=== PATIENT | female | born 1950 | race Caucasian/White ===

== ENCOUNTER → 2017-11-26 14:09 | Outpatient (CLI) | payer MEDICARE, OTHER, SELFPAY ==
--- NOTE | 2017-11-26 | OV.WND_ITS ---
Progress Note Details Patient Name: Angelica Vital Patient Number: [id number] PatientPatientDate: 11/26/2017 Clinician: Carrie Severino Physician / Director Appointment: Kaushik Arias SUBJECTIVE Chief Complaint This information was obtained from the patient Mohs procedure to L lower leg 11/19/17 Allergies NKDA HPI This information was obtained from the patient 11/26/17. Seen by Dr. Arias. The patient's new to our clinic and presents with a left lower leg surgical wound following a Mohs procedure for excision of a squamous cell carcinoma. Due to the size of the wound it will heal through secondary intention. The patient does not report pain or significant drainage and is currently on Keflex. 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 Surgical History This information was obtained from the patient Patient has a surgical history of: Left total hip Complaints and Symptoms This information was obtained from the patient Patient complains of: General Notes: I have reviewed and concur with the Review of Systems and Past Family Social History documents completed by the clinician, I have reviewed and concur with the Wound Assessment document completed by the clinician Cardiovascular (Central/Peripheral): Lower extremity (leg) swelling Hematologic/Lymphatic: Bleeding Tendency Prior Wound History: Bleeding Patient denies complaints or symptoms related to: Cardiovascular (Central/Peripheral): Intermittent Claudication, Lower extremity (leg) resting pain Constitutional Symptoms (General Health): Chills, Fever Ear/Nose/Mouth/Throat: Hearing Loss / Aid Hematologic/Lymphatic: Bleeding / Clotting Disorders Musculoskeletal: Assistive Devices Neurological: Loss of Protective Sensation Prior Wound History: Drainage, Pain Respiratory: Shortness of Breath General Notes: Up to date per patient Medications Lipitor 80 mg tablet oral tablet oral once daily lisinopril 20 mg tablet oral tablet oral once daily Toprol XL 100 mg tablet,extended release oral tablet extended release 24 hr oral once daily Keflex 500 mg capsule oral capsule oral twice daily OBJECTIVE Constitutional BP elevated; Afebrile; Alert and in no distress. Well developed. Alert. Clean appearing.. Height/Length: 64 in (162.56 cm), Weight: 158 lbs (71.82 kgs), BMI: 27.1, Temperature: 97.8 ?F (36.56 ?C), Pulse: 62 bpm, Respiratory Rate: 18 breaths/min, Blood Pressure: 158/73 mmHg, Pulse Oximetry: 97 %. Ears, Nose, Mouth, and Throat: No clinically significant hearing loss on informal examination. Respiratory: No respiratory distress. Even respirations and without use of accessory muscles.. Cardiovascular: 1+ left lower extremity edema. Integumentary (Hair, Skin) No periwound erythema, warmth, or significant drainage. No periwound rashes appreciated or noted otherwise.. Refer to appropriate clinician wound documentation for this visit; left lower leg wound extends to subcut with base partially covered with pink granulation, remainder fibrin and slough. Wound #1 Left Leg is an acute Partial Thickness Surgical Wound and has received a status of Not Healed. Initial wound encounter measurements are 1.5cm length x 1.3cm width x 0.1cm depth, with an area of 1.95 sq cm and a volume of 0.195 cubic cm. No tunneling has been noted. No sinus tract has been noted. No undermining has been noted. There was no drainage noted. The patient reports a wound pain of level 0/10. The wound margin is attached. Wound bed has No epithelialization, Yes eschar, No slough, No granulation. The periwound skin texture is normal. The periwound skin moisture is normal. The periwound skin color is normal. The temperature of the periwound skin is WNL. Periwound skin does not exhibit signs or symptoms of infection. Local Pulse is Palpable. Neurological: Cranial nerves grossly intact with symmetric function normal by informal observation.. ASSESSMENT Active Problems ICD-10 (Encounter Diagnosis) S81.802D - Unspecified open wound, left lower leg, subsequent encounter (Encounter Diagnosis) T81.31XD - Disruption of external operation (surgical) wound, not elsewhere classified, subsequent encounter (Encounter Diagnosis) C44.729 - Squamous cell carcinoma of skin of left lower limb, including hip PROCEDURES Wound #1 Wound #1 (Surgical Wound) is located on the left leg. A skin/subcutaneous tissue level surgical debridement with a total area debrided of 1.95 sq cm was performed by Kaushik Arias MD. Subcutaneous and Product were removed along with devitalized tissue: exudate and slough. The following instrument(s) were used: curette and forceps. Pain control was achieved using 4% Lido. A time out was conducted prior to the start of the procedure. A minimal amount of bleeding was controlled with n/a. The procedure was tolerated well with a pain level of 0 throughout and a pain level of 0 following the procedure. Post Debridement Measurements: 1.5cm length x 1.3cm width x 0.2cm depth; with an area of 1.95 sq cm and a volume of 0.39 cubic cm; Additional Information Muscle fascia or bone removed and sent to pathology?: No PLAN Wound Orders: Wound #1 Left Leg Anesthetic Topical Xylocaine to wound bed. - In clinic only Cleanser Cleanse Wound: - Normal saline in clinic. May use distilled water at home May Shower. - Please avoid getting tap water in wound. Cover while in shower. May use a cast protector purchased from pharmacy Topical Treatments Antibiotic/Antimicrobial Ointment/Cream. - Hydrogel to wound base with dressing changes Dressings Primary dressing: - Nexcare band aide Change Dressing: - Every other day Additional Orders: Compression/Edema Control Avoid prolonged standing in one place. Single Layer Compression Wrap: Follow-Up Appointments Return Appointment: - - One week Other information: If you develop fever, chills, increased pain, drainage, redness or swelling please call our office. If after hours, respond to the ER. Should you experience any significant changes in your wound(s) or have any questions regarding your home care instructions please contact the wound center @ [phone]. If after hours, contact your primary care physician or go to the hospital emergency room. Scribing Attestation I attest, as the nurse, that I scribed these orders for the physician. I've reviewed the clinician's documentation and agree with the evaluation and plan as written. In addition the patient's wound demonstrates evidence of non-viable devitalized tissue which will continue to benefit from sharp debridement to help promote granulation and expedite healing. Electronic Signature(s) Signed By: Date: Kaushik Arias MD 11/27/2017 12:00:44 Entered By: Kaushik Arias on 11/27/2017 11:59:55
== END ==
PROVIDERS: PCP Internal Medicine; Visit Provider Internal Medicine
DX: S81.802D Unspecified open wound, left lower leg, subsequent encounter (principal); T81.31XD Disruption of external operation (surgical) wound, not elsewhere classified, subsequent encounter; C44.729 Squamous cell carcinoma of skin of left lower limb, including hip
CPT/HCPCS: 11042; 99213

== ENCOUNTER → 2017-12-03 14:59 | Outpatient (CLI) | payer MEDICARE, OTHER, SELFPAY ==
--- NOTE | 2017-12-03 | OV.WND_ITS ---
Progress Note Details Patient Name: Angelica Vital Patient Number: [id number] PatientPatientDate: 12/03/2017 Clinician: Radha West Clinician Cosigner: Shayna Díaz Physician / Screw Machine Tool Setter: Kaushik Arias SUBJECTIVE Chief Complaint This information was obtained from the patient Mohs procedure to L lower leg 11/19/17 Allergies NKDA HPI This information was obtained from the patient 12/03/17. Seen by Dr. Arias. The patient does not report pain or significant drainage associated with the left lower leg surgical wound since her last visit. 11/26/17. Seen by Dr. Arias. The patient's new to our clinic and presents with a left lower leg surgical wound following a Mohs procedure for excision of a squamous cell carcinoma. Due to the size of the wound it will heal through secondary intention. The patient does not report pain or significant drainage and is currently on Keflex. Past Medical History This information was obtained from the patient Patient has a medical history of: Skin cancer Hypertension Complaints and Symptoms This information was obtained from the patient Patient complains of: General Notes: I have reviewed and concur with the Review of Systems and Past Family Social History documents completed by the clinician, I have reviewed and concur with the Wound Assessment document completed by the clinician Cardiovascular (Central/Peripheral): Lower extremity (leg) swelling Hematologic/Lymphatic: Bleeding Tendency Prior Wound History: Bleeding Patient denies complaints or symptoms related to: Cardiovascular (Central/Peripheral): Intermittent Claudication, Lower extremity (leg) resting pain Constitutional Symptoms (General Health): Chills, Fever Ear/Nose/Mouth/Throat: Hearing Loss / Aid Hematologic/Lymphatic: Bleeding / Clotting Disorders Musculoskeletal: Assistive Devices Neurological: Loss of Protective Sensation Prior Wound History: Drainage, Pain Respiratory: Shortness of Breath Additional Information Does patient have a history of Cancer? Yes? Complete all questions.: Yes Location of Cancer: left Leg Patient underwent Radiation Treatment? If yes, answer question below.: No OBJECTIVE Constitutional BP elevated; Afebrile; Alert and in no distress. Well developed. Alert. Clean appearing.. Height/Length: 64 in (162.56 cm), Weight: 158 lbs (71.82 kgs), BMI: 27.1, Temperature: 98.1 ?F (36.72 ?C), Pulse: 62 bpm, Respiratory Rate: 17 breaths/min, Blood Pressure: 141/71 mmHg, Pulse Oximetry: 98 %. Ears, Nose, Mouth, and Throat: No clinically significant hearing loss on informal examination. Respiratory: No respiratory distress. Even respirations and without use of accessory muscles.. Integumentary (Hair, Skin) No periwound erythema, warmth, or significant drainage. No periwound rashes appreciated or noted otherwise.. Refer to appropriate clinician wound documentation for this visit; left lower leg wound extends to subcut with base partially covered with pink granulation, remainder fibrin and slough. Wound #1 Left Leg is an acute Partial Thickness Surgical Wound and has received a status of Not Healed. Subsequent wound encounter measurements are 1.5cm length x 1.4cm width x 0.4cm depth, with an area of 2.1 sq cm and a volume of 0.84 cubic cm. No tunneling has been noted. No sinus tract has been noted. No undermining has been noted. There is a small amount of serosanguineous drainage noted which has no odor. The patient reports a wound pain of level 0/10. The wound margin is attached. Wound bed has Yes epithelialization, Yes eschar, Yes slough, Yes bright red, pink, firm granulation. The periwound skin texture is normal. The periwound skin moisture is normal. The periwound skin color is normal. The temperature of the periwound skin is WNL. Periwound skin does not exhibit signs or symptoms of infection. Local Pulse is Palpable. Neurological: Cranial nerves grossly intact with symmetric function normal by informal observation.. ASSESSMENT Active Problems ICD-10 (Encounter Diagnosis) S81.802D - Unspecified open wound, left lower leg, subsequent encounter (Encounter Diagnosis) T81.31XD - Disruption of external operation (surgical) wound, not elsewhere classified, subsequent encounter PROCEDURES Wound #1 Wound #1 (Surgical Wound) is located on the left leg. A skin/subcutaneous tissue level surgical debridement with a total area debrided of 2.1 sq cm was performed by Kaushik Arias MD. Subcutaneous was removed along with devitalized tissue: necrotic/eschar and slough. The following instrument(s) were used: curette. Pain control was achieved using 4% Lido. A time out was conducted prior to the start of the procedure. A minimal amount of bleeding was controlled with n/a. The procedure was tolerated well with a pain level of 0 throughout and a pain level of 0 following the procedure. Post Debridement Measurements: 1.5cm length x 1.4cm width x 0.5cm depth; with an area of 2.1 sq cm and a volume of 1.05 cubic cm; Additional Information Muscle fascia or bone removed and sent to pathology?: No PLAN Wound Orders: Wound #1 Left Leg Anesthetic Topical Xylocaine to wound bed. - In clinic only Cleanser Cleanse Wound: - Normal saline in clinic. May use distilled water at home May Shower. - Please avoid getting tap water in wound. Cover while in shower. May use a cast protector purchased from pharmacy Topical Treatments Antibiotic/Antimicrobial Ointment/Cream. - Hydrogel to wound base with dressing changes Dressings Primary dressing: - Nexcare band aide Change Dressing: - Every other day Additional Orders: Compression/Edema Control Avoid prolonged standing in one place. Single Layer Compression Wrap: Follow-Up Appointments Return Appointment: - - One week Other information: If you develop fever, chills, increased pain, drainage, redness or swelling please call our office. If after hours, respond to the ER. Should you experience any significant changes in your wound(s) or have any questions regarding your home care instructions please contact the wound center @ [phone]. If after hours, contact your primary care physician or go to the hospital emergency room. Scribing Attestation I attest, as the nurse, that I scribed these orders for the physician. I've reviewed the clinician's documentation and agree with the evaluation and plan as written. In addition the patient's wound demonstrates evidence of non-viable devitalized tissue which will continue to benefit from sharp debridement to help promote granulation and expedite healing. Electronic Signature(s) Signed By: Date: Kaushik Arias MD 12/04/2017 09:38:07 Entered By: Kaushik Arias on 12/04/2017 06:50:34
== END ==
PROVIDERS: PCP Internal Medicine; Visit Provider Internal Medicine
DX: S81.802A Unspecified open wound, left lower leg, initial encounter (principal); T81.31XA Disruption of external operation (surgical) wound, not elsewhere classified, initial encounter
CPT/HCPCS: 11042

== ENCOUNTER → 2017-12-10 15:02 | Outpatient (CLI) | payer MEDICARE, OTHER, SELFPAY | PROVIDERS: PCP Internal Medicine; Visit Provider Family Medicine | DX: S81.802A Unspecified open wound, left lower leg, initial encounter (principal); T81.31XA Disruption of external operation (surgical) wound, not elsewhere classified, initial encounter | CPT/HCPCS: 11042; 93922; 99213 ==

== ENCOUNTER → 2017-12-17 14:01 | Outpatient (CLI) | payer MEDICARE, OTHER, SELFPAY | PROVIDERS: PCP Internal Medicine; Visit Provider Family Medicine | DX: S81.802A Unspecified open wound, left lower leg, initial encounter (principal); T81.31XA Disruption of external operation (surgical) wound, not elsewhere classified, initial encounter | CPT/HCPCS: 11042 ==

== ENCOUNTER → 2017-12-28 08:26 | Outpatient (CLI) | payer MEDICARE, OTHER, SELFPAY | PROVIDERS: PCP Internal Medicine; Visit Provider Family Medicine | DX: S81.802A Unspecified open wound, left lower leg, initial encounter (principal); T81.31XA Disruption of external operation (surgical) wound, not elsewhere classified, initial encounter | CPT/HCPCS: 11042 ==

== ENCOUNTER → 2017-12-29 11:10 | Outpatient (CLI) | payer MEDICARE, OTHER, SELFPAY ==
--- NOTE | 2017-12-29 | DI.MG.S_ITS ---
BILATERAL DIGITAL SCREENING MAMMOGRAM 3D/2D WITH CAD: 12/29/2017 CLINICAL: Routine screening. Family history of breast cancer. Comparison is made to exams dated: 12/15/2016 mammogram, 05/07/2016 mammogram, 11/28/2015 mammogram, and 11/19/2015 mammogram - [facility]. There are scattered fibroglandular elements in both breasts. Current study was also evaluated with a Computer Aided Detection (CAD) system. No significant masses, calcifications, or other findings are seen in either breast. There has been no significant interval change. IMPRESSION: NEGATIVE There is no mammographic evidence of malignancy. A 1 year screening mammogram is recommended. This exam was interpreted at Station ID: [id number]. NOTE: For mammograms, a report in lay terms will be sent to the patient. Approximately 15% of breast malignancies will not be visualized mammographically. In the management of a palpable breast mass, a negative mammogram must not discourage biopsy of a clinically suspicious lesion. Electronically Signed By: Anel singh/siddharth:12/29/2017 12:13:09 letter sent: Normal Exam ACR BI-RADS Category 1: Negative 3341F
== END ==
PROVIDERS: PCP Internal Medicine; Visit Provider Internal Medicine
DX: Z12.31 Encounter for screening mammogram for malignant neoplasm of breast (principal); Z80.3 Family history of malignant neoplasm of breast
CPT/HCPCS: 77063; 77067

== ENCOUNTER → 2017-12-30 10:43 | Outpatient (CLI) | payer MEDICARE, OTHER, SELFPAY | PROVIDERS: PCP Internal Medicine; Visit Provider Family Medicine | DX: S81.802A Unspecified open wound, left lower leg, initial encounter (principal); T81.31XA Disruption of external operation (surgical) wound, not elsewhere classified, initial encounter | CPT/HCPCS: 29581 ==

== ENCOUNTER → 2018-01-06 09:58 | Outpatient (CLI) | payer MEDICARE, OTHER, SELFPAY | PROVIDERS: PCP Internal Medicine; Visit Provider Family Medicine | DX: S81.802A Unspecified open wound, left lower leg, initial encounter (principal); T81.31XA Disruption of external operation (surgical) wound, not elsewhere classified, initial encounter | CPT/HCPCS: 11042 ==

== ENCOUNTER → 2018-01-13 15:16 | Outpatient (CLI) | payer MEDICARE, OTHER, SELFPAY | PROVIDERS: PCP Internal Medicine; Visit Provider Family Medicine | DX: S81.802A Unspecified open wound, left lower leg, initial encounter (principal); T81.31XA Disruption of external operation (surgical) wound, not elsewhere classified, initial encounter | CPT/HCPCS: 11042 ==

== ENCOUNTER → 2018-01-20 14:25 | Outpatient (CLI) | payer MEDICARE, OTHER, SELFPAY | PROVIDERS: PCP Internal Medicine; Visit Provider Family Medicine | DX: S81.802A Unspecified open wound, left lower leg, initial encounter (principal); T81.31XA Disruption of external operation (surgical) wound, not elsewhere classified, initial encounter | CPT/HCPCS: 29581; 99213 ==

== ENCOUNTER → 2018-01-27 14:27 | Outpatient (CLI) | payer MEDICARE, OTHER, SELFPAY | PROVIDERS: PCP Internal Medicine; Visit Provider Family Medicine | DX: S81.802A Unspecified open wound, left lower leg, initial encounter (principal); T81.31XA Disruption of external operation (surgical) wound, not elsewhere classified, initial encounter | CPT/HCPCS: 29581; 99212; 99213 ==

== ENCOUNTER → 2018-02-03 13:47 | Outpatient (CLI) | payer MEDICARE, OTHER, SELFPAY | PROVIDERS: PCP Internal Medicine; Visit Provider Family Medicine | DX: Z48.817 Encounter for surgical aftercare following surgery on the skin and subcutaneous tissue (principal) | CPT/HCPCS: 99212; 99213 ==

== ENCOUNTER → 2019-01-13 16:05 | Outpatient (CLI) | payer MEDICARE, OTHER, SELFPAY ==
--- NOTE | 2019-01-13 | DI.MG.S_ITS ---
BILATERAL DIGITAL SCREENING MAMMOGRAM 3D/2D WITH CAD: 01/13/2019 CLINICAL: Routine screening. Family history of breast cancer. Comparison is made to exams dated: 12/29/2017 mammogram, 12/15/2016 mammogram, 11/19/2015 mammogram, 11/03/2013 mammogram - [facility], and 05/13/2012 mammogram - [facility]. The tissue of both breasts is heterogeneously dense. This may lower the sensitivity of mammography. Current study was also evaluated with a Computer Aided Detection (CAD) system. No significant masses, calcifications, or other findings are seen in either breast. There has been no significant interval change. IMPRESSION: NEGATIVE There is no mammographic evidence of malignancy. A 1 year screening mammogram is recommended. This exam was interpreted at Station ID: [id number]. NOTE: For mammograms, a report in lay terms will be sent to the patient. Approximately 15% of breast malignancies will not be visualized mammographically. In the management of a palpable breast mass, a negative mammogram must not discourage biopsy of a clinically suspicious lesion. Electronically Signed By: Dheeraj silva/siddharth:01/14/2019 07:28:31 letter sent: Normal Exam ACR BI-RADS Category 1: Negative 3341F
== END ==
PROVIDERS: PCP Internal Medicine; Visit Provider Internal Medicine
DX: Z12.31 Encounter for screening mammogram for malignant neoplasm of breast (principal); Z80.3 Family history of malignant neoplasm of breast
CPT/HCPCS: 77063; 77067

== ENCOUNTER → 2019-12-22 13:17 | Outpatient (ROUT) | payer MEDICARE, OTHER, SELFPAY ==
[2019-12-22 13:45] LABS: Aspartate Aminotransferase 35 IU/L (14-36); BUN Creatinine Ratio 24.8 (6-22); Blood Urea Nitrogen 25 mg/dL (7-17); Calcium 9.3 mg/dL (8.4-10.2); Carbon Dioxide 26 mmol/L (22-32); Chloride 102 mmol/L (98-107); Cholesterol 201 mg/dL (140-199); Glucose 89 mg/dL (80-110); HDL Cholesterol 80 mg/dL (40-60); HEMOLYSIS < 15 (0-50); LDL Cholesterol Calculated 91 mg/dL (<100); Potassium 4.7 mmol/L (3.4-5.1); Sodium 135 mmol/L (137-145); Triglycerides 149 mg/dL (35-150)
== END ==
PROVIDERS: PCP Internal Medicine; Visit Provider Internal Medicine
DX: I10 Essential (primary) hypertension (principal); E78.2 Mixed hyperlipidemia
CPT/HCPCS: 80048; 80061; 84450

== ENCOUNTER → 2020-01-16 15:57 | Outpatient (CLI) | payer MEDICARE, OTHER, SELFPAY ==
--- NOTE | 2020-01-16 16:00 | DI.MG.S_ITS ---
BILATERAL DIGITAL SCREENING MAMMOGRAM 3D/2D WITH CAD: 01/16/2020 CLINICAL: Routine screening. Family history of breast cancer. Comparison is made to exams dated: 01/13/2019 mammogram, 12/29/2017 mammogram, and 12/15/2016 mammogram - [facility]. The tissue of both breasts is heterogeneously dense. This may lower the sensitivity of mammography. Current study was also evaluated with a Computer Aided Detection (CAD) system. There is a 0.6 cm round high density asymmetry in the right breast posterior depth medial region seen on the craniocaudal view only 9.2 cm from the nipple. No other significant masses, calcifications, or other findings are seen in either breast. IMPRESSION: INCOMPLETE: NEEDS ADDITIONAL IMAGING EVALUATION The 0.6 cm round high density asymmetry in the right breast is indeterminate. Additional views with possible ultrasound are recommended. This exam was interpreted at Station ID: [id number]. NOTE: For mammograms, a report in lay terms will be sent to the patient. Approximately 15% of breast malignancies will not be visualized mammographically. In the management of a palpable breast mass, a negative mammogram must not discourage biopsy of a clinically suspicious lesion. Electronically Signed By: Jourdan Platt M.D., jr/siddharth:01/16/2020 16:20:02 letter sent: Additional Imaging Needed ACR BI-RADS Category 0: Incomplete [id number]
== END ==
PROVIDERS: PCP Internal Medicine; Referring Provider Internal Medicine; Visit Provider Internal Medicine
DX: Z12.31 Encounter for screening mammogram for malignant neoplasm of breast (principal)
CPT/HCPCS: 77063; 77067

== ENCOUNTER → 2020-03-20 11:14 | Outpatient (CLI) | payer MEDICARE, OTHER, SELFPAY ==
--- NOTE | 2020-03-20 | DI.MRI.S_ITS ---
PROCEDURE: MR SHOULDER RT WO CON INDICATIONS: Dysfunction of right rotator cuff TECHNIQUE: Noncontrast oblique coronal T2 fast spin echo with fat saturation, oblique sagittal T1 spin echo and T2 fast spin echo with fat saturation, axial T1 spin echo and T2 fast spin echo with fat saturation through the shoulder. COMPARISON: None. FINDINGS: Image quality: Excellent. Rotator cuff: Full-thickness rupture involving distal supraspinatus at its insertion on the humeral head is seen with up to 3 centimeter medial retraction of torn tendon fibers to the level of acromioclavicular joint. Tendinosis and low to moderate grade articular surface partial thickness tear involving distal infraspinatus at its insertion on the humeral head is seen. Distal subscapularis tendinosis and low to moderate grade intrasubstance partial-thickness tear is also noted. Sagittal images demonstrate moderate supraspinatus and subscapularis muscle atrophy. Bones and bursae: No bone marrow contusions or fractures. Moderate acromioclavicular joint osteoarthritic changes are seen with downward osteophyte formation depressing the musculotendinous junction of supraspinatus. There is moderate amount of joint effusion and subacromial subdeltoid bursal fluid. Capsule and soft tissues: In the absence of intra-articular contrast, there is subtle signal abnormality and contour irregularity in superior anterior labrum at 12 to 1 o'clock position. The glenohumeral ligaments appear intact. The long head of the biceps tendinosis and moderate grade intrasubstance partial-thickness tear is seen. The rotator interval appears normal, without fibrosis. The coracohumeral ligament is normal in thickness. IMPRESSION: 1. Full-thickness rupture involving distal supraspinatus at its insertion on the humeral head with up to 3 cm medial retraction of torn tendon fibers to the level of acromioclavicular joint. Tendinosis and low to moderate grade articular surface partial thickness tear involving distal infraspinatus. Distal subscapularis tendinosis and low to moderate grade partial-thickness tear. Moderate supraspinatus and subscapularis muscle atrophy. 2. Moderate acromioclavicular joint osteoarthritis. Moderate amount of joint effusion and subacromial subdeltoid bursal fluid. 3. Suggestion of superior anterior labral tear at 12 to 1 o'clock position. 4. Proximal intra-articular portion of long head of biceps tendinosis and low to moderate grade intrasubstance partial-thickness tear. Dictated by: Saravanan Gaona M.D. on 03/20/2020 at 17:21 Approved by: Saravanan Gaona M.D. on 03/20/2020 at 17:31
== END ==
PROVIDERS: PCP Internal Medicine; Referring Provider Orthopaedic Surgery; Visit Provider Orthopaedic Surgery
DX: M75.121 Complete rotator cuff tear or rupture of right shoulder, not specified as traumatic (principal); S46.111A Strain of muscle, fascia and tendon of long head of biceps, right arm, initial encounter; M19.011 Primary osteoarthritis, right shoulder; M25.411 Effusion, right shoulder
CPT/HCPCS: 73221

== ENCOUNTER → 2020-07-09 08:51 | Outpatient (CLI) | payer MEDICARE, OTHER, SELFPAY ==
[2020-07-09 10:24] LABS: Bacteria Urine Many (>30); Culture Indicated Urine Specimen Cultured; RBC Urine >100/HPF (0-5/HPF); WBC Urine 30-100/HPF (0-5/HPF)
== END ==
PROVIDERS: Family Provider Internal Medicine; PCP Internal Medicine; Visit Provider Student in an Organized Health Care Education/Training Program
DX: N34.3 Urethral syndrome, unspecified (principal); N12 Tubulo-interstitial nephritis, not specified as acute or chronic
CPT/HCPCS: 81015; 87077; 87086; 87186

== ENCOUNTER 2020-07-25 15:15 | Outpatient (RCR) | payer MEDICARE, OTHER, SELFPAY ==
--- NOTE | 2020-03-28 15:52 | PT.OIE ---
Current Diagnoses Other specific arthropathies, not elsewhere classified, right shoulder (03/28/20) Other cervical disc degeneration, unspecified cervical region (03/28/20) Abnormal posture (03/28/20) Strain of muscle, fascia and tendon of other parts of biceps, right arm, initial encounter (03/28/20) Visit Care Team Role Provider Type Pascual Garcia MD Family Provider Physician Primary Care Provider Specialty: Internal Medicine Address: [address] [place] [address], [id number] Email: [email or web address] Dheeraj Mederos MD Attending Provider Physician Referring Provider Specialty: Orthopedic Surgery Address: [address] [place] [address], [phone] Email: [email or web address] Physical Therapy Initial Evaluation PT-OP-A Visit Information Start: 03/28/20 13:47 Freq: Status: Active Protocol: Document 03/28/20 13:47 AW (Rec: 03/28/20 17:42 AW [email or web address]) Out-Patient Physical Therapy Visit Information Visit Information Visit Type Initial Evaluation Visit Start Time 13:45 Visit Stop Time 14:30 Total Visit Minutes 45 Visit Number 1 Number of 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 She is right handed. Neck pain interferes with driving. 1.5 years ago, she was pushing heavy wheelbarrow which fell, resulting in proximal biceps swelling, weakness. No tear was diagnosed. In May of 2019, she started doing Pilates workouts by [employer] and started to have ongoing neck pain so she stopped the workouts. She describes the pain as deep and aching. Meanwhile, right shoulder pain was increasing. MRI was completed on 03/20/20 with results below including full thickness distal suprasinatus rupture and partial thickness tear proximal long head biceps tendon, possible labral year. She saw Dr. Mederos last week who does not think she is a surgical candidate due to chronicity. Instead, she was referred to PT. Her biggest problem is lifting with the arm in scaption or abduction. Pain wakes her up at night if she is sleeping on the right side. Prior Treatments and Tests MRI 03/20/20: 1. Full-thickness rupture involving distal supraspinatus at its insertion on the humeral head with up to 3 cm medial retraction of torn tendon fibers to the level of acromioclavicular joint. Tendinosis and low to moderate grade articular surface partial thickness tear involving distal infraspinatus. Distal subscapularis tendinosis and low to moderate grade partial- thickness tear. Moderate supraspinatus and subscapularis muscle atrophy. 2. Moderate acromioclavicular joint osteoarthritis. Moderate amount of joint effusion and subacromial subdeltoid bursal fluid. 3. Suggestion of superior anterior labral tear at 12 to 1 o'clock position. 4. Proximal intra-articular portion of long head of biceps tendinosis and low to moderate grade intrasubstance partial- thickness tear. 03/21/20: shoulder injection Future Testing and Treatments Planned Seek second opinion on possible surgery. Treatment Goals Patient/Caregiver Goals Reduce neck and shoulder pain. Feed horses with 4# feed - reaching across and extend arm in scaption plane. Prior Functional Status Baseline Function- ADL's Independent Baseline Function- Mobility Independent Baseline Function- Work/School Pt and her spouse recently sold the local [employer]. 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 Baseline Function- Other Able to tend to her horses and perform heavy gardening tasks . Current Functional Impairments (Reported) Functional Limitations- Other Unable to lift and pour ~4# animal feed with arm outstretched. Personal Factors Other Personal Factors That May Effect + Positive association with Therapy/Recovery movement PT-OP-C Subjective Start: 03/28/20 13:47 Freq: Status: Active Protocol: Document 03/28/20 13:47 AW (Rec: 03/28/20 17:42 AW [email or web address]) Patient Questionnaires Quick Dash- Upper Extremity Quick Dash UE Score 32 Quick Dash UE Impairment 20 to 39% Impaired (Score 20- 39) PT-OP-F Manual Assessment Start: 03/28/20 13:47 Freq: Status: Active Protocol: Document 03/28/20 13:47 AW (Rec: 03/28/20 17:42 AW [email or web address]) Manual Assessments Soft Tissue Assessment Soft Tissue Mobility Assessment Moderately dense cervical paraspinals and periscapular musculature bilaterally. Pt is thin but muscle atrophy is apparent in right shoulder and biceps. Ko deformity noted RUE. Joint Mobility Assessment Joint Mobility Assessment A/C gapping not provocative or relieving. No point tenderness at proximal humerus . Pt does have strong reaction to deep palpation of the right rhomboids. PT-OP-H Neuro Start: 03/28/20 13:47 Freq: Status: Active Protocol: Document 03/28/20 13:47 AW (Rec: 03/28/20 17:42 AW [email or web address]) Sensation Evaluation Gross Sensation Gross Sensation Left UE Impaired Comments Summary Comments Pt reports occasional tingling in the left hand but is not reproduced on exam. Deep Tendon Reflex & Clonus Assessment Deep Tendon Reflex Bilateral Tricep Deep Tendon Reflex 1+ Diminished Bilateral Bicep Deep Tendon Reflex 3+ Normal But Brisk PT-OP-J Posture/Palpation/Skin Start: 03/28/20 13:47 Freq: Status: Active Protocol: Document 03/28/20 13:47 AW (Rec: 03/28/20 17:42 AW [email or web address]) Posture Evaluation Position Sitting Evaluation View Lateral Head/C-Spine Posture Forward Head Shoulder Posture (L) Rounded,(R) Rounded Scapula Posture (R) Protracted PT-OP-K Range of Motion Start: 03/28/20 13:47 Freq: Status: Active Protocol: Document 03/28/20 13:47 AW (Rec: 03/28/20 17:42 AW [email or web address]) Cervical Spine Range of Motion Cervical Spine Active Degrees Testing Position Sitting Flexion 45 Extension 50 Rotation Left 40 Rotation Right 45 Lateral Flexion Left 33 Lateral Flexion Right 36 ROM Limitations Soft Tissue Tightness,Pain Comments Right side bend and rotation painful Shoulder Goniometric Range of Motion Shoulder Left Active Testing Position Sitting Flexion 159 Extension 45 Abduction 166 Internal Rotation Behind Back (text) T8 Comments B shoulder PROM WFL Right Active Testing Position Sitting Flexion 160 Extension 45 Abduction 165 Internal Rotation Behind Back (text) L1 Shoulder ROM Limitations Shoulder ROM Limitations Soft Tissue Tightness,Pain Elbow/Forearm Range of Motion Elbow/Forearm Right Active Comments B elbow AROM WNL PT-OP-L Special Tests Start: 03/28/20 13:47 Freq: Status: Active Protocol: Document 03/28/20 13:47 AW (Rec: 03/28/20 17:47 AW [email or web address]) Special Tests Cervical Spine Special Tests Spurling's Test Test Results negative bilaterally PT-OP-M Strength Start: 03/28/20 13:47 Freq: Status: Active Protocol: Document 03/28/20 13:47 AW (Rec: 03/28/20 17:47 AW [email or web address]) Cervical Spine Strength Cervical Spine Manual Muscle Testing Testing Position Sitting Flexion (C1-2) 4- Good- Extension 4- Good- Rotation Left 4- Good- Rotation Right 4- Good- Lateral Flexion Left (C3) 4- Good- Lateral Flexion Right (C3) 4- Good- Shoulder Strength Shoulder Manual Muscle Testing Left Flexion 4+ Good+ Extension 4+ Good+ Abduction (C5) 4+ Good+ Adduction 4+ Good+ External Rotation 4+ Good+ Internal Rotation 4+ Good+ Right Flexion 3+ Fair+ Extension 4 Good Abduction (C5) 3+ Fair+ Adduction 4+ Good+ External Rotation 4- Good- Internal Rotation 4+ Good+ Elbow/Forearm Strength Elbow and Forearm Manual Muscle Testing Right Flexion (C6) 4- Good- Extension (C7) 4- Good- Hand Combination Man/Pinch Strength Hand Dominance Hand Dominance Right PT-OP-Q Treatments Start: 03/28/20 13:47 Freq: Status: Active Protocol: Document 03/28/20 13:47 AW (Rec: 03/28/20 17:47 AW [email or web address]) Manual Therapy Treatment Soft Tissue Mobilization 1 Body Location cervical paraspinals, suboccipitals, rhomboids, infraspinatus insertion Mobilization Type Cross-Friction,Myofascial Release,Sustained Pressure Intensity/Depth Superficial Body Position Hooklying Comments With MET into rotation bilaterally. I feel like you just opened me up a little bit . Manual Traction Cervical Body Position Hooklying Reps/Duration 5 min Comments relieving for neck pain PT-OP-T Assessment and Plan Start: 03/28/20 13:47 Freq: Status: Active Protocol: Document 03/28/20 13:47 AW (Rec: 03/28/20 17:59 AW [email or web address]) Physical Therapy Assessment Rehab Potential Rehabilitation Potential Good Evaluation Complexity Number of Personal Factors/Comorbidities 1-2 Number of Body Systems Impaired 1-2 Clinical Presentation at Evaluation Stable Impairments Impairments Functional Activities,Pain, Posture,ROM,Sensation,Soft Tissue Mobility,Strength Other Concerns Barriers to Rehabilitation (-) chronicity of deficits( (+) positive association with movement Goals Four Impairment neck/shoulder pain impact daily activities Raw Hide Trimmer Goal (LTG) Pt will score 20% or less on QuickDash to indicate improvement in performance of daily activities. LTG Duration 06/20/20 Three Impairment no HEP Short Term Goal (STG) Pt will be independent with HEP for support of therapy services provided in clinic. STG Duration 05/09/20 Mcfp Goal (LTG) Pt will demonstrate independence with maintenance HEP LTG Duration 06/20/20 Two Impairment RUE strength Short Term Goal (STG) Pt will increase R shoulder strength to 4+/5 all planes STG Duration 05/09/2020 Raw Hide Trimmer Goal (LTG) Pt will be able to lift 5# in scaption plane with elbow extended in order to improve ability to care for her horses . LTG Duration 06/20/20 One Impairment cervical ROM Mcfp Goal (LTG) Pt will increase cervical rotation to 50 degrees or greater bilaterally without increase in pain to improve driving tolerance. LTG Duration 06/20/20 Assessment Summary Assessment Angelica is a 69yo woman seen for outpatient PT evaluation with complaints of neck and right shoulder pain. Recent MRI results include full thickness distal supraspinatus rupture, partial thickness tear of the proximal long head biceps tendon, and possible labral tear. She saw orthopedic physician who indicated pt is not a good surgical candidate; pt is considering seeking a second opinion. Right shoulder internal rotation ROM and external rotation strength is limited and painful. Cervical ROM is also limited and painful. Pain is worst with right side bend and right rotation. Pt will benefit from skilled PT to address these deficits and improve her ability to participate in work , agricultural, and recreational activities. Physical Therapy Plan Frequency and Duration Frequency of Treatment 2x/Week Duration of Treatment 12 weeks Plan of Care Start Date 03/28/20 Plan of Care End Date 06/20/20 Therapeutic Interventions Therapeutic Interventions Home Exercise Program,Joint Mobilizations,Manual Therapy, Neuromuscular Re-education, Patient/Caregiver Education, Self-Care/Home Management,Soft Tissue Mobilization,Taping, Therapeutic Activities, Therapeutic Exercises Modalities Cold Pack/Ice Massage,Electric Stimulation,Hot Packs, Traction- Mechanical Next Visit Focus/Plan Next Note Type Treatment Note Next Visit Plan STM cervical and R shoulder, pt responds well to manual cervical traction and work into rotation with MET or contract/relax; cervical AROM; shoulder AAROM
--- NOTE | 2020-03-28 15:53 | PT.OPPOC ---
Physical, Occupational & Speech Therapy At [facility] Current Diagnoses Other specific arthropathies, not elsewhere classified, right shoulder (03/28/20) Other cervical disc degeneration, unspecified cervical region (03/28/20) Abnormal posture (03/28/20) Strain of muscle, fascia and tendon of other parts of biceps, right arm, initial encounter (03/28/20) Visit Care Team Role Provider Type Pascual Garcia MD Family Provider Physician Primary Care Provider Specialty: Internal Medicine Address: [address] [place] [address], [id number] Email: [email or web address] Dheeraj Mederos MD Attending Provider Physician Referring Provider Specialty: Orthopedic Surgery Address: [address] [place] [address], [id number] Email: [email or web address] Plan Of Care PT-OP-T Assessment and Plan Start: 03/28/20 13:47 Freq: Status: Active Protocol: Document 03/28/20 13:47 AW (Rec: 03/28/20 17:59 AW [email or web address]) Physical Therapy Assessment Rehab Potential Rehabilitation Potential Good Evaluation Complexity Number of Personal Factors/Comorbidities 1-2 Number of Body Systems Impaired 1-2 Clinical Presentation at Evaluation Stable Impairments Impairments Functional Activities,Pain, Posture,ROM,Sensation,Soft Tissue Mobility,Strength Other Concerns Barriers to Rehabilitation (-) chronicity of deficits( (+) positive association with movement Goals Four Impairment neck/shoulder pain impact daily activities Half-Way Goal (LTG) Pt will score 20% or less on QuickDash to indicate improvement in performance of daily activities. LTG Duration 06/20/20 Three Impairment no HEP Short Term Goal (STG) Pt will be independent with HEP for support of therapy services provided in clinic. STG Duration 05/09/20 Half-Way Goal (LTG) Pt will demonstrate independence with maintenance HEP LTG Duration 06/20/20 Two Impairment RUE strength Short Term Goal (STG) Pt will increase R shoulder strength to 4+/5 all planes STG Duration 05/09/2020 Flow Coordinator Goal (LTG) Pt will be able to lift 5# in scaption plane with elbow extended in order to improve ability to care for her horses . LTG Duration 06/20/20 One Impairment cervical ROM Half-Way Goal (LTG) Pt will increase cervical rotation to 50 degrees or greater bilaterally without increase in pain to improve driving tolerance. LTG Duration 06/20/20 Assessment Summary Assessment Angelica is a 69yo woman seen for outpatient PT evaluation with complaints of neck and right shoulder pain. Recent MRI results include full thickness distal supraspinatus rupture, partial thickness tear of the proximal long head biceps tendon, and possible labral tear. She saw orthopedic physician who indicated pt is not a good surgical candidate; pt is considering seeking a second opinion. Right shoulder internal rotation ROM and external rotation strength is limited and painful. Cervical ROM is also limited and painful. Pain is worst with right side bend and right rotation. Pt will benefit from skilled PT to address these deficits and improve her ability to participate in work , agricultural, and recreational activities. Physical Therapy Plan Frequency and Duration Frequency of Treatment 2x/Week Duration of Treatment 12 weeks Plan of Care Start Date 03/28/20 Plan of Care End Date 06/20/20 Therapeutic Interventions Therapeutic Interventions Home Exercise Program,Joint Mobilizations,Manual Therapy, Neuromuscular Re-education, Patient/Caregiver Education, Self-Care/Home Management,Soft Tissue Mobilization,Taping, Therapeutic Activities, Therapeutic Exercises Modalities Cold Pack/Ice Massage,Electric Stimulation,Hot Packs, Traction- Mechanical Next Visit Focus/Plan Next Note Type Treatment Note Next Visit Plan STM cervical and R shoulder, pt responds well to manual cervical traction and work into rotation with MET or contract/relax; cervical AROM; shoulder AAROM Plan of Care Dates Plan of Care Start Date 03/28/20 Plan of Care End Date 06/20/20 Electronically Signed by: Shama Bejarano, PT 03/29/20 0046 Please Sign and Return: I have reviewed this Plan of Care and certify that the skilled therapy services above are required to meet the patient?s needs. Physician Signature Date Printed Name and Credentials Clinical Instructor Signature Printed Name and Credentials
--- NOTE | 2020-03-30 14:45 | PT.OTN ---
Current Diagnoses Other specific arthropathies, not elsewhere classified, right shoulder (03/30/20) Other cervical disc degeneration, unspecified cervical region (03/30/20) Abnormal posture (03/30/20) Strain of muscle, fascia and tendon of other parts of biceps, right arm, initial encounter (03/30/20) Physical Therapy Treatment Note PT-OP-A Visit Information Start: 03/28/20 13:47 Freq: Status: Active Protocol: Document 03/30/20 13:45 SP (Rec: 03/30/20 15:20 SP [id number]) Out-Patient Physical Therapy Visit Information Visit Information Visit Type Treatment Note Visit Note Yuli GARCIAA atttended tx. Visit Start Time 13:45 Visit Stop Time 14:45 Total Visit Minutes 60 Visit Number 2 Number of ENERGY TECHNICIAN Visits 1 PT-OP-B Current Condition Start: 03/28/20 13:47 Freq: Status: Active Protocol: Document 03/28/20 13:47 AW (Rec: 03/28/20 14:50 AW [id number]) Current Condition History of Current Condition Onset Date May 2019 neck; August 2019 R shoulder Current Complaints neck and R shoulder pain History of Current Condition Pt has near-constant neck and right shoulder pain. She is right handed. Neck pain interferes with driving. 1.5 years ago, she was pushing heavy wheelbarrow which fell, resulting in proximal biceps swelling, weakness. No tear was diagnosed. In May of 2019, she started doing Pilates workouts by Z[employer] and started to have ongoing neck pain so she stopped the workouts. She describes the pain as deep and aching. Meanwhile, right shoulder pain was increasing. MRI was completed on 03/20/20 with results below including full thickness distal suprasinatus rupture and partial thickness tear proximal long head biceps tendon, possible labral year. She saw Dr. Mederos last week who does not think she is a surgical candidate due to chronicity. Instead, she was referred to PT. Her biggest problem is lifting with the arm in scaption or abduction. Pain wakes her up at night if she is sleeping on the right side. Prior Treatments and Tests MRI 03/20/20: 1. Full-thickness rupture involving distal supraspinatus at its insertion on the humeral head with up to 3 cm medial retraction of torn tendon fibers to the level of acromioclavicular joint. Tendinosis and low to moderate grade articular surface partial thickness tear involving distal infraspinatus. Distal subscapularis tendinosis and low to moderate grade partial- thickness tear. Moderate supraspinatus and subscapularis muscle atrophy. 2. Moderate acromioclavicular joint osteoarthritis. Moderate amount of joint effusion and subacromial subdeltoid bursal fluid. 3. Suggestion of superior anterior labral tear at 12 to 1 o'clock position. 4. Proximal intra-articular portion of long head of biceps tendinosis and low to moderate grade intrasubstance partial- thickness tear. 03/21/20: shoulder injection Future Testing and Treatments Planned Seek second opinion on possible surgery. Treatment Goals Patient/Caregiver Goals Reduce neck and shoulder pain. Feed horses with 4# feed - reaching across and extend arm in scaption plane. Prior Functional Status Baseline Function- ADL's Independent Baseline Function- Mobility Independent Baseline Function- Work/School Pt and her spouse recently sold the local [employer]. 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 Baseline Function- Other Able to tend to her horses and perform heavy gardening tasks . Current Functional Impairments (Reported) Functional Limitations- Other Unable to lift and pour ~4# animal feed with arm outstretched. Personal Factors Other Personal Factors That May Effect + Positive association with Therapy/Recovery movement PT-OP-C Subjective Start: 03/28/20 13:47 Freq: Status: Active Protocol: Document 03/30/20 13:45 SP (Rec: 03/30/20 15:20 SP [id number]) OP-PT Subjective Patient Comments Patient Comments Pt reported neck pain 5/10 neck pain and cant turn my head alot, don't feel to much different, did feel better after lasttx and was helpful. Pt stated is performing self stretching: trunk flexion in standing with allowing head unweight and stretch posterior neck, CS side bend stretch but notices her R shld is weak and noted atrophy wanting to improve. She has a hard time looking over R shld when backing up. Pt stated does use MHP at home. PT-OP-F Manual Assessment Start: 03/28/20 13:47 Freq: Status: Active Protocol: Document 03/28/20 13:47 AW (Rec: 03/28/20 17:42 AW [email or web address]) Manual Assessments Soft Tissue Assessment Soft Tissue Mobility Assessment Moderately dense cervical paraspinals and periscapular musculature bilaterally. Pt is thin but muscle atrophy is apparent in right shoulder and biceps. Ko deformity noted RUE. Joint Mobility Assessment Joint Mobility Assessment A/C gapping not provocative or relieving. No point tenderness at proximal humerus . Pt does have strong reaction to deep palpation of the right rhomboids. PT-OP-H Neuro Start: 03/28/20 13:47 Freq: Status: Active Protocol: Document 03/28/20 13:47 AW (Rec: 03/28/20 17:42 AW [email or web address]) Sensation Evaluation Gross Sensation Gross Sensation Left UE Impaired Comments Summary Comments Pt reports occasional tingling in the left hand but is not reproduced on exam. Deep Tendon Reflex & Clonus Assessment Deep Tendon Reflex Bilateral Tricep Deep Tendon Reflex 1+ Diminished Bilateral Bicep Deep Tendon Reflex 3+ Normal But Brisk PT-OP-J Posture/Palpation/Skin Start: 03/28/20 13:47 Freq: Status: Active Protocol: Document 03/28/20 13:47 AW (Rec: 03/28/20 17:42 AW [email or web address]) Posture Evaluation Position Sitting Evaluation View Lateral Head/C-Spine Posture Forward Head Shoulder Posture (L) Rounded,(R) Rounded Scapula Posture (R) Protracted PT-OP-K Range of Motion Start: 03/28/20 13:47 Freq: Status: Active Protocol: Document 03/28/20 13:47 AW (Rec: 03/28/20 17:42 AW [email or web address]) Cervical Spine Range of Motion Cervical Spine Active Degrees Testing Position Sitting Flexion 45 Extension 50 Rotation Left 40 Rotation Right 45 Lateral Flexion Left 33 Lateral Flexion Right 36 ROM Limitations Soft Tissue Tightness,Pain Comments Right side bend and rotation painful Shoulder Goniometric Range of Motion Shoulder Left Active Testing Position Sitting Flexion 159 Extension 45 Abduction 166 Internal Rotation Behind Back (text) T8 Comments B shoulder PROM WFL Right Active Testing Position Sitting Flexion 160 Extension 45 Abduction 165 Internal Rotation Behind Back (text) L1 Shoulder ROM Limitations Shoulder ROM Limitations Soft Tissue Tightness,Pain Elbow/Forearm Range of Motion Elbow/Forearm Right Active Comments B elbow AROM WNL PT-OP-L Special Tests Start: 03/28/20 13:47 Freq: Status: Active Protocol: Document 03/28/20 13:47 AW (Rec: 03/28/20 17:47 AW [email or web address]) Special Tests Cervical Spine Special Tests Spurling's Test Test Results negative bilaterally PT-OP-M Strength Start: 03/28/20 13:47 Freq: Status: Active Protocol: Document 03/28/20 13:47 AW (Rec: 03/28/20 17:47 AW [email or web address]) Cervical Spine Strength Cervical Spine Manual Muscle Testing Testing Position Sitting Flexion (C1-2) 4- Good- Extension 4- Good- Rotation Left 4- Good- Rotation Right 4- Good- Lateral Flexion Left (C3) 4- Good- Lateral Flexion Right (C3) 4- Good- Shoulder Strength Shoulder Manual Muscle Testing Left Flexion 4+ Good+ Extension 4+ Good+ Abduction (C5) 4+ Good+ Adduction 4+ Good+ External Rotation 4+ Good+ Internal Rotation 4+ Good+ Right Flexion 3+ Fair+ Extension 4 Good Abduction (C5) 3+ Fair+ Adduction 4+ Good+ External Rotation 4- Good- Internal Rotation 4+ Good+ Elbow/Forearm Strength Elbow and Forearm Manual Muscle Testing Right Flexion (C6) 4- Good- Extension (C7) 4- Good- Hand Business Analytics Analyst/Pinch Strength Hand Dominance Hand Dominance Right PT-OP-Q Treatments Start: 03/28/20 13:47 Freq: Status: Active Protocol: Document 03/30/20 13:45 SP (Rec: 03/30/20 15:20 SP [id number]) Therapeutic Exercises Supine Exercises scap retraction Supine Exercise Name supine initially then sitting Side bilateral Reps/Minutes 5 sec hold x5 Comments cued lower ribcage & TA facilitation chin tuck (DNF) Reps/Minutes 5 sec hold x5 Sitting Exercises Lev scap stretch Sitting Exercise Name R>L Side bilateral Reps/Minutes 30 x2 Comments can provide GENTLE over pressure using opposite UE UT stretch Sitting Exercise Name HEP review- has been already doing Side bilateral Reps/Minutes 30 sec x2 Comments can provide GENTLE over pressure using opposite UE Standing Exercises racquetball roll on wall Standing Exercise Name Trap, interscap, pec, lateral shld Reps/Minutes 30 sec or tolerant timing each area (not over do it) Manual Therapy Treatment Soft Tissue Mobilization STMs RTC Body Location R supraspinatus, infraspinatus , teres minor, subscap distal > prox tendons Mobilization Type Rolling,Strumming,Sustained Pressure Intensity/Depth Moderate Body Position Hooklying 1 Body Location R>L UT, lev scap, SCM, suboccipitals, CS paraspinals, SOR Mobilization Type Cross-Friction,Myofascial Release,Sustained Pressure Intensity/Depth Superficial Body Position Hooklying Comments With MET into rotation bilaterally. I feel like you just opened me up a little bit . Reviewed self application with feedback already doing in sit/ stand. Manual Traction Cervical Body Position Hooklying Comments relieving for neck pain Manual Techniques MWM bicep manual, thercane UT/ neck mm Type WMW bicep curl, head nod/ turn sustained compression Body Location R bicep or posterior scap/ neck Body Position Standing Reps/Duration time to tolerance Comments cued self application of active massage with good feedback resulst. Provided hand outs for self review. Manual stretch Type CS lateral side bend with MF glide Body Location R >L Body Position Hooklying Comments Ossilation of opposite shld complex depression to decrease lift off table and decrease opposite LB recruitment tightness reported on L during R Cervical side bend. Self-Care/Home Management Treatment Education Other Education extra time spent on anatomy mechanics, self manual, stretching, postural awareness and incorporate CS rotation gain for increased functional movement to look over R shld driving for safety. PT-OP-T Assessment and Plan Start: 03/28/20 13:47 Freq: Status: Active Protocol: Document 03/30/20 13:45 SP (Rec: 03/30/20 15:20 SP [id number]) Physical Therapy Assessment Goals Four Impairment neck/shoulder pain impact daily activities Nursing Home Goal (LTG) Pt will score 20% or less on QuickDash to indicate improvement in performance of daily activities. LTG Duration 06/20/20 Three Impairment no HEP Short Term Goal (STG) Pt will be independent with HEP for support of therapy services provided in clinic. STG Duration 05/09/20 Nursing Home Goal (LTG) Pt will demonstrate independence with maintenance HEP LTG Duration 06/20/20 Two Impairment RUE strength Short Term Goal (STG) Pt will increase R shoulder strength to 4+/5 all planes STG Duration 05/09/2020 Bench Molder Apprentice Goal (LTG) Pt will be able to lift 5# in scaption plane with elbow extended in order to improve ability to care for her horses . LTG Duration 06/20/20 One Impairment cervical ROM Nursing Home Goal (LTG) Pt will increase cervical rotation to 50 degrees or greater bilaterally without increase in pain to improve driving tolerance. LTG Duration 06/20/20 Assessment Summary Assessment Pt responded well to manual with education on self application added STMs, stretching, scap stabilization and ROM with ball/ cane and improved posture. Reminded to use gain rotational ROM to decrease trunk rotation compensations. Provided hand outs for self set up and recall. Physical Therapy Plan Frequency and Duration Frequency of Treatment 2x/Week Duration of Treatment 12 weeks Plan of Care Start Date 03/28/20 Plan of Care End Date 06/20/20 Therapeutic Interventions Therapeutic Interventions Home Exercise Program,Joint Mobilizations,Manual Therapy, Neuromuscular Re-education, Patient/Caregiver Education, Self-Care/Home Management,Soft Tissue Mobilization,Taping, Therapeutic Activities, Therapeutic Exercises Modalities Cold Pack/Ice Massage,Electric Stimulation,Hot Packs, Traction- Mechanical Next Visit Focus/Plan Next Note Type Treatment Note Next Visit Plan Assess response to manual, stretching, scap stab/MWM CS rotation and self STM added last tx. Next tx assess sleep postioning, R shld PNF. Continue per PT POC: manual cervical and R shoulder, pt responds well to manual cervical traction and work into rotation with MET or contract/relax; cervical AROM; shoulder AAROM
--- NOTE | 2020-04-04 17:11 | PT.OTN ---
Current Diagnoses Other specific arthropathies, not elsewhere classified, right shoulder (04/04/20) Other cervical disc degeneration, unspecified cervical region (04/04/20) Abnormal posture (04/04/20) Strain of muscle, fascia and tendon of other parts of biceps, right arm, initial encounter (04/04/20) Physical Therapy Treatment Note PT-OP-A Visit Information Start: 03/28/20 13:47 Freq: Status: Active Protocol: Document 04/04/20 16:00 AW (Rec: 04/04/20 16:01 AW [email or web address]) Out-Patient Physical Therapy Visit Information Visit Information Visit Type Treatment Note Visit Start Time 15:15 Visit Stop Time 16:05 Total Visit Minutes 50 Visit Number 3 Number of TOLL PATROLMAN Visits 0 Evaluation Information Evaluation Date 03/28/20 PT-OP-B Current Condition Start: 03/28/20 13:47 Freq: Status: Active Protocol: Document 03/28/20 13:47 AW (Rec: 03/28/20 14:50 AW [id number]) Current Condition History of Current Condition Onset Date May 2019 neck; August 2019 R shoulder Current Complaints neck and R shoulder pain History of Current Condition Pt has near-constant neck and right shoulder pain. She is right handed. Neck pain interferes with driving. 1.5 years ago, she was pushing heavy wheelbarrow which fell, resulting in proximal biceps swelling, weakness. No tear was diagnosed. In May of 2019, she started doing Pilates workouts by Z[employer] and started to have ongoing neck pain so she stopped the workouts. She describes the pain as deep and aching. Meanwhile, right shoulder pain was increasing. MRI was completed on 03/20/20 with results below including full thickness distal suprasinatus rupture and partial thickness tear proximal long head biceps tendon, possible labral year. She saw Dr. Mederos last week who does not think she is a surgical candidate due to chronicity. Instead, she was referred to PT. Her biggest problem is lifting with the arm in scaption or abduction. Pain wakes her up at night if she is sleeping on the right side. Prior Treatments and Tests MRI 03/20/20: 1. Full-thickness rupture involving distal supraspinatus at its insertion on the humeral head with up to 3 cm medial retraction of torn tendon fibers to the level of acromioclavicular joint. Tendinosis and low to moderate grade articular surface partial thickness tear involving distal infraspinatus. Distal subscapularis tendinosis and low to moderate grade partial- thickness tear. Moderate supraspinatus and subscapularis muscle atrophy. 2. Moderate acromioclavicular joint osteoarthritis. Moderate amount of joint effusion and subacromial subdeltoid bursal fluid. 3. Suggestion of superior anterior labral tear at 12 to 1 o'clock position. 4. Proximal intra-articular portion of long head of biceps tendinosis and low to moderate grade intrasubstance partial- thickness tear. 03/21/20: shoulder injection Future Testing and Treatments Planned Seek second opinion on possible surgery. Treatment Goals Patient/Caregiver Goals Reduce neck and shoulder pain. Feed horses with 4# feed - reaching across and extend arm in scaption plane. Prior Functional Status Baseline Function- ADL's Independent Baseline Function- Mobility Independent Baseline Function- Work/School Pt and her spouse recently sold the local [employer]. 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 Baseline Function- Other Able to tend to her horses and perform heavy gardening tasks . Current Functional Impairments (Reported) Functional Limitations- Other Unable to lift and pour ~4# animal feed with arm outstretched. Personal Factors Other Personal Factors That May Effect + Positive association with Therapy/Recovery movement PT-OP-C Subjective Start: 03/28/20 13:47 Freq: Status: Active Protocol: Document 04/04/20 16:00 AW (Rec: 04/04/20 16:01 AW [email or web address]) OP-PT Subjective Patient Comments Patient Comments Pt was carrying a small bowl last Thursday when she opened a sliding door with her right shoulder with immediate pain resulting. She has had difficulty moving her arm away from her side and has been compensating by using her left hand and standing on stools so she does not need to lift her arm so high. PT-OP-F Manual Assessment Start: 03/28/20 13:47 Freq: Status: Active Protocol: Document 03/28/20 13:47 AW (Rec: 03/28/20 17:42 AW [email or web address]) Manual Assessments Soft Tissue Assessment Soft Tissue Mobility Assessment Moderately dense cervical paraspinals and periscapular musculature bilaterally. Pt is thin but muscle atrophy is apparent in right shoulder and biceps. Ko deformity noted RUE. Joint Mobility Assessment Joint Mobility Assessment A/C gapping not provocative or relieving. No point tenderness at proximal humerus . Pt does have strong reaction to deep palpation of the right rhomboids. PT-OP-H Neuro Start: 03/28/20 13:47 Freq: Status: Active Protocol: Document 03/28/20 13:47 AW (Rec: 03/28/20 17:42 AW [email or web address]) Sensation Evaluation Gross Sensation Gross Sensation Left UE Impaired Comments Summary Comments Pt reports occasional tingling in the left hand but is not reproduced on exam. Deep Tendon Reflex & Clonus Assessment Deep Tendon Reflex Bilateral Tricep Deep Tendon Reflex 1+ Diminished Bilateral Bicep Deep Tendon Reflex 3+ Normal But Brisk PT-OP-J Posture/Palpation/Skin Start: 03/28/20 13:47 Freq: Status: Active Protocol: Document 03/28/20 13:47 AW (Rec: 03/28/20 17:42 AW [email or web address]) Posture Evaluation Position Sitting Evaluation View Lateral Head/C-Spine Posture Forward Head Shoulder Posture (L) Rounded,(R) Rounded Scapula Posture (R) Protracted PT-OP-K Range of Motion Start: 03/28/20 13:47 Freq: Status: Active Protocol: Document 03/28/20 13:47 AW (Rec: 03/28/20 17:42 AW [email or web address]) Cervical Spine Range of Motion Cervical Spine Active Degrees Testing Position Sitting Flexion 45 Extension 50 Rotation Left 40 Rotation Right 45 Lateral Flexion Left 33 Lateral Flexion Right 36 ROM Limitations Soft Tissue Tightness,Pain Comments Right side bend and rotation painful Shoulder Goniometric Range of Motion Shoulder Left Active Testing Position Sitting Flexion 159 Extension 45 Abduction 166 Internal Rotation Behind Back (text) T8 Comments B shoulder PROM WFL Right Active Testing Position Sitting Flexion 160 Extension 45 Abduction 165 Internal Rotation Behind Back (text) L1 Shoulder ROM Limitations Shoulder ROM Limitations Soft Tissue Tightness,Pain Elbow/Forearm Range of Motion Elbow/Forearm Right Active Comments B elbow AROM WNL PT-OP-L Special Tests Start: 03/28/20 13:47 Freq: Status: Active Protocol: Document 03/28/20 13:47 AW (Rec: 03/28/20 17:47 AW [email or web address]) Special Tests Cervical Spine Special Tests Spurling's Test Test Results negative bilaterally PT-OP-M Strength Start: 03/28/20 13:47 Freq: Status: Active Protocol: Document 03/28/20 13:47 AW (Rec: 03/28/20 17:47 AW [email or web address]) Cervical Spine Strength Cervical Spine Manual Muscle Testing Testing Position Sitting Flexion (C1-2) 4- Good- Extension 4- Good- Rotation Left 4- Good- Rotation Right 4- Good- Lateral Flexion Left (C3) 4- Good- Lateral Flexion Right (C3) 4- Good- Shoulder Strength Shoulder Manual Muscle Testing Left Flexion 4+ Good+ Extension 4+ Good+ Abduction (C5) 4+ Good+ Adduction 4+ Good+ External Rotation 4+ Good+ Internal Rotation 4+ Good+ Right Flexion 3+ Fair+ Extension 4 Good Abduction (C5) 3+ Fair+ Adduction 4+ Good+ External Rotation 4- Good- Internal Rotation 4+ Good+ Elbow/Forearm Strength Elbow and Forearm Manual Muscle Testing Right Flexion (C6) 4- Good- Extension (C7) 4- Good- Hand Orchid Worker/Pinch Strength Hand Dominance Hand Dominance Right PT-OP-Q Treatments Start: 03/28/20 13:47 Freq: Status: Active Protocol: Document 04/04/20 16:00 AW (Rec: 04/04/20 17:10 AW [email or web address]) Therapeutic Exercises Supine Exercises AAROM Supine Exercise Name AAROM - ER Side right Equipment Used cane Reps/Minutes 3 min Comments cues to back off from painful IR Sitting Exercises table slides Sitting Exercise Name flexion, abduction, scaption Side right Equipment Used adj height table, towel Reps/Minutes 10 min Comments lowered table for abd Manual Therapy Treatment Soft Tissue Mobilization STMs RTC Body Location R supraspinatus, infraspinatus , teres minor, subscap distal > prox tendons Mobilization Type Rolling,Strumming,Sustained Pressure Intensity/Depth Moderate Body Position Sidelying Comments Pt points to infra/ supraspinatus tendons as pain location Manual Traction Cervical Body Position Hooklying Comments relieving for neck pain Self-Care/Home Management Treatment Education Other Education Anatomy education and ARANGO principles due to acute exacerbation R shoulder pain. PT-OP-R Modalities Start: 03/28/20 13:47 Freq: Status: Active Protocol: Document 04/04/20 16:00 AW (Rec: 04/04/20 17:10 AW [email or web address]) Hot Pack/Cold Pack Treatment Cold Pack Location R shoulder Patient Position Hooklying Treatment Duration (minutes) 10 Patient Tolerance Good PT-OP-T Assessment and Plan Start: 03/28/20 13:47 Freq: Status: Active Protocol: Document 04/04/20 16:00 AW (Rec: 04/04/20 17:10 AW [email or web address]) Physical Therapy Assessment Impairments Impairments Functional Activities,Pain, Posture,ROM,Sensation,Soft Tissue Mobility,Strength Goals Four Impairment neck/shoulder pain impact daily activities [place] D[employer] Goal (LTG) Pt will score 20% or less on QuickDash to indicate improvement in performance of daily activities. LTG Duration 06/20/20 Three Impairment no HEP Short Term Goal (STG) Pt will be independent with HEP for support of therapy services provided in clinic. STG Duration 05/09/20 [place]oduck Diver Goal (LTG) Pt will demonstrate independence with maintenance HEP LTG Duration 06/20/20 Two Impairment RUE strength Short Term Goal (STG) Pt will increase R shoulder strength to 4+/5 all planes STG Duration 05/09/2020 [facility] Goal (LTG) Pt will be able to lift 5# in scaption plane with elbow extended in order to improve ability to care for her horses . LTG Duration 06/20/20 One Impairment cervical ROM [place] Diver Goal (LTG) Pt will increase cervical rotation to 50 degrees or greater bilaterally without increase in pain to improve driving tolerance. LTG Duration 06/20/20 Assessment Summary Assessment Pt tolerated limited treatment focused on AAROM and education on ARANGO principles. Pt advised to keep right elbow close to body and to support it with LUE while turning in bed. New symptoms are consistent with exacerbation of existing rotator cuff tear but pt advised to call her orthopedic physician if symptoms do not improve or worsen. Physical Therapy Plan Frequency and Duration Frequency of Treatment 2x/Week Duration of Treatment 12 weeks Plan of Care Start Date 03/28/20 Plan of Care End Date 06/20/20 Therapeutic Interventions Therapeutic Interventions Home Exercise Program,Joint Mobilizations,Manual Therapy, Neuromuscular Re-education, Patient/Caregiver Education, Self-Care/Home Management,Soft Tissue Mobilization,Taping, Therapeutic Activities, Therapeutic Exercises Modalities Cold Pack/Ice Massage,Electric Stimulation,Hot Packs, Traction- Mechanical Next Visit Focus/Plan Next Note Type Treatment Note Next Visit Plan Assess response to AAROM last session and continue to assess new symptoms.
--- NOTE | 2020-04-06 14:05 | PT.OTN ---
Current Diagnoses Other specific arthropathies, not elsewhere classified, right shoulder (04/06/20) Other cervical disc degeneration, unspecified cervical region (04/06/20) Abnormal posture (04/06/20) Strain of muscle, fascia and tendon of other parts of biceps, right arm, initial encounter (04/06/20) Physical Therapy Treatment Note PT-OP-A Visit Information Start: 03/28/20 13:47 Freq: Status: Active Protocol: Document 04/06/20 13:07 LD (Rec: 04/06/20 15:02 LD [id number]) Out-Patient Physical Therapy Visit Information Visit Information Visit Type Treatment Note Visit Note Yuli co-led tx w/STRETCHING PRESS OPERATOR Shannan. Visit Start Time 13:07 Visit Stop Time 14:05 Total Visit Minutes 58 Visit Number 4 Number of STRETCHING PRESS OPERATOR Visits 1 PT-OP-B Current Condition Start: 03/28/20 13:47 Freq: Status: Active Protocol: Document 03/28/20 13:47 AW (Rec: 03/28/20 14:50 AW [id number]) Current Condition History of Current Condition Onset Date May 2019 neck; August 2019 R shoulder Current Complaints neck and R shoulder pain History of Current Condition Pt has near-constant neck and right shoulder pain. She is right handed. Neck pain interferes with driving. 1.5 years ago, she was pushing heavy wheelbarrow which fell, resulting in proximal biceps swelling, weakness. No tear was diagnosed. In May of 2019, she started doing Pilates workouts by [employer] and started to have ongoing neck pain so she stopped the workouts. She describes the pain as deep and aching. Meanwhile, right shoulder pain was increasing. MRI was completed on 03/20/20 with results below including full thickness distal suprasinatus rupture and partial thickness tear proximal long head biceps tendon, possible labral year. She saw Dr. Mederos last week who does not think she is a surgical candidate due to chronicity. Instead, she was referred to PT. Her biggest problem is lifting with the arm in scaption or abduction. Pain wakes her up at night if she is sleeping on the right side. Prior Treatments and Tests MRI 03/20/20: 1. Full-thickness rupture involving distal supraspinatus at its insertion on the humeral head with up to 3 cm medial retraction of torn tendon fibers to the level of acromioclavicular joint. Tendinosis and low to moderate grade articular surface partial thickness tear involving distal infraspinatus. Distal subscapularis tendinosis and low to moderate grade partial- thickness tear. Moderate supraspinatus and subscapularis muscle atrophy. 2. Moderate acromioclavicular joint osteoarthritis. Moderate amount of joint effusion and subacromial subdeltoid bursal fluid. 3. Suggestion of superior anterior labral tear at 12 to 1 o'clock position. 4. Proximal intra-articular portion of long head of biceps tendinosis and low to moderate grade intrasubstance partial- thickness tear. 03/21/20: shoulder injection Future Testing and Treatments Planned Seek second opinion on possible surgery. Treatment Goals Patient/Caregiver Goals Reduce neck and shoulder pain. Feed horses with 4# feed - reaching across and extend arm in scaption plane. Prior Functional Status Baseline Function- ADL's Independent Baseline Function- Mobility Independent Baseline Function- Work/School Pt and her spouse recently sold the local [employer]. 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 Baseline Function- Other Able to tend to her horses and perform heavy gardening tasks . Current Functional Impairments (Reported) Functional Limitations- Other Unable to lift and pour ~4# animal feed with arm outstretched. Personal Factors Other Personal Factors That May Effect + Positive association with Therapy/Recovery movement PT-OP-C Subjective Start: 03/28/20 13:47 Freq: Status: Active Protocol: Document 04/06/20 13:07 LD (Rec: 04/06/20 15:02 LD [id number]) OP-PT Subjective Patient Comments Patient Comments Pt reported pain 7/10 today, most excruciating pain when abducting and externally rotating. Closed chain movements is the most comfortable position, keeping elbow next to her w/ L UE assistance. PT-OP-F Manual Assessment Start: 03/28/20 13:47 Freq: Status: Active Protocol: Document 03/28/20 13:47 AW (Rec: 03/28/20 17:42 AW [email or web address]) Manual Assessments Soft Tissue Assessment Soft Tissue Mobility Assessment Moderately dense cervical paraspinals and periscapular musculature bilaterally. Pt is thin but muscle atrophy is apparent in right shoulder and biceps. Ko deformity noted RUE. Joint Mobility Assessment Joint Mobility Assessment A/C gapping not provocative or relieving. No point tenderness at proximal humerus . Pt does have strong reaction to deep palpation of the right rhomboids. PT-OP-H Neuro Start: 03/28/20 13:47 Freq: Status: Active Protocol: Document 03/28/20 13:47 AW (Rec: 03/28/20 17:42 AW [email or web address]) Sensation Evaluation Gross Sensation Gross Sensation Left UE Impaired Comments Summary Comments Pt reports occasional tingling in the left hand but is not reproduced on exam. Deep Tendon Reflex & Clonus Assessment Deep Tendon Reflex Bilateral Tricep Deep Tendon Reflex 1+ Diminished Bilateral Bicep Deep Tendon Reflex 3+ Normal But Brisk PT-OP-J Posture/Palpation/Skin Start: 03/28/20 13:47 Freq: Status: Active Protocol: Document 03/28/20 13:47 AW (Rec: 03/28/20 17:42 AW [email or web address]) Posture Evaluation Position Sitting Evaluation View Lateral Head/C-Spine Posture Forward Head Shoulder Posture (L) Rounded,(R) Rounded Scapula Posture (R) Protracted PT-OP-K Range of Motion Start: 03/28/20 13:47 Freq: Status: Active Protocol: Document 03/28/20 13:47 AW (Rec: 03/28/20 17:42 AW [email or web address]) Cervical Spine Range of Motion Cervical Spine Active Degrees Testing Position Sitting Flexion 45 Extension 50 Rotation Left 40 Rotation Right 45 Lateral Flexion Left 33 Lateral Flexion Right 36 ROM Limitations Soft Tissue Tightness,Pain Comments Right side bend and rotation painful Shoulder Goniometric Range of Motion Shoulder Left Active Testing Position Sitting Flexion 159 Extension 45 Abduction 166 Internal Rotation Behind Back (text) T8 Comments B shoulder PROM WFL Right Active Testing Position Sitting Flexion 160 Extension 45 Abduction 165 Internal Rotation Behind Back (text) L1 Shoulder ROM Limitations Shoulder ROM Limitations Soft Tissue Tightness,Pain Elbow/Forearm Range of Motion Elbow/Forearm Right Active Comments B elbow AROM WNL PT-OP-L Special Tests Start: 03/28/20 13:47 Freq: Status: Active Protocol: Document 03/28/20 13:47 AW (Rec: 03/28/20 17:47 AW [email or web address]) Special Tests Cervical Spine Special Tests Spurling's Test Test Results negative bilaterally PT-OP-M Strength Start: 03/28/20 13:47 Freq: Status: Active Protocol: Document 03/28/20 13:47 AW (Rec: 03/28/20 17:47 AW [email or web address]) Cervical Spine Strength Cervical Spine Manual Muscle Testing Testing Position Sitting Flexion (C1-2) 4- Good- Extension 4- Good- Rotation Left 4- Good- Rotation Right 4- Good- Lateral Flexion Left (C3) 4- Good- Lateral Flexion Right (C3) 4- Good- Shoulder Strength Shoulder Manual Muscle Testing Left Flexion 4+ Good+ Extension 4+ Good+ Abduction (C5) 4+ Good+ Adduction 4+ Good+ External Rotation 4+ Good+ Internal Rotation 4+ Good+ Right Flexion 3+ Fair+ Extension 4 Good Abduction (C5) 3+ Fair+ Adduction 4+ Good+ External Rotation 4- Good- Internal Rotation 4+ Good+ Elbow/Forearm Strength Elbow and Forearm Manual Muscle Testing Right Flexion (C6) 4- Good- Extension (C7) 4- Good- Hand Credit Risk Management Director/Pinch Strength Hand Dominance Hand Dominance Right PT-OP-Q Treatments Start: 03/28/20 13:47 Freq: Status: Active Protocol: Document 04/06/20 13:07 LD (Rec: 04/06/20 15:02 LD [id number]) Therapeutic Exercises Supine Exercises Dowel flexion Supine Exercise Name AAROM - flexion Side bilateral Equipment Used dowel Reps/Minutes 3 min Comments Painfree ROM, TA awareness AAROM Supine Exercise Name AAROM - ER sitting> standing against wall Side right Equipment Used dowel Reps/Minutes 3 min Comments Towel for support, painfree ROM, cued for scap ret/dep scap retraction Supine Exercise Name supine Side bilateral Reps/Minutes 5 sec hold x5 Sitting Exercises table slides Sitting Exercise Name flexion, abduction, scaption Side right Equipment Used reposition chair, towel Reps/Minutes 10 min Comments reposition chair for ROM Manual Therapy Treatment Soft Tissue Mobilization STMs RTC Body Location R supraspinatus, infraspinatus , teres minor, Mobilization Type Myofascial Release,Rolling, Strumming,Sustained Pressure Intensity/Depth Moderate Body Position Sidelying 1 Body Location R UT, lev scap, SCM, sub occipitals Mobilization Type Cross-Friction,Myofascial Release,Sustained Pressure Intensity/Depth Moderate Body Position Hooklying PT-OP-R Modalities Start: 03/28/20 13:47 Freq: Status: Active Protocol: Document 04/06/20 13:07 LD (Rec: 04/06/20 15:02 LD [id number]) Hot Pack/Cold Pack Treatment Cold Pack Location R shoulder Patient Position Hooklying Treatment Duration (minutes) 10 Patient Tolerance Good Comments W/ shoulder cryocuff. PT-OP-T Assessment and Plan Start: 03/28/20 13:47 Freq: Status: Active Protocol: Document 04/06/20 13:07 LD (Rec: 04/06/20 15:02 LD [id number]) Physical Therapy Assessment Goals Four Impairment neck/shoulder pain impact daily activities Elevator Constructor Electric Goal (LTG) Pt will score 20% or less on QuickDash to indicate improvement in performance of daily activities. LTG Duration 06/20/20 Three Impairment no HEP Short Term Goal (STG) Pt will be independent with HEP for support of therapy services provided in clinic. STG Duration 05/09/20 Residential Goal (LTG) Pt will demonstrate independence with maintenance HEP LTG Duration 06/20/20 Two Impairment RUE strength Short Term Goal (STG) Pt will increase R shoulder strength to 4+/5 all planes STG Duration 05/09/2020 Residential Goal (LTG) Pt will be able to lift 5# in scaption plane with elbow extended in order to improve ability to care for her horses . LTG Duration 06/20/20 One Impairment cervical ROM Elevator Constructor Electric Goal (LTG) Pt will increase cervical rotation to 50 degrees or greater bilaterally without increase in pain to improve driving tolerance. LTG Duration 06/20/20 Assessment Summary Assessment Pt tolerated tx well, with focus on manual, AAROM of flexion and ER, table slides. Pt responded well to cryocuff , pain level 5/10 at the end of tx. Pt advised to use cervical rotational movements to decrease compensations of trunk rotation. Physical Therapy Plan Frequency and Duration Frequency of Treatment 2x/Week Duration of Treatment 12 weeks Plan of Care Start Date 03/28/20 Plan of Care End Date 06/20/20 Therapeutic Interventions Therapeutic Interventions Home Exercise Program,Joint Mobilizations,Manual Therapy, Neuromuscular Re-education, Patient/Caregiver Education, Self-Care/Home Management,Soft Tissue Mobilization,Taping, Therapeutic Activities, Therapeutic Exercises Modalities Cold Pack/Ice Massage,Electric Stimulation,Hot Packs, Traction- Mechanical Next Visit Focus/Plan Next Note Type Treatment Note Next Visit Plan Assess response to last tx: AAROM flexion and ER, table slides. Review HEP. Add cervical rotation exercise next tx. Progress when tolerated horizontal abduction .
--- NOTE | 2020-04-11 13:53 | PT.OTN ---
Current Diagnoses Other specific arthropathies, not elsewhere classified, right shoulder (04/11/20) Other cervical disc degeneration, unspecified cervical region (04/11/20) Abnormal posture (04/11/20) Strain of muscle, fascia and tendon of other parts of biceps, right arm, initial encounter (04/11/20) Physical Therapy Treatment Note PT-OP-A Visit Information Start: 03/28/20 13:47 Freq: Status: Active Protocol: Document 04/11/20 13:42 AW (Rec: 04/11/20 13:53 AW [email or web address]) Out-Patient Physical Therapy Visit Information Visit Information Visit Type Treatment Note Visit Start Time 12:59 Visit Stop Time 13:53 Total Visit Minutes 54 Visit Number 5 Number of DOMAIN ARCHITECT Visits 0 Evaluation Information Evaluation Date 03/28/20 PT-OP-B Current Condition Start: 03/28/20 13:47 Freq: Status: Active Protocol: Document 03/28/20 13:47 AW (Rec: 03/28/20 14:50 AW [id number]) Current Condition History of Current Condition Onset Date May 2019 neck; August 2019 R shoulder Current Complaints neck and R shoulder pain History of Current Condition Pt has near-constant neck and right shoulder pain. She is right handed. Neck pain interferes with driving. 1.5 years ago, she was pushing heavy wheelbarrow which fell, resulting in proximal biceps swelling, weakness. No tear was diagnosed. In May of 2019, she started doing Pilates workouts by [employer] and started to have ongoing neck pain so she stopped the workouts. She describes the pain as deep and aching. Meanwhile, right shoulder pain was increasing. MRI was completed on 03/20/20 with results below including full thickness distal suprasinatus rupture and partial thickness tear proximal long head biceps tendon, possible labral year. She saw Dr. Mederos last week who does not think she is a surgical candidate due to chronicity. Instead, she was referred to PT. Her biggest problem is lifting with the arm in scaption or abduction. Pain wakes her up at night if she is sleeping on the right side. Prior Treatments and Tests MRI 03/20/20: 1. Full-thickness rupture involving distal supraspinatus at its insertion on the humeral head with up to 3 cm medial retraction of torn tendon fibers to the level of acromioclavicular joint. Tendinosis and low to moderate grade articular surface partial thickness tear involving distal infraspinatus. Distal subscapularis tendinosis and low to moderate grade partial- thickness tear. Moderate supraspinatus and subscapularis muscle atrophy. 2. Moderate acromioclavicular joint osteoarthritis. Moderate amount of joint effusion and subacromial subdeltoid bursal fluid. 3. Suggestion of superior anterior labral tear at 12 to 1 o'clock position. 4. Proximal intra-articular portion of long head of biceps tendinosis and low to moderate grade intrasubstance partial- thickness tear. 03/21/20: shoulder injection Future Testing and Treatments Planned Seek second opinion on possible surgery. Treatment Goals Patient/Caregiver Goals Reduce neck and shoulder pain. Feed horses with 4# feed - reaching across and extend arm in scaption plane. Prior Functional Status Baseline Function- ADL's Independent Baseline Function- Mobility Independent Baseline Function- Work/School Pt and her spouse recently sold the local [employer]. 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 Baseline Function- Other Able to tend to her horses and perform heavy gardening tasks . Current Functional Impairments (Reported) Functional Limitations- Other Unable to lift and pour ~4# animal feed with arm outstretched. Personal Factors Other Personal Factors That May Effect + Positive association with Therapy/Recovery movement PT-OP-C Subjective Start: 03/28/20 13:47 Freq: Status: Active Protocol: Document 04/11/20 13:42 AW (Rec: 04/11/20 13:53 AW [email or web address]) OP-PT Subjective Patient Comments Patient Comments Pt reported stable pain symptoms today. She felt better after last PT session and has been careful to keep her elbow close to her trunk. PT-OP-F Manual Assessment Start: 03/28/20 13:47 Freq: Status: Active Protocol: Document 03/28/20 13:47 AW (Rec: 03/28/20 17:42 AW [email or web address]) Manual Assessments Soft Tissue Assessment Soft Tissue Mobility Assessment Moderately dense cervical paraspinals and periscapular musculature bilaterally. Pt is thin but muscle atrophy is apparent in right shoulder and biceps. Ko deformity noted RUE. Joint Mobility Assessment Joint Mobility Assessment A/C gapping not provocative or relieving. No point tenderness at proximal humerus . Pt does have strong reaction to deep palpation of the right rhomboids. PT-OP-H Neuro Start: 03/28/20 13:47 Freq: Status: Active Protocol: Document 03/28/20 13:47 AW (Rec: 03/28/20 17:42 AW [email or web address]) Sensation Evaluation Gross Sensation Gross Sensation Left UE Impaired Comments Summary Comments Pt reports occasional tingling in the left hand but is not reproduced on exam. Deep Tendon Reflex & Clonus Assessment Deep Tendon Reflex Bilateral Tricep Deep Tendon Reflex 1+ Diminished Bilateral Bicep Deep Tendon Reflex 3+ Normal But Brisk PT-OP-J Posture/Palpation/Skin Start: 03/28/20 13:47 Freq: Status: Active Protocol: Document 03/28/20 13:47 AW (Rec: 03/28/20 17:42 AW [email or web address]) Posture Evaluation Position Sitting Evaluation View Lateral Head/C-Spine Posture Forward Head Shoulder Posture (L) Rounded,(R) Rounded Scapula Posture (R) Protracted PT-OP-K Range of Motion Start: 03/28/20 13:47 Freq: Status: Active Protocol: Document 03/28/20 13:47 AW (Rec: 03/28/20 17:42 AW [email or web address]) Cervical Spine Range of Motion Cervical Spine Active Degrees Testing Position Sitting Flexion 45 Extension 50 Rotation Left 40 Rotation Right 45 Lateral Flexion Left 33 Lateral Flexion Right 36 ROM Limitations Soft Tissue Tightness,Pain Comments Right side bend and rotation painful Shoulder Goniometric Range of Motion Shoulder Left Active Testing Position Sitting Flexion 159 Extension 45 Abduction 166 Internal Rotation Behind Back (text) T8 Comments B shoulder PROM WFL Right Active Testing Position Sitting Flexion 160 Extension 45 Abduction 165 Internal Rotation Behind Back (text) L1 Shoulder ROM Limitations Shoulder ROM Limitations Soft Tissue Tightness,Pain Elbow/Forearm Range of Motion Elbow/Forearm Right Active Comments B elbow AROM WNL PT-OP-L Special Tests Start: 03/28/20 13:47 Freq: Status: Active Protocol: Document 03/28/20 13:47 AW (Rec: 03/28/20 17:47 AW [email or web address]) Special Tests Cervical Spine Special Tests Spurling's Test Test Results negative bilaterally PT-OP-M Strength Start: 03/28/20 13:47 Freq: Status: Active Protocol: Document 03/28/20 13:47 AW (Rec: 03/28/20 17:47 AW [email or web address]) Cervical Spine Strength Cervical Spine Manual Muscle Testing Testing Position Sitting Flexion (C1-2) 4- Good- Extension 4- Good- Rotation Left 4- Good- Rotation Right 4- Good- Lateral Flexion Left (C3) 4- Good- Lateral Flexion Right (C3) 4- Good- Shoulder Strength Shoulder Manual Muscle Testing Left Flexion 4+ Good+ Extension 4+ Good+ Abduction (C5) 4+ Good+ Adduction 4+ Good+ External Rotation 4+ Good+ Internal Rotation 4+ Good+ Right Flexion 3+ Fair+ Extension 4 Good Abduction (C5) 3+ Fair+ Adduction 4+ Good+ External Rotation 4- Good- Internal Rotation 4+ Good+ Elbow/Forearm Strength Elbow and Forearm Manual Muscle Testing Right Flexion (C6) 4- Good- Extension (C7) 4- Good- Hand Environmental Sustainability Manager/Pinch Strength Hand Dominance Hand Dominance Right PT-OP-Q Treatments Start: 03/28/20 13:47 Freq: Status: Active Protocol: Document 04/11/20 13:42 AW (Rec: 04/11/20 13:53 AW [email or web address]) Therapeutic Exercises Supine Exercises Dowel flexion Supine Exercise Name AAROM - flexion Side bilateral Equipment Used dowel Reps/Minutes 3 min Comments Painfree ROM, cued to avoid excess trunk extension AAROM Supine Exercise Name AAROM - ER sitting> standing against wall Side right Equipment Used dowel Reps/Minutes 3 min Comments Towel for support, painfree ROM, cued for scap ret/dep Standing Exercises isometric ER/IR Standing Exercise Name isometric ER/IR Side right Equipment Used wall Reps/Minutes 10 x 2 each direction Comments ~30% max contraction per pt report Manual Therapy Treatment Soft Tissue Mobilization STMs RTC Body Location R supraspinatus, infraspinatus , teres minor, Mobilization Type Myofascial Release,Rolling, Strumming,Sustained Pressure Intensity/Depth Moderate Body Position Sidelying 1 Body Location R UT, lev scap, SCM, sub occipitals Mobilization Type Cross-Friction,Myofascial Release,Sustained Pressure Intensity/Depth Moderate Body Position Hooklying Comments with active rotation and contract/relax into increased rotation Manual Traction Cervical Body Position Hooklying Reps/Duration 60 sec x 2 Comments relieving for neck pain PT-OP-R Modalities Start: 03/28/20 13:47 Freq: Status: Active Protocol: Document 04/11/20 13:42 AW (Rec: 04/11/20 13:53 AW [email or web address]) Hot Pack/Cold Pack Treatment Cold Pack Location R shoulder Patient Position Hooklying Treatment Duration (minutes) 10 Patient Tolerance Good Comments W/ shoulder cryocuff. PT-OP-T Assessment and Plan Start: 03/28/20 13:47 Freq: Status: Active Protocol: Document 04/11/20 13:42 AW (Rec: 04/11/20 13:53 AW [email or web address]) Physical Therapy Assessment Goals Four Impairment neck/shoulder pain impact daily activities Prison Goal (LTG) Pt will score 20% or less on QuickDash to indicate improvement in performance of daily activities. LTG Duration 06/20/20 Three Impairment no HEP Short Term Goal (STG) Pt will be independent with HEP for support of therapy services provided in clinic. STG Duration 05/09/20 Prison Goal (LTG) Pt will demonstrate independence with maintenance HEP LTG Duration 06/20/20 Two Impairment RUE strength Short Term Goal (STG) Pt will increase R shoulder strength to 4+/5 all planes STG Duration 05/09/2020 [employer]le [employer] Goal (LTG) Pt will be able to lift 5# in scaption plane with elbow extended in order to improve ability to care for her horses . LTG Duration 06/20/20 One Impairment cervical ROM [employer] Goal (LTG) Pt will increase cervical rotation to 50 degrees or greater bilaterally without increase in pain to improve driving tolerance. LTG Duration 06/20/20 Assessment Summary Assessment Treatment focused on AAROM, gentle isometrics, and manual therapy. Pt continues to substitute trunk rotation for active cervical rotation but responds moderately to cues for active rotation after STM. Physical Therapy Plan Frequency and Duration Frequency of Treatment 2x/Week Duration of Treatment 12 weeks Plan of Care Start Date 03/28/20 Plan of Care End Date 06/20/20 Therapeutic Interventions Therapeutic Interventions Home Exercise Program,Joint Mobilizations,Manual Therapy, Neuromuscular Re-education, Patient/Caregiver Education, Self-Care/Home Management,Soft Tissue Mobilization,Taping, Therapeutic Activities, Therapeutic Exercises Modalities Cold Pack/Ice Massage,Electric Stimulation,Hot Packs, Traction- Mechanical Other Therapeutic Interventions cryocuff Next Visit Focus/Plan Next Note Type Treatment Note Next Visit Plan Assess response to last tx: AAROM flexion and ER, table slides. Review HEP. Add cervical rotation exercise next tx. Progress when tolerated horizontal abduction .
--- NOTE | 2020-04-13 14:34 | PT.OTN ---
Current Diagnoses Other specific arthropathies, not elsewhere classified, right shoulder (04/13/20) Other cervical disc degeneration, unspecified cervical region (04/13/20) Abnormal posture (04/13/20) Strain of muscle, fascia and tendon of other parts of biceps, right arm, initial encounter (04/13/20) Physical Therapy Treatment Note PT-OP-A Visit Information Start: 03/28/20 13:47 Freq: Status: Active Protocol: Document 04/13/20 13:50 SP (Rec: 04/13/20 15:39 SP [id number]) Out-Patient Physical Therapy Visit Information Visit Information Visit Type Treatment Note Visit Note Yuli BOWLES assisted with manual AAROM, ther ex instruction, supervised by TAYE Campbell. Visit Start Time 13:50 Visit Stop Time 14:34 Total Visit Minutes 44 Visit Number 6 Number of CHURCH COMMUNICATIONS ADMINISTRATOR Visits 1 PT-OP-B Current Condition Start: 03/28/20 13:47 Freq: Status: Active Protocol: Document 03/28/20 13:47 AW (Rec: 03/28/20 14:50 AW [id number]) Current Condition History of Current Condition Onset Date May 2019 neck; August 2019 R shoulder Current Complaints neck and R shoulder pain History of Current Condition Pt has near-constant neck and right shoulder pain. She is right handed. Neck pain interferes with driving. 1.5 years ago, she was pushing heavy wheelbarrow which fell, resulting in proximal biceps swelling, weakness. No tear was diagnosed. In May of 2019, she started doing Pilates workouts by Zoom and started to have ongoing neck pain so she stopped the workouts. She describes the pain as deep and aching. Meanwhile, right shoulder pain was increasing. MRI was completed on 03/20/20 with results below including full thickness distal suprasinatus rupture and partial thickness tear proximal long head biceps tendon, possible labral year. She saw Dr. Mederos last week who does not think she is a surgical candidate due to chronicity. Instead, she was referred to PT. Her biggest problem is lifting with the arm in scaption or abduction. Pain wakes her up at night if she is sleeping on the right side. Prior Treatments and Tests MRI 03/20/20: 1. Full-thickness rupture involving distal supraspinatus at its insertion on the humeral head with up to 3 cm medial retraction of torn tendon fibers to the level of acromioclavicular joint. Tendinosis and low to moderate grade articular surface partial thickness tear involving distal infraspinatus. Distal subscapularis tendinosis and low to moderate grade partial- thickness tear. Moderate supraspinatus and subscapularis muscle atrophy. 2. Moderate acromioclavicular joint osteoarthritis. Moderate amount of joint effusion and subacromial subdeltoid bursal fluid. 3. Suggestion of superior anterior labral tear at 12 to 1 o'clock position. 4. Proximal intra-articular portion of long head of biceps tendinosis and low to moderate grade intrasubstance partial- thickness tear. 03/21/20: shoulder injection Future Testing and Treatments Planned Seek second opinion on possible surgery. Treatment Goals Patient/Caregiver Goals Reduce neck and shoulder pain. Feed horses with 4# feed - reaching across and extend arm in scaption plane. Prior Functional Status Baseline Function- ADL's Independent Baseline Function- Mobility Independent Baseline Function- Work/School Pt and her spouse recently sold the local [employer]. 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 Baseline Function- Other Able to tend to her horses and perform heavy gardening tasks . Current Functional Impairments (Reported) Functional Limitations- Other Unable to lift and pour ~4# animal feed with arm outstretched. Personal Factors Other Personal Factors That May Effect + Positive association with Therapy/Recovery movement PT-OP-C Subjective Start: 03/28/20 13:47 Freq: Status: Active Protocol: Document 04/13/20 13:50 SP (Rec: 04/13/20 15:39 SP [id number]) OP-PT Subjective Patient Comments Patient Comments Pt reported 4/10 pain, thinks her cortizone shot got before started therapy is wearing off and feeling the pain again. Is trying to be sure moving but cautious, did almost drop something and the reaction of quick movement to catch it hurt in the past few days. PT-OP-F Manual Assessment Start: 03/28/20 13:47 Freq: Status: Active Protocol: Document 03/28/20 13:47 AW (Rec: 03/28/20 17:42 AW [email or web address]) Manual Assessments Soft Tissue Assessment Soft Tissue Mobility Assessment Moderately dense cervical paraspinals and periscapular musculature bilaterally. Pt is thin but muscle atrophy is apparent in right shoulder and biceps. Ko deformity noted RUE. Joint Mobility Assessment Joint Mobility Assessment A/C gapping not provocative or relieving. No point tenderness at proximal humerus . Pt does have strong reaction to deep palpation of the right rhomboids. PT-OP-H Neuro Start: 03/28/20 13:47 Freq: Status: Active Protocol: Document 03/28/20 13:47 AW (Rec: 03/28/20 17:42 AW [email or web address]) Sensation Evaluation Gross Sensation Gross Sensation Left UE Impaired Comments Summary Comments Pt reports occasional tingling in the left hand but is not reproduced on exam. Deep Tendon Reflex & Clonus Assessment Deep Tendon Reflex Bilateral Tricep Deep Tendon Reflex 1+ Diminished Bilateral Bicep Deep Tendon Reflex 3+ Normal But Brisk PT-OP-J Posture/Palpation/Skin Start: 03/28/20 13:47 Freq: Status: Active Protocol: Document 03/28/20 13:47 AW (Rec: 03/28/20 17:42 AW [email or web address]) Posture Evaluation Position Sitting Evaluation View Lateral Head/C-Spine Posture Forward Head Shoulder Posture (L) Rounded,(R) Rounded Scapula Posture (R) Protracted PT-OP-K Range of Motion Start: 03/28/20 13:47 Freq: Status: Active Protocol: Document 04/13/20 13:50 SP (Rec: 04/13/20 15:39 SP [id number]) Shoulder Goniometric Range of Motion Shoulder Right Active Testing Position Sitting Flexion 145 Extension 64 Abduction 85 Internal Rotation Behind Back (text) T12 PT-OP-L Special Tests Start: 03/28/20 13:47 Freq: Status: Active Protocol: Document 03/28/20 13:47 AW (Rec: 03/28/20 17:47 AW [email or web address]) Special Tests Cervical Spine Special Tests Spurling's Test Test Results negative bilaterally PT-OP-M Strength Start: 03/28/20 13:47 Freq: Status: Active Protocol: Document 03/28/20 13:47 AW (Rec: 03/28/20 17:47 AW [email or web address]) Cervical Spine Strength Cervical Spine Manual Muscle Testing Testing Position Sitting Flexion (C1-2) 4- Good- Extension 4- Good- Rotation Left 4- Good- Rotation Right 4- Good- Lateral Flexion Left (C3) 4- Good- Lateral Flexion Right (C3) 4- Good- Shoulder Strength Shoulder Manual Muscle Testing Left Flexion 4+ Good+ Extension 4+ Good+ Abduction (C5) 4+ Good+ Adduction 4+ Good+ External Rotation 4+ Good+ Internal Rotation 4+ Good+ Right Flexion 3+ Fair+ Extension 4 Good Abduction (C5) 3+ Fair+ Adduction 4+ Good+ External Rotation 4- Good- Internal Rotation 4+ Good+ Elbow/Forearm Strength Elbow and Forearm Manual Muscle Testing Right Flexion (C6) 4- Good- Extension (C7) 4- Good- Hand Houseman/Pinch Strength Hand Dominance Hand Dominance Right PT-OP-Q Treatments Start: 03/28/20 13:47 Freq: Status: Active Protocol: Document 04/13/20 13:50 SP (Rec: 04/13/20 15:39 SP [id number]) Therapeutic Exercises Supine Exercises CS flex/ ext Side bilateral Reps/Minutes 5 reps 5-10 sec stretch if tolerated Comments cued not lean back looking and slouching looking down. CS rotation Supine Exercise Name AROM w/ UE assist and contract relax gain ROM- did Side bilateral Reps/Minutes 20 sec each direction Comments cued CS ext neutral, scap depression awareness- cued body still Dowel flexion Supine Exercise Name AAROM - flexion Side bilateral Equipment Used dowel Reps/Minutes x10 Comments Painfree ROM, cued to avoid excess trunk extension AAROM Supine Exercise Name sidelying ER hurt, supine better AROM tolerated Side right Equipment Used dowel Reps/Minutes x10 Comments Towel under arm, painfree range, better ER than return toward abdomen IR Sidelying Exercises ABD Sidelying Exercise Name PROM>AAROM> AROM w/ inf glide awareness Reps/Minutes 3 reps each Comments painfree range Standing Exercises scap retraction Standing Exercise Name HEP review Side bilateral Reps/Minutes 5 sec hold x5 Comments good form including CS neutral -pain free Manual Therapy Treatment Soft Tissue Mobilization STMs RTC Body Location R supraspinatus, infraspinatus , teres minor, UT, proximal pec, bicep if anitha Mobilization Type Myofascial Release,Rolling, Strumming,Sustained Pressure Intensity/Depth Moderate Body Position Sidelying Manual Techniques PNF R shld Body Location R shld Body Position Sidelying Reps/Duration 2x5 Comments passive, AAROM, eccentric resisted protraction PT-OP-R Modalities Start: 03/28/20 13:47 Freq: Status: Active Protocol: Document 04/11/20 13:42 AW (Rec: 04/11/20 13:53 AW [email or web address]) Hot Pack/Cold Pack Treatment Cold Pack Location R shoulder Patient Position Hooklying Treatment Duration (minutes) 10 Patient Tolerance Good Comments W/ shoulder cryocuff. PT-OP-T Assessment and Plan Start: 03/28/20 13:47 Freq: Status: Active Protocol: Document 04/13/20 13:50 SP (Rec: 04/13/20 15:39 SP [id number]) Physical Therapy Assessment Goals Four Impairment neck/shoulder pain impact daily activities [facility] Goal (LTG) Pt will score 20% or less on QuickDash to indicate improvement in performance of daily activities. LTG Duration 06/20/20 Three Impairment no HEP Short Term Goal (STG) Pt will be independent with HEP for support of therapy services provided in clinic. STG Duration 05/09/20 [facility] Goal (LTG) Pt will demonstrate independence with maintenance HEP LTG Duration 06/20/20 Two Impairment RUE strength Short Term Goal (STG) Pt will increase R shoulder strength to 4+/5 all planes STG Duration 05/09/2020 Conveyor Technician Goal (LTG) Pt will be able to lift 5# in scaption plane with elbow extended in order to improve ability to care for her horses . LTG Duration 06/20/20 One Impairment cervical ROM Conveyor Technician Goal (LTG) Pt will increase cervical rotation to 50 degrees or greater bilaterally without increase in pain to improve driving tolerance. LTG Duration 06/20/20 Assessment Summary Assessment Tx focused on PROM>AAROM> AROM with good response, cued for inferior GH glide emphasis with reduction in pain response by end of tx. I feel alot looser in my neck and low level pain maybe 2/10 in R shld. I am glad I came in today. Pt gained cervical rotation by end of tx, tolerated slower pace but able to move little quicker with decreased trunk follow awareness. Physical Therapy Plan Frequency and Duration Frequency of Treatment 2x/Week Duration of Treatment 12 weeks Plan of Care Start Date 03/28/20 Plan of Care End Date 06/20/20 Therapeutic Interventions Therapeutic Interventions Home Exercise Program,Joint Mobilizations,Manual Therapy, Neuromuscular Re-education, Patient/Caregiver Education, Self-Care/Home Management,Soft Tissue Mobilization,Taping, Therapeutic Activities, Therapeutic Exercises Modalities Cold Pack/Ice Massage,Electric Stimulation,Hot Packs, Traction- Mechanical Other Therapeutic Interventions cryocuff Next Visit Focus/Plan Next Note Type Treatment Note Next Visit Plan Assess response to last tx: manual, AAROM flexion and ER supine more anitha, table slides, cervical rotation/flex/ ext. Continue per PT POC: Progress when tolerated horizontal abduction.
--- NOTE | 2020-04-16 10:36 | PT-OP ANOTE ---
Pt cancelled same day appt due to snowed in and unable to attend appt.
--- NOTE | 2020-04-27 09:46 | PT.OTN ---
Current Diagnoses Other specific arthropathies, not elsewhere classified, right shoulder (04/27/20) Other cervical disc degeneration, unspecified cervical region (04/27/20) Abnormal posture (04/27/20) Strain of muscle, fascia and tendon of other parts of biceps, right arm, initial encounter (04/27/20) Physical Therapy Treatment Note PT-OP-A Visit Information Start: 03/28/20 13:47 Freq: Status: Active Protocol: Document 04/27/20 09:05 LD (Rec: 04/27/20 15:15 LD [id number]) Out-Patient Physical Therapy Visit Information Visit Information Visit Type Treatment Note Visit Note WILBUR Roldan Led tx w/ supervision and assistance from TAYE Campbell. Visit Start Time 09:05 Visit Stop Time 09:46 Total Visit Minutes 41 Visit Number 7 Number of HIGH SCHOOL ADMISSIONS REPRESENTATIVE Visits 1 PT-OP-B Current Condition Start: 03/28/20 13:47 Freq: Status: Active Protocol: Document 03/28/20 13:47 AW (Rec: 03/28/20 14:50 AW [id number]) Current Condition History of Current Condition Onset Date May 2019 neck; August 2019 R shoulder Current Complaints neck and R shoulder pain History of Current Condition Pt has near-constant neck and right shoulder pain. She is right handed. Neck pain interferes with driving. 1.5 years ago, she was pushing heavy wheelbarrow which fell, resulting in proximal biceps swelling, weakness. No tear was diagnosed. In May of 2019, she started doing Pilates workouts by Z[employer] and started to have ongoing neck pain so she stopped the workouts. She describes the pain as deep and aching. Meanwhile, right shoulder pain was increasing. MRI was completed on 03/20/20 with results below including full thickness distal suprasinatus rupture and partial thickness tear proximal long head biceps tendon, possible labral year. She saw Dr. Mederos last week who does not think she is a surgical candidate due to chronicity. Instead, she was referred to PT. Her biggest problem is lifting with the arm in scaption or abduction. Pain wakes her up at night if she is sleeping on the right side. Prior Treatments and Tests MRI 03/20/20: 1. Full-thickness rupture involving distal supraspinatus at its insertion on the humeral head with up to 3 cm medial retraction of torn tendon fibers to the level of acromioclavicular joint. Tendinosis and low to moderate grade articular surface partial thickness tear involving distal infraspinatus. Distal subscapularis tendinosis and low to moderate grade partial- thickness tear. Moderate supraspinatus and subscapularis muscle atrophy. 2. Moderate acromioclavicular joint osteoarthritis. Moderate amount of joint effusion and subacromial subdeltoid bursal fluid. 3. Suggestion of superior anterior labral tear at 12 to 1 o'clock position. 4. Proximal intra-articular portion of long head of biceps tendinosis and low to moderate grade intrasubstance partial- thickness tear. 03/21/20: shoulder injection Future Testing and Treatments Planned Seek second opinion on possible surgery. Treatment Goals Patient/Caregiver Goals Reduce neck and shoulder pain. Feed horses with 4# feed - reaching across and extend arm in scaption plane. Prior Functional Status Baseline Function- ADL's Independent Baseline Function- Mobility Independent Baseline Function- Work/School Pt and her spouse recently sold the local [employer]. 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 Baseline Function- Other Able to tend to her horses and perform heavy gardening tasks . Current Functional Impairments (Reported) Functional Limitations- Other Unable to lift and pour ~4# animal feed with arm outstretched. Personal Factors Other Personal Factors That May Effect + Positive association with Therapy/Recovery movement PT-OP-C Subjective Start: 03/28/20 13:47 Freq: Status: Active Protocol: Document 04/27/20 09:05 LD (Rec: 04/27/20 15:15 LD [id number]) OP-PT Subjective Patient Comments Patient Comments Pt reports R shoulder is doing okay, neck is more bothersome w/ pain 4/10 when turning head on to the right. Left elbow bothering her today, guarding her L shoulder towards her body. PT-OP-F Manual Assessment Start: 03/28/20 13:47 Freq: Status: Active Protocol: Document 03/28/20 13:47 AW (Rec: 03/28/20 17:42 AW [email or web address]) Manual Assessments Soft Tissue Assessment Soft Tissue Mobility Assessment Moderately dense cervical paraspinals and periscapular musculature bilaterally. Pt is thin but muscle atrophy is apparent in right shoulder and biceps. Ko deformity noted RUE. Joint Mobility Assessment Joint Mobility Assessment A/C gapping not provocative or relieving. No point tenderness at proximal humerus . Pt does have strong reaction to deep palpation of the right rhomboids. PT-OP-H Neuro Start: 03/28/20 13:47 Freq: Status: Active Protocol: Document 03/28/20 13:47 AW (Rec: 03/28/20 17:42 AW [email or web address]) Sensation Evaluation Gross Sensation Gross Sensation Left UE Impaired Comments Summary Comments Pt reports occasional tingling in the left hand but is not reproduced on exam. Deep Tendon Reflex & Clonus Assessment Deep Tendon Reflex Bilateral Tricep Deep Tendon Reflex 1+ Diminished Bilateral Bicep Deep Tendon Reflex 3+ Normal But Brisk PT-OP-J Posture/Palpation/Skin Start: 03/28/20 13:47 Freq: Status: Active Protocol: Document 03/28/20 13:47 AW (Rec: 03/28/20 17:42 AW [email or web address]) Posture Evaluation Position Sitting Evaluation View Lateral Head/C-Spine Posture Forward Head Shoulder Posture (L) Rounded,(R) Rounded Scapula Posture (R) Protracted PT-OP-K Range of Motion Start: 03/28/20 13:47 Freq: Status: Active Protocol: Document 04/13/20 13:50 SP (Rec: 04/13/20 15:39 SP [id number]) Shoulder Goniometric Range of Motion Shoulder Right Active Testing Position Sitting Flexion 145 Extension 64 Abduction 85 Internal Rotation Behind Back (text) T12 PT-OP-L Special Tests Start: 03/28/20 13:47 Freq: Status: Active Protocol: Document 03/28/20 13:47 AW (Rec: 03/28/20 17:47 AW [email or web address]) Special Tests Cervical Spine Special Tests Spurling's Test Test Results negative bilaterally PT-OP-M Strength Start: 03/28/20 13:47 Freq: Status: Active Protocol: Document 03/28/20 13:47 AW (Rec: 03/28/20 17:47 AW [email or web address]) Cervical Spine Strength Cervical Spine Manual Muscle Testing Testing Position Sitting Flexion (C1-2) 4- Good- Extension 4- Good- Rotation Left 4- Good- Rotation Right 4- Good- Lateral Flexion Left (C3) 4- Good- Lateral Flexion Right (C3) 4- Good- Shoulder Strength Shoulder Manual Muscle Testing Left Flexion 4+ Good+ Extension 4+ Good+ Abduction (C5) 4+ Good+ Adduction 4+ Good+ External Rotation 4+ Good+ Internal Rotation 4+ Good+ Right Flexion 3+ Fair+ Extension 4 Good Abduction (C5) 3+ Fair+ Adduction 4+ Good+ External Rotation 4- Good- Internal Rotation 4+ Good+ Elbow/Forearm Strength Elbow and Forearm Manual Muscle Testing Right Flexion (C6) 4- Good- Extension (C7) 4- Good- Hand Automotive Design Drafter/Pinch Strength Hand Dominance Hand Dominance Right PT-OP-Q Treatments Start: 03/28/20 13:47 Freq: Status: Active Protocol: Document 04/27/20 09:05 LD (Rec: 04/27/20 15:15 LD [id number]) Therapeutic Exercises Supine Exercises CS flex/ ext Side bilateral Reps/Minutes 5 reps 5-10 sec stretch if tolerated Comments cued not lean back looking and slouching looking down. CS rotation Supine Exercise Name AROM w/ UE assist and contract relax gain ROM- did Side bilateral Reps/Minutes 20 sec each direction Comments cued CS ext neutral, scap depression awareness- cued body still Dowel flexion Supine Exercise Name AAROM - flexion Side bilateral Equipment Used dowel Reps/Minutes x10 Comments Painfree ROM, cued to avoid excess trunk extension AAROM Supine Exercise Name AAROM ER Side bilateral Equipment Used dowel Reps/Minutes x10 Comments Towel under arm, painfree range, w/ various scaption ranges Sidelying Exercises open book Side right Reps/Minutes 10x Comments cued for scap depresion, TS and scap mobility ABD Sidelying Exercise Name PROM>AAROM> AROM w/ inf glide awareness Reps/Minutes 3 reps each Comments painfree range PT-OP-R Modalities Start: 03/28/20 13:47 Freq: Status: Active Protocol: Document 04/11/20 13:42 AW (Rec: 04/11/20 13:53 AW [email or web address]) Hot Pack/Cold Pack Treatment Cold Pack Location R shoulder Patient Position Hooklying Treatment Duration (minutes) 10 Patient Tolerance Good Comments W/ shoulder cryocuff. PT-OP-T Assessment and Plan Start: 03/28/20 13:47 Freq: Status: Active Protocol: Document 04/27/20 09:05 LD (Rec: 04/27/20 15:15 LD [id number]) Physical Therapy Assessment Goals Four Impairment neck/shoulder pain impact daily activities Digital Forensic Examiner Goal (LTG) Pt will score 20% or less on QuickDash to indicate improvement in performance of daily activities. LTG Duration 06/20/20 Three Impairment no HEP Short Term Goal (STG) Pt will be independent with HEP for support of therapy services provided in clinic. STG Duration 05/09/20 Digital Forensic Examiner Goal (LTG) Pt will demonstrate independence with maintenance HEP LTG Duration 06/20/20 Two Impairment RUE strength Short Term Goal (STG) Pt will increase R shoulder strength to 4+/5 all planes STG Duration 05/09/2020 Mcc Goal (LTG) Pt will be able to lift 5# in scaption plane with elbow extended in order to improve ability to care for her horses . LTG Duration 06/20/20 One Impairment cervical ROM Digital Forensic Examiner Goal (LTG) Pt will increase cervical rotation to 50 degrees or greater bilaterally without increase in pain to improve driving tolerance. LTG Duration 06/20/20 Assessment Summary Assessment Tx focus on manual therapy, AAROM and isometrics. Improvement of shoulder abd ROM, pt reporting she is able to lift her arm to the side up higher with no pain. Initiated open book, good feedback response. Pt reporting no increasing pain in and improved arm swing bilaterally and head turns at end of tx. Physical Therapy Plan Frequency and Duration Frequency of Treatment 2x/Week Duration of Treatment 12 weeks Plan of Care Start Date 03/28/20 Plan of Care End Date 06/20/20 Therapeutic Interventions Therapeutic Interventions Home Exercise Program,Joint Mobilizations,Manual Therapy, Neuromuscular Re-education, Patient/Caregiver Education, Self-Care/Home Management,Soft Tissue Mobilization,Taping, Therapeutic Activities, Therapeutic Exercises Modalities Cold Pack/Ice Massage,Electric Stimulation,Hot Packs, Traction- Mechanical Other Therapeutic Interventions cryocuff Next Visit Focus/Plan Next Note Type Treatment Note Next Visit Plan Assess response to last tx: manual, AAROM flexion, ER, ABD , cervical rotation/flex/ ext. Continue per PT POC: Progress when tolerated horizontal abduction.
--- NOTE | 2020-04-30 14:36 | PT.OTN ---
Current Diagnoses Other specific arthropathies, not elsewhere classified, right shoulder (04/30/20) Other cervical disc degeneration, unspecified cervical region (04/30/20) Abnormal posture (04/30/20) Strain of muscle, fascia and tendon of other parts of biceps, right arm, initial encounter (04/30/20) Physical Therapy Treatment Note PT-OP-A Visit Information Start: 03/28/20 13:47 Freq: Status: Active Protocol: Document 04/30/20 13:46 LD (Rec: 04/30/20 15:03 LD [id number]) Out-Patient Physical Therapy Visit Information Visit Information Visit Type Treatment Note Visit Note WILBUR Roldan led tx w/ supervision and assistance from TAYE Campbell. Visit Start Time 13:46 Visit Stop Time 14:36 Total Visit Minutes 50 Visit Number 8 Number of COIN MACHINE ASSEMBLER Visits 2 PT-OP-B Current Condition Start: 03/28/20 13:47 Freq: Status: Active Protocol: Document 03/28/20 13:47 AW (Rec: 03/28/20 14:50 AW [id number]) Current Condition History of Current Condition Onset Date May 2019 neck; August 2019 R shoulder Current Complaints neck and R shoulder pain History of Current Condition Pt has near-constant neck and right shoulder pain. She is right handed. Neck pain interferes with driving. 1.5 years ago, she was pushing heavy wheelbarrow which fell, resulting in proximal biceps swelling, weakness. No tear was diagnosed. In May of 2019, she started doing Pilates workouts by [employer] and started to have ongoing neck pain so she stopped the workouts. She describes the pain as deep and aching. Meanwhile, right shoulder pain was increasing. MRI was completed on 03/20/20 with results below including full thickness distal suprasinatus rupture and partial thickness tear proximal long head biceps tendon, possible labral year. She saw Dr. Mederos last week who does not think she is a surgical candidate due to chronicity. Instead, she was referred to PT. Her biggest problem is lifting with the arm in scaption or abduction. Pain wakes her up at night if she is sleeping on the right side. Prior Treatments and Tests MRI 03/20/20: 1. Full-thickness rupture involving distal supraspinatus at its insertion on the humeral head with up to 3 cm medial retraction of torn tendon fibers to the level of acromioclavicular joint. Tendinosis and low to moderate grade articular surface partial thickness tear involving distal infraspinatus. Distal subscapularis tendinosis and low to moderate grade partial- thickness tear. Moderate supraspinatus and subscapularis muscle atrophy. 2. Moderate acromioclavicular joint osteoarthritis. Moderate amount of joint effusion and subacromial subdeltoid bursal fluid. 3. Suggestion of superior anterior labral tear at 12 to 1 o'clock position. 4. Proximal intra-articular portion of long head of biceps tendinosis and low to moderate grade intrasubstance partial- thickness tear. 03/21/20: shoulder injection Future Testing and Treatments Planned Seek second opinion on possible surgery. Treatment Goals Patient/Caregiver Goals Reduce neck and shoulder pain. Feed horses with 4# feed - reaching across and extend arm in scaption plane. Prior Functional Status Baseline Function- ADL's Independent Baseline Function- Mobility Independent Baseline Function- Work/School Pt and her spouse recently sold the local [employer]. 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 Baseline Function- Other Able to tend to her horses and perform heavy gardening tasks . Current Functional Impairments (Reported) Functional Limitations- Other Unable to lift and pour ~4# animal feed with arm outstretched. Personal Factors Other Personal Factors That May Effect + Positive association with Therapy/Recovery movement PT-OP-C Subjective Start: 03/28/20 13:47 Freq: Status: Active Protocol: Document 04/30/20 13:46 LD (Rec: 04/30/20 15:03 LD [id number]) OP-PT Subjective Patient Comments Patient Comments PT arrives not significant CS rotation mobilitiy. Pt reports feeling sore from last tx, pain level 3/10 R shoulder today. About 3 hours ago took aspirin for neck, not sure PT is making significant gains. Finding different strategies to lift feedbag with out R UE. PT-OP-F Manual Assessment Start: 03/28/20 13:47 Freq: Status: Active Protocol: Document 03/28/20 13:47 AW (Rec: 03/28/20 17:42 AW [email or web address]) Manual Assessments Soft Tissue Assessment Soft Tissue Mobility Assessment Moderately dense cervical paraspinals and periscapular musculature bilaterally. Pt is thin but muscle atrophy is apparent in right shoulder and biceps. Ko deformity noted RUE. Joint Mobility Assessment Joint Mobility Assessment A/C gapping not provocative or relieving. No point tenderness at proximal humerus . Pt does have strong reaction to deep palpation of the right rhomboids. PT-OP-H Neuro Start: 03/28/20 13:47 Freq: Status: Active Protocol: Document 03/28/20 13:47 AW (Rec: 03/28/20 17:42 AW [email or web address]) Sensation Evaluation Gross Sensation Gross Sensation Left UE Impaired Comments Summary Comments Pt reports occasional tingling in the left hand but is not reproduced on exam. Deep Tendon Reflex & Clonus Assessment Deep Tendon Reflex Bilateral Tricep Deep Tendon Reflex 1+ Diminished Bilateral Bicep Deep Tendon Reflex 3+ Normal But Brisk PT-OP-J Posture/Palpation/Skin Start: 03/28/20 13:47 Freq: Status: Active Protocol: Document 03/28/20 13:47 AW (Rec: 03/28/20 17:42 AW [email or web address]) Posture Evaluation Position Sitting Evaluation View Lateral Head/C-Spine Posture Forward Head Shoulder Posture (L) Rounded,(R) Rounded Scapula Posture (R) Protracted PT-OP-K Range of Motion Start: 03/28/20 13:47 Freq: Status: Active Protocol: Document 04/13/20 13:50 SP (Rec: 04/13/20 15:39 SP [id number]) Shoulder Goniometric Range of Motion Shoulder Right Active Testing Position Sitting Flexion 145 Extension 64 Abduction 85 Internal Rotation Behind Back (text) T12 PT-OP-L Special Tests Start: 03/28/20 13:47 Freq: Status: Active Protocol: Document 03/28/20 13:47 AW (Rec: 03/28/20 17:47 AW [email or web address]) Special Tests Cervical Spine Special Tests Spurling's Test Test Results negative bilaterally PT-OP-M Strength Start: 03/28/20 13:47 Freq: Status: Active Protocol: Document 03/28/20 13:47 AW (Rec: 03/28/20 17:47 AW [email or web address]) Cervical Spine Strength Cervical Spine Manual Muscle Testing Testing Position Sitting Flexion (C1-2) 4- Good- Extension 4- Good- Rotation Left 4- Good- Rotation Right 4- Good- Lateral Flexion Left (C3) 4- Good- Lateral Flexion Right (C3) 4- Good- Shoulder Strength Shoulder Manual Muscle Testing Left Flexion 4+ Good+ Extension 4+ Good+ Abduction (C5) 4+ Good+ Adduction 4+ Good+ External Rotation 4+ Good+ Internal Rotation 4+ Good+ Right Flexion 3+ Fair+ Extension 4 Good Abduction (C5) 3+ Fair+ Adduction 4+ Good+ External Rotation 4- Good- Internal Rotation 4+ Good+ Elbow/Forearm Strength Elbow and Forearm Manual Muscle Testing Right Flexion (C6) 4- Good- Extension (C7) 4- Good- Hand Aircraft Stress Analyst/Pinch Strength Hand Dominance Hand Dominance Right PT-OP-Q Treatments Start: 03/28/20 13:47 Freq: Status: Active Protocol: Document 04/30/20 13:46 LD (Rec: 04/30/20 15:03 LD [id number]) Cardio Equipment Upper Body Ergometer (UBE) Duration (Minutes) 6 Seat Position 8 Height 2 Therapeutic Exercises Supine Exercises CS flex/ ext Side bilateral Reps/Minutes 5 reps 5-10 sec stretch if tolerated Comments cued not lean back looking and slouching looking down. CS rotation Supine Exercise Name AROM w/ UE assist and contract relax gain ROM- did Side bilateral Reps/Minutes 20 sec each direction Comments cued CS ext neutral, scap depression awareness- cued body still Sidelying Exercises ER Side right Resistance 1# Reps/Minutes 10x Comments painfree range, cued for open book Side right Reps/Minutes 10x Comments cued for scap depresion, TS and scap mobility ABD Sidelying Exercise Name AROM>1# Side right Resistance 1# Reps/Minutes 10x Comments painfree range Sitting Exercises Lev scap stretch Sitting Exercise Name HEP review. Side bilateral Reps/Minutes 30 x2 Comments can provide GENTLE over pressure using opposite UE UT stretch Sitting Exercise Name HEP review- has been already doing Side bilateral Reps/Minutes 30 sec x2 Comments can provide GENTLE over pressure using opposite UE Standing Exercises shoulder extension Standing Exercise Name added HEP, with head turns Side bilateral Resistance L1 Equipment Used theraband Reps/Minutes 10x Comments cued for scap depression, CS neutral rows Standing Exercise Name added HEP Side bilateral Resistance L1 Equipment Used theraband Reps/Minutes 10x Comments cued for scap depression/ retraction, neutral CS Manual Therapy Treatment Soft Tissue Mobilization STMs RTC Body Location R supraspinatus, infraspinatus , teres minor, UT, proximal pec, bicep Mobilization Type Myofascial Release,Rolling, Strumming,Sustained Pressure Intensity/Depth Moderate Body Position Sidelying 1 Body Location R UT, lev scap, SCM, sub occipitals Mobilization Type Cross-Friction,Myofascial Release,Sustained Pressure Intensity/Depth Moderate Body Position Hooklying Comments with active rotation and contract/relax into increased rotation Manual Techniques PNF R shld Body Location R shld Body Position Sidelying Reps/Duration 2x5 Comments passive, AAROM, eccentric resisted protraction MWM bicep manual, thercane UT/ neck mm Type WMW bicep curl, head nod/ turn sustained compression Body Location R bicep or posterior scap/ neck Body Position Standing Reps/Duration time to tolerance Comments cued self application of active massage with good feedback results. PT-OP-R Modalities Start: 03/28/20 13:47 Freq: Status: Active Protocol: Document 04/11/20 13:42 AW (Rec: 04/11/20 13:53 AW [email or web address]) Hot Pack/Cold Pack Treatment Cold Pack Location R shoulder Patient Position Hooklying Treatment Duration (minutes) 10 Patient Tolerance Good Comments W/ shoulder cryocuff. PT-OP-T Assessment and Plan Start: 03/28/20 13:47 Freq: Status: Active Protocol: Document 04/30/20 13:46 LD (Rec: 04/30/20 15:03 LD [id number]) Physical Therapy Assessment Goals Four Impairment neck/shoulder pain impact daily activities Prison Goal (LTG) Pt will score 20% or less on QuickDash to indicate improvement in performance of daily activities. LTG Duration 06/20/20 Three Impairment no HEP Short Term Goal (STG) Pt will be independent with HEP for support of therapy services provided in clinic. STG Duration 05/09/20 Prison Goal (LTG) Pt will demonstrate independence with maintenance HEP LTG Duration 06/20/20 Two Impairment RUE strength Short Term Goal (STG) Pt will increase R shoulder strength to 4+/5 all planes STG Duration 05/09/2020 Reflesher Goal (LTG) Pt will be able to lift 5# in scaption plane with elbow extended in order to improve ability to care for her horses . LTG Duration 06/20/20 One Impairment cervical ROM Reflesher Goal (LTG) Pt will increase cervical rotation to 50 degrees or greater bilaterally without increase in pain to improve driving tolerance. LTG Duration 06/20/20 Assessment Summary Assessment Tx focus on ROM, manual and strengthening of R shoulder. Pt arm swing and ROM is better compared to last tx, more limitation looking to left. Added rows and shoulder extension with head turns to facilitate cervical mobility, requiring cues for scap stabilization. Pt reports no increasing pain at end of tx. Physical Therapy Plan Frequency and Duration Frequency of Treatment 2x/Week Duration of Treatment 12 weeks Plan of Care Start Date 03/28/20 Plan of Care End Date 06/20/20 Therapeutic Interventions Therapeutic Interventions Home Exercise Program,Joint Mobilizations,Manual Therapy, Neuromuscular Re-education, Patient/Caregiver Education, Self-Care/Home Management,Soft Tissue Mobilization,Taping, Therapeutic Activities, Therapeutic Exercises Modalities Cold Pack/Ice Massage,Electric Stimulation,Hot Packs, Traction- Mechanical Other Therapeutic Interventions cryocuff Next Visit Focus/Plan Next Note Type Treatment Note Next Visit Plan Assess response to last tx: manual, rows, shoulder extension, cervical rotation/ flex/ext. Added supine pec stretch before over 65cm ball, assess again next tx and add HEP. Continue per PT POC: Progress when tolerated horizontal abduction.
--- NOTE | 2020-05-02 17:23 | PT.OTN ---
Current Diagnoses Other specific arthropathies, not elsewhere classified, right shoulder (05/02/20) Other cervical disc degeneration, unspecified cervical region (05/02/20) Abnormal posture (05/02/20) Strain of muscle, fascia and tendon of other parts of biceps, right arm, initial encounter (05/02/20) Physical Therapy Treatment Note PT-OP-A Visit Information Start: 03/28/20 13:47 Freq: Status: Active Protocol: Document 05/02/20 13:56 AW (Rec: 05/02/20 17:23 AW [email or web address]) Out-Patient Physical Therapy Visit Information Visit Information Visit Type Treatment Note Visit Start Time 13:47 Visit Stop Time 14:30 Total Visit Minutes 43 Visit Number 9 Number of SOCIAL WORKER PALLIATIVE CARE Visits 0 PT-OP-B Current Condition Start: 03/28/20 13:47 Freq: Status: Active Protocol: Document 03/28/20 13:47 AW (Rec: 03/28/20 14:50 AW [id number]) Current Condition History of Current Condition Onset Date May 2019 neck; August 2019 R shoulder Current Complaints neck and R shoulder pain History of Current Condition Pt has near-constant neck and right shoulder pain. She is right handed. Neck pain interferes with driving. 1.5 years ago, she was pushing heavy wheelbarrow which fell, resulting in proximal biceps swelling, weakness. No tear was diagnosed. In May of 2019, she started doing Pilates workouts by [employer] and started to have ongoing neck pain so she stopped the workouts. She describes the pain as deep and aching. Meanwhile, right shoulder pain was increasing. MRI was completed on 03/20/20 with results below including full thickness distal suprasinatus rupture and partial thickness tear proximal long head biceps tendon, possible labral year. She saw Dr. Mederos last week who does not think she is a surgical candidate due to chronicity. Instead, she was referred to PT. Her biggest problem is lifting with the arm in scaption or abduction. Pain wakes her up at night if she is sleeping on the right side. Prior Treatments and Tests MRI 03/20/20: 1. Full-thickness rupture involving distal supraspinatus at its insertion on the humeral head with up to 3 cm medial retraction of torn tendon fibers to the level of acromioclavicular joint. Tendinosis and low to moderate grade articular surface partial thickness tear involving distal infraspinatus. Distal subscapularis tendinosis and low to moderate grade partial- thickness tear. Moderate supraspinatus and subscapularis muscle atrophy. 2. Moderate acromioclavicular joint osteoarthritis. Moderate amount of joint effusion and subacromial subdeltoid bursal fluid. 3. Suggestion of superior anterior labral tear at 12 to 1 o'clock position. 4. Proximal intra-articular portion of long head of biceps tendinosis and low to moderate grade intrasubstance partial- thickness tear. 03/21/20: shoulder injection Future Testing and Treatments Planned Seek second opinion on possible surgery. Treatment Goals Patient/Caregiver Goals Reduce neck and shoulder pain. Feed horses with 4# feed - reaching across and extend arm in scaption plane. Prior Functional Status Baseline Function- ADL's Independent Baseline Function- Mobility Independent Baseline Function- Work/School Pt and her spouse recently sold the local [employer]. 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 Baseline Function- Other Able to tend to her horses and perform heavy gardening tasks . Current Functional Impairments (Reported) Functional Limitations- Other Unable to lift and pour ~4# animal feed with arm outstretched. Personal Factors Other Personal Factors That May Effect + Positive association with Therapy/Recovery movement PT-OP-C Subjective Start: 03/28/20 13:47 Freq: Status: Active Protocol: Document 05/02/20 13:56 AW (Rec: 05/02/20 17:23 AW [email or web address]) OP-PT Subjective Patient Comments Patient Comments Pt's shoulder feels better today but her neck is bothering her more. PT-OP-F Manual Assessment Start: 03/28/20 13:47 Freq: Status: Active Protocol: Document 03/28/20 13:47 AW (Rec: 03/28/20 17:42 AW [email or web address]) Manual Assessments Soft Tissue Assessment Soft Tissue Mobility Assessment Moderately dense cervical paraspinals and periscapular musculature bilaterally. Pt is thin but muscle atrophy is apparent in right shoulder and biceps. Ko deformity noted RUE. Joint Mobility Assessment Joint Mobility Assessment A/C gapping not provocative or relieving. No point tenderness at proximal humerus . Pt does have strong reaction to deep palpation of the right rhomboids. PT-OP-H Neuro Start: 03/28/20 13:47 Freq: Status: Active Protocol: Document 03/28/20 13:47 AW (Rec: 03/28/20 17:42 AW [email or web address]) Sensation Evaluation Gross Sensation Gross Sensation Left UE Impaired Comments Summary Comments Pt reports occasional tingling in the left hand but is not reproduced on exam. Deep Tendon Reflex & Clonus Assessment Deep Tendon Reflex Bilateral Tricep Deep Tendon Reflex 1+ Diminished Bilateral Bicep Deep Tendon Reflex 3+ Normal But Brisk PT-OP-J Posture/Palpation/Skin Start: 03/28/20 13:47 Freq: Status: Active Protocol: Document 03/28/20 13:47 AW (Rec: 03/28/20 17:42 AW [email or web address]) Posture Evaluation Position Sitting Evaluation View Lateral Head/C-Spine Posture Forward Head Shoulder Posture (L) Rounded,(R) Rounded Scapula Posture (R) Protracted PT-OP-K Range of Motion Start: 03/28/20 13:47 Freq: Status: Active Protocol: Document 04/13/20 13:50 SP (Rec: 04/13/20 15:39 SP [id number]) Shoulder Goniometric Range of Motion Shoulder Right Active Testing Position Sitting Flexion 145 Extension 64 Abduction 85 Internal Rotation Behind Back (text) T12 PT-OP-L Special Tests Start: 03/28/20 13:47 Freq: Status: Active Protocol: Document 03/28/20 13:47 AW (Rec: 03/28/20 17:47 AW [email or web address]) Special Tests Cervical Spine Special Tests Spurling's Test Test Results negative bilaterally PT-OP-M Strength Start: 03/28/20 13:47 Freq: Status: Active Protocol: Document 03/28/20 13:47 AW (Rec: 03/28/20 17:47 AW [email or web address]) Cervical Spine Strength Cervical Spine Manual Muscle Testing Testing Position Sitting Flexion (C1-2) 4- Good- Extension 4- Good- Rotation Left 4- Good- Rotation Right 4- Good- Lateral Flexion Left (C3) 4- Good- Lateral Flexion Right (C3) 4- Good- Shoulder Strength Shoulder Manual Muscle Testing Left Flexion 4+ Good+ Extension 4+ Good+ Abduction (C5) 4+ Good+ Adduction 4+ Good+ External Rotation 4+ Good+ Internal Rotation 4+ Good+ Right Flexion 3+ Fair+ Extension 4 Good Abduction (C5) 3+ Fair+ Adduction 4+ Good+ External Rotation 4- Good- Internal Rotation 4+ Good+ Elbow/Forearm Strength Elbow and Forearm Manual Muscle Testing Right Flexion (C6) 4- Good- Extension (C7) 4- Good- Hand Open Developer Operator/Pinch Strength Hand Dominance Hand Dominance Right PT-OP-Q Treatments Start: 03/28/20 13:47 Freq: Status: Active Protocol: Document 05/02/20 13:56 AW (Rec: 05/02/20 14:35 AW [id number]) Therapeutic Exercises Supine Exercises CS rotation Supine Exercise Name AROM w/ contract relax gain ROM Side bilateral Reps/Minutes 4 min Comments cued CS neutral, scap depression awareness chin tuck (DNF) Reps/Minutes 8 sec hold x5 Sidelying Exercises ER Side right Resistance no weight Reps/Minutes 10x Comments painfree range, open book Side right Reps/Minutes 10x Comments cued for scap depresion, TS and scap mobility Standing Exercises wall posture Standing Exercise Name wall posture Reps/Minutes 5 min Comments cues for chin tuck Manual Therapy Treatment Soft Tissue Mobilization STMs RTC Body Location R supraspinatus, infraspinatus , teres minor, UT, proximal pec, bicep Mobilization Type Myofascial Release,Rolling, Strumming,Sustained Pressure Intensity/Depth Moderate Body Position Sidelying 1 Body Location R UT, lev scap, SCM, sub occipitals Mobilization Type Cross-Friction,Myofascial Release,Sustained Pressure Intensity/Depth Moderate Body Position Hooklying Comments with active rotation and contract/relax into increased rotation Joint Mobilizations IMP/ASHLEY Joint R C3-6 Grade III Body Position Hooklying Reps/Duration 2 min Manual Traction Cervical Body Position Hooklying Reps/Duration 60 sec x 2 Comments relieving for neck pain PT-OP-R Modalities Start: 03/28/20 13:47 Freq: Status: Active Protocol: Document 04/11/20 13:42 AW (Rec: 04/11/20 13:53 AW [email or web address]) Hot Pack/Cold Pack Treatment Cold Pack Location R shoulder Patient Position Hooklying Treatment Duration (minutes) 10 Patient Tolerance Good Comments W/ shoulder cryocuff. PT-OP-T Assessment and Plan Start: 03/28/20 13:47 Freq: Status: Active Protocol: Document 05/02/20 13:56 AW (Rec: 05/02/20 17:23 AW [email or web address]) Physical Therapy Assessment Goals Four Impairment neck/shoulder pain impact daily activities Prison Goal (LTG) Pt will score 20% or less on QuickDash to indicate improvement in performance of daily activities. LTG Duration 06/20/20 Three Impairment no HEP Short Term Goal (STG) Pt will be independent with HEP for support of therapy services provided in clinic. STG Duration 05/09/20 Prison Goal (LTG) Pt will demonstrate independence with maintenance HEP LTG Duration 06/20/20 Two Impairment RUE strength Short Term Goal (STG) Pt will increase R shoulder strength to 4+/5 all planes STG Duration 05/09/2020 Prison Goal (LTG) Pt will be able to lift 5# in scaption plane with elbow extended in order to improve ability to care for her horses . LTG Duration 06/20/20 One Impairment cervical ROM Prison Goal (LTG) Pt will increase cervical rotation to 50 degrees or greater bilaterally without increase in pain to improve driving tolerance. LTG Duration 06/20/20 Assessment Summary Assessment Pt presents with decreased guarding of the right shoulder today. Focused treatment on STM and cervical joint mobs. Pt reports improved confidence in cervical ROM end of session. Physical Therapy Plan Therapeutic Interventions Therapeutic Interventions Home Exercise Program,Joint Mobilizations,Manual Therapy, Neuromuscular Re-education, Patient/Caregiver Education, Self-Care/Home Management,Soft Tissue Mobilization,Taping, Therapeutic Activities, Therapeutic Exercises Modalities Cold Pack/Ice Massage,Electric Stimulation,Hot Packs, Traction- Mechanical Other Therapeutic Interventions cryocuff Next Visit Focus/Plan Next Note Type Treatment Note Next Visit Plan Assess response to last tx: manual, wall posture Continue per PT POC: Progress when tolerated horizontal abduction.
--- NOTE | 2020-05-09 17:11 | PT.OTN ---
Current Diagnoses Other specific arthropathies, not elsewhere classified, right shoulder (05/09/20) Other cervical disc degeneration, unspecified cervical region (05/09/20) Abnormal posture (05/09/20) Strain of muscle, fascia and tendon of other parts of biceps, right arm, initial encounter (05/09/20) Physical Therapy Treatment Note PT-OP-A Visit Information Start: 03/28/20 13:47 Freq: Status: Active Protocol: Document 05/09/20 12:48 AW (Rec: 05/09/20 17:11 AW [email or web address]) Out-Patient Physical Therapy Visit Information Visit Information Visit Type Treatment Note Visit Start Time 13:00 Visit Stop Time 13:45 Total Visit Minutes 45 Visit Number 10 Number of MAIL PROCESSING CLERK Visits 0 PT-OP-B Current Condition Start: 03/28/20 13:47 Freq: Status: Active Protocol: Document 03/28/20 13:47 AW (Rec: 03/28/20 14:50 AW [id number]) Current Condition History of Current Condition Onset Date May 2019 neck; August 2019 R shoulder Current Complaints neck and R shoulder pain History of Current Condition Pt has near-constant neck and right shoulder pain. She is right handed. Neck pain interferes with driving. 1.5 years ago, she was pushing heavy wheelbarrow which fell, resulting in proximal biceps swelling, weakness. No tear was diagnosed. In May of 2019, she started doing Pilates workouts by [employer] and started to have ongoing neck pain so she stopped the workouts. She describes the pain as deep and aching. Meanwhile, right shoulder pain was increasing. MRI was completed on 03/20/20 with results below including full thickness distal suprasinatus rupture and partial thickness tear proximal long head biceps tendon, possible labral year. She saw Dr. Mederos last week who does not think she is a surgical candidate due to chronicity. Instead, she was referred to PT. Her biggest problem is lifting with the arm in scaption or abduction. Pain wakes her up at night if she is sleeping on the right side. Prior Treatments and Tests MRI 03/20/20: 1. Full-thickness rupture involving distal supraspinatus at its insertion on the humeral head with up to 3 cm medial retraction of torn tendon fibers to the level of acromioclavicular joint. Tendinosis and low to moderate grade articular surface partial thickness tear involving distal infraspinatus. Distal subscapularis tendinosis and low to moderate grade partial- thickness tear. Moderate supraspinatus and subscapularis muscle atrophy. 2. Moderate acromioclavicular joint osteoarthritis. Moderate amount of joint effusion and subacromial subdeltoid bursal fluid. 3. Suggestion of superior anterior labral tear at 12 to 1 o'clock position. 4. Proximal intra-articular portion of long head of biceps tendinosis and low to moderate grade intrasubstance partial- thickness tear. 03/21/20: shoulder injection Future Testing and Treatments Planned Seek second opinion on possible surgery. Treatment Goals Patient/Caregiver Goals Reduce neck and shoulder pain. Feed horses with 4# feed - reaching across and extend arm in scaption plane. Prior Functional Status Baseline Function- ADL's Independent Baseline Function- Mobility Independent Baseline Function- Work/School Pt and her spouse recently sold the local [employer]. 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 Baseline Function- Other Able to tend to her horses and perform heavy gardening tasks . Current Functional Impairments (Reported) Functional Limitations- Other Unable to lift and pour ~4# animal feed with arm outstretched. Personal Factors Other Personal Factors That May Effect + Positive association with Therapy/Recovery movement PT-OP-C Subjective Start: 03/28/20 13:47 Freq: Status: Active Protocol: Document 05/09/20 12:48 AW (Rec: 05/09/20 17:11 AW [email or web address]) OP-PT Subjective Patient Comments Patient Comments Pt reports improved pain free ROM right shoulder. PT-OP-F Manual Assessment Start: 03/28/20 13:47 Freq: Status: Active Protocol: Document 03/28/20 13:47 AW (Rec: 03/28/20 17:42 AW [email or web address]) Manual Assessments Soft Tissue Assessment Soft Tissue Mobility Assessment Moderately dense cervical paraspinals and periscapular musculature bilaterally. Pt is thin but muscle atrophy is apparent in right shoulder and biceps. Ko deformity noted RUE. Joint Mobility Assessment Joint Mobility Assessment A/C gapping not provocative or relieving. No point tenderness at proximal humerus . Pt does have strong reaction to deep palpation of the right rhomboids. PT-OP-H Neuro Start: 03/28/20 13:47 Freq: Status: Active Protocol: Document 03/28/20 13:47 AW (Rec: 03/28/20 17:42 AW [email or web address]) Sensation Evaluation Gross Sensation Gross Sensation Left UE Impaired Comments Summary Comments Pt reports occasional tingling in the left hand but is not reproduced on exam. Deep Tendon Reflex & Clonus Assessment Deep Tendon Reflex Bilateral Tricep Deep Tendon Reflex 1+ Diminished Bilateral Bicep Deep Tendon Reflex 3+ Normal But Brisk PT-OP-J Posture/Palpation/Skin Start: 03/28/20 13:47 Freq: Status: Active Protocol: Document 03/28/20 13:47 AW (Rec: 03/28/20 17:42 AW [email or web address]) Posture Evaluation Position Sitting Evaluation View Lateral Head/C-Spine Posture Forward Head Shoulder Posture (L) Rounded,(R) Rounded Scapula Posture (R) Protracted PT-OP-K Range of Motion Start: 03/28/20 13:47 Freq: Status: Active Protocol: Document 04/13/20 13:50 SP (Rec: 04/13/20 15:39 SP [id number]) Shoulder Goniometric Range of Motion Shoulder Right Active Testing Position Sitting Flexion 145 Extension 64 Abduction 85 Internal Rotation Behind Back (text) T12 PT-OP-L Special Tests Start: 03/28/20 13:47 Freq: Status: Active Protocol: Document 03/28/20 13:47 AW (Rec: 03/28/20 17:47 AW [email or web address]) Special Tests Cervical Spine Special Tests Spurling's Test Test Results negative bilaterally PT-OP-M Strength Start: 03/28/20 13:47 Freq: Status: Active Protocol: Document 03/28/20 13:47 AW (Rec: 03/28/20 17:47 AW [email or web address]) Cervical Spine Strength Cervical Spine Manual Muscle Testing Testing Position Sitting Flexion (C1-2) 4- Good- Extension 4- Good- Rotation Left 4- Good- Rotation Right 4- Good- Lateral Flexion Left (C3) 4- Good- Lateral Flexion Right (C3) 4- Good- Shoulder Strength Shoulder Manual Muscle Testing Left Flexion 4+ Good+ Extension 4+ Good+ Abduction (C5) 4+ Good+ Adduction 4+ Good+ External Rotation 4+ Good+ Internal Rotation 4+ Good+ Right Flexion 3+ Fair+ Extension 4 Good Abduction (C5) 3+ Fair+ Adduction 4+ Good+ External Rotation 4- Good- Internal Rotation 4+ Good+ Elbow/Forearm Strength Elbow and Forearm Manual Muscle Testing Right Flexion (C6) 4- Good- Extension (C7) 4- Good- Hand Farm Labor Contractor/Pinch Strength Hand Dominance Hand Dominance Right PT-OP-Q Treatments Start: 03/28/20 13:47 Freq: Status: Active Protocol: Document 05/09/20 12:48 AW (Rec: 05/09/20 13:47 AW [id number]) Cardio Equipment Upper Body Ergometer (UBE) Duration (Minutes) 6 Seat Position 9 Height 2.5 Therapeutic Exercises Supine Exercises posture press Supine Exercise Name posture press Side bilateral Reps/Minutes 3SH x 10 Comments cued PPT, scap retraction, cerv retract chin tuck (DNF) Reps/Minutes 8 sec hold x5 Sidelying Exercises ER Side right Resistance no weight Reps/Minutes 10x Comments painfree range, open book Side right Reps/Minutes 10x Comments cued for scap depresion, TS and scap mobility Sitting Exercises pulleys Sitting Exercise Name pulleys Reps/Minutes 4 min Comments flexion, scaption, abduction; with active cervical rotation Manual Therapy Treatment Soft Tissue Mobilization STMs RTC Body Location R supraspinatus, infraspinatus , teres minor, UT, proximal pec, bicep Mobilization Type Myofascial Release,Rolling, Strumming,Sustained Pressure Intensity/Depth Moderate Body Position Sidelying 1 Body Location R UT, lev scap, SCM, sub occipitals Mobilization Type Cross-Friction,Myofascial Release,Sustained Pressure Intensity/Depth Moderate Body Position Hooklying Comments with active rotation and contract/relax into increased rotation Joint Mobilizations IMP/ASHLEY Joint R C3-6 Grade III Body Position Hooklying Reps/Duration 2 min Manual Traction Cervical Body Position Hooklying Reps/Duration 60 sec x 2 Comments relieving for neck pain PT-OP-R Modalities Start: 03/28/20 13:47 Freq: Status: Active Protocol: Document 04/11/20 13:42 AW (Rec: 04/11/20 13:53 AW [email or web address]) Hot Pack/Cold Pack Treatment Cold Pack Location R shoulder Patient Position Hooklying Treatment Duration (minutes) 10 Patient Tolerance Good Comments W/ shoulder cryocuff. PT-OP-T Assessment and Plan Start: 03/28/20 13:47 Freq: Status: Active Protocol: Document 05/09/20 12:48 AW (Rec: 05/09/20 17:11 AW [email or web address]) Physical Therapy Assessment Goals Four Impairment neck/shoulder pain impact daily activities Product Support Specialist Goal (LTG) Pt will score 20% or less on QuickDash to indicate improvement in performance of daily activities. LTG Duration 06/20/20 Three Impairment no HEP Short Term Goal (STG) Pt will be independent with HEP for support of therapy services provided in clinic. 05/09/20 MET STG Duration 05/09/20 Mcc Goal (LTG) Pt will demonstrate independence with maintenance HEP LTG Duration 06/20/20 Two Impairment RUE strength Short Term Goal (STG) Pt will increase R shoulder strength to 4+/5 all planes 05/09/20 SLOW PROGRESS due to pain STG Duration 05/09/2020 Mcc Goal (LTG) Pt will be able to lift 5# in scaption plane with elbow extended in order to improve ability to care for her horses . LTG Duration 06/20/20 One Impairment cervical ROM Mcc Goal (LTG) Pt will increase cervical rotation to 50 degrees or greater bilaterally without increase in pain to improve driving tolerance. LTG Duration 06/20/20 Assessment Summary Assessment Continued reduction in guarded cervical ROM at this session. Combining pulleys for passive elevation with cervical rotation was effective for increasing pain free cervical range. Physical Therapy Plan Frequency and Duration Frequency of Treatment 2x/Week Duration of Treatment 12 weeks Plan of Care Start Date 03/28/20 Plan of Care End Date 06/20/20 Therapeutic Interventions Therapeutic Interventions Home Exercise Program,Joint Mobilizations,Manual Therapy, Neuromuscular Re-education, Patient/Caregiver Education, Self-Care/Home Management,Soft Tissue Mobilization,Taping, Therapeutic Activities, Therapeutic Exercises Modalities Cold Pack/Ice Massage,Electric Stimulation,Hot Packs, Traction- Mechanical Other Therapeutic Interventions cryocuff Next Visit Focus/Plan Next Note Type Treatment Note Next Visit Plan Assess response to last tx: manual, pulleys Continue per PT POC
--- NOTE | 2020-05-11 11:15 | PT.OTN ---
Current Diagnoses Other specific arthropathies, not elsewhere classified, right shoulder (05/11/20) Other cervical disc degeneration, unspecified cervical region (05/11/20) Abnormal posture (05/11/20) Strain of muscle, fascia and tendon of other parts of biceps, right arm, initial encounter (05/11/20) Physical Therapy Treatment Note PT-OP-A Visit Information Start: 03/28/20 13:47 Freq: Status: Active Protocol: Document 05/11/20 10:33 HH (Rec: 05/11/20 11:15 HH [id number]) Out-Patient Physical Therapy Visit Information Visit Information Visit Type Treatment Note Visit Start Time 10:33 Visit Stop Time 11:15 Total Visit Minutes 42 Visit Number 11 Number of FLAME BURNER Visits 0 PT-OP-B Current Condition Start: 03/28/20 13:47 Freq: Status: Active Protocol: Document 03/28/20 13:47 AW (Rec: 03/28/20 14:50 AW [id number]) Current Condition History of Current Condition Onset Date May 2019 neck; August 2019 R shoulder Current Complaints neck and R shoulder pain History of Current Condition Pt has near-constant neck and right shoulder pain. She is right handed. Neck pain interferes with driving. 1.5 years ago, she was pushing heavy wheelbarrow which fell, resulting in proximal biceps swelling, weakness. No tear was diagnosed. In May of 2019, she started doing Pilates workouts by [employer] and started to have ongoing neck pain so she stopped the workouts. She describes the pain as deep and aching. Meanwhile, right shoulder pain was increasing. MRI was completed on 03/20/20 with results below including full thickness distal suprasinatus rupture and partial thickness tear proximal long head biceps tendon, possible labral year. She saw Dr. Mederos last week who does not think she is a surgical candidate due to chronicity. Instead, she was referred to PT. Her biggest problem is lifting with the arm in scaption or abduction. Pain wakes her up at night if she is sleeping on the right side. Prior Treatments and Tests MRI 03/20/20: 1. Full-thickness rupture involving distal supraspinatus at its insertion on the humeral head with up to 3 cm medial retraction of torn tendon fibers to the level of acromioclavicular joint. Tendinosis and low to moderate grade articular surface partial thickness tear involving distal infraspinatus. Distal subscapularis tendinosis and low to moderate grade partial- thickness tear. Moderate supraspinatus and subscapularis muscle atrophy. 2. Moderate acromioclavicular joint osteoarthritis. Moderate amount of joint effusion and subacromial subdeltoid bursal fluid. 3. Suggestion of superior anterior labral tear at 12 to 1 o'clock position. 4. Proximal intra-articular portion of long head of biceps tendinosis and low to moderate grade intrasubstance partial- thickness tear. 03/21/20: shoulder injection Future Testing and Treatments Planned Seek second opinion on possible surgery. Treatment Goals Patient/Caregiver Goals Reduce neck and shoulder pain. Feed horses with 4# feed - reaching across and extend arm in scaption plane. Prior Functional Status Baseline Function- ADL's Independent Baseline Function- Mobility Independent Baseline Function- Work/School Pt and her spouse recently sold the local [employer]. 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 Baseline Function- Other Able to tend to her horses and perform heavy gardening tasks . Current Functional Impairments (Reported) Functional Limitations- Other Unable to lift and pour ~4# animal feed with arm outstretched. Personal Factors Other Personal Factors That May Effect + Positive association with Therapy/Recovery movement PT-OP-C Subjective Start: 03/28/20 13:47 Freq: Status: Active Protocol: Document 05/11/20 10:33 HH (Rec: 05/11/20 11:15 HH [id number]) OP-PT Subjective Patient Comments Patient Comments My shoulder overall is getting better and but my neck still bothers me. My shoulder ROM and strength are getting better. Patient Reported Progress Improving PT-OP-F Manual Assessment Start: 03/28/20 13:47 Freq: Status: Active Protocol: Document 03/28/20 13:47 AW (Rec: 03/28/20 17:42 AW [email or web address]) Manual Assessments Soft Tissue Assessment Soft Tissue Mobility Assessment Moderately dense cervical paraspinals and periscapular musculature bilaterally. Pt is thin but muscle atrophy is apparent in right shoulder and biceps. Ko deformity noted RUE. Joint Mobility Assessment Joint Mobility Assessment A/C gapping not provocative or relieving. No point tenderness at proximal humerus . Pt does have strong reaction to deep palpation of the right rhomboids. PT-OP-H Neuro Start: 03/28/20 13:47 Freq: Status: Active Protocol: Document 03/28/20 13:47 AW (Rec: 03/28/20 17:42 AW [email or web address]) Sensation Evaluation Gross Sensation Gross Sensation Left UE Impaired Comments Summary Comments Pt reports occasional tingling in the left hand but is not reproduced on exam. Deep Tendon Reflex & Clonus Assessment Deep Tendon Reflex Bilateral Tricep Deep Tendon Reflex 1+ Diminished Bilateral Bicep Deep Tendon Reflex 3+ Normal But Brisk PT-OP-J Posture/Palpation/Skin Start: 03/28/20 13:47 Freq: Status: Active Protocol: Document 03/28/20 13:47 AW (Rec: 03/28/20 17:42 AW [email or web address]) Posture Evaluation Position Sitting Evaluation View Lateral Head/C-Spine Posture Forward Head Shoulder Posture (L) Rounded,(R) Rounded Scapula Posture (R) Protracted PT-OP-K Range of Motion Start: 03/28/20 13:47 Freq: Status: Active Protocol: Document 04/13/20 13:50 SP (Rec: 04/13/20 15:39 SP [id number]) Shoulder Goniometric Range of Motion Shoulder Right Active Testing Position Sitting Flexion 145 Extension 64 Abduction 85 Internal Rotation Behind Back (text) T12 PT-OP-L Special Tests Start: 03/28/20 13:47 Freq: Status: Active Protocol: Document 03/28/20 13:47 AW (Rec: 03/28/20 17:47 AW [email or web address]) Special Tests Cervical Spine Special Tests Spurling's Test Test Results negative bilaterally PT-OP-M Strength Start: 03/28/20 13:47 Freq: Status: Active Protocol: Document 03/28/20 13:47 AW (Rec: 03/28/20 17:47 AW [email or web address]) Cervical Spine Strength Cervical Spine Manual Muscle Testing Testing Position Sitting Flexion (C1-2) 4- Good- Extension 4- Good- Rotation Left 4- Good- Rotation Right 4- Good- Lateral Flexion Left (C3) 4- Good- Lateral Flexion Right (C3) 4- Good- Shoulder Strength Shoulder Manual Muscle Testing Left Flexion 4+ Good+ Extension 4+ Good+ Abduction (C5) 4+ Good+ Adduction 4+ Good+ External Rotation 4+ Good+ Internal Rotation 4+ Good+ Right Flexion 3+ Fair+ Extension 4 Good Abduction (C5) 3+ Fair+ Adduction 4+ Good+ External Rotation 4- Good- Internal Rotation 4+ Good+ Elbow/Forearm Strength Elbow and Forearm Manual Muscle Testing Right Flexion (C6) 4- Good- Extension (C7) 4- Good- Hand Contact Manager/Pinch Strength Hand Dominance Hand Dominance Right PT-OP-Q Treatments Start: 03/28/20 13:47 Freq: Status: Active Protocol: Document 05/11/20 10:33 HH (Rec: 05/11/20 11:15 [id number]) Therapeutic Exercises Supine Exercises chin tuck (DNF) Reps/Minutes 8 sec hold x5 Sidelying Exercises ER Side right Resistance no weight Reps/Minutes 10x Comments painfree range, open book Sidelying Exercise Name with cervical rotation Side bilateral Reps/Minutes 10x Comments cued for scap depresion, TS and scap mobility Sitting Exercises thoracic rotation Sitting Exercise Name neutral cervical position, thoracic rotation only. Side bilateral Reps/Minutes 10 x2 pulleys Sitting Exercise Name pulleys Reps/Minutes 4 min Comments flexion, scaption, abduction; with active cervical rotation Manual Therapy Treatment Soft Tissue Mobilization STMs RTC Body Location R supraspinatus, infraspinatus , teres minor, UT, proximal pec, bicep Mobilization Type Myofascial Release,Rolling, Strumming,Sustained Pressure Intensity/Depth Moderate Body Position Sidelying Joint Mobilizations T spine Joint T1-T4 Direction PA and lateral Grade III Body Position Prone Reps/Duration 10 mins PT-OP-R Modalities Start: 03/28/20 13:47 Freq: Status: Active Protocol: Document 04/11/20 13:42 AW (Rec: 04/11/20 13:53 AW [email or web address]) Hot Pack/Cold Pack Treatment Cold Pack Location R shoulder Patient Position Hooklying Treatment Duration (minutes) 10 Patient Tolerance Good Comments W/ shoulder cryocuff. PT-OP-T Assessment and Plan Start: 03/28/20 13:47 Freq: Status: Active Protocol: Document 05/11/20 10:33 HH (Rec: 05/11/20 11:15 [id number]) Physical Therapy Assessment Goals Four Impairment neck/shoulder pain impact daily activities Halfway Goal (LTG) Pt will score 20% or less on QuickDash to indicate improvement in performance of daily activities. LTG Duration 06/20/20 Three Impairment no HEP Short Term Goal (STG) Pt will be independent with HEP for support of therapy services provided in clinic. 05/09/20 MET STG Duration 05/09/20 Impression Printer Goal (LTG) Pt will demonstrate independence with maintenance HEP LTG Duration 06/20/20 Two Impairment RUE strength Short Term Goal (STG) Pt will increase R shoulder strength to 4+/5 all planes 05/09/20 SLOW PROGRESS due to pain STG Duration 05/09/2020 Halfway Goal (LTG) Pt will be able to lift 5# in scaption plane with elbow extended in order to improve ability to care for her horses . LTG Duration 06/20/20 One Impairment cervical ROM Halfway Goal (LTG) Pt will increase cervical rotation to 50 degrees or greater bilaterally without increase in pain to improve driving tolerance. LTG Duration 06/20/20 Assessment Summary Assessment tx focused on upper thoracic mobility today. Pt anitha session with improved cervical rotation and less pain at the end of session Physical Therapy Plan Frequency and Duration Frequency of Treatment 2x/Week Duration of Treatment 12 weeks Plan of Care Start Date 03/28/20 Plan of Care End Date 06/20/20 Next Visit Focus/Plan Next Note Type Treatment Note Next Visit Plan Assess response to last tx: manual, pulleys Continue per PT POC
--- NOTE | 2020-05-14 13:49 | PT.OTN ---
Current Diagnoses Other specific arthropathies, not elsewhere classified, right shoulder (05/14/20) Other cervical disc degeneration, unspecified cervical region (05/14/20) Abnormal posture (05/14/20) Strain of muscle, fascia and tendon of other parts of biceps, right arm, initial encounter (05/14/20) Physical Therapy Treatment Note PT-OP-A Visit Information Start: 03/28/20 13:47 Freq: Status: Active Protocol: Document 05/14/20 13:00 SP (Rec: 05/14/20 16:17 SP [id number]) Out-Patient Physical Therapy Visit Information Visit Information Visit Type Treatment Note Visit Start Time 13:00 Visit Stop Time 13:49 Total Visit Minutes 49 Visit Number 12 Number of NEWSPERSON Visits 1 PT-OP-B Current Condition Start: 03/28/20 13:47 Freq: Status: Active Protocol: Document 03/28/20 13:47 AW (Rec: 03/28/20 14:50 AW [id number]) Current Condition History of Current Condition Onset Date May 2019 neck; August 2019 R shoulder Current Complaints neck and R shoulder pain History of Current Condition Pt has near-constant neck and right shoulder pain. She is right handed. Neck pain interferes with driving. 1.5 years ago, she was pushing heavy wheelbarrow which fell, resulting in proximal biceps swelling, weakness. No tear was diagnosed. In May of 2019, she started doing Pilates workouts by [employer] and started to have ongoing neck pain so she stopped the workouts. She describes the pain as deep and aching. Meanwhile, right shoulder pain was increasing. MRI was completed on 03/20/20 with results below including full thickness distal suprasinatus rupture and partial thickness tear proximal long head biceps tendon, possible labral year. She saw Dr. Mederos last week who does not think she is a surgical candidate due to chronicity. Instead, she was referred to PT. Her biggest problem is lifting with the arm in scaption or abduction. Pain wakes her up at night if she is sleeping on the right side. Prior Treatments and Tests MRI 03/20/20: 1. Full-thickness rupture involving distal supraspinatus at its insertion on the humeral head with up to 3 cm medial retraction of torn tendon fibers to the level of acromioclavicular joint. Tendinosis and low to moderate grade articular surface partial thickness tear involving distal infraspinatus. Distal subscapularis tendinosis and low to moderate grade partial- thickness tear. Moderate supraspinatus and subscapularis muscle atrophy. 2. Moderate acromioclavicular joint osteoarthritis. Moderate amount of joint effusion and subacromial subdeltoid bursal fluid. 3. Suggestion of superior anterior labral tear at 12 to 1 o'clock position. 4. Proximal intra-articular portion of long head of biceps tendinosis and low to moderate grade intrasubstance partial- thickness tear. 03/21/20: shoulder injection Future Testing and Treatments Planned Seek second opinion on possible surgery. Treatment Goals Patient/Caregiver Goals Reduce neck and shoulder pain. Feed horses with 4# feed - reaching across and extend arm in scaption plane. Prior Functional Status Baseline Function- ADL's Independent Baseline Function- Mobility Independent Baseline Function- Work/School Pt and her spouse recently sold the local [employer]. 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 Baseline Function- Other Able to tend to her horses and perform heavy gardening tasks . Current Functional Impairments (Reported) Functional Limitations- Other Unable to lift and pour ~4# animal feed with arm outstretched. Personal Factors Other Personal Factors That May Effect + Positive association with Therapy/Recovery movement PT-OP-C Subjective Start: 03/28/20 13:47 Freq: Status: Active Protocol: Document 05/14/20 13:00 SP (Rec: 05/14/20 16:17 SP [id number]) OP-PT Subjective Patient Comments Patient Comments My neck is hurting today and R shld seems to be plateauing. I do feel the neck incorporation last tx helped with ROM but no change in improving pain. Trying to be aware of head turn ROM and HEP on own. I am not sure if progressing and if should see an orthopedic if change in surgical candidate . Pt reported when comes to PT, makes conscious of not guarding head and trunk movement but not as much outside tx and think makes a difference in ROM but not pain , especially lifting R UE >90 deg, still can't do and painful so continiues to change strategies to use LE more. PT-OP-F Manual Assessment Start: 03/28/20 13:47 Freq: Status: Active Protocol: Document 03/28/20 13:47 AW (Rec: 03/28/20 17:42 AW [email or web address]) Manual Assessments Soft Tissue Assessment Soft Tissue Mobility Assessment Moderately dense cervical paraspinals and periscapular musculature bilaterally. Pt is thin but muscle atrophy is apparent in right shoulder and biceps. Ko deformity noted RUE. Joint Mobility Assessment Joint Mobility Assessment A/C gapping not provocative or relieving. No point tenderness at proximal humerus . Pt does have strong reaction to deep palpation of the right rhomboids. PT-OP-H Neuro Start: 03/28/20 13:47 Freq: Status: Active Protocol: Document 03/28/20 13:47 AW (Rec: 03/28/20 17:42 AW [email or web address]) Sensation Evaluation Gross Sensation Gross Sensation Left UE Impaired Comments Summary Comments Pt reports occasional tingling in the left hand but is not reproduced on exam. Deep Tendon Reflex & Clonus Assessment Deep Tendon Reflex Bilateral Tricep Deep Tendon Reflex 1+ Diminished Bilateral Bicep Deep Tendon Reflex 3+ Normal But Brisk PT-OP-J Posture/Palpation/Skin Start: 03/28/20 13:47 Freq: Status: Active Protocol: Document 03/28/20 13:47 AW (Rec: 03/28/20 17:42 AW [email or web address]) Posture Evaluation Position Sitting Evaluation View Lateral Head/C-Spine Posture Forward Head Shoulder Posture (L) Rounded,(R) Rounded Scapula Posture (R) Protracted PT-OP-K Range of Motion Start: 03/28/20 13:47 Freq: Status: Active Protocol: Document 04/13/20 13:50 SP (Rec: 04/13/20 15:39 SP [id number]) Shoulder Goniometric Range of Motion Shoulder Right Active Testing Position Sitting Flexion 145 Extension 64 Abduction 85 Internal Rotation Behind Back (text) T12 PT-OP-L Special Tests Start: 03/28/20 13:47 Freq: Status: Active Protocol: Document 03/28/20 13:47 AW (Rec: 03/28/20 17:47 AW [email or web address]) Special Tests Cervical Spine Special Tests Spurling's Test Test Results negative bilaterally PT-OP-M Strength Start: 03/28/20 13:47 Freq: Status: Active Protocol: Document 03/28/20 13:47 AW (Rec: 03/28/20 17:47 AW [email or web address]) Cervical Spine Strength Cervical Spine Manual Muscle Testing Testing Position Sitting Flexion (C1-2) 4- Good- Extension 4- Good- Rotation Left 4- Good- Rotation Right 4- Good- Lateral Flexion Left (C3) 4- Good- Lateral Flexion Right (C3) 4- Good- Shoulder Strength Shoulder Manual Muscle Testing Left Flexion 4+ Good+ Extension 4+ Good+ Abduction (C5) 4+ Good+ Adduction 4+ Good+ External Rotation 4+ Good+ Internal Rotation 4+ Good+ Right Flexion 3+ Fair+ Extension 4 Good Abduction (C5) 3+ Fair+ Adduction 4+ Good+ External Rotation 4- Good- Internal Rotation 4+ Good+ Elbow/Forearm Strength Elbow and Forearm Manual Muscle Testing Right Flexion (C6) 4- Good- Extension (C7) 4- Good- Hand Package Dyeing Machine Operator/Pinch Strength Hand Dominance Hand Dominance Right PT-OP-Q Treatments Start: 03/28/20 13:47 Freq: Status: Active Protocol: Document 05/14/20 13:00 SP (Rec: 05/14/20 16:17 SP [id number]) Therapeutic Exercises Sidelying Exercises ER Side right Resistance no weight Reps/Minutes 10x Comments painfree range, tiring today open book Sidelying Exercise Name with cervical rotation Side bilateral Reps/Minutes 10x Comments cued for scap depresion, TS and scap mobility Sitting Exercises thoracic rotation Sitting Exercise Name neutral cervical position w/ thoracic rotation, then TS stable w/CS rotat. Side bilateral Equipment Used dowel held in cross arms Reps/Minutes 10 x2 each Comments intermittent cues for shld relaxed in depressed position Standing Exercises wall posture Standing Exercise Name wall posture w/ ER Resistance AROM Reps/Minutes 2 min Comments cues for chin nod neutral then rotation B Manual Therapy Treatment Soft Tissue Mobilization STMs RTC Body Location R supraspinatus, infraspinatus , teres minor, UT, proximal pec, bicep Mobilization Type Myofascial Release,Rolling, Strumming,Sustained Pressure Intensity/Depth Moderate Body Position Sidelying 1 Body Location R UT, lev scap, SCM, sub occipitals Mobilization Type Cross-Friction,Myofascial Release,Sustained Pressure Intensity/Depth Moderate Body Position Hooklying Comments with active rotation and contract/relax into increased rotation PT-OP-R Modalities Start: 03/28/20 13:47 Freq: Status: Active Protocol: Document 04/11/20 13:42 AW (Rec: 04/11/20 13:53 AW [email or web address]) Hot Pack/Cold Pack Treatment Cold Pack Location R shoulder Patient Position Hooklying Treatment Duration (minutes) 10 Patient Tolerance Good Comments W/ shoulder cryocuff. PT-OP-T Assessment and Plan Start: 03/28/20 13:47 Freq: Status: Active Protocol: Document 05/14/20 13:00 SP (Rec: 05/14/20 16:17 SP [id number]) Physical Therapy Assessment Goals Four Impairment neck/shoulder pain impact daily activities Director Payer Goal (LTG) Pt will score 20% or less on QuickDash to indicate improvement in performance of daily activities. LTG Duration 06/20/20 Three Impairment no HEP Short Term Goal (STG) Pt will be independent with HEP for support of therapy services provided in clinic. 05/09/20 MET STG Duration 05/09/20 Fpc Goal (LTG) Pt will demonstrate independence with maintenance HEP LTG Duration 06/20/20 Two Impairment RUE strength Short Term Goal (STG) Pt will increase R shoulder strength to 4+/5 all planes 05/09/20 SLOW PROGRESS due to pain STG Duration 05/09/2020 Director Payer Goal (LTG) Pt will be able to lift 5# in scaption plane with elbow extended in order to improve ability to care for her horses . LTG Duration 06/20/20 One Impairment cervical ROM Fpc Goal (LTG) Pt will increase cervical rotation to 50 degrees or greater bilaterally without increase in pain to improve driving tolerance. LTG Duration 06/20/20 Assessment Summary Assessment Pt improved in cervical and TS rotational ROM post manual and ther ex HEP review in sitting w/ dowel. Pt reported is more conscious of not guarding and allowing head turns, mid back and shoulder blade movement walking with carryover leaving today. Physical Therapy Plan Frequency and Duration Frequency of Treatment 2x/Week Duration of Treatment 12 weeks Plan of Care Start Date 03/28/20 Plan of Care End Date 06/20/20 Therapeutic Interventions Therapeutic Interventions Home Exercise Program,Joint Mobilizations,Manual Therapy, Neuromuscular Re-education, Patient/Caregiver Education, Self-Care/Home Management,Soft Tissue Mobilization,Taping, Therapeutic Activities, Therapeutic Exercises Modalities Cold Pack/Ice Massage,Electric Stimulation,Hot Packs, Traction- Mechanical Other Therapeutic Interventions cryocuff Next Visit Focus/Plan Next Note Type Treatment Note Next Visit Plan Assess response to last tx: manual, TS and CS AROM w/ awareness of scap stabilization. Continue to progress CS, R shld ROM
--- NOTE | 2020-05-16 16:58 | PT.OTN ---
Current Diagnoses Other specific arthropathies, not elsewhere classified, right shoulder (05/16/20) Other cervical disc degeneration, unspecified cervical region (05/16/20) Abnormal posture (05/16/20) Strain of muscle, fascia and tendon of other parts of biceps, right arm, initial encounter (05/16/20) Physical Therapy Treatment Note PT-OP-A Visit Information Start: 03/28/20 13:47 Freq: Status: Active Protocol: Document 05/16/20 13:01 AW (Rec: 05/16/20 13:46 AW [id number]) Out-Patient Physical Therapy Visit Information Visit Information Visit Type Treatment Note Visit Start Time 13:00 Visit Stop Time 13:45 Total Visit Minutes 45 Visit Number 13 Number of INFORMATION SYSTEMS ADMINISTRATOR Visits 0 PT-OP-B Current Condition Start: 03/28/20 13:47 Freq: Status: Active Protocol: Document 03/28/20 13:47 AW (Rec: 03/28/20 14:50 AW [id number]) Current Condition History of Current Condition Onset Date May 2019 neck; August 2019 R shoulder Current Complaints neck and R shoulder pain History of Current Condition Pt has near-constant neck and right shoulder pain. She is right handed. Neck pain interferes with driving. 1.5 years ago, she was pushing heavy wheelbarrow which fell, resulting in proximal biceps swelling, weakness. No tear was diagnosed. In May of 2019, she started doing Pilates workouts by [employer] and started to have ongoing neck pain so she stopped the workouts. She describes the pain as deep and aching. Meanwhile, right shoulder pain was increasing. MRI was completed on 03/20/20 with results below including full thickness distal suprasinatus rupture and partial thickness tear proximal long head biceps tendon, possible labral year. She saw Dr. Mederos last week who does not think she is a surgical candidate due to chronicity. Instead, she was referred to PT. Her biggest problem is lifting with the arm in scaption or abduction. Pain wakes her up at night if she is sleeping on the right side. Prior Treatments and Tests MRI 03/20/20: 1. Full-thickness rupture involving distal supraspinatus at its insertion on the humeral head with up to 3 cm medial retraction of torn tendon fibers to the level of acromioclavicular joint. Tendinosis and low to moderate grade articular surface partial thickness tear involving distal infraspinatus. Distal subscapularis tendinosis and low to moderate grade partial- thickness tear. Moderate supraspinatus and subscapularis muscle atrophy. 2. Moderate acromioclavicular joint osteoarthritis. Moderate amount of joint effusion and subacromial subdeltoid bursal fluid. 3. Suggestion of superior anterior labral tear at 12 to 1 o'clock position. 4. Proximal intra-articular portion of long head of biceps tendinosis and low to moderate grade intrasubstance partial- thickness tear. 03/21/20: shoulder injection Future Testing and Treatments Planned Seek second opinion on possible surgery. Treatment Goals Patient/Caregiver Goals Reduce neck and shoulder pain. Feed horses with 4# feed - reaching across and extend arm in scaption plane. Prior Functional Status Baseline Function- ADL's Independent Baseline Function- Mobility Independent Baseline Function- Work/School Pt and her spouse recently sold the local [employer]. 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 Baseline Function- Other Able to tend to her horses and perform heavy gardening tasks . Current Functional Impairments (Reported) Functional Limitations- Other Unable to lift and pour ~4# animal feed with arm outstretched. Personal Factors Other Personal Factors That May Effect + Positive association with Therapy/Recovery movement PT-OP-C Subjective Start: 03/28/20 13:47 Freq: Status: Active Protocol: Document 05/16/20 13:01 AW (Rec: 05/16/20 13:46 AW [id number]) OP-PT Subjective Patient Comments Patient Comments Shoulder is feeling better today. Still feeling very stiff in the neck. PT-OP-F Manual Assessment Start: 03/28/20 13:47 Freq: Status: Active Protocol: Document 03/28/20 13:47 AW (Rec: 03/28/20 17:42 AW [email or web address]) Manual Assessments Soft Tissue Assessment Soft Tissue Mobility Assessment Moderately dense cervical paraspinals and periscapular musculature bilaterally. Pt is thin but muscle atrophy is apparent in right shoulder and biceps. Ko deformity noted RUE. Joint Mobility Assessment Joint Mobility Assessment A/C gapping not provocative or relieving. No point tenderness at proximal humerus . Pt does have strong reaction to deep palpation of the right rhomboids. PT-OP-H Neuro Start: 03/28/20 13:47 Freq: Status: Active Protocol: Document 03/28/20 13:47 AW (Rec: 03/28/20 17:42 AW [email or web address]) Sensation Evaluation Gross Sensation Gross Sensation Left UE Impaired Comments Summary Comments Pt reports occasional tingling in the left hand but is not reproduced on exam. Deep Tendon Reflex & Clonus Assessment Deep Tendon Reflex Bilateral Tricep Deep Tendon Reflex 1+ Diminished Bilateral Bicep Deep Tendon Reflex 3+ Normal But Brisk PT-OP-J Posture/Palpation/Skin Start: 03/28/20 13:47 Freq: Status: Active Protocol: Document 03/28/20 13:47 AW (Rec: 03/28/20 17:42 AW [email or web address]) Posture Evaluation Position Sitting Evaluation View Lateral Head/C-Spine Posture Forward Head Shoulder Posture (L) Rounded,(R) Rounded Scapula Posture (R) Protracted PT-OP-K Range of Motion Start: 03/28/20 13:47 Freq: Status: Active Protocol: Document 04/13/20 13:50 SP (Rec: 04/13/20 15:39 SP [id number]) Shoulder Goniometric Range of Motion Shoulder Right Active Testing Position Sitting Flexion 145 Extension 64 Abduction 85 Internal Rotation Behind Back (text) T12 PT-OP-L Special Tests Start: 03/28/20 13:47 Freq: Status: Active Protocol: Document 03/28/20 13:47 AW (Rec: 03/28/20 17:47 AW [email or web address]) Special Tests Cervical Spine Special Tests Spurling's Test Test Results negative bilaterally PT-OP-M Strength Start: 03/28/20 13:47 Freq: Status: Active Protocol: Document 03/28/20 13:47 AW (Rec: 03/28/20 17:47 AW [email or web address]) Cervical Spine Strength Cervical Spine Manual Muscle Testing Testing Position Sitting Flexion (C1-2) 4- Good- Extension 4- Good- Rotation Left 4- Good- Rotation Right 4- Good- Lateral Flexion Left (C3) 4- Good- Lateral Flexion Right (C3) 4- Good- Shoulder Strength Shoulder Manual Muscle Testing Left Flexion 4+ Good+ Extension 4+ Good+ Abduction (C5) 4+ Good+ Adduction 4+ Good+ External Rotation 4+ Good+ Internal Rotation 4+ Good+ Right Flexion 3+ Fair+ Extension 4 Good Abduction (C5) 3+ Fair+ Adduction 4+ Good+ External Rotation 4- Good- Internal Rotation 4+ Good+ Elbow/Forearm Strength Elbow and Forearm Manual Muscle Testing Right Flexion (C6) 4- Good- Extension (C7) 4- Good- Hand Alliance Manager/Pinch Strength Hand Dominance Hand Dominance Right PT-OP-Q Treatments Start: 03/28/20 13:47 Freq: Status: Active Protocol: Document 05/16/20 13:01 AW (Rec: 05/16/20 13:46 AW [id number]) Therapeutic Exercises Prone Exercises prone extension on elbows Prone Exercise Name prone extension on elbows/ press up on hands Comments focus on cervical retraction Sidelying Exercises ER Side right Resistance no weight Reps/Minutes 10x Comments painfree range, tiring today open book Sidelying Exercise Name with cervical rotation Side bilateral Reps/Minutes 10x Comments cued for scap depresion, TS and scap mobility Sitting Exercises thoracic rotation Sitting Exercise Name neutral cervical position w/ thoracic rotation, then TS stable w/CS rotat. Side bilateral Equipment Used dowel held in cross arms Reps/Minutes 10 x2 each Comments intermittent cues for shld relaxed in depressed position pulleys Sitting Exercise Name pulleys Reps/Minutes 4 min Comments flexion, scaption, abduction; with active cervical rotation Manual Therapy Treatment Soft Tissue Mobilization 1 Body Location R UT, lev scap, SCM, sub occipitals Mobilization Type Cross-Friction,Myofascial Release,Sustained Pressure Intensity/Depth Moderate Body Position Hooklying Comments with active rotation and contract/relax into increased rotation Joint Mobilizations T spine Joint T1-T4 Direction PA and lateral Grade III Body Position Prone Reps/Duration 5 mins Comments Sitting and prone IMP/ASHLEY Joint R C3-6 Grade III Body Position Hooklying Reps/Duration 2 min PT-OP-R Modalities Start: 03/28/20 13:47 Freq: Status: Active Protocol: Document 04/11/20 13:42 AW (Rec: 04/11/20 13:53 AW [email or web address]) Hot Pack/Cold Pack Treatment Cold Pack Location R shoulder Patient Position Hooklying Treatment Duration (minutes) 10 Patient Tolerance Good Comments W/ shoulder cryocuff. PT-OP-T Assessment and Plan Start: 03/28/20 13:47 Freq: Status: Active Protocol: Document 05/16/20 13:01 AW (Rec: 05/16/20 16:58 AW [email or web address]) Physical Therapy Assessment Goals Four Impairment neck/shoulder pain impact daily activities Retirement Goal (LTG) Pt will score 20% or less on QuickDash to indicate improvement in performance of daily activities. LTG Duration 06/20/20 Three Impairment no HEP Short Term Goal (STG) Pt will be independent with HEP for support of therapy services provided in clinic. 05/09/20 MET STG Duration 05/09/20 Retirement Goal (LTG) Pt will demonstrate independence with maintenance HEP LTG Duration 06/20/20 Two Impairment RUE strength Short Term Goal (STG) Pt will increase R shoulder strength to 4+/5 all planes 05/09/20 SLOW PROGRESS due to pain STG Duration 05/09/2020 Office Chair Assembler Goal (LTG) Pt will be able to lift 5# in scaption plane with elbow extended in order to improve ability to care for her horses . LTG Duration 06/20/20 One Impairment cervical ROM Office Chair Assembler Goal (LTG) Pt will increase cervical rotation to 50 degrees or greater bilaterally without increase in pain to improve driving tolerance. LTG Duration 06/20/20 Assessment Summary Assessment Treatment focused on cervical ROM and thoracic mobility. Pt requires cues for cervical posture in prone and sitting. Slow progress due to extreme guarding. Physical Therapy Plan Frequency and Duration Frequency of Treatment 2x/Week Duration of Treatment 12 weeks Plan of Care Start Date 03/28/20 Plan of Care End Date 06/20/20 Therapeutic Interventions Therapeutic Interventions Home Exercise Program,Joint Mobilizations,Manual Therapy, Neuromuscular Re-education, Patient/Caregiver Education, Self-Care/Home Management,Soft Tissue Mobilization,Taping, Therapeutic Activities, Therapeutic Exercises Modalities Cold Pack/Ice Massage,Electric Stimulation,Hot Packs, Traction- Mechanical Other Therapeutic Interventions cryocuff Next Visit Focus/Plan Next Note Type Treatment Note Next Visit Plan Assess response to last tx: manual, TS and CS AROM w/ awareness of scap stabilization. Continue to progress CS, R shld ROM
--- NOTE | 2020-05-21 13:18 | PT-OP ANOTE ---
Pt arrived 2 min early and checked for appt. TEAM OTR TRUCK DRIVER was 15 min late attending to pt tx, was told by front liner machine operator pt was upset late attendance and decided to cancel appt and leave. TEAM OTR TRUCK DRIVER called pt, apologized for late attendance to her appt, was running late with another pt but will be more attentive time mgt at next appt with her. Pt stated, understood but prefers better time mgt in future.
--- NOTE | 2020-05-23 16:22 | PT.OTN ---
Current Diagnoses Other specific arthropathies, not elsewhere classified, right shoulder (05/23/20) Other cervical disc degeneration, unspecified cervical region (05/23/20) Abnormal posture (05/23/20) Strain of muscle, fascia and tendon of other parts of biceps, right arm, initial encounter (05/23/20) Physical Therapy Treatment Note PT-OP-A Visit Information Start: 03/28/20 13:47 Freq: Status: Active Protocol: Document 05/23/20 13:00 AW (Rec: 05/23/20 13:47 AW [id number]) Out-Patient Physical Therapy Visit Information Visit Information Visit Type Treatment Note Visit Start Time 13:00 Visit Stop Time 13:45 Total Visit Minutes 45 Visit Number 14 Number of VISUALIZER Visits 0 Evaluation Information Evaluation Date 03/28/20 PT-OP-B Current Condition Start: 03/28/20 13:47 Freq: Status: Active Protocol: Document 03/28/20 13:47 AW (Rec: 03/28/20 14:50 AW [id number]) Current Condition History of Current Condition Onset Date May 2019 neck; August 2019 R shoulder Current Complaints neck and R shoulder pain History of Current Condition Pt has near-constant neck and right shoulder pain. She is right handed. Neck pain interferes with driving. 1.5 years ago, she was pushing heavy wheelbarrow which fell, resulting in proximal biceps swelling, weakness. No tear was diagnosed. In May of 2019, she started doing Pilates workouts by [employer] and started to have ongoing neck pain so she stopped the workouts. She describes the pain as deep and aching. Meanwhile, right shoulder pain was increasing. MRI was completed on 03/20/20 with results below including full thickness distal suprasinatus rupture and partial thickness tear proximal long head biceps tendon, possible labral year. She saw Dr. Mederos last week who does not think she is a surgical candidate due to chronicity. Instead, she was referred to PT. Her biggest problem is lifting with the arm in scaption or abduction. Pain wakes her up at night if she is sleeping on the right side. Prior Treatments and Tests MRI 03/20/20: 1. Full-thickness rupture involving distal supraspinatus at its insertion on the humeral head with up to 3 cm medial retraction of torn tendon fibers to the level of acromioclavicular joint. Tendinosis and low to moderate grade articular surface partial thickness tear involving distal infraspinatus. Distal subscapularis tendinosis and low to moderate grade partial- thickness tear. Moderate supraspinatus and subscapularis muscle atrophy. 2. Moderate acromioclavicular joint osteoarthritis. Moderate amount of joint effusion and subacromial subdeltoid bursal fluid. 3. Suggestion of superior anterior labral tear at 12 to 1 o'clock position. 4. Proximal intra-articular portion of long head of biceps tendinosis and low to moderate grade intrasubstance partial- thickness tear. 03/21/20: shoulder injection Future Testing and Treatments Planned Seek second opinion on possible surgery. Treatment Goals Patient/Caregiver Goals Reduce neck and shoulder pain. Feed horses with 4# feed - reaching across and extend arm in scaption plane. Prior Functional Status Baseline Function- ADL's Independent Baseline Function- Mobility Independent Baseline Function- Work/School Pt and her spouse recently sold the local [employer]. 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 Baseline Function- Other Able to tend to her horses and perform heavy gardening tasks . Current Functional Impairments (Reported) Functional Limitations- Other Unable to lift and pour ~4# animal feed with arm outstretched. Personal Factors Other Personal Factors That May Effect + Positive association with Therapy/Recovery movement PT-OP-C Subjective Start: 03/28/20 13:47 Freq: Status: Active Protocol: Document 05/23/20 13:00 AW (Rec: 05/23/20 13:47 AW [id number]) OP-PT Subjective Patient Comments Patient Comments I bought pulleys, been using them at home. Also doing open book and head turns with nods. Trying to do the work at home to make this more worth it. PT-OP-F Manual Assessment Start: 03/28/20 13:47 Freq: Status: Active Protocol: Document 03/28/20 13:47 AW (Rec: 03/28/20 17:42 AW [email or web address]) Manual Assessments Soft Tissue Assessment Soft Tissue Mobility Assessment Moderately dense cervical paraspinals and periscapular musculature bilaterally. Pt is thin but muscle atrophy is apparent in right shoulder and biceps. Ko deformity noted RUE. Joint Mobility Assessment Joint Mobility Assessment A/C gapping not provocative or relieving. No point tenderness at proximal humerus . Pt does have strong reaction to deep palpation of the right rhomboids. PT-OP-H Neuro Start: 03/28/20 13:47 Freq: Status: Active Protocol: Document 03/28/20 13:47 AW (Rec: 03/28/20 17:42 AW [email or web address]) Sensation Evaluation Gross Sensation Gross Sensation Left UE Impaired Comments Summary Comments Pt reports occasional tingling in the left hand but is not reproduced on exam. Deep Tendon Reflex & Clonus Assessment Deep Tendon Reflex Bilateral Tricep Deep Tendon Reflex 1+ Diminished Bilateral Bicep Deep Tendon Reflex 3+ Normal But Brisk PT-OP-J Posture/Palpation/Skin Start: 03/28/20 13:47 Freq: Status: Active Protocol: Document 03/28/20 13:47 AW (Rec: 03/28/20 17:42 AW [email or web address]) Posture Evaluation Position Sitting Evaluation View Lateral Head/C-Spine Posture Forward Head Shoulder Posture (L) Rounded,(R) Rounded Scapula Posture (R) Protracted PT-OP-K Range of Motion Start: 03/28/20 13:47 Freq: Status: Active Protocol: Document 04/13/20 13:50 SP (Rec: 04/13/20 15:39 SP [id number]) Shoulder Goniometric Range of Motion Shoulder Right Active Testing Position Sitting Flexion 145 Extension 64 Abduction 85 Internal Rotation Behind Back (text) T12 PT-OP-L Special Tests Start: 03/28/20 13:47 Freq: Status: Active Protocol: Document 03/28/20 13:47 AW (Rec: 03/28/20 17:47 AW [email or web address]) Special Tests Cervical Spine Special Tests Spurling's Test Test Results negative bilaterally PT-OP-M Strength Start: 03/28/20 13:47 Freq: Status: Active Protocol: Document 03/28/20 13:47 AW (Rec: 03/28/20 17:47 AW [email or web address]) Cervical Spine Strength Cervical Spine Manual Muscle Testing Testing Position Sitting Flexion (C1-2) 4- Good- Extension 4- Good- Rotation Left 4- Good- Rotation Right 4- Good- Lateral Flexion Left (C3) 4- Good- Lateral Flexion Right (C3) 4- Good- Shoulder Strength Shoulder Manual Muscle Testing Left Flexion 4+ Good+ Extension 4+ Good+ Abduction (C5) 4+ Good+ Adduction 4+ Good+ External Rotation 4+ Good+ Internal Rotation 4+ Good+ Right Flexion 3+ Fair+ Extension 4 Good Abduction (C5) 3+ Fair+ Adduction 4+ Good+ External Rotation 4- Good- Internal Rotation 4+ Good+ Elbow/Forearm Strength Elbow and Forearm Manual Muscle Testing Right Flexion (C6) 4- Good- Extension (C7) 4- Good- Hand Tactical/Mobile Watch Officer/Pinch Strength Hand Dominance Hand Dominance Right PT-OP-Q Treatments Start: 03/28/20 13:47 Freq: Status: Active Protocol: Document 05/23/20 13:00 AW (Rec: 05/23/20 13:47 AW [id number]) Cardio Equipment Upper Body Ergometer (UBE) Duration (Minutes) 6 Seat Position 9 Height 3 Therapeutic Exercises Supine Exercises scap protraction Supine Exercise Name scap protraction Side right Resistance manual, 1# Equipment Used db Reps/Minutes 10 x 2 Comments first set vs manual resistance ; 2nd set with DB chin tuck (DNF) Reps/Minutes 8 sec hold x5 Prone Exercises pendulum/ABC Prone Exercise Name pendulum/ABC Side right Reps/Minutes 2 reps Comments focus on GH distraction prone extension on elbows Prone Exercise Name prone extension on elbows/ press up on hands Comments focus on cervical retraction Sidelying Exercises ER Side right Resistance no weight Reps/Minutes 10x Comments painfree range, tiring, ABD Sidelying Exercise Name AROM Side right Resistance 1# Equipment Used db Reps/Minutes x15 Comments painfree range ~100 deg Sitting Exercises GH ER Sitting Exercise Name GH ER pull apart Side bilateral Resistance level 1 Equipment Used TB Reps/Minutes x15 Comments good self-correction in scapular posture thoracic rotation Sitting Exercise Name neutral cervical position w/ thoracic rotation, then TS stable w/CS rotat. Side bilateral Equipment Used dowel held in cross arms Reps/Minutes 10 x2 each Comments intermittent cues for shld relaxed in depressed position PT-OP-R Modalities Start: 03/28/20 13:47 Freq: Status: Active Protocol: Document 04/11/20 13:42 AW (Rec: 04/11/20 13:53 AW [email or web address]) Hot Pack/Cold Pack Treatment Cold Pack Location R shoulder Patient Position Hooklying Treatment Duration (minutes) 10 Patient Tolerance Good Comments W/ shoulder cryocuff. PT-OP-T Assessment and Plan Start: 03/28/20 13:47 Freq: Status: Active Protocol: Document 05/23/20 13:00 AW (Rec: 05/23/20 16:22 AW [email or web address]) Physical Therapy Assessment Goals Four Impairment neck/shoulder pain impact daily activities Reel System Operator Goal (LTG) Pt will score 20% or less on QuickDash to indicate improvement in performance of daily activities. LTG Duration 06/20/20 Three Impairment no HEP Short Term Goal (STG) Pt will be independent with HEP for support of therapy services provided in clinic. 05/09/20 MET STG Duration ACHIEVED Reel System Operator Goal (LTG) Pt will demonstrate independence with maintenance HEP LTG Duration 06/20/20 Two Impairment RUE strength Short Term Goal (STG) Pt will increase R shoulder strength to 4+/5 all planes 05/09/20 SLOW PROGRESS due to pain STG Duration 05/09/2020 Reel System Operator Goal (LTG) Pt will be able to lift 5# in scaption plane with elbow extended in order to improve ability to care for her horses . LTG Duration 06/20/20 One Impairment cervical ROM Long-Term Goal (LTG) Pt will increase cervical rotation to 50 degrees or greater bilaterally without increase in pain to improve driving tolerance. LTG Duration 06/20/20 Assessment Summary Assessment Pt has improved thoracic ROM which is contributing to decreased guarding in cervical movement. She continues to walk with limited trunk mobility. May initiate gait training in upcoming visits to incorporate thoracic rotation . Shoulder ROM improving but abduction remains limited. Physical Therapy Plan Frequency and Duration Frequency of Treatment 2x/Week Duration of Treatment 12 weeks Plan of Care Start Date 03/28/20 Plan of Care End Date 06/20/20 Therapeutic Interventions Therapeutic Interventions Home Exercise Program,Joint Mobilizations,Manual Therapy, Neuromuscular Re-education, Patient/Caregiver Education, Self-Care/Home Management,Soft Tissue Mobilization,Taping, Therapeutic Activities, Therapeutic Exercises Modalities Cold Pack/Ice Massage,Electric Stimulation,Hot Packs, Traction- Mechanical Other Therapeutic Interventions cryocuff Next Visit Focus/Plan Next Visit Plan Continue to progress CS, R shld ROM
--- NOTE | 2020-05-28 13:53 | PT.OTN ---
Current Diagnoses Other specific arthropathies, not elsewhere classified, right shoulder (05/28/20) Other cervical disc degeneration, unspecified cervical region (05/28/20) Abnormal posture (05/28/20) Strain of muscle, fascia and tendon of other parts of biceps, right arm, initial encounter (05/28/20) Physical Therapy Treatment Note PT-OP-A Visit Information Start: 03/28/20 13:47 Freq: Status: Active Protocol: Document 05/28/20 13:05 SP (Rec: 05/28/20 15:19 SP [id number]) Out-Patient Physical Therapy Visit Information Visit Information Visit Type Treatment Note Visit Start Time 13:05 Visit Stop Time 13:53 Total Visit Minutes 48 Visit Number 15 Number of WATCH ASSEMBLER Visits 1 PT-OP-B Current Condition Start: 03/28/20 13:47 Freq: Status: Active Protocol: Document 03/28/20 13:47 AW (Rec: 03/28/20 14:50 AW [id number]) Current Condition History of Current Condition Onset Date May 2019 neck; August 2019 R shoulder Current Complaints neck and R shoulder pain History of Current Condition Pt has near-constant neck and right shoulder pain. She is right handed. Neck pain interferes with driving. 1.5 years ago, she was pushing heavy wheelbarrow which fell, resulting in proximal biceps swelling, weakness. No tear was diagnosed. In May of 2019, she started doing Pilates workouts by [employer] and started to have ongoing neck pain so she stopped the workouts. She describes the pain as deep and aching. Meanwhile, right shoulder pain was increasing. MRI was completed on 03/20/20 with results below including full thickness distal suprasinatus rupture and partial thickness tear proximal long head biceps tendon, possible labral year. She saw Dr. Mederos last week who does not think she is a surgical candidate due to chronicity. Instead, she was referred to PT. Her biggest problem is lifting with the arm in scaption or abduction. Pain wakes her up at night if she is sleeping on the right side. Prior Treatments and Tests MRI 03/20/20: 1. Full-thickness rupture involving distal supraspinatus at its insertion on the humeral head with up to 3 cm medial retraction of torn tendon fibers to the level of acromioclavicular joint. Tendinosis and low to moderate grade articular surface partial thickness tear involving distal infraspinatus. Distal subscapularis tendinosis and low to moderate grade partial- thickness tear. Moderate supraspinatus and subscapularis muscle atrophy. 2. Moderate acromioclavicular joint osteoarthritis. Moderate amount of joint effusion and subacromial subdeltoid bursal fluid. 3. Suggestion of superior anterior labral tear at 12 to 1 o'clock position. 4. Proximal intra-articular portion of long head of biceps tendinosis and low to moderate grade intrasubstance partial- thickness tear. 03/21/20: shoulder injection Future Testing and Treatments Planned Seek second opinion on possible surgery. Treatment Goals Patient/Caregiver Goals Reduce neck and shoulder pain. Feed horses with 4# feed - reaching across and extend arm in scaption plane. Prior Functional Status Baseline Function- ADL's Independent Baseline Function- Mobility Independent Baseline Function- Work/School Pt and her spouse recently sold the local [employer]. 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 Baseline Function- Other Able to tend to her horses and perform heavy gardening tasks . Current Functional Impairments (Reported) Functional Limitations- Other Unable to lift and pour ~4# animal feed with arm outstretched. Personal Factors Other Personal Factors That May Effect + Positive association with Therapy/Recovery movement PT-OP-C Subjective Start: 03/28/20 13:47 Freq: Status: Active Protocol: Document 05/28/20 13:05 SP (Rec: 05/28/20 15:19 SP [id number]) OP-PT Subjective Patient Comments Patient Comments Pt reported neck is really stiff, and R shld gaining ROM with use of pulleys at home. Puts warm pack on neck for assist in decreased stiffness. Reports her upper bicep sore but compliant with recent HEP, think is getting little stronger. PT-OP-F Manual Assessment Start: 03/28/20 13:47 Freq: Status: Active Protocol: Document 03/28/20 13:47 AW (Rec: 03/28/20 17:42 AW [email or web address]) Manual Assessments Soft Tissue Assessment Soft Tissue Mobility Assessment Moderately dense cervical paraspinals and periscapular musculature bilaterally. Pt is thin but muscle atrophy is apparent in right shoulder and biceps. Ko deformity noted RUE. Joint Mobility Assessment Joint Mobility Assessment A/C gapping not provocative or relieving. No point tenderness at proximal humerus . Pt does have strong reaction to deep palpation of the right rhomboids. PT-OP-H Neuro Start: 03/28/20 13:47 Freq: Status: Active Protocol: Document 03/28/20 13:47 AW (Rec: 03/28/20 17:42 AW [email or web address]) Sensation Evaluation Gross Sensation Gross Sensation Left UE Impaired Comments Summary Comments Pt reports occasional tingling in the left hand but is not reproduced on exam. Deep Tendon Reflex & Clonus Assessment Deep Tendon Reflex Bilateral Tricep Deep Tendon Reflex 1+ Diminished Bilateral Bicep Deep Tendon Reflex 3+ Normal But Brisk PT-OP-J Posture/Palpation/Skin Start: 03/28/20 13:47 Freq: Status: Active Protocol: Document 03/28/20 13:47 AW (Rec: 03/28/20 17:42 AW [email or web address]) Posture Evaluation Position Sitting Evaluation View Lateral Head/C-Spine Posture Forward Head Shoulder Posture (L) Rounded,(R) Rounded Scapula Posture (R) Protracted PT-OP-K Range of Motion Start: 03/28/20 13:47 Freq: Status: Active Protocol: Document 04/13/20 13:50 SP (Rec: 04/13/20 15:39 SP [id number]) Shoulder Goniometric Range of Motion Shoulder Right Active Testing Position Sitting Flexion 145 Extension 64 Abduction 85 Internal Rotation Behind Back (text) T12 PT-OP-L Special Tests Start: 03/28/20 13:47 Freq: Status: Active Protocol: Document 03/28/20 13:47 AW (Rec: 03/28/20 17:47 AW [email or web address]) Special Tests Cervical Spine Special Tests Spurling's Test Test Results negative bilaterally PT-OP-M Strength Start: 03/28/20 13:47 Freq: Status: Active Protocol: Document 03/28/20 13:47 AW (Rec: 03/28/20 17:47 AW [email or web address]) Cervical Spine Strength Cervical Spine Manual Muscle Testing Testing Position Sitting Flexion (C1-2) 4- Good- Extension 4- Good- Rotation Left 4- Good- Rotation Right 4- Good- Lateral Flexion Left (C3) 4- Good- Lateral Flexion Right (C3) 4- Good- Shoulder Strength Shoulder Manual Muscle Testing Left Flexion 4+ Good+ Extension 4+ Good+ Abduction (C5) 4+ Good+ Adduction 4+ Good+ External Rotation 4+ Good+ Internal Rotation 4+ Good+ Right Flexion 3+ Fair+ Extension 4 Good Abduction (C5) 3+ Fair+ Adduction 4+ Good+ External Rotation 4- Good- Internal Rotation 4+ Good+ Elbow/Forearm Strength Elbow and Forearm Manual Muscle Testing Right Flexion (C6) 4- Good- Extension (C7) 4- Good- Hand Latex Caster/Pinch Strength Hand Dominance Hand Dominance Right PT-OP-Q Treatments Start: 03/28/20 13:47 Freq: Status: Active Protocol: Document 05/28/20 13:05 SP (Rec: 05/28/20 15:19 SP [id number]) Therapeutic Exercises Supine Exercises scap protraction Supine Exercise Name scap protraction Side right Resistance AROM >1# >2# Equipment Used db Reps/Minutes 10 each Comments cued awareness of shld away from neck AAROM Supine Exercise Name FF Side right Reps/Minutes x10 Comments cued serratus press- pain with eccentric return approx 70 deg Prone Exercises shld retraction Side right Resistance AROM> 1# DB Reps/Minutes 2 sec hold x10 Comments cued scap retract/ depress stabilization shld habd Side right Resistance AROM Reps/Minutes 3 sec hold x8 Comments cued scap retract/ depress stabilization shld ext Side right Resistance AROM Reps/Minutes 3 sec hold x8 Comments cued scap retract/ depress stabilization pendulum/ABC Prone Exercise Name pendulum/ABC Side right Resistance AROM Reps/Minutes a-z Comments focus on GH distraction prone extension on elbows Prone Exercise Name prone CS lift on elbows/press up on hands Reps/Minutes 5 sec hold x8 Comments focus on cervical retraction Sitting Exercises CS Rotation SNAGS Sitting Exercise Name cued towel across zygomatic arch- good form Side right Resistance AAROM Equipment Used towel Reps/Minutes 5 x up to 8-10 sec hold Comments good response of gain range and good deep neck stretch GH ER Sitting Exercise Name GH ER pull apart Side bilateral Resistance level 1 Equipment Used TB Reps/Minutes x15 Comments good self-correction in scapular posture thoracic rotation Sitting Exercise Name neutral cervical position w/ thoracic rotation, then TS stable w/CS rotat. Side bilateral Equipment Used dowel held in cross arms Reps/Minutes 10 x2 each Comments intermittent cues for shld relaxed in depressed position pulleys Sitting Exercise Name pulleys Reps/Minutes 4 min Comments flexion, scaption, abduction; with active cervical rotation Manual Therapy Treatment Soft Tissue Mobilization STMs RTC Body Location R bicep Mobilization Type Myofascial Release,Rolling, Sustained Pressure,Other Intensity/Depth Moderate Body Position Supine Comments w/passive MWM elbow flexion/ ext 1 Body Location R UT, lev scap, SCM, sub occipitals Mobilization Type Cross-Friction,Myofascial Release,Sustained Pressure Intensity/Depth Moderate Body Position Supine Comments with active rotation and contract/relax into increased rotation Manual Techniques MWM bicep manual, thercane UT/ neck mm Type not performed- applied manual Body Location R bicep or posterior scap/ neck Body Position Standing Reps/Duration time to tolerance Comments discusssed self application of active massage MWM head nod/ turn sustained compression PT-OP-R Modalities Start: 03/28/20 13:47 Freq: Status: Active Protocol: Document 04/11/20 13:42 AW (Rec: 04/11/20 13:53 AW [email or web address]) Hot Pack/Cold Pack Treatment Cold Pack Location R shoulder Patient Position Hooklying Treatment Duration (minutes) 10 Patient Tolerance Good Comments W/ shoulder cryocuff. PT-OP-T Assessment and Plan Start: 03/28/20 13:47 Freq: Status: Active Protocol: Document 05/28/20 13:05 SP (Rec: 05/28/20 15:19 SP [id number]) Physical Therapy Assessment Goals Four Impairment neck/shoulder pain impact daily activities Cut Off Tender Glass Goal (LTG) Pt will score 20% or less on QuickDash to indicate improvement in performance of daily activities. LTG Duration 06/20/20 Three Impairment no HEP Short Term Goal (STG) Pt will be independent with HEP for support of therapy services provided in clinic. 05/09/20 MET STG Duration ACHIEVED Cut Off Tender Glass Goal (LTG) Pt will demonstrate independence with maintenance HEP LTG Duration 06/20/20 Two Impairment RUE strength Short Term Goal (STG) Pt will increase R shoulder strength to 4+/5 all planes 05/09/20 SLOW PROGRESS due to pain STG Duration 05/09/2020 Mcfp Goal (LTG) Pt will be able to lift 5# in scaption plane with elbow extended in order to improve ability to care for her horses . LTG Duration 06/20/20 One Impairment cervical ROM Cut Off Tender Glass Goal (LTG) Pt will increase cervical rotation to 50 degrees or greater bilaterally without increase in pain to improve driving tolerance. LTG Duration 06/20/20 Assessment Summary Assessment Pt responded well to last tx. Reviewed HEP with cuing for scap depression awareness and CS neutral. Initiated prone retraction, shld ext, HABD AROM pain free just little tiring, contact cuing for scap retract/depress awareness with improvement in self corrections. Good response to added CS rotation SNAGs, modifies pushing with LUE for R CS rotation due to R shld starts to irritate, reports gets same good stretch. Discussed self stretching, MWM using theracane to get benefits helps during PT. Physical Therapy Plan Frequency and Duration Frequency of Treatment 2x/Week Duration of Treatment 12 weeks Plan of Care Start Date 03/28/20 Plan of Care End Date 06/20/20 Therapeutic Interventions Therapeutic Interventions Home Exercise Program,Joint Mobilizations,Manual Therapy, Neuromuscular Re-education, Patient/Caregiver Education, Self-Care/Home Management,Soft Tissue Mobilization,Taping, Therapeutic Activities, Therapeutic Exercises Modalities Cold Pack/Ice Massage,Electric Stimulation,Hot Packs, Traction- Mechanical Other Therapeutic Interventions cryocuff Next Visit Focus/Plan Next Visit Plan Assess response to HEP review supine/prone standing activities. Intiated prone AROM and CS SNAGS. Continue to progress CS, R shld ROM
--- NOTE | 2020-06-04 07:29 | PT-OP ANOTE ---
Pt televox cancel today's appt, next appt 06/07.
--- NOTE | 2020-06-07 14:35 | PT.OTN ---
Current Diagnoses Other specific arthropathies, not elsewhere classified, right shoulder (06/07/20) Other cervical disc degeneration, unspecified cervical region (06/07/20) Abnormal posture (06/07/20) Strain of muscle, fascia and tendon of other parts of biceps, right arm, initial encounter (06/07/20) Physical Therapy Treatment Note PT-OP-A Visit Information Start: 03/28/20 13:47 Freq: Status: Active Protocol: Document 06/07/20 13:47 SP (Rec: 06/07/20 15:50 SP [id number]) Out-Patient Physical Therapy Visit Information Visit Information Visit Type Treatment Note Visit Note PN due 06/13/20 appt with PT. Visit Start Time 13:47 Visit Stop Time 14:35 Total Visit Minutes 48 Visit Number 16 Number of PEDIATRIC MEDICAL ASSISTANT Visits 2 Evaluation Information Evaluation Date 03/28/20 PT-OP-B Current Condition Start: 03/28/20 13:47 Freq: Status: Active Protocol: Document 03/28/20 13:47 AW (Rec: 03/28/20 14:50 AW [id number]) Current Condition History of Current Condition Onset Date May 2019 neck; August 2019 R shoulder Current Complaints neck and R shoulder pain History of Current Condition Pt has near-constant neck and right shoulder pain. She is right handed. Neck pain interferes with driving. 1.5 years ago, she was pushing heavy wheelbarrow which fell, resulting in proximal biceps swelling, weakness. No tear was diagnosed. In May of 2019, she started doing Pilates workouts by [employer] and started to have ongoing neck pain so she stopped the workouts. She describes the pain as deep and aching. Meanwhile, right shoulder pain was increasing. MRI was completed on 03/20/20 with results below including full thickness distal suprasinatus rupture and partial thickness tear proximal long head biceps tendon, possible labral year. She saw Dr. Mederos last week who does not think she is a surgical candidate due to chronicity. Instead, she was referred to PT. Her biggest problem is lifting with the arm in scaption or abduction. Pain wakes her up at night if she is sleeping on the right side. Prior Treatments and Tests MRI 03/20/20: 1. Full-thickness rupture involving distal supraspinatus at its insertion on the humeral head with up to 3 cm medial retraction of torn tendon fibers to the level of acromioclavicular joint. Tendinosis and low to moderate grade articular surface partial thickness tear involving distal infraspinatus. Distal subscapularis tendinosis and low to moderate grade partial- thickness tear. Moderate supraspinatus and subscapularis muscle atrophy. 2. Moderate acromioclavicular joint osteoarthritis. Moderate amount of joint effusion and subacromial subdeltoid bursal fluid. 3. Suggestion of superior anterior labral tear at 12 to 1 o'clock position. 4. Proximal intra-articular portion of long head of biceps tendinosis and low to moderate grade intrasubstance partial- thickness tear. 03/21/20: shoulder injection Future Testing and Treatments Planned Seek second opinion on possible surgery. Treatment Goals Patient/Caregiver Goals Reduce neck and shoulder pain. Feed horses with 4# feed - reaching across and extend arm in scaption plane. Prior Functional Status Baseline Function- ADL's Independent Baseline Function- Mobility Independent Baseline Function- Work/School Pt and her spouse recently sold the local [employer]. 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 Baseline Function- Other Able to tend to her horses and perform heavy gardening tasks . Current Functional Impairments (Reported) Functional Limitations- Other Unable to lift and pour ~4# animal feed with arm outstretched. Personal Factors Other Personal Factors That May Effect + Positive association with Therapy/Recovery movement PT-OP-C Subjective Start: 03/28/20 13:47 Freq: Status: Active Protocol: Document 06/07/20 13:47 SP (Rec: 06/07/20 15:50 SP [id number]) OP-PT Subjective Patient Comments Patient Comments Pt stated feels is making alot of gains, nearly full ROM and able to carry horse feed in RUE and rake/ shovel horse stalls now. Trying to be more compliant with HEP doing in PT at home. Patient Reported Progress Improving PT-OP-F Manual Assessment Start: 03/28/20 13:47 Freq: Status: Active Protocol: Document 03/28/20 13:47 AW (Rec: 03/28/20 17:42 AW [email or web address]) Manual Assessments Soft Tissue Assessment Soft Tissue Mobility Assessment Moderately dense cervical paraspinals and periscapular musculature bilaterally. Pt is thin but muscle atrophy is apparent in right shoulder and biceps. Ko deformity noted RUE. Joint Mobility Assessment Joint Mobility Assessment A/C gapping not provocative or relieving. No point tenderness at proximal humerus . Pt does have strong reaction to deep palpation of the right rhomboids. PT-OP-H Neuro Start: 03/28/20 13:47 Freq: Status: Active Protocol: Document 03/28/20 13:47 AW (Rec: 03/28/20 17:42 AW [email or web address]) Sensation Evaluation Gross Sensation Gross Sensation Left UE Impaired Comments Summary Comments Pt reports occasional tingling in the left hand but is not reproduced on exam. Deep Tendon Reflex & Clonus Assessment Deep Tendon Reflex Bilateral Tricep Deep Tendon Reflex 1+ Diminished Bilateral Bicep Deep Tendon Reflex 3+ Normal But Brisk PT-OP-J Posture/Palpation/Skin Start: 03/28/20 13:47 Freq: Status: Active Protocol: Document 03/28/20 13:47 AW (Rec: 03/28/20 17:42 AW [email or web address]) Posture Evaluation Position Sitting Evaluation View Lateral Head/C-Spine Posture Forward Head Shoulder Posture (L) Rounded,(R) Rounded Scapula Posture (R) Protracted PT-OP-K Range of Motion Start: 03/28/20 13:47 Freq: Status: Active Protocol: Document 06/07/20 13:47 SP (Rec: 06/07/20 15:50 SP [id number]) Shoulder Goniometric Range of Motion Shoulder Right Active Testing Position Sitting Flexion 173 Abduction 180 External Rotation at 45 degrees 55 Abduction PT-OP-L Special Tests Start: 03/28/20 13:47 Freq: Status: Active Protocol: Document 03/28/20 13:47 AW (Rec: 03/28/20 17:47 AW [email or web address]) Special Tests Cervical Spine Special Tests Spurling's Test Test Results negative bilaterally PT-OP-M Strength Start: 03/28/20 13:47 Freq: Status: Active Protocol: Document 03/28/20 13:47 AW (Rec: 03/28/20 17:47 AW [email or web address]) Cervical Spine Strength Cervical Spine Manual Muscle Testing Testing Position Sitting Flexion (C1-2) 4- Good- Extension 4- Good- Rotation Left 4- Good- Rotation Right 4- Good- Lateral Flexion Left (C3) 4- Good- Lateral Flexion Right (C3) 4- Good- Shoulder Strength Shoulder Manual Muscle Testing Left Flexion 4+ Good+ Extension 4+ Good+ Abduction (C5) 4+ Good+ Adduction 4+ Good+ External Rotation 4+ Good+ Internal Rotation 4+ Good+ Right Flexion 3+ Fair+ Extension 4 Good Abduction (C5) 3+ Fair+ Adduction 4+ Good+ External Rotation 4- Good- Internal Rotation 4+ Good+ Elbow/Forearm Strength Elbow and Forearm Manual Muscle Testing Right Flexion (C6) 4- Good- Extension (C7) 4- Good- Hand Rattlesnake Farmer/Pinch Strength Hand Dominance Hand Dominance Right PT-OP-Q Treatments Start: 03/28/20 13:47 Freq: Status: Active Protocol: Document 06/07/20 13:47 SP (Rec: 06/07/20 15:50 SP [id number]) Therapeutic Exercises Supine Exercises CS flex/ ext Supine Exercise Name seated Side bilateral Reps/Minutes x5 each direction Comments improved upright posture CS rotation Supine Exercise Name supine and seated Side bilateral Reps/Minutes x5 each direction Comments occasional cue for scap depression awareness, improved upright posture Dowel flexion Supine Exercise Name AAROM - flexion Side bilateral Resistance 2# arm wt on dowel Reps/Minutes x10 Comments Painfree AROM approx 45-150 deg Prone Exercises shld retraction Side right Resistance 1# DB Reps/Minutes 2 sec hold x10 Comments tact/ vcued scap retract/ depress stabilization shld ext Side right Resistance #1 DB Reps/Minutes 1 sec hold x10 Comments cued scap retract/ depress stabilization awareness pendulum/ABC Prone Exercise Name pendulum/ABC Side right Resistance #1 DB Reps/Minutes a-z x2 Comments focus on GH distraction Sidelying Exercises open book Sidelying Exercise Name with cervical rotation Side bilateral Reps/Minutes 10x Comments cued for scap depresion, TS and scap mobility ABD Sidelying Exercise Name AROM Side right Resistance AROM> 1# DB Equipment Used x10> x6 Comments painfree range ~approx 160 deg Sitting Exercises CS Rotation SNAGS Sitting Exercise Name cued towel across zygomatic ( not performed but helps alot at home) Side right Resistance AAROM Equipment Used towel Reps/Minutes 5 x up to 8-10 sec hold Comments good response of gain range and good deep neck stretch GH ER Sitting Exercise Name GH ER pull apart to difficult, ok 1# DB Side bilateral Resistance level 1 isometric, 1# DB Reps/Minutes x10 DB Comments good self-correction in scapular posture pulleys Sitting Exercise Name pulleys Reps/Minutes 4 min Comments flexion, scaption, abduction; with active cervical rotation Standing Exercises IR/ ER isometric walk outs Standing Exercise Name towel roll under arm Side right Resistance Tb #1 Reps/Minutes x5 step each direction Comments cued posture and scap stab awareness shld ER Standing Exercise Name added to HEP Side right Resistance 1# DB Equipment Used mirror Reps/Minutes x8 Comments pain free range, cued scap retract/depress awareness Manual Therapy Treatment Soft Tissue Mobilization 1 Body Location R UT, lev scap, suboccipitals Mobilization Type Cross-Friction,Myofascial Release,Sustained Pressure Intensity/Depth Moderate Body Position Supine Comments manual then asked AROM CS rotation PT-OP-R Modalities Start: 03/28/20 13:47 Freq: Status: Active Protocol: Document 04/11/20 13:42 AW (Rec: 04/11/20 13:53 AW [email or web address]) Hot Pack/Cold Pack Treatment Cold Pack Location R shoulder Patient Position Hooklying Treatment Duration (minutes) 10 Patient Tolerance Good Comments W/ shoulder cryocuff. PT-OP-T Assessment and Plan Start: 03/28/20 13:47 Freq: Status: Active Protocol: Document 06/07/20 13:47 SP (Rec: 06/07/20 15:50 SP [id number]) Physical Therapy Assessment Goals Four Impairment neck/shoulder pain impact daily activities Accelerator Technician Goal (LTG) Pt will score 20% or less on QuickDash to indicate improvement in performance of daily activities. LTG Duration 06/20/20 Three Impairment no HEP Short Term Goal (STG) Pt will be independent with HEP for support of therapy services provided in clinic. 05/09/20 MET STG Duration ACHIEVED Half-Way Goal (LTG) Pt will demonstrate independence with maintenance HEP 06/07/20: progressing in self performance at home w/ R shld AROM and initiated low resistance, education on performing CS ROM is not consistant at home. LTG Duration 06/20/20 Two Impairment RUE strength Short Term Goal (STG) Pt will increase R shoulder strength to 4+/5 all planes 05/09/20 SLOW PROGRESS due to pain 06/07/20: progressing, pt able to rake and shovel stalls now with RUE <90 deg flexion STG Duration 05/09/2020 Accelerator Technician Goal (LTG) Pt will be able to lift 5# in scaption plane with elbow extended in order to improve ability to care for her horses . LTG Duration 06/20/20 One Impairment cervical ROM Half-Way Goal (LTG) Pt will increase cervical rotation to 50 degrees or greater bilaterally without increase in pain to improve driving tolerance. LTG Duration 06/20/20 Progress Towards Goals Progress Towards Goals Progressing Toward Goals Progress Comments Pt states is able to rake and shovel stalls now and carry horse feed with RUE now and not need use LLE help RUE. Assessment Summary Assessment Pt responded well to HEP, progressing in tolerance and muscle tiring and not pain during standing exercises w/ DB vs TB, supine FF 2# and prone #1 scap stabilization and decompression. This carrying over to increased strength during working with her ADLs with horses. Physical Therapy Plan Frequency and Duration Frequency of Treatment 2x/Week Duration of Treatment 12 weeks Plan of Care Start Date 03/28/20 Plan of Care End Date 06/20/20 Therapeutic Interventions Therapeutic Interventions Home Exercise Program,Joint Mobilizations,Manual Therapy, Neuromuscular Re-education, Patient/Caregiver Education, Self-Care/Home Management,Soft Tissue Mobilization,Taping, Therapeutic Activities, Therapeutic Exercises Modalities Cold Pack/Ice Massage,Electric Stimulation,Hot Packs, Traction- Mechanical Other Therapeutic Interventions cryocuff Next Visit Focus/Plan Next Visit Plan Assess response to HEP review supine, seated, standing exercises. Intiated standing DB shld ER/ walk outs and supine FF 2#. Continue to progress CS, R shld ROM
--- NOTE | 2020-06-11 13:05 | PT.OTN ---
Current Diagnoses Other specific arthropathies, not elsewhere classified, right shoulder (06/11/20) Other cervical disc degeneration, unspecified cervical region (06/11/20) Abnormal posture (06/11/20) Strain of muscle, fascia and tendon of other parts of biceps, right arm, initial encounter (06/11/20) Physical Therapy Treatment Note PT-OP-A Visit Information Start: 03/28/20 13:47 Freq: Status: Active Protocol: Document 06/11/20 12:15 SP (Rec: 06/11/20 14:39 SP [id number]) Out-Patient Physical Therapy Visit Information Visit Information Visit Type Treatment Note Visit Note PN due 06/13/20 appt with PT, repeat quick dash paperwork. Visit Start Time 12:15 Visit Stop Time 13:05 Total Visit Minutes 50 Visit Number 17 Number of SUPERINTENDENT INSTITUTION Visits 3 Evaluation Information Evaluation Date 03/28/20 PT-OP-B Current Condition Start: 03/28/20 13:47 Freq: Status: Active Protocol: Document 03/28/20 13:47 AW (Rec: 03/28/20 14:50 AW [id number]) Current Condition History of Current Condition Onset Date May 2019 neck; August 2019 R shoulder Current Complaints neck and R shoulder pain History of Current Condition Pt has near-constant neck and right shoulder pain. She is right handed. Neck pain interferes with driving. 1.5 years ago, she was pushing heavy wheelbarrow which fell, resulting in proximal biceps swelling, weakness. No tear was diagnosed. In May of 2019, she started doing Pilates workouts by Z[employer] and started to have ongoing neck pain so she stopped the workouts. She describes the pain as deep and aching. Meanwhile, right shoulder pain was increasing. MRI was completed on 03/20/20 with results below including full thickness distal suprasinatus rupture and partial thickness tear proximal long head biceps tendon, possible labral year. She saw Dr. Mederos last week who does not think she is a surgical candidate due to chronicity. Instead, she was referred to PT. Her biggest problem is lifting with the arm in scaption or abduction. Pain wakes her up at night if she is sleeping on the right side. Prior Treatments and Tests MRI 03/20/20: 1. Full-thickness rupture involving distal supraspinatus at its insertion on the humeral head with up to 3 cm medial retraction of torn tendon fibers to the level of acromioclavicular joint. Tendinosis and low to moderate grade articular surface partial thickness tear involving distal infraspinatus. Distal subscapularis tendinosis and low to moderate grade partial- thickness tear. Moderate supraspinatus and subscapularis muscle atrophy. 2. Moderate acromioclavicular joint osteoarthritis. Moderate amount of joint effusion and subacromial subdeltoid bursal fluid. 3. Suggestion of superior anterior labral tear at 12 to 1 o'clock position. 4. Proximal intra-articular portion of long head of biceps tendinosis and low to moderate grade intrasubstance partial- thickness tear. 03/21/20: shoulder injection Future Testing and Treatments Planned Seek second opinion on possible surgery. Treatment Goals Patient/Caregiver Goals Reduce neck and shoulder pain. Feed horses with 4# feed - reaching across and extend arm in scaption plane. Prior Functional Status Baseline Function- ADL's Independent Baseline Function- Mobility Independent Baseline Function- Work/School Pt and her spouse recently sold the local [employer]. 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 Baseline Function- Other Able to tend to her horses and perform heavy gardening tasks . Current Functional Impairments (Reported) Functional Limitations- Other Unable to lift and pour ~4# animal feed with arm outstretched. Personal Factors Other Personal Factors That May Effect + Positive association with Therapy/Recovery movement PT-OP-C Subjective Start: 03/28/20 13:47 Freq: Status: Active Protocol: Document 06/11/20 12:15 SP (Rec: 06/11/20 14:39 SP [id number]) OP-PT Subjective Patient Comments Patient Comments Pt stated my R shld was really sore after last tx, no pain but over worked and neck was status quo no worse/ better. PT-OP-F Manual Assessment Start: 03/28/20 13:47 Freq: Status: Active Protocol: Document 03/28/20 13:47 AW (Rec: 03/28/20 17:42 AW [email or web address]) Manual Assessments Soft Tissue Assessment Soft Tissue Mobility Assessment Moderately dense cervical paraspinals and periscapular musculature bilaterally. Pt is thin but muscle atrophy is apparent in right shoulder and biceps. Ko deformity noted RUE. Joint Mobility Assessment Joint Mobility Assessment A/C gapping not provocative or relieving. No point tenderness at proximal humerus . Pt does have strong reaction to deep palpation of the right rhomboids. PT-OP-H Neuro Start: 03/28/20 13:47 Freq: Status: Active Protocol: Document 03/28/20 13:47 AW (Rec: 03/28/20 17:42 AW [email or web address]) Sensation Evaluation Gross Sensation Gross Sensation Left UE Impaired Comments Summary Comments Pt reports occasional tingling in the left hand but is not reproduced on exam. Deep Tendon Reflex & Clonus Assessment Deep Tendon Reflex Bilateral Tricep Deep Tendon Reflex 1+ Diminished Bilateral Bicep Deep Tendon Reflex 3+ Normal But Brisk PT-OP-J Posture/Palpation/Skin Start: 03/28/20 13:47 Freq: Status: Active Protocol: Document 03/28/20 13:47 AW (Rec: 03/28/20 17:42 AW [email or web address]) Posture Evaluation Position Sitting Evaluation View Lateral Head/C-Spine Posture Forward Head Shoulder Posture (L) Rounded,(R) Rounded Scapula Posture (R) Protracted PT-OP-K Range of Motion Start: 03/28/20 13:47 Freq: Status: Active Protocol: Document 06/07/20 13:47 SP (Rec: 06/07/20 15:50 SP [id number]) Shoulder Goniometric Range of Motion Shoulder Right Active Testing Position Sitting Flexion 173 Abduction 180 External Rotation at 45 degrees 55 Abduction PT-OP-L Special Tests Start: 03/28/20 13:47 Freq: Status: Active Protocol: Document 03/28/20 13:47 AW (Rec: 03/28/20 17:47 AW [email or web address]) Special Tests Cervical Spine Special Tests Spurling's Test Test Results negative bilaterally PT-OP-M Strength Start: 03/28/20 13:47 Freq: Status: Active Protocol: Document 03/28/20 13:47 AW (Rec: 03/28/20 17:47 AW [email or web address]) Cervical Spine Strength Cervical Spine Manual Muscle Testing Testing Position Sitting Flexion (C1-2) 4- Good- Extension 4- Good- Rotation Left 4- Good- Rotation Right 4- Good- Lateral Flexion Left (C3) 4- Good- Lateral Flexion Right (C3) 4- Good- Shoulder Strength Shoulder Manual Muscle Testing Left Flexion 4+ Good+ Extension 4+ Good+ Abduction (C5) 4+ Good+ Adduction 4+ Good+ External Rotation 4+ Good+ Internal Rotation 4+ Good+ Right Flexion 3+ Fair+ Extension 4 Good Abduction (C5) 3+ Fair+ Adduction 4+ Good+ External Rotation 4- Good- Internal Rotation 4+ Good+ Elbow/Forearm Strength Elbow and Forearm Manual Muscle Testing Right Flexion (C6) 4- Good- Extension (C7) 4- Good- Hand Insurance Plan Specialist/Pinch Strength Hand Dominance Hand Dominance Right PT-OP-Q Treatments Start: 03/28/20 13:47 Freq: Status: Active Protocol: Document 06/11/20 12:15 SP (Rec: 06/11/20 14:39 SP [id number]) Therapeutic Exercises Prone Exercises shld retraction Side right Resistance 2# DB Reps/Minutes 2 sec hold x10 Comments tact/ vcued scap retract/ depress stabilization shld habd Side right Resistance AROM Reps/Minutes 3 sec hold x8 Comments cued scap retract/ depress stabilization shld ext Side right Resistance #2 DB Reps/Minutes 2 sec hold x10 Comments cued scap retract/ depress stabilization awareness prone extension on elbows Prone Exercise Name prone CS lift on elbows/press up on hands Reps/Minutes 3 sec hold x10 Comments focus on cervical retraction, cued chin nod neutral Standing Exercises shld ER Standing Exercise Name HEP review Side right Resistance 1# DB Equipment Used mirror Reps/Minutes x8 Comments pain free range, cued scap retract/depress awareness Other Exercises 1/2 kneel D1 flexion Other Exercise Name AAROM PNF adduction/ flexion for horse feed strengthening Resistance TB #1 Comments cued awareness of scap stabilization- improved ROM and seg movement 1/2 kneel eccentric shld ABD Other Exercise Name concentric adduction/ eccentric abd Side right Resistance Tb #1 Reps/Minutes 10 Manual Therapy Treatment Soft Tissue Mobilization STMs RTC Body Location R bicep Mobilization Type Myofascial Release,Rolling, Sustained Pressure,Other Intensity/Depth Moderate Body Position Supine Comments w/active MWM elbow flexion/ ext 1 Body Location R UT, lev scap, suboccipitals Mobilization Type Cross-Friction,Myofascial Release,Sustained Pressure Intensity/Depth Moderate Body Position Supine Comments manual then asked MWM AROM CS rotation head turn/ nod PT-OP-R Modalities Start: 03/28/20 13:47 Freq: Status: Active Protocol: Document 04/11/20 13:42 AW (Rec: 04/11/20 13:53 AW [email or web address]) Hot Pack/Cold Pack Treatment Cold Pack Location R shoulder Patient Position Hooklying Treatment Duration (minutes) 10 Patient Tolerance Good Comments W/ shoulder cryocuff. PT-OP-T Assessment and Plan Start: 03/28/20 13:47 Freq: Status: Active Protocol: Document 06/11/20 12:15 SP (Rec: 06/11/20 14:39 SP [email or web address]) Physical Therapy Assessment Goals Four Impairment neck/shoulder pain impact daily activities Nursing Home Goal (LTG) Pt will score 20% or less on QuickDash to indicate improvement in performance of daily activities. LTG Duration 06/20/20 Three Impairment no HEP Short Term Goal (STG) Pt will be independent with HEP for support of therapy services provided in clinic. 05/09/20 MET STG Duration ACHIEVED Outpatient Surgery Rn Goal (LTG) Pt will demonstrate independence with maintenance HEP 06/07/20: progressing in self performance at home w/ R shld AROM and initiated low resistance, education on performing CS ROM is not consistant at home. LTG Duration 06/20/20 Two Impairment RUE strength Short Term Goal (STG) Pt will increase R shoulder strength to 4+/5 all planes 05/09/20 SLOW PROGRESS due to pain 06/07/20: progressing, pt able to rake and shovel stalls now with RUE <90 deg flexion STG Duration 05/09/2020 Outpatient Surgery Rn Goal (LTG) Pt will be able to lift 5# in scaption plane with elbow extended in order to improve ability to care for her horses . LTG Duration 06/20/20 One Impairment cervical ROM Nursing Home Goal (LTG) Pt will increase cervical rotation to 50 degrees or greater bilaterally without increase in pain to improve driving tolerance. LTG Duration 06/20/20 Progress Towards Goals Progress Towards Goals Progressing Toward Goals Progress Comments Pt reported able to rake and shovel stalls, horse feed through window D1 flexion w/ RUE with decreasing LUE support. Assessment Summary Assessment Pt tolerated tx well, improved RUE strengthening and able to incorporated increase ROM above 90 deg FF, ABD and light resistance ext, adduction, ER with no pain mostly muscle tiring. Physical Therapy Plan Frequency and Duration Frequency of Treatment 2x/Week Duration of Treatment 12 weeks Plan of Care Start Date 03/28/20 Plan of Care End Date 06/20/20 Therapeutic Interventions Therapeutic Interventions Home Exercise Program,Joint Mobilizations,Manual Therapy, Neuromuscular Re-education, Patient/Caregiver Education, Self-Care/Home Management,Soft Tissue Mobilization,Taping, Therapeutic Activities, Therapeutic Exercises Modalities Cold Pack/Ice Massage,Electric Stimulation,Hot Packs, Traction- Mechanical Other Therapeutic Interventions cryocuff Next Visit Focus/Plan Next Visit Plan PN next tx. Assess response to HEP prone standing exercises, initiated PNF D1 flexion AAROM resistance and eccentric adduction against resisitance . Continue to progress CS, R shld ROM
--- NOTE | 2020-06-13 16:35 | PT.OTN ---
Current Diagnoses Other specific arthropathies, not elsewhere classified, right shoulder (06/13/20) Other cervical disc degeneration, unspecified cervical region (06/13/20) Abnormal posture (06/13/20) Strain of muscle, fascia and tendon of other parts of biceps, right arm, initial encounter (06/13/20) Physical Therapy Treatment Note PT-OP-A Visit Information Start: 03/28/20 13:47 Freq: Status: Active Protocol: Document 06/13/20 15:40 AW (Rec: 06/13/20 15:36 AW [id number]) Out-Patient Physical Therapy Visit Information Visit Information Visit Type Progress Note Visit Start Time 15:30 Visit Stop Time 16:15 Total Visit Minutes 45 Visit Number 18 Number of GRAPHIC DESIGN MANAGER Visits 0 Evaluation Information Evaluation Date 03/28/20 PT-OP-B Current Condition Start: 03/28/20 13:47 Freq: Status: Active Protocol: Document 03/28/20 13:47 AW (Rec: 03/28/20 14:50 AW [id number]) Current Condition History of Current Condition Onset Date May 2019 neck; August 2019 R shoulder Current Complaints neck and R shoulder pain History of Current Condition Pt has near-constant neck and right shoulder pain. She is right handed. Neck pain interferes with driving. 1.5 years ago, she was pushing heavy wheelbarrow which fell, resulting in proximal biceps swelling, weakness. No tear was diagnosed. In May of 2019, she started doing Pilates workouts by Z[employer] and started to have ongoing neck pain so she stopped the workouts. She describes the pain as deep and aching. Meanwhile, right shoulder pain was increasing. MRI was completed on 03/20/20 with results below including full thickness distal suprasinatus rupture and partial thickness tear proximal long head biceps tendon, possible labral year. She saw Dr. Mederos last week who does not think she is a surgical candidate due to chronicity. Instead, she was referred to PT. Her biggest problem is lifting with the arm in scaption or abduction. Pain wakes her up at night if she is sleeping on the right side. Prior Treatments and Tests MRI 03/20/20: 1. Full-thickness rupture involving distal supraspinatus at its insertion on the humeral head with up to 3 cm medial retraction of torn tendon fibers to the level of acromioclavicular joint. Tendinosis and low to moderate grade articular surface partial thickness tear involving distal infraspinatus. Distal subscapularis tendinosis and low to moderate grade partial- thickness tear. Moderate supraspinatus and subscapularis muscle atrophy. 2. Moderate acromioclavicular joint osteoarthritis. Moderate amount of joint effusion and subacromial subdeltoid bursal fluid. 3. Suggestion of superior anterior labral tear at 12 to 1 o'clock position. 4. Proximal intra-articular portion of long head of biceps tendinosis and low to moderate grade intrasubstance partial- thickness tear. 03/21/20: shoulder injection Future Testing and Treatments Planned Seek second opinion on possible surgery. Treatment Goals Patient/Caregiver Goals Reduce neck and shoulder pain. Feed horses with 4# feed - reaching across and extend arm in scaption plane. Prior Functional Status Baseline Function- ADL's Independent Baseline Function- Mobility Independent Baseline Function- Work/School Pt and her spouse recently sold the local [employer]. 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 Baseline Function- Other Able to tend to her horses and perform heavy gardening tasks . Current Functional Impairments (Reported) Functional Limitations- Other Unable to lift and pour ~4# animal feed with arm outstretched. Personal Factors Other Personal Factors That May Effect + Positive association with Therapy/Recovery movement PT-OP-C Subjective Start: 03/28/20 13:47 Freq: Status: Active Protocol: Document 06/13/20 15:40 AW (Rec: 06/13/20 16:31 AW [id number]) OP-PT Subjective Patient Comments Patient Comments R shoulder is improving. Able to move once again. Overall improvement PT-OP-F Manual Assessment Start: 03/28/20 13:47 Freq: Status: Active Protocol: Document 03/28/20 13:47 AW (Rec: 03/28/20 17:42 AW [email or web address]) Manual Assessments Soft Tissue Assessment Soft Tissue Mobility Assessment Moderately dense cervical paraspinals and periscapular musculature bilaterally. Pt is thin but muscle atrophy is apparent in right shoulder and biceps. Ko deformity noted RUE. Joint Mobility Assessment Joint Mobility Assessment A/C gapping not provocative or relieving. No point tenderness at proximal humerus . Pt does have strong reaction to deep palpation of the right rhomboids. PT-OP-H Neuro Start: 03/28/20 13:47 Freq: Status: Active Protocol: Document 03/28/20 13:47 AW (Rec: 03/28/20 17:42 AW [email or web address]) Sensation Evaluation Gross Sensation Gross Sensation Left UE Impaired Comments Summary Comments Pt reports occasional tingling in the left hand but is not reproduced on exam. Deep Tendon Reflex & Clonus Assessment Deep Tendon Reflex Bilateral Tricep Deep Tendon Reflex 1+ Diminished Bilateral Bicep Deep Tendon Reflex 3+ Normal But Brisk PT-OP-J Posture/Palpation/Skin Start: 03/28/20 13:47 Freq: Status: Active Protocol: Document 03/28/20 13:47 AW (Rec: 03/28/20 17:42 AW [email or web address]) Posture Evaluation Position Sitting Evaluation View Lateral Head/C-Spine Posture Forward Head Shoulder Posture (L) Rounded,(R) Rounded Scapula Posture (R) Protracted PT-OP-K Range of Motion Start: 03/28/20 13:47 Freq: Status: Active Protocol: Document 06/13/20 15:40 AW (Rec: 06/13/20 16:34 AW [id number]) Cervical Spine Range of Motion Cervical Spine Active Degrees Testing Position Sitting Rotation Left 55 Rotation Right 50 Comments 5/10 pain to the right. 3/10 pain to the left PT-OP-L Special Tests Start: 03/28/20 13:47 Freq: Status: Active Protocol: Document 03/28/20 13:47 AW (Rec: 03/28/20 17:47 AW [email or web address]) Special Tests Cervical Spine Special Tests Spurling's Test Test Results negative bilaterally PT-OP-M Strength Start: 03/28/20 13:47 Freq: Status: Active Protocol: Document 03/28/20 13:47 AW (Rec: 03/28/20 17:47 AW [email or web address]) Cervical Spine Strength Cervical Spine Manual Muscle Testing Testing Position Sitting Flexion (C1-2) 4- Good- Extension 4- Good- Rotation Left 4- Good- Rotation Right 4- Good- Lateral Flexion Left (C3) 4- Good- Lateral Flexion Right (C3) 4- Good- Shoulder Strength Shoulder Manual Muscle Testing Left Flexion 4+ Good+ Extension 4+ Good+ Abduction (C5) 4+ Good+ Adduction 4+ Good+ External Rotation 4+ Good+ Internal Rotation 4+ Good+ Right Flexion 3+ Fair+ Extension 4 Good Abduction (C5) 3+ Fair+ Adduction 4+ Good+ External Rotation 4- Good- Internal Rotation 4+ Good+ Elbow/Forearm Strength Elbow and Forearm Manual Muscle Testing Right Flexion (C6) 4- Good- Extension (C7) 4- Good- Hand Table Games Dual Rate Supervisor/Pinch Strength Hand Dominance Hand Dominance Right PT-OP-Q Treatments Start: 03/28/20 13:47 Freq: Status: Active Protocol: Document 06/13/20 15:40 AW (Rec: 06/13/20 16:31 AW [id number]) Therapeutic Exercises Prone Exercises prone extension on elbows Prone Exercise Name prone CS lift on elbows/press up on hands Reps/Minutes 3 sec hold x10 Comments focus on cervical retraction, cued chin nod neutral Sidelying Exercises open book Sidelying Exercise Name with cervical rotation Side bilateral Reps/Minutes 10x Comments cued for scap depresion, TS and scap mobility Sitting Exercises CS Rotation SNAGS Sitting Exercise Name cued towel across zygomatic; rotation and chin tuck Side right Resistance AAROM Equipment Used towel Reps/Minutes 5 x up to 8-10 sec hold Comments difficulty due to R shoulder but able to do with shoulder depressed pulleys Sitting Exercise Name pulleys Reps/Minutes 4 min Comments flexion, scaption, abduction; with active cervical rotation Manual Therapy Treatment Soft Tissue Mobilization 1 Body Location R UT, lev scap, suboccipitals Mobilization Type Cross-Friction,Myofascial Release,Sustained Pressure Intensity/Depth Moderate Body Position Supine Comments manual then asked MWM AROM CS rotation head turn/ nod Joint Mobilizations IMP/ASHLEY Joint R C3-6 Grade III Body Position Hooklying Reps/Duration 2 min Manual Traction Cervical Body Position Hooklying Reps/Duration 60 sec x 2 Comments relieving for neck pain PT-OP-R Modalities Start: 03/28/20 13:47 Freq: Status: Active Protocol: Document 04/11/20 13:42 AW (Rec: 04/11/20 13:53 AW [email or web address]) Hot Pack/Cold Pack Treatment Cold Pack Location R shoulder Patient Position Hooklying Treatment Duration (minutes) 10 Patient Tolerance Good Comments W/ shoulder cryocuff. PT-OP-T Assessment and Plan Start: 03/28/20 13:47 Freq: Status: Active Protocol: Document 06/13/20 15:40 AW (Rec: 06/13/20 16:31 AW [email or web address]) Physical Therapy Assessment Goals Four Impairment neck/shoulder pain impact daily activities Channel Machine Operator Goal (LTG) Pt will score 20% or less on QuickDash to indicate improvement in performance of daily activities. LTG Duration 08/20/20 Three Impairment no HEP Short Term Goal (STG) Pt will be independent with HEP for support of therapy services provided in clinic. 05/09/20 MET STG Duration ACHIEVED Channel Machine Operator Goal (LTG) Pt will demonstrate independence with maintenance HEP 06/07/20: progressing in self performance at home w/ R shld AROM and initiated low resistance, education on performing CS ROM is not consistant at home. LTG Duration 08/20/20 Two Impairment RUE strength Short Term Goal (STG) Pt will increase R shoulder strength to 4+/5 all planes 05/09/20 SLOW PROGRESS due to pain 06/07/20: progressing, pt able to rake and shovel stalls now with RUE <90 deg flexion STG Duration 05/09/2020 Channel Machine Operator Goal (LTG) Pt will be able to lift 5# in scaption plane with elbow extended in order to improve ability to care for her horses . 06/13/20 - Using LUE for AAROM R shoulder to pour feed over ledge LTG Duration 08/20/20 One Impairment cervical ROM Half-Way Goal (LTG) Pt will increase cervical rotation to 50 degrees or greater bilaterally without increase in pain to improve driving tolerance. 06/13/20 - PROGRESS 50 R with 5/10 pain 55 L with 3/10 pain (0/10 at rest) LTG Duration 08/20/20 Progress Towards Goals Progress Towards Goals Progressing Toward Goals Progress Comments Pt's shoulder pain has waxed and waned but overall improvement with ROM. Shoulder stabilization strength remains limited and pt will require further therapy to progress. Pt able to rake and shovel stalls but continues to modify horse feeding tasks due to inability to lift in scaption plane >2 pounds. Pt's cervical ROM remains limited due to pain but she demonstrates reduced guarding and slightly improved quality of movement. Assessment Summary Assessment Visit focused on updating goals, manual therapy for neck and right shoulder, and HEP review. Pt has made good progress toward goals but would benefit from continued skilled therapy improve strength, ROM, and function related to self care and home/ livestock management. Physical Therapy Plan Frequency and Duration Frequency of Treatment 2x/Week Duration of Treatment 8 weeks Plan of Care Start Date 06/20/20 Plan of Care End Date 08/20/20 Therapeutic Interventions Therapeutic Interventions Home Exercise Program,Joint Mobilizations,Manual Therapy, Neuromuscular Re-education, Patient/Caregiver Education, Self-Care/Home Management,Soft Tissue Mobilization,Taping, Therapeutic Activities, Therapeutic Exercises Modalities Cold Pack/Ice Massage,Electric Stimulation,Hot Packs, Traction- Mechanical Other Therapeutic Interventions cryocuff Next Visit Focus/Plan Next Note Type Treatment Note
--- NOTE | 2020-06-13 16:37 | PT.OPPOC ---
Physical, Occupational & Speech Therapy At [facility] Current Diagnoses Other specific arthropathies, not elsewhere classified, right shoulder (06/13/20) Other cervical disc degeneration, unspecified cervical region (06/13/20) Abnormal posture (06/13/20) Strain of muscle, fascia and tendon of other parts of biceps, right arm, initial encounter (06/13/20) Visit Care Team Role Provider Type Pascual Garcia MD Family Provider Physician Primary Care Provider Specialty: Internal Medicine Address: [address] [place] [address], [id number] Email: [email or web address] Dheeraj Mederos MD Attending Provider Physician Referring Provider Specialty: Orthopedic Surgery Address: [address] [place] [address], [address] Email: [email or web address] Plan Of Care PT-OP-T Assessment and Plan Start: 03/28/20 13:47 Freq: Status: Active Protocol: Document 06/13/20 15:40 AW (Rec: 06/13/20 16:31 AW [id number]) Physical Therapy Assessment Goals Four Impairment neck/shoulder pain impact daily activities Retirement Goal (LTG) Pt will score 20% or less on QuickDash to indicate improvement in performance of daily activities. LTG Duration 08/20/20 Three Impairment no HEP Short Term Goal (STG) Pt will be independent with HEP for support of therapy services provided in clinic. 05/09/20 MET STG Duration ACHIEVED Retirement Goal (LTG) Pt will demonstrate independence with maintenance HEP 06/07/20: progressing in self performance at home w/ R shld AROM and initiated low resistance, education on performing CS ROM is not consistant at home. LTG Duration 08/20/20 Two Impairment RUE strength Short Term Goal (STG) Pt will increase R shoulder strength to 4+/5 all planes 05/09/20 SLOW PROGRESS due to pain 06/07/20: progressing, pt able to rake and shovel stalls now with RUE <90 deg flexion STG Duration 05/09/2020 Manufacturing Inspector Goal (LTG) Pt will be able to lift 5# in scaption plane with elbow extended in order to improve ability to care for her horses . 06/13/20 - Using LUE for AAROM R shoulder to pour feed over ledge LTG Duration 08/20/20 One Impairment cervical ROM Retirement Goal (LTG) Pt will increase cervical rotation to 50 degrees or greater bilaterally without increase in pain to improve driving tolerance. 06/13/20 - PROGRESS 50 R with 5/10 pain 55 L with 3/10 pain (0/10 at rest) LTG Duration 08/20/20 Progress Towards Goals Progress Towards Goals Progressing Toward Goals Progress Comments Pt's shoulder pain has waxed and waned but overall improvement with ROM. Shoulder stabilization strength remains limited and pt will require further therapy to progress. Pt able to rake and shovel stalls but continues to modify horse feeding tasks due to inability to lift in scaption plane >2 pounds. Pt's cervical ROM remains limited due to pain but she demonstrates reduced guarding and slightly improved quality of movement. Assessment Summary Assessment Visit focused on updating goals, manual therapy for neck and right shoulder, and HEP review. Pt has made good progress toward goals but would benefit from continued skilled therapy improve strength, ROM, and function related to self care and home/ livestock management. Physical Therapy Plan Frequency and Duration Frequency of Treatment 2x/Week Duration of Treatment 8 weeks Plan of Care Start Date 06/20/20 Plan of Care End Date 08/20/20 Therapeutic Interventions Therapeutic Interventions Home Exercise Program,Joint Mobilizations,Manual Therapy, Neuromuscular Re-education, Patient/Caregiver Education, Self-Care/Home Management,Soft Tissue Mobilization,Taping, Therapeutic Activities, Therapeutic Exercises Modalities Cold Pack/Ice Massage,Electric Stimulation,Hot Packs, Traction- Mechanical Other Therapeutic Interventions cryocuff Next Visit Focus/Plan Next Note Type Treatment Note Plan of Care Dates Plan of Care Start Date 06/20/20 Plan of Care End Date 08/20/20 Electronically Signed by: Shama Bejarano PT 06/13/20 0823 Please Sign and Return: I have reviewed this Plan of Care and certify that the skilled therapy services above are required to meet the patient?s needs. Physician Signature Date Printed Name and Credentials Clinical Instructor Signature Printed Name and Credentials
--- NOTE | 2020-06-13 16:37 | PT.OPPN ---
Current Diagnoses Other specific arthropathies, not elsewhere classified, right shoulder (06/13/20) Other cervical disc degeneration, unspecified cervical region (06/13/20) Abnormal posture (06/13/20) Strain of muscle, fascia and tendon of other parts of biceps, right arm, initial encounter (06/13/20) Physical Therapy Progress Note PT-OP-A Visit Information Start: 03/28/20 13:47 Freq: Status: Active Protocol: Document 06/13/20 15:40 AW (Rec: 06/13/20 15:36 AW [id number]) Out-Patient Physical Therapy Visit Information Visit Information Visit Type Progress Note Visit Start Time 15:30 Visit Stop Time 16:15 Total Visit Minutes 45 Visit Number 18 Number of LOGGING TRACTOR OPERATOR SWAMP Visits 0 Evaluation Information Evaluation Date 03/28/20 PT-OP-B Current Condition Start: 03/28/20 13:47 Freq: Status: Active Protocol: Document 03/28/20 13:47 AW (Rec: 03/28/20 14:50 AW [id number]) Current Condition History of Current Condition Onset Date May 2019 neck; August 2019 R shoulder Current Complaints neck and R shoulder pain History of Current Condition Pt has near-constant neck and right shoulder pain. She is right handed. Neck pain interferes with driving. 1.5 years ago, she was pushing heavy wheelbarrow which fell, resulting in proximal biceps swelling, weakness. No tear was diagnosed. In May of 2019, she started doing Pilates workouts by [employer] and started to have ongoing neck pain so she stopped the workouts. She describes the pain as deep and aching. Meanwhile, right shoulder pain was increasing. MRI was completed on 03/20/20 with results below including full thickness distal suprasinatus rupture and partial thickness tear proximal long head biceps tendon, possible labral year. She saw Dr. Meedros last week who does not think she is a surgical candidate due to chronicity. Instead, she was referred to PT. Her biggest problem is lifting with the arm in scaption or abduction. Pain wakes her up at night if she is sleeping on the right side. Prior Treatments and Tests MRI 03/20/20: 1. Full-thickness rupture involving distal supraspinatus at its insertion on the humeral head with up to 3 cm medial retraction of torn tendon fibers to the level of acromioclavicular joint. Tendinosis and low to moderate grade articular surface partial thickness tear involving distal infraspinatus. Distal subscapularis tendinosis and low to moderate grade partial- thickness tear. Moderate supraspinatus and subscapularis muscle atrophy. 2. Moderate acromioclavicular joint osteoarthritis. Moderate amount of joint effusion and subacromial subdeltoid bursal fluid. 3. Suggestion of superior anterior labral tear at 12 to 1 o'clock position. 4. Proximal intra-articular portion of long head of biceps tendinosis and low to moderate grade intrasubstance partial- thickness tear. 03/21/20: shoulder injection Future Testing and Treatments Planned Seek second opinion on possible surgery. Treatment Goals Patient/Caregiver Goals Reduce neck and shoulder pain. Feed horses with 4# feed - reaching across and extend arm in scaption plane. Prior Functional Status Baseline Function- ADL's Independent Baseline Function- Mobility Independent Baseline Function- Work/School Pt and her spouse recently sold the local [employer]. 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 Baseline Function- Other Able to tend to her horses and perform heavy gardening tasks . Current Functional Impairments (Reported) Functional Limitations- Other Unable to lift and pour ~4# animal feed with arm outstretched. Personal Factors Other Personal Factors That May Effect + Positive association with Therapy/Recovery movement PT-OP-C Subjective Start: 03/28/20 13:47 Freq: Status: Active Protocol: Document 06/13/20 15:40 AW (Rec: 06/13/20 16:31 AW [id number]) OP-PT Subjective Patient Comments Patient Comments R shoulder is improving. Able to move once again. Overall improvement PT-OP-F Manual Assessment Start: 03/28/20 13:47 Freq: Status: Active Protocol: Document 03/28/20 13:47 AW (Rec: 03/28/20 17:42 AW [email or web address]) Manual Assessments Soft Tissue Assessment Soft Tissue Mobility Assessment Moderately dense cervical paraspinals and periscapular musculature bilaterally. Pt is thin but muscle atrophy is apparent in right shoulder and biceps. Ko deformity noted RUE. Joint Mobility Assessment Joint Mobility Assessment A/C gapping not provocative or relieving. No point tenderness at proximal humerus . Pt does have strong reaction to deep palpation of the right rhomboids. PT-OP-H Neuro Start: 03/28/20 13:47 Freq: Status: Active Protocol: Document 03/28/20 13:47 AW (Rec: 03/28/20 17:42 AW [email or web address]) Sensation Evaluation Gross Sensation Gross Sensation Left UE Impaired Comments Summary Comments Pt reports occasional tingling in the left hand but is not reproduced on exam. Deep Tendon Reflex & Clonus Assessment Deep Tendon Reflex Bilateral Tricep Deep Tendon Reflex 1+ Diminished Bilateral Bicep Deep Tendon Reflex 3+ Normal But Brisk PT-OP-J Posture/Palpation/Skin Start: 03/28/20 13:47 Freq: Status: Active Protocol: Document 03/28/20 13:47 AW (Rec: 03/28/20 17:42 AW [email or web address]) Posture Evaluation Position Sitting Evaluation View Lateral Head/C-Spine Posture Forward Head Shoulder Posture (L) Rounded,(R) Rounded Scapula Posture (R) Protracted PT-OP-K Range of Motion Start: 03/28/20 13:47 Freq: Status: Active Protocol: Document 06/13/20 15:40 AW (Rec: 06/13/20 16:34 AW [id number]) Cervical Spine Range of Motion Cervical Spine Active Degrees Testing Position Sitting Rotation Left 55 Rotation Right 50 Comments 5/10 pain to the right. 3/10 pain to the left PT-OP-L Special Tests Start: 03/28/20 13:47 Freq: Status: Active Protocol: Document 03/28/20 13:47 AW (Rec: 03/28/20 17:47 AW [email or web address]) Special Tests Cervical Spine Special Tests Spurling's Test Test Results negative bilaterally PT-OP-M Strength Start: 03/28/20 13:47 Freq: Status: Active Protocol: Document 03/28/20 13:47 AW (Rec: 03/28/20 17:47 AW [email or web address]) Cervical Spine Strength Cervical Spine Manual Muscle Testing Testing Position Sitting Flexion (C1-2) 4- Good- Extension 4- Good- Rotation Left 4- Good- Rotation Right 4- Good- Lateral Flexion Left (C3) 4- Good- Lateral Flexion Right (C3) 4- Good- Shoulder Strength Shoulder Manual Muscle Testing Left Flexion 4+ Good+ Extension 4+ Good+ Abduction (C5) 4+ Good+ Adduction 4+ Good+ External Rotation 4+ Good+ Internal Rotation 4+ Good+ Right Flexion 3+ Fair+ Extension 4 Good Abduction (C5) 3+ Fair+ Adduction 4+ Good+ External Rotation 4- Good- Internal Rotation 4+ Good+ Elbow/Forearm Strength Elbow and Forearm Manual Muscle Testing Right Flexion (C6) 4- Good- Extension (C7) 4- Good- Hand Retail Sales Associate Seasonal/Pinch Strength Hand Dominance Hand Dominance Right PT-OP-T Assessment and Plan Start: 03/28/20 13:47 Freq: Status: Active Protocol: Document 06/13/20 15:40 AW (Rec: 06/13/20 16:31 AW [id number]) Physical Therapy Assessment Goals Four Impairment neck/shoulder pain impact daily activities [facility]cf Goal (LTG) Pt will score 20% or less on QuickDash to indicate improvement in performance of daily activities. LTG Duration 08/20/20 Three Impairment no HEP Short Term Goal (STG) Pt will be independent with HEP for support of therapy services provided in clinic. 05/09/20 MET STG Duration ACHIEVED Chcf Goal (LTG) Pt will demonstrate independence with maintenance HEP 06/07/20: progressing in self performance at home w/ R shld AROM and initiated low resistance, education on performing CS ROM is not consistant at home. LTG Duration 08/20/20 Two Impairment RUE strength Short Term Goal (STG) Pt will increase R shoulder strength to 4+/5 all planes 05/09/20 SLOW PROGRESS due to pain 06/07/20: progressing, pt able to rake and shovel stalls now with RUE <90 deg flexion STG Duration 05/09/2020 Chcf Goal (LTG) Pt will be able to lift 5# in scaption plane with elbow extended in order to improve ability to care for her horses . 06/13/20 - Using LUE for AAROM R shoulder to pour feed over ledge LTG Duration 08/20/20 One Impairment cervical ROM Junior Marketing Associate Goal (LTG) Pt will increase cervical rotation to 50 degrees or greater bilaterally without increase in pain to improve driving tolerance. 06/13/20 - PROGRESS 50 R with 5/10 pain 55 L with 3/10 pain (0/10 at rest) LTG Duration 08/20/20 Progress Towards Goals Progress Towards Goals Progressing Toward Goals Progress Comments Pt's shoulder pain has waxed and waned but overall improvement with ROM. Shoulder stabilization strength remains limited and pt will require further therapy to progress. Pt able to rake and shovel stalls but continues to modify horse feeding tasks due to inability to lift in scaption plane >2 pounds. Pt's cervical ROM remains limited due to pain but she demonstrates reduced guarding and slightly improved quality of movement. Assessment Summary Assessment Visit focused on updating goals, manual therapy for neck and right shoulder, and HEP review. Pt has made good progress toward goals but would benefit from continued skilled therapy improve strength, ROM, and function related to self care and home/ livestock management. Physical Therapy Plan Frequency and Duration Frequency of Treatment 2x/Week Duration of Treatment 8 weeks Plan of Care Start Date 06/20/20 Plan of Care End Date 08/20/20 Therapeutic Interventions Therapeutic Interventions Home Exercise Program,Joint Mobilizations,Manual Therapy, Neuromuscular Re-education, Patient/Caregiver Education, Self-Care/Home Management,Soft Tissue Mobilization,Taping, Therapeutic Activities, Therapeutic Exercises Modalities Cold Pack/Ice Massage,Electric Stimulation,Hot Packs, Traction- Mechanical Other Therapeutic Interventions cryocuff Next Visit Focus/Plan Next Note Type Treatment Note
--- NOTE | 2020-06-18 08:47 | PT-OP ANOTE ---
Pt cancelled today's appt withing 24 hrs, not feeling well.
--- NOTE | 2020-06-20 16:29 | PT.OTN ---
Current Diagnoses Other specific arthropathies, not elsewhere classified, right shoulder (06/20/20) Other cervical disc degeneration, unspecified cervical region (06/20/20) Abnormal posture (06/20/20) Strain of muscle, fascia and tendon of other parts of biceps, right arm, initial encounter (06/20/20) Physical Therapy Treatment Note PT-OP-A Visit Information Start: 03/28/20 13:47 Freq: Status: Active Protocol: Document 06/20/20 15:33 AW (Rec: 06/20/20 16:27 AW [id number]) Out-Patient Physical Therapy Visit Information Visit Information Visit Type Treatment Note Visit Start Time 15:33 Visit Stop Time 16:15 Total Visit Minutes 42 Visit Number 19 Number of PROPELLANT ASSEMBLER Visits 0 Evaluation Information Evaluation Date 03/28/20 PT-OP-B Current Condition Start: 03/28/20 13:47 Freq: Status: Active Protocol: Document 03/28/20 13:47 AW (Rec: 03/28/20 14:50 AW [id number]) Current Condition History of Current Condition Onset Date May 2019 neck; August 2019 R shoulder Current Complaints neck and R shoulder pain History of Current Condition Pt has near-constant neck and right shoulder pain. She is right handed. Neck pain interferes with driving. 1.5 years ago, she was pushing heavy wheelbarrow which fell, resulting in proximal biceps swelling, weakness. No tear was diagnosed. In May of 2019, she started doing Pilates workouts by Zoom and started to have ongoing neck pain so she stopped the workouts. She describes the pain as deep and aching. Meanwhile, right shoulder pain was increasing. MRI was completed on 03/20/20 with results below including full thickness distal suprasinatus rupture and partial thickness tear proximal long head biceps tendon, possible labral year. She saw Dr. Mederos last week who does not think she is a surgical candidate due to chronicity. Instead, she was referred to PT. Her biggest problem is lifting with the arm in scaption or abduction. Pain wakes her up at night if she is sleeping on the right side. Prior Treatments and Tests MRI 03/20/20: 1. Full-thickness rupture involving distal supraspinatus at its insertion on the humeral head with up to 3 cm medial retraction of torn tendon fibers to the level of acromioclavicular joint. Tendinosis and low to moderate grade articular surface partial thickness tear involving distal infraspinatus. Distal subscapularis tendinosis and low to moderate grade partial- thickness tear. Moderate supraspinatus and subscapularis muscle atrophy. 2. Moderate acromioclavicular joint osteoarthritis. Moderate amount of joint effusion and subacromial subdeltoid bursal fluid. 3. Suggestion of superior anterior labral tear at 12 to 1 o'clock position. 4. Proximal intra-articular portion of long head of biceps tendinosis and low to moderate grade intrasubstance partial- thickness tear. 03/21/20: shoulder injection Future Testing and Treatments Planned Seek second opinion on possible surgery. Treatment Goals Patient/Caregiver Goals Reduce neck and shoulder pain. Feed horses with 4# feed - reaching across and extend arm in scaption plane. Prior Functional Status Baseline Function- ADL's Independent Baseline Function- Mobility Independent Baseline Function- Work/School Pt and her spouse recently sold the local [employer]. 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 Baseline Function- Other Able to tend to her horses and perform heavy gardening tasks . Current Functional Impairments (Reported) Functional Limitations- Other Unable to lift and pour ~4# animal feed with arm outstretched. Personal Factors Other Personal Factors That May Effect + Positive association with Therapy/Recovery movement PT-OP-C Subjective Start: 03/28/20 13:47 Freq: Status: Active Protocol: Document 06/20/20 15:33 AW (Rec: 06/20/20 16:29 AW [email or web address]) OP-PT Subjective Patient Comments Patient Comments I spent all day in the garden . Feeling about as good as I ever do. PT-OP-F Manual Assessment Start: 03/28/20 13:47 Freq: Status: Active Protocol: Document 03/28/20 13:47 AW (Rec: 03/28/20 17:42 AW [email or web address]) Manual Assessments Soft Tissue Assessment Soft Tissue Mobility Assessment Moderately dense cervical paraspinals and periscapular musculature bilaterally. Pt is thin but muscle atrophy is apparent in right shoulder and biceps. Ko deformity noted RUE. Joint Mobility Assessment Joint Mobility Assessment A/C gapping not provocative or relieving. No point tenderness at proximal humerus . Pt does have strong reaction to deep palpation of the right rhomboids. PT-OP-H Neuro Start: 03/28/20 13:47 Freq: Status: Active Protocol: Document 03/28/20 13:47 AW (Rec: 03/28/20 17:42 AW [email or web address]) Sensation Evaluation Gross Sensation Gross Sensation Left UE Impaired Comments Summary Comments Pt reports occasional tingling in the left hand but is not reproduced on exam. Deep Tendon Reflex & Clonus Assessment Deep Tendon Reflex Bilateral Tricep Deep Tendon Reflex 1+ Diminished Bilateral Bicep Deep Tendon Reflex 3+ Normal But Brisk PT-OP-J Posture/Palpation/Skin Start: 03/28/20 13:47 Freq: Status: Active Protocol: Document 03/28/20 13:47 AW (Rec: 03/28/20 17:42 AW [email or web address]) Posture Evaluation Position Sitting Evaluation View Lateral Head/C-Spine Posture Forward Head Shoulder Posture (L) Rounded,(R) Rounded Scapula Posture (R) Protracted PT-OP-K Range of Motion Start: 03/28/20 13:47 Freq: Status: Active Protocol: Document 06/13/20 15:40 AW (Rec: 06/13/20 16:34 AW [id number]) Cervical Spine Range of Motion Cervical Spine Active Degrees Testing Position Sitting Rotation Left 55 Rotation Right 50 Comments 5/10 pain to the right. 3/10 pain to the left PT-OP-L Special Tests Start: 03/28/20 13:47 Freq: Status: Active Protocol: Document 03/28/20 13:47 AW (Rec: 03/28/20 17:47 AW [email or web address]) Special Tests Cervical Spine Special Tests Spurling's Test Test Results negative bilaterally PT-OP-M Strength Start: 03/28/20 13:47 Freq: Status: Active Protocol: Document 03/28/20 13:47 AW (Rec: 03/28/20 17:47 AW [email or web address]) Cervical Spine Strength Cervical Spine Manual Muscle Testing Testing Position Sitting Flexion (C1-2) 4- Good- Extension 4- Good- Rotation Left 4- Good- Rotation Right 4- Good- Lateral Flexion Left (C3) 4- Good- Lateral Flexion Right (C3) 4- Good- Shoulder Strength Shoulder Manual Muscle Testing Left Flexion 4+ Good+ Extension 4+ Good+ Abduction (C5) 4+ Good+ Adduction 4+ Good+ External Rotation 4+ Good+ Internal Rotation 4+ Good+ Right Flexion 3+ Fair+ Extension 4 Good Abduction (C5) 3+ Fair+ Adduction 4+ Good+ External Rotation 4- Good- Internal Rotation 4+ Good+ Elbow/Forearm Strength Elbow and Forearm Manual Muscle Testing Right Flexion (C6) 4- Good- Extension (C7) 4- Good- Hand Machine Joiner Cementer/Pinch Strength Hand Dominance Hand Dominance Right PT-OP-Q Treatments Start: 03/28/20 13:47 Freq: Status: Active Protocol: Document 06/20/20 15:33 AW (Rec: 06/20/20 16:27 AW [id number]) Cardio Equipment Upper Body Ergometer (UBE) Duration (Minutes) 5 RPM 90 Seat Position 8 Height 2.5 Therapeutic Exercises Prone Exercises shld habd Side right Resistance 1# Reps/Minutes 3 sec hold x8 Comments cued scap retract/ depress stabilization shld ext Side right Resistance #1 DB Reps/Minutes 2 sec hold x10 Comments cued scap retract/ depress stabilization awareness prone extension on elbows Prone Exercise Name prone CS lift on elbows/press up on hands Reps/Minutes 3 sec hold x10 Comments focus on cervical retraction, cued chin nod neutral Sitting Exercises pulleys Sitting Exercise Name pulleys Reps/Minutes 4 min Comments flexion, scaption, abduction; with active cervical rotation Standing Exercises concentric abduction Standing Exercise Name concentric abduction Side right Resistance 1# Equipment Used db Comments poorly tolerated; dc'ed Other Exercises cat/cow Other Exercise Name cat/cow, thread the needle Reps/Minutes 4 min Comments with breaks in pearl pose; focus on cervical stab Manual Therapy Treatment Soft Tissue Mobilization 1 Body Location R UT, lev scap, suboccipitals Mobilization Type Cross-Friction,Myofascial Release,Sustained Pressure Intensity/Depth Moderate Body Position Supine Comments manual then asked MWM AROM CS rotation head turn/ nod Manual Traction Cervical Body Position Hooklying Reps/Duration 60 sec x 2 Comments relieving for neck pain PT-OP-R Modalities Start: 03/28/20 13:47 Freq: Status: Active Protocol: Document 04/11/20 13:42 AW (Rec: 04/11/20 13:53 AW [email or web address]) Hot Pack/Cold Pack Treatment Cold Pack Location R shoulder Patient Position Hooklying Treatment Duration (minutes) 10 Patient Tolerance Good Comments W/ shoulder cryocuff. PT-OP-T Assessment and Plan Start: 03/28/20 13:47 Freq: Status: Active Protocol: Document 06/20/20 15:33 AW (Rec: 06/20/20 16:27 AW [id number]) Physical Therapy Assessment Goals Four Impairment neck/shoulder pain impact daily activities Fpc Goal (LTG) Pt will score 20% or less on QuickDash to indicate improvement in performance of daily activities. LTG Duration 08/20/20 Three Impairment no HEP Short Term Goal (STG) Pt will be independent with HEP for support of therapy services provided in clinic. 05/09/20 MET STG Duration ACHIEVED Fpc Goal (LTG) Pt will demonstrate independence with maintenance HEP 06/07/20: progressing in self performance at home w/ R shld AROM and initiated low resistance, education on performing CS ROM is not consistant at home. LTG Duration 08/20/20 Two Impairment RUE strength Short Term Goal (STG) Pt will increase R shoulder strength to 4+/5 all planes 05/09/20 SLOW PROGRESS due to pain 06/07/20: progressing, pt able to rake and shovel stalls now with RUE <90 deg flexion STG Duration 05/09/2020 Fpc Goal (LTG) Pt will be able to lift 5# in scaption plane with elbow extended in order to improve ability to care for her horses . 06/13/20 - Using LUE for AAROM R shoulder to pour feed over ledge LTG Duration 08/20/20 One Impairment cervical ROM Fpc Goal (LTG) Pt will increase cervical rotation to 50 degrees or greater bilaterally without increase in pain to improve driving tolerance. 06/13/20 - PROGRESS 50 R with 5/10 pain 55 L with 3/10 pain (0/10 at rest) LTG Duration 08/20/20 Assessment Summary Assessment Pt's cervical range of motion remains limited but quality of movement is improving and hesitation is decreased. Attempted concentric abduction this session with 1# db but this irritated pt's shoulder symptoms so discontinued. Physical Therapy Plan Frequency and Duration Frequency of Treatment 2x/Week Duration of Treatment 8 weeks Plan of Care Start Date 06/20/20 Plan of Care End Date 08/20/20 Therapeutic Interventions Therapeutic Interventions Home Exercise Program,Joint Mobilizations,Manual Therapy, Neuromuscular Re-education, Patient/Caregiver Education, Self-Care/Home Management,Soft Tissue Mobilization,Taping, Therapeutic Activities, Therapeutic Exercises Modalities Cold Pack/Ice Massage,Electric Stimulation,Hot Packs, Traction- Mechanical Other Therapeutic Interventions cryocuff Next Visit Focus/Plan Next Note Type Treatment Note Next Visit Plan Continue with neck stabilization in prone and quadruped.
--- NOTE | 2020-06-25 12:33 | PT-OP ANOTE ---
Pt DNS for today's 1215 appt. Left a message regarding, offered 1430 appt availability but also next appt 06/27/20 @ 1530.
--- NOTE | 2020-06-27 15:31 | PT.OTN ---
Current Diagnoses Other specific arthropathies, not elsewhere classified, right shoulder (06/27/20) Other cervical disc degeneration, unspecified cervical region (06/27/20) Abnormal posture (06/27/20) Strain of muscle, fascia and tendon of other parts of biceps, right arm, initial encounter (06/27/20) Physical Therapy Treatment Note PT-OP-A Visit Information Start: 03/28/20 13:47 Freq: Status: Active Protocol: Document 06/27/20 14:30 AW (Rec: 06/27/20 15:30 AW [id number]) Out-Patient Physical Therapy Visit Information Visit Information Visit Type Treatment Note Visit Start Time 14:30 Visit Stop Time 15:16 Total Visit Minutes 46 Visit Number 20 Number of FREELANCE PHOTOGRAPHER Visits 0 Evaluation Information Evaluation Date 03/28/20 PT-OP-B Current Condition Start: 03/28/20 13:47 Freq: Status: Active Protocol: Document 03/28/20 13:47 AW (Rec: 03/28/20 14:50 AW [id number]) Current Condition History of Current Condition Onset Date May 2019 neck; August 2019 R shoulder Current Complaints neck and R shoulder pain History of Current Condition Pt has near-constant neck and right shoulder pain. She is right handed. Neck pain interferes with driving. 1.5 years ago, she was pushing heavy wheelbarrow which fell, resulting in proximal biceps swelling, weakness. No tear was diagnosed. In May of 2019, she started doing Pilates workouts by Zoom and started to have ongoing neck pain so she stopped the workouts. She describes the pain as deep and aching. Meanwhile, right shoulder pain was increasing. MRI was completed on 03/20/20 with results below including full thickness distal suprasinatus rupture and partial thickness tear proximal long head biceps tendon, possible labral year. She saw Dr. Mederos last week who does not think she is a surgical candidate due to chronicity. Instead, she was referred to PT. Her biggest problem is lifting with the arm in scaption or abduction. Pain wakes her up at night if she is sleeping on the right side. Prior Treatments and Tests MRI 03/20/20: 1. Full-thickness rupture involving distal supraspinatus at its insertion on the humeral head with up to 3 cm medial retraction of torn tendon fibers to the level of acromioclavicular joint. Tendinosis and low to moderate grade articular surface partial thickness tear involving distal infraspinatus. Distal subscapularis tendinosis and low to moderate grade partial- thickness tear. Moderate supraspinatus and subscapularis muscle atrophy. 2. Moderate acromioclavicular joint osteoarthritis. Moderate amount of joint effusion and subacromial subdeltoid bursal fluid. 3. Suggestion of superior anterior labral tear at 12 to 1 o'clock position. 4. Proximal intra-articular portion of long head of biceps tendinosis and low to moderate grade intrasubstance partial- thickness tear. 03/21/20: shoulder injection Future Testing and Treatments Planned Seek second opinion on possible surgery. Treatment Goals Patient/Caregiver Goals Reduce neck and shoulder pain. Feed horses with 4# feed - reaching across and extend arm in scaption plane. Prior Functional Status Baseline Function- ADL's Independent Baseline Function- Mobility Independent Baseline Function- Work/School Pt and her spouse recently sold the local [employer]. 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 Baseline Function- Other Able to tend to her horses and perform heavy gardening tasks . Current Functional Impairments (Reported) Functional Limitations- Other Unable to lift and pour ~4# animal feed with arm outstretched. Personal Factors Other Personal Factors That May Effect + Positive association with Therapy/Recovery movement PT-OP-C Subjective Start: 03/28/20 13:47 Freq: Status: Active Protocol: Document 06/27/20 14:30 AW (Rec: 06/27/20 15:30 AW [id number]) OP-PT Subjective Patient Comments Patient Comments I spent a few days with my grandbaby and while picking her up I felt myself moving my head more freely. PT-OP-F Manual Assessment Start: 03/28/20 13:47 Freq: Status: Active Protocol: Document 03/28/20 13:47 AW (Rec: 03/28/20 17:42 AW [email or web address]) Manual Assessments Soft Tissue Assessment Soft Tissue Mobility Assessment Moderately dense cervical paraspinals and periscapular musculature bilaterally. Pt is thin but muscle atrophy is apparent in right shoulder and biceps. Ko deformity noted RUE. Joint Mobility Assessment Joint Mobility Assessment A/C gapping not provocative or relieving. No point tenderness at proximal humerus . Pt does have strong reaction to deep palpation of the right rhomboids. PT-OP-H Neuro Start: 03/28/20 13:47 Freq: Status: Active Protocol: Document 03/28/20 13:47 AW (Rec: 03/28/20 17:42 AW [email or web address]) Sensation Evaluation Gross Sensation Gross Sensation Left UE Impaired Comments Summary Comments Pt reports occasional tingling in the left hand but is not reproduced on exam. Deep Tendon Reflex & Clonus Assessment Deep Tendon Reflex Bilateral Tricep Deep Tendon Reflex 1+ Diminished Bilateral Bicep Deep Tendon Reflex 3+ Normal But Brisk PT-OP-J Posture/Palpation/Skin Start: 03/28/20 13:47 Freq: Status: Active Protocol: Document 03/28/20 13:47 AW (Rec: 03/28/20 17:42 AW [email or web address]) Posture Evaluation Position Sitting Evaluation View Lateral Head/C-Spine Posture Forward Head Shoulder Posture (L) Rounded,(R) Rounded Scapula Posture (R) Protracted PT-OP-K Range of Motion Start: 03/28/20 13:47 Freq: Status: Active Protocol: Document 06/13/20 15:40 AW (Rec: 06/13/20 16:34 AW [id number]) Cervical Spine Range of Motion Cervical Spine Active Degrees Testing Position Sitting Rotation Left 55 Rotation Right 50 Comments 5/10 pain to the right. 3/10 pain to the left PT-OP-L Special Tests Start: 03/28/20 13:47 Freq: Status: Active Protocol: Document 03/28/20 13:47 AW (Rec: 03/28/20 17:47 AW [email or web address]) Special Tests Cervical Spine Special Tests Spurling's Test Test Results negative bilaterally PT-OP-M Strength Start: 03/28/20 13:47 Freq: Status: Active Protocol: Document 03/28/20 13:47 AW (Rec: 03/28/20 17:47 AW [email or web address]) Cervical Spine Strength Cervical Spine Manual Muscle Testing Testing Position Sitting Flexion (C1-2) 4- Good- Extension 4- Good- Rotation Left 4- Good- Rotation Right 4- Good- Lateral Flexion Left (C3) 4- Good- Lateral Flexion Right (C3) 4- Good- Shoulder Strength Shoulder Manual Muscle Testing Left Flexion 4+ Good+ Extension 4+ Good+ Abduction (C5) 4+ Good+ Adduction 4+ Good+ External Rotation 4+ Good+ Internal Rotation 4+ Good+ Right Flexion 3+ Fair+ Extension 4 Good Abduction (C5) 3+ Fair+ Adduction 4+ Good+ External Rotation 4- Good- Internal Rotation 4+ Good+ Elbow/Forearm Strength Elbow and Forearm Manual Muscle Testing Right Flexion (C6) 4- Good- Extension (C7) 4- Good- Hand Door Serviceman/Pinch Strength Hand Dominance Hand Dominance Right PT-OP-Q Treatments Start: 03/28/20 13:47 Freq: Status: Active Protocol: Document 06/27/20 14:30 AW (Rec: 06/27/20 15:30 AW [id number]) Cardio Equipment Upper Body Ergometer (UBE) Duration (Minutes) 5 RPM 90 Seat Position 8 Height 2.5 Therapeutic Exercises Sitting Exercises closed chain ER Sitting Exercise Name closed chain ER Side right Resistance manual, in sitting Reps/Minutes 2 min Comments stabilized pt's shoulder as she rotated to the left; with cerv rot Standing Exercises CW/CCW wall ball Standing Exercise Name CW/CCW wall ball Side right Resistance 1# ball Reps/Minutes x12 Comments cues scap stab iso cervical extension Standing Exercise Name iso cervical extension Equipment Used small ball Reps/Minutes 2x10 shoulder extension Standing Exercise Name with cervical rotation Side bilateral Resistance L1 Equipment Used theraband Reps/Minutes 10x Comments cued for scap depression, CS neutral rows Side bilateral Resistance L2 Equipment Used theraband Reps/Minutes 10x Comments cued for scap depression/ retraction, neutral CS Other Exercises T Other Exercise Name T's Side bilateral Equipment Used 55 cm ball Reps/Minutes 5 SH x 5 Comments focus on cervical stab; scap retraction cat/cow Other Exercise Name cat/cow, thoracic rotation Reps/Minutes 4 min Comments with breaks in pearl pose; focus on cervical stab 1/2 kneel D1 flexion Other Exercise Name AROM PNF adduction/ flexion for horse feed strengthening Resistance AROM - low weight irritating Comments cued awareness of scap stabilization- improved ROM and seg movement Manual Therapy Treatment Soft Tissue Mobilization 1 Body Location R UT, lev scap, suboccipitals Mobilization Type Cross-Friction,Myofascial Release,Sustained Pressure Intensity/Depth Moderate Body Position Supine Comments manual, MWM AROM CS rotation head turn/ nod Manual Traction Cervical Body Position Hooklying Reps/Duration 60 sec x 2 Comments relieving for neck pain PT-OP-R Modalities Start: 03/28/20 13:47 Freq: Status: Active Protocol: Document 04/11/20 13:42 AW (Rec: 04/11/20 13:53 AW [email or web address]) Hot Pack/Cold Pack Treatment Cold Pack Location R shoulder Patient Position Hooklying Treatment Duration (minutes) 10 Patient Tolerance Good Comments W/ shoulder cryocuff. PT-OP-T Assessment and Plan Start: 03/28/20 13:47 Freq: Status: Active Protocol: Document 06/27/20 14:30 AW (Rec: 06/27/20 15:30 AW [id number]) Physical Therapy Assessment Goals Four Impairment neck/shoulder pain impact daily activities Inspector Motor Vehicles Goal (LTG) Pt will score 20% or less on QuickDash to indicate improvement in performance of daily activities. LTG Duration 08/20/20 Three Impairment no HEP Short Term Goal (STG) Pt will be independent with HEP for support of therapy services provided in clinic. 05/09/20 MET STG Duration ACHIEVED Fpc Goal (LTG) Pt will demonstrate independence with maintenance HEP 06/07/20: progressing in self performance at home w/ R shld AROM and initiated low resistance, education on performing CS ROM is not consistant at home. LTG Duration 08/20/20 Two Impairment RUE strength Short Term Goal (STG) Pt will increase R shoulder strength to 4+/5 all planes 05/09/20 SLOW PROGRESS due to pain 06/07/20: progressing, pt able to rake and shovel stalls now with RUE <90 deg flexion STG Duration 05/09/2020 Inspector Motor Vehicles Goal (LTG) Pt will be able to lift 5# in scaption plane with elbow extended in order to improve ability to care for her horses . 06/13/20 - Using LUE for AAROM R shoulder to pour feed over ledge LTG Duration 08/20/20 One Impairment cervical ROM Inspector Motor Vehicles Goal (LTG) Pt will increase cervical rotation to 50 degrees or greater bilaterally without increase in pain to improve driving tolerance. 06/13/20 - PROGRESS 50 R with 5/10 pain 55 L with 3/10 pain (0/10 at rest) LTG Duration 08/20/20 Assessment Summary Assessment Cervical rotation improves with manual therapy and pt presents with less guarded movement overall. Shoulder pain remains low level but easily irritable. Physical Therapy Plan Frequency and Duration Frequency of Treatment 2x/Week Duration of Treatment 8 weeks Plan of Care Start Date 06/20/20 Plan of Care End Date 08/20/20 Therapeutic Interventions Therapeutic Interventions Home Exercise Program,Joint Mobilizations,Manual Therapy, Neuromuscular Re-education, Patient/Caregiver Education, Self-Care/Home Management,Soft Tissue Mobilization,Taping, Therapeutic Activities, Therapeutic Exercises Modalities Cold Pack/Ice Massage,Electric Stimulation,Hot Packs, Traction- Mechanical Other Therapeutic Interventions cryocuff Next Visit Focus/Plan Next Note Type Treatment Note Next Visit Plan Continue with neck stabilization in prone and quadruped.
--- NOTE | 2020-07-02 13:45 | PT.OTN ---
Current Diagnoses Other specific arthropathies, not elsewhere classified, right shoulder (07/02/20) Other cervical disc degeneration, unspecified cervical region (07/02/20) Abnormal posture (07/02/20) Strain of muscle, fascia and tendon of other parts of biceps, right arm, initial encounter (07/02/20) Physical Therapy Treatment Note PT-OP-A Visit Information Start: 03/28/20 13:47 Freq: Status: Active Protocol: Document 07/02/20 13:04 SP (Rec: 07/02/20 13:49 SP [id number]) Out-Patient Physical Therapy Visit Information Visit Information Visit Type Treatment Note Visit Start Time 13:04 Visit Stop Time 13:45 Total Visit Minutes 41 Visit Number 21 Number of TODDLER CAREGIVER Visits 1 Evaluation Information Evaluation Date 03/28/20 PT-OP-B Current Condition Start: 03/28/20 13:47 Freq: Status: Active Protocol: Document 03/28/20 13:47 AW (Rec: 03/28/20 14:50 AW [id number]) Current Condition History of Current Condition Onset Date May 2019 neck; August 2019 R shoulder Current Complaints neck and R shoulder pain History of Current Condition Pt has near-constant neck and right shoulder pain. She is right handed. Neck pain interferes with driving. 1.5 years ago, she was pushing heavy wheelbarrow which fell, resulting in proximal biceps swelling, weakness. No tear was diagnosed. In May of 2019, she started doing Pilates workouts by [employer] and started to have ongoing neck pain so she stopped the workouts. She describes the pain as deep and aching. Meanwhile, right shoulder pain was increasing. MRI was completed on 03/20/20 with results below including full thickness distal suprasinatus rupture and partial thickness tear proximal long head biceps tendon, possible labral year. She saw Dr. Mederos last week who does not think she is a surgical candidate due to chronicity. Instead, she was referred to PT. Her biggest problem is lifting with the arm in scaption or abduction. Pain wakes her up at night if she is sleeping on the right side. Prior Treatments and Tests MRI 03/20/20: 1. Full-thickness rupture involving distal supraspinatus at its insertion on the humeral head with up to 3 cm medial retraction of torn tendon fibers to the level of acromioclavicular joint. Tendinosis and low to moderate grade articular surface partial thickness tear involving distal infraspinatus. Distal subscapularis tendinosis and low to moderate grade partial- thickness tear. Moderate supraspinatus and subscapularis muscle atrophy. 2. Moderate acromioclavicular joint osteoarthritis. Moderate amount of joint effusion and subacromial subdeltoid bursal fluid. 3. Suggestion of superior anterior labral tear at 12 to 1 o'clock position. 4. Proximal intra-articular portion of long head of biceps tendinosis and low to moderate grade intrasubstance partial- thickness tear. 03/21/20: shoulder injection Future Testing and Treatments Planned Seek second opinion on possible surgery. Treatment Goals Patient/Caregiver Goals Reduce neck and shoulder pain. Feed horses with 4# feed - reaching across and extend arm in scaption plane. Prior Functional Status Baseline Function- ADL's Independent Baseline Function- Mobility Independent Baseline Function- Work/School Pt and her spouse recently sold the local [employer]. 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 Baseline Function- Other Able to tend to her horses and perform heavy gardening tasks . Current Functional Impairments (Reported) Functional Limitations- Other Unable to lift and pour ~4# animal feed with arm outstretched. Personal Factors Other Personal Factors That May Effect + Positive association with Therapy/Recovery movement PT-OP-C Subjective Start: 03/28/20 13:47 Freq: Status: Active Protocol: Document 07/02/20 13:04 SP (Rec: 07/02/20 13:49 SP [id number]) OP-PT Subjective Patient Comments Patient Comments My R shld doing better than my neck, but do have more mobility. PT-OP-F Manual Assessment Start: 03/28/20 13:47 Freq: Status: Active Protocol: Document 03/28/20 13:47 AW (Rec: 03/28/20 17:42 AW [email or web address]) Manual Assessments Soft Tissue Assessment Soft Tissue Mobility Assessment Moderately dense cervical paraspinals and periscapular musculature bilaterally. Pt is thin but muscle atrophy is apparent in right shoulder and biceps. Ko deformity noted RUE. Joint Mobility Assessment Joint Mobility Assessment A/C gapping not provocative or relieving. No point tenderness at proximal humerus . Pt does have strong reaction to deep palpation of the right rhomboids. PT-OP-H Neuro Start: 03/28/20 13:47 Freq: Status: Active Protocol: Document 03/28/20 13:47 AW (Rec: 03/28/20 17:42 AW [email or web address]) Sensation Evaluation Gross Sensation Gross Sensation Left UE Impaired Comments Summary Comments Pt reports occasional tingling in the left hand but is not reproduced on exam. Deep Tendon Reflex & Clonus Assessment Deep Tendon Reflex Bilateral Tricep Deep Tendon Reflex 1+ Diminished Bilateral Bicep Deep Tendon Reflex 3+ Normal But Brisk PT-OP-J Posture/Palpation/Skin Start: 03/28/20 13:47 Freq: Status: Active Protocol: Document 03/28/20 13:47 AW (Rec: 03/28/20 17:42 AW [email or web address]) Posture Evaluation Position Sitting Evaluation View Lateral Head/C-Spine Posture Forward Head Shoulder Posture (L) Rounded,(R) Rounded Scapula Posture (R) Protracted PT-OP-K Range of Motion Start: 03/28/20 13:47 Freq: Status: Active Protocol: Document 06/13/20 15:40 AW (Rec: 06/13/20 16:34 AW [id number]) Cervical Spine Range of Motion Cervical Spine Active Degrees Testing Position Sitting Rotation Left 55 Rotation Right 50 Comments 5/10 pain to the right. 3/10 pain to the left PT-OP-L Special Tests Start: 03/28/20 13:47 Freq: Status: Active Protocol: Document 03/28/20 13:47 AW (Rec: 03/28/20 17:47 AW [email or web address]) Special Tests Cervical Spine Special Tests Spurling's Test Test Results negative bilaterally PT-OP-M Strength Start: 03/28/20 13:47 Freq: Status: Active Protocol: Document 03/28/20 13:47 AW (Rec: 03/28/20 17:47 AW [email or web address]) Cervical Spine Strength Cervical Spine Manual Muscle Testing Testing Position Sitting Flexion (C1-2) 4- Good- Extension 4- Good- Rotation Left 4- Good- Rotation Right 4- Good- Lateral Flexion Left (C3) 4- Good- Lateral Flexion Right (C3) 4- Good- Shoulder Strength Shoulder Manual Muscle Testing Left Flexion 4+ Good+ Extension 4+ Good+ Abduction (C5) 4+ Good+ Adduction 4+ Good+ External Rotation 4+ Good+ Internal Rotation 4+ Good+ Right Flexion 3+ Fair+ Extension 4 Good Abduction (C5) 3+ Fair+ Adduction 4+ Good+ External Rotation 4- Good- Internal Rotation 4+ Good+ Elbow/Forearm Strength Elbow and Forearm Manual Muscle Testing Right Flexion (C6) 4- Good- Extension (C7) 4- Good- Hand Timber Management Technician/Pinch Strength Hand Dominance Hand Dominance Right PT-OP-Q Treatments Start: 03/28/20 13:47 Freq: Status: Active Protocol: Document 07/02/20 13:04 SP (Rec: 07/02/20 13:49 SP [id number]) Therapeutic Exercises Sitting Exercises pulleys Sitting Exercise Name pulleys Reps/Minutes 4 min Comments flexion, scaption, abduction; with active cervical rotation Standing Exercises CW/CCW wall ball Standing Exercise Name CW/CCW wall ball roll on wall over head range Side right Resistance 3.3# ball Equipment Used facing wall Reps/Minutes x12 Comments cues scap stab iso cervical extension Standing Exercise Name iso cervical extension Equipment Used back to wall, press into rolled towel Reps/Minutes 2x10 Comments cued tall posture neck trunk. shld ER Standing Exercise Name w/ head turns- HEP Side bilateral Resistance Tb #1 Equipment Used mirror, 1.1# wt ball at mid TS Reps/Minutes x10 Comments cued tall posture, scap retract neutral racquetball roll on wall Standing Exercise Name Interscap Resistance 1.1# wt ball back to wall Equipment Used side to side, up/ down Reps/Minutes 30 sec or tolerant timing each area (not over do it) Comments cued scap retraction posture Other Exercises T Other Exercise Name T's Side bilateral Equipment Used 55 cm ball Reps/Minutes 5 SH x 5 Comments focus on cervical stab; scap retraction cat/cow Other Exercise Name cat/cow, thoracic rotation Reps/Minutes 4 min Comments with breaks in pearl pose; focus on cervical stab 1/2 kneel D1 flexion Other Exercise Name AROM PNF adduction/ flexion for horse feed strengthening Resistance 1# DB Reps/Minutes d2 flexion, D1 flexion Comments cued awareness of scap stabilization- improved ROM and seg movement Manual Therapy Treatment Soft Tissue Mobilization 1 Body Location R UT, suboccipitals, suboccipital release, Mobilization Type Cross-Friction,Myofascial Release,Sustained Pressure Intensity/Depth Moderate Body Position Supine Comments manual, contract relax into more ROM- improved range to R PT-OP-R Modalities Start: 03/28/20 13:47 Freq: Status: Active Protocol: Document 04/11/20 13:42 AW (Rec: 04/11/20 13:53 AW [email or web address]) Hot Pack/Cold Pack Treatment Cold Pack Location R shoulder Patient Position Hooklying Treatment Duration (minutes) 10 Patient Tolerance Good Comments W/ shoulder cryocuff. PT-OP-T Assessment and Plan Start: 03/28/20 13:47 Freq: Status: Active Protocol: Document 07/02/20 13:04 SP (Rec: 07/02/20 13:49 SP [id number]) Physical Therapy Assessment Goals Four Impairment neck/shoulder pain impact daily activities Mail List Processor Goal (LTG) Pt will score 20% or less on QuickDash to indicate improvement in performance of daily activities. LTG Duration 08/20/20 Three Impairment no HEP Short Term Goal (STG) Pt will be independent with HEP for support of therapy services provided in clinic. 05/09/20 MET STG Duration ACHIEVED Group Home Goal (LTG) Pt will demonstrate independence with maintenance HEP 06/07/20: progressing in self performance at home w/ R shld AROM and initiated low resistance, education on performing CS ROM is not consistant at home. LTG Duration 08/20/20 Two Impairment RUE strength Short Term Goal (STG) Pt will increase R shoulder strength to 4+/5 all planes 05/09/20 SLOW PROGRESS due to pain 06/07/20: progressing, pt able to rake and shovel stalls now with RUE <90 deg flexion STG Duration 05/09/2020 Mail List Processor Goal (LTG) Pt will be able to lift 5# in scaption plane with elbow extended in order to improve ability to care for her horses . 06/13/20 - Using LUE for AAROM R shoulder to pour feed over ledge LTG Duration 08/20/20 One Impairment cervical ROM Group Home Goal (LTG) Pt will increase cervical rotation to 50 degrees or greater bilaterally without increase in pain to improve driving tolerance. 06/13/20 - PROGRESS 50 R with 5/10 pain 55 L with 3/10 pain (0/10 at rest) LTG Duration 08/20/20 Assessment Summary Assessment Pt improved in cervical ROM with cuing and manual by end of tx. Suggested try incorporated self STMs MWM and incorporating with shld exercises with good response of no pain but crunchy. Pt stated may look in to cervical injections to help with pain does get into her neck so can feel relief that does end PT sessions and carryover on own. Pt continues to respond well to shld ROM and able to add #1 DB during standing and prone activities. Physical Therapy Plan Frequency and Duration Frequency of Treatment 2x/Week Duration of Treatment 8 weeks Plan of Care Start Date 06/20/20 Plan of Care End Date 08/20/20 Therapeutic Interventions Therapeutic Interventions Home Exercise Program,Joint Mobilizations,Manual Therapy, Neuromuscular Re-education, Patient/Caregiver Education, Self-Care/Home Management,Soft Tissue Mobilization,Taping, Therapeutic Activities, Therapeutic Exercises Modalities Cold Pack/Ice Massage,Electric Stimulation,Hot Packs, Traction- Mechanical Other Therapeutic Interventions cryocuff Next Visit Focus/Plan Next Note Type Treatment Note Next Visit Plan Continue with neck stabilization in prone and quadruped.
--- NOTE | 2020-07-11 09:45 | PT.OTN ---
Current Diagnoses Other specific arthropathies, not elsewhere classified, right shoulder (07/11/20) Other cervical disc degeneration, unspecified cervical region (07/11/20) Abnormal posture (07/11/20) Strain of muscle, fascia and tendon of other parts of biceps, right arm, initial encounter (07/11/20) Physical Therapy Treatment Note PT-OP-A Visit Information Start: 03/28/20 13:47 Freq: Status: Active Protocol: Document 07/11/20 09:45 AW (Rec: 07/11/20 09:42 AW [id number]) Out-Patient Physical Therapy Visit Information Visit Information Visit Type Treatment Note Visit Start Time 09:00 Visit Stop Time 09:45 Total Visit Minutes 45 Visit Number 22 Number of CURTAIN FRAMER Visits 0 Evaluation Information Evaluation Date 03/28/20 PT-OP-B Current Condition Start: 03/28/20 13:47 Freq: Status: Active Protocol: Document 03/28/20 13:47 AW (Rec: 03/28/20 14:50 AW [id number]) Current Condition History of Current Condition Onset Date May 2019 neck; August 2019 R shoulder Current Complaints neck and R shoulder pain History of Current Condition Pt has near-constant neck and right shoulder pain. She is right handed. Neck pain interferes with driving. 1.5 years ago, she was pushing heavy wheelbarrow which fell, resulting in proximal biceps swelling, weakness. No tear was diagnosed. In May of 2019, she started doing Pilates workouts by [employer] and started to have ongoing neck pain so she stopped the workouts. She describes the pain as deep and aching. Meanwhile, right shoulder pain was increasing. MRI was completed on 03/20/20 with results below including full thickness distal suprasinatus rupture and partial thickness tear proximal long head biceps tendon, possible labral year. She saw Dr. Mederos last week who does not think she is a surgical candidate due to chronicity. Instead, she was referred to PT. Her biggest problem is lifting with the arm in scaption or abduction. Pain wakes her up at night if she is sleeping on the right side. Prior Treatments and Tests MRI 03/20/20: 1. Full-thickness rupture involving distal supraspinatus at its insertion on the humeral head with up to 3 cm medial retraction of torn tendon fibers to the level of acromioclavicular joint. Tendinosis and low to moderate grade articular surface partial thickness tear involving distal infraspinatus. Distal subscapularis tendinosis and low to moderate grade partial- thickness tear. Moderate supraspinatus and subscapularis muscle atrophy. 2. Moderate acromioclavicular joint osteoarthritis. Moderate amount of joint effusion and subacromial subdeltoid bursal fluid. 3. Suggestion of superior anterior labral tear at 12 to 1 o'clock position. 4. Proximal intra-articular portion of long head of biceps tendinosis and low to moderate grade intrasubstance partial- thickness tear. 03/21/20: shoulder injection Future Testing and Treatments Planned Seek second opinion on possible surgery. Treatment Goals Patient/Caregiver Goals Reduce neck and shoulder pain. Feed horses with 4# feed - reaching across and extend arm in scaption plane. Prior Functional Status Baseline Function- ADL's Independent Baseline Function- Mobility Independent Baseline Function- Work/School Pt and her spouse recently sold the local [employer]. 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 Baseline Function- Other Able to tend to her horses and perform heavy gardening tasks . Current Functional Impairments (Reported) Functional Limitations- Other Unable to lift and pour ~4# animal feed with arm outstretched. Personal Factors Other Personal Factors That May Effect + Positive association with Therapy/Recovery movement PT-OP-C Subjective Start: 03/28/20 13:47 Freq: Status: Active Protocol: Document 07/11/20 09:45 AW (Rec: 07/11/20 09:42 AW [id number]) OP-PT Subjective Patient Comments Patient Comments Pt had a bout of pyelonephritis, was treated with abx, and is feeling better now. PT-OP-F Manual Assessment Start: 03/28/20 13:47 Freq: Status: Active Protocol: Document 03/28/20 13:47 AW (Rec: 03/28/20 17:42 AW [email or web address]) Manual Assessments Soft Tissue Assessment Soft Tissue Mobility Assessment Moderately dense cervical paraspinals and periscapular musculature bilaterally. Pt is thin but muscle atrophy is apparent in right shoulder and biceps. Ko deformity noted RUE. Joint Mobility Assessment Joint Mobility Assessment A/C gapping not provocative or relieving. No point tenderness at proximal humerus . Pt does have strong reaction to deep palpation of the right rhomboids. PT-OP-H Neuro Start: 03/28/20 13:47 Freq: Status: Active Protocol: Document 03/28/20 13:47 AW (Rec: 03/28/20 17:42 AW [email or web address]) Sensation Evaluation Gross Sensation Gross Sensation Left UE Impaired Comments Summary Comments Pt reports occasional tingling in the left hand but is not reproduced on exam. Deep Tendon Reflex & Clonus Assessment Deep Tendon Reflex Bilateral Tricep Deep Tendon Reflex 1+ Diminished Bilateral Bicep Deep Tendon Reflex 3+ Normal But Brisk PT-OP-J Posture/Palpation/Skin Start: 03/28/20 13:47 Freq: Status: Active Protocol: Document 03/28/20 13:47 AW (Rec: 03/28/20 17:42 AW [email or web address]) Posture Evaluation Position Sitting Evaluation View Lateral Head/C-Spine Posture Forward Head Shoulder Posture (L) Rounded,(R) Rounded Scapula Posture (R) Protracted PT-OP-K Range of Motion Start: 03/28/20 13:47 Freq: Status: Active Protocol: Document 06/13/20 15:40 AW (Rec: 06/13/20 16:34 AW [id number]) Cervical Spine Range of Motion Cervical Spine Active Degrees Testing Position Sitting Rotation Left 55 Rotation Right 50 Comments 5/10 pain to the right. 3/10 pain to the left PT-OP-L Special Tests Start: 03/28/20 13:47 Freq: Status: Active Protocol: Document 03/28/20 13:47 AW (Rec: 03/28/20 17:47 AW [email or web address]) Special Tests Cervical Spine Special Tests Spurling's Test Test Results negative bilaterally PT-OP-M Strength Start: 03/28/20 13:47 Freq: Status: Active Protocol: Document 03/28/20 13:47 AW (Rec: 03/28/20 17:47 AW [email or web address]) Cervical Spine Strength Cervical Spine Manual Muscle Testing Testing Position Sitting Flexion (C1-2) 4- Good- Extension 4- Good- Rotation Left 4- Good- Rotation Right 4- Good- Lateral Flexion Left (C3) 4- Good- Lateral Flexion Right (C3) 4- Good- Shoulder Strength Shoulder Manual Muscle Testing Left Flexion 4+ Good+ Extension 4+ Good+ Abduction (C5) 4+ Good+ Adduction 4+ Good+ External Rotation 4+ Good+ Internal Rotation 4+ Good+ Right Flexion 3+ Fair+ Extension 4 Good Abduction (C5) 3+ Fair+ Adduction 4+ Good+ External Rotation 4- Good- Internal Rotation 4+ Good+ Elbow/Forearm Strength Elbow and Forearm Manual Muscle Testing Right Flexion (C6) 4- Good- Extension (C7) 4- Good- Hand Seam Taper Machine/Pinch Strength Hand Dominance Hand Dominance Right PT-OP-Q Treatments Start: 03/28/20 13:47 Freq: Status: Active Protocol: Document 07/11/20 09:45 AW (Rec: 07/11/20 09:42 AW [id number]) Cardio Equipment Upper Body Ergometer (UBE) Duration (Minutes) 5 RPM 90 Seat Position 8 Height 2.5 Therapeutic Exercises Sitting Exercises scap depression Sitting Exercise Name scap dep Side bilateral Resistance 50 Equipment Used cable stack Reps/Minutes 12 x 2 Comments cued cervical posture closed chain ER Sitting Exercise Name closed chain ER Side right Resistance manual, in sitting Reps/Minutes 2 min Comments stabilized pt's shoulder as she rotated to the left; with cerv rot pulleys Sitting Exercise Name pulleys Reps/Minutes 4 min Comments flexion, scaption, abduction; with active cervical rotation Standing Exercises wall push up plus Standing Exercise Name wall push up plus Side bilateral Reps/Minutes 15 x 2 Comments focus on controlled protraction CW/CCW wall ball Standing Exercise Name CW/CCW wall ball roll on wall over head range Side bilateral Resistance 3.3# ball Equipment Used facing wall Reps/Minutes x12 Comments cues scap stab iso cervical extension Standing Exercise Name iso cervical extension Equipment Used back to wall, press into rolled towel Reps/Minutes 2x10 Comments cued tall posture neck trunk. rows Side bilateral Resistance L3 Equipment Used theraband Reps/Minutes 10x Comments cued for scap depression/ retraction, neutral CS Other Exercises T Other Exercise Name T's Side bilateral Equipment Used 55 cm ball Reps/Minutes 5 SH x 5 Comments focus on cervical stab; scap retraction cat/cow Other Exercise Name cat/cow, thoracic rotation Reps/Minutes 4 min Comments with breaks in pearl pose; focus on cervical stab Manual Therapy Treatment Soft Tissue Mobilization 1 Body Location R UT, suboccipitals, suboccipital release, Mobilization Type Cross-Friction,Myofascial Release,Sustained Pressure Intensity/Depth Moderate Body Position Supine Comments manual, contract relax into more ROM- improved range to R Manual Traction Cervical Body Position Hooklying Reps/Duration 60 sec x 2 Comments relieving for neck pain PT-OP-R Modalities Start: 03/28/20 13:47 Freq: Status: Active Protocol: Document 04/11/20 13:42 AW (Rec: 04/11/20 13:53 AW [email or web address]) Hot Pack/Cold Pack Treatment Cold Pack Location R shoulder Patient Position Hooklying Treatment Duration (minutes) 10 Patient Tolerance Good Comments W/ shoulder cryocuff. PT-OP-T Assessment and Plan Start: 03/28/20 13:47 Freq: Status: Active Protocol: Document 07/11/20 09:45 AW (Rec: 07/11/20 09:45 AW [id number]) Physical Therapy Assessment Goals Four Impairment neck/shoulder pain impact daily activities Entry Level Drafter Goal (LTG) Pt will score 20% or less on QuickDash to indicate improvement in performance of daily activities. LTG Duration 08/20/20 Three Impairment no HEP Short Term Goal (STG) Pt will be independent with HEP for support of therapy services provided in clinic. 05/09/20 MET STG Duration ACHIEVED Nursing Home Goal (LTG) Pt will demonstrate independence with maintenance HEP 06/07/20: progressing in self performance at home w/ R shld AROM and initiated low resistance, education on performing CS ROM is not consistant at home. LTG Duration 08/20/20 Two Impairment RUE strength Short Term Goal (STG) Pt will increase R shoulder strength to 4+/5 all planes 05/09/20 SLOW PROGRESS due to pain 06/07/20: progressing, pt able to rake and shovel stalls now with RUE <90 deg flexion STG Duration 05/09/2020 Nursing Home Goal (LTG) Pt will be able to lift 5# in scaption plane with elbow extended in order to improve ability to care for her horses . 06/13/20 - Using LUE for AAROM R shoulder to pour feed over ledge LTG Duration 08/20/20 One Impairment cervical ROM Entry Level Drafter Goal (LTG) Pt will increase cervical rotation to 50 degrees or greater bilaterally without increase in pain to improve driving tolerance. 06/13/20 - PROGRESS 50 R with 5/10 pain 55 L with 3/10 pain (0/10 at rest) LTG Duration 08/20/20 Assessment Summary Assessment Pt feels she has made significant improvement in shoulder function but is still limited with cervical ROM. She is going to [place] later this week and is scheduled to return to therapy 07/25/20. She is nearing readiness for discharge. Next visit may be the last. Physical Therapy Plan Frequency and Duration Frequency of Treatment 2x/Week Duration of Treatment 8 weeks Plan of Care Start Date 06/20/20 Plan of Care End Date 08/20/20 Therapeutic Interventions Therapeutic Interventions Home Exercise Program,Joint Mobilizations,Manual Therapy, Neuromuscular Re-education, Patient/Caregiver Education, Self-Care/Home Management,Soft Tissue Mobilization,Taping, Therapeutic Activities, Therapeutic Exercises Modalities Cold Pack/Ice Massage,Electric Stimulation,Hot Packs, Traction- Mechanical Other Therapeutic Interventions cryocuff Next Visit Focus/Plan Next Note Type Treatment Note Next Visit Plan Continue with neck stabilization in prone and quadruped.
--- NOTE | 2020-07-25 16:13 | PT.OTN ---
Current Diagnoses Other specific arthropathies, not elsewhere classified, right shoulder (07/25/20) Other cervical disc degeneration, unspecified cervical region (07/25/20) Abnormal posture (07/25/20) Strain of muscle, fascia and tendon of other parts of biceps, right arm, initial encounter (07/25/20) Physical Therapy Treatment Note PT-OP-A Visit Information Start: 03/28/20 13:47 Freq: Status: Active Protocol: Document 07/25/20 15:58 AW (Rec: 07/25/20 16:01 AW [id number]) Out-Patient Physical Therapy Visit Information Visit Information Visit Type Treatment Note Visit Start Time 15:15 Visit Stop Time 15:58 Total Visit Minutes 43 Visit Number 23 Number of MAT WEAVER Visits 0 Evaluation Information Evaluation Date 03/28/20 PT-OP-B Current Condition Start: 03/28/20 13:47 Freq: Status: Active Protocol: Document 03/28/20 13:47 AW (Rec: 03/28/20 14:50 AW [id number]) Current Condition History of Current Condition Onset Date May 2019 neck; August 2019 R shoulder Current Complaints neck and R shoulder pain History of Current Condition Pt has near-constant neck and right shoulder pain. She is right handed. Neck pain interferes with driving. 1.5 years ago, she was pushing heavy wheelbarrow which fell, resulting in proximal biceps swelling, weakness. No tear was diagnosed. In May of 2019, she started doing Pilates workouts by [employer] and started to have ongoing neck pain so she stopped the workouts. She describes the pain as deep and aching. Meanwhile, right shoulder pain was increasing. MRI was completed on 03/20/20 with results below including full thickness distal suprasinatus rupture and partial thickness tear proximal long head biceps tendon, possible labral year. She saw Dr. Mederos last week who does not think she is a surgical candidate due to chronicity. Instead, she was referred to PT. Her biggest problem is lifting with the arm in scaption or abduction. Pain wakes her up at night if she is sleeping on the right side. Prior Treatments and Tests MRI 03/20/20: 1. Full-thickness rupture involving distal supraspinatus at its insertion on the humeral head with up to 3 cm medial retraction of torn tendon fibers to the level of acromioclavicular joint. Tendinosis and low to moderate grade articular surface partial thickness tear involving distal infraspinatus. Distal subscapularis tendinosis and low to moderate grade partial- thickness tear. Moderate supraspinatus and subscapularis muscle atrophy. 2. Moderate acromioclavicular joint osteoarthritis. Moderate amount of joint effusion and subacromial subdeltoid bursal fluid. 3. Suggestion of superior anterior labral tear at 12 to 1 o'clock position. 4. Proximal intra-articular portion of long head of biceps tendinosis and low to moderate grade intrasubstance partial- thickness tear. 03/21/20: shoulder injection Future Testing and Treatments Planned Seek second opinion on possible surgery. Treatment Goals Patient/Caregiver Goals Reduce neck and shoulder pain. Feed horses with 4# feed - reaching across and extend arm in scaption plane. Prior Functional Status Baseline Function- ADL's Independent Baseline Function- Mobility Independent Baseline Function- Work/School Pt and her spouse recently sold the local [employer]. 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 Baseline Function- Other Able to tend to her horses and perform heavy gardening tasks . Current Functional Impairments (Reported) Functional Limitations- Other Unable to lift and pour ~4# animal feed with arm outstretched. Personal Factors Other Personal Factors That May Effect + Positive association with Therapy/Recovery movement PT-OP-C Subjective Start: 03/28/20 13:47 Freq: Status: Active Protocol: Document 07/25/20 15:58 AW (Rec: 07/25/20 16:01 AW [id number]) OP-PT Subjective Patient Comments Patient Comments I think it's time for me to do more of this work on my own and I feel ready to do it. PT-OP-F Manual Assessment Start: 03/28/20 13:47 Freq: Status: Active Protocol: Document 03/28/20 13:47 AW (Rec: 03/28/20 17:42 AW [email or web address]) Manual Assessments Soft Tissue Assessment Soft Tissue Mobility Assessment Moderately dense cervical paraspinals and periscapular musculature bilaterally. Pt is thin but muscle atrophy is apparent in right shoulder and biceps. Ko deformity noted RUE. Joint Mobility Assessment Joint Mobility Assessment A/C gapping not provocative or relieving. No point tenderness at proximal humerus . Pt does have strong reaction to deep palpation of the right rhomboids. PT-OP-H Neuro Start: 03/28/20 13:47 Freq: Status: Active Protocol: Document 03/28/20 13:47 AW (Rec: 03/28/20 17:42 AW [email or web address]) Sensation Evaluation Gross Sensation Gross Sensation Left UE Impaired Comments Summary Comments Pt reports occasional tingling in the left hand but is not reproduced on exam. Deep Tendon Reflex & Clonus Assessment Deep Tendon Reflex Bilateral Tricep Deep Tendon Reflex 1+ Diminished Bilateral Bicep Deep Tendon Reflex 3+ Normal But Brisk PT-OP-J Posture/Palpation/Skin Start: 03/28/20 13:47 Freq: Status: Active Protocol: Document 03/28/20 13:47 AW (Rec: 03/28/20 17:42 AW [email or web address]) Posture Evaluation Position Sitting Evaluation View Lateral Head/C-Spine Posture Forward Head Shoulder Posture (L) Rounded,(R) Rounded Scapula Posture (R) Protracted PT-OP-K Range of Motion Start: 03/28/20 13:47 Freq: Status: Active Protocol: Document 06/13/20 15:40 AW (Rec: 06/13/20 16:34 AW [id number]) Cervical Spine Range of Motion Cervical Spine Active Degrees Testing Position Sitting Rotation Left 55 Rotation Right 50 Comments 5/10 pain to the right. 3/10 pain to the left PT-OP-L Special Tests Start: 03/28/20 13:47 Freq: Status: Active Protocol: Document 03/28/20 13:47 AW (Rec: 03/28/20 17:47 AW [email or web address]) Special Tests Cervical Spine Special Tests Spurling's Test Test Results negative bilaterally PT-OP-M Strength Start: 03/28/20 13:47 Freq: Status: Active Protocol: Document 03/28/20 13:47 AW (Rec: 03/28/20 17:47 AW [email or web address]) Cervical Spine Strength Cervical Spine Manual Muscle Testing Testing Position Sitting Flexion (C1-2) 4- Good- Extension 4- Good- Rotation Left 4- Good- Rotation Right 4- Good- Lateral Flexion Left (C3) 4- Good- Lateral Flexion Right (C3) 4- Good- Shoulder Strength Shoulder Manual Muscle Testing Left Flexion 4+ Good+ Extension 4+ Good+ Abduction (C5) 4+ Good+ Adduction 4+ Good+ External Rotation 4+ Good+ Internal Rotation 4+ Good+ Right Flexion 3+ Fair+ Extension 4 Good Abduction (C5) 3+ Fair+ Adduction 4+ Good+ External Rotation 4- Good- Internal Rotation 4+ Good+ Elbow/Forearm Strength Elbow and Forearm Manual Muscle Testing Right Flexion (C6) 4- Good- Extension (C7) 4- Good- Hand Structures Mechanic/Pinch Strength Hand Dominance Hand Dominance Right PT-OP-Q Treatments Start: 03/28/20 13:47 Freq: Status: Active Protocol: Document 07/25/20 15:58 AW (Rec: 07/25/20 16:01 AW [id number]) Cardio Equipment Upper Body Ergometer (UBE) Duration (Minutes) 5 RPM 90 Seat Position 8 Height 2.5 Therapeutic Exercises Sidelying Exercises open book Sidelying Exercise Name with cervical rotation Side bilateral Reps/Minutes 10x Comments cued cervical rotation Sitting Exercises scap depression Sitting Exercise Name scap dep Side bilateral Resistance 50 Equipment Used cable stack Reps/Minutes 12 x 2 Comments cued cervical posture closed chain ER Sitting Exercise Name closed chain ER Side right Resistance manual, in sitting Reps/Minutes 2 min Comments stabilized pt's shoulder as she rotated to the left; with cerv rot thoracic rotation Sitting Exercise Name neutral cervical position w/ thoracic rotation, then TS stable w/CS rotat. Side bilateral Equipment Used dowel held in cross arms Reps/Minutes 10 x2 each Comments intermittent cues for shld relaxed in depressed position Lev scap stretch Sitting Exercise Name HEP review. UT stretch Sitting Exercise Name HEP review- has been already doing Side bilateral Reps/Minutes 30 sec x2 Comments can provide GENTLE over pressure using opposite UE Standing Exercises wall push up plus Standing Exercise Name wall push up plus Side bilateral Reps/Minutes 15 x 2 Comments focus on controlled protraction CW/CCW wall ball Standing Exercise Name CW/CCW wall ball roll on wall over head range Side bilateral Resistance 3.3# ball Equipment Used facing wall Reps/Minutes x12 Comments cues scap stab rows Standing Exercise Name with squat Side bilateral Resistance L3 Equipment Used theraband Reps/Minutes 10x Comments cued for neutral CS Other Exercises T Other Exercise Name T's Side bilateral Equipment Used 55 cm ball Reps/Minutes 5 SH x 5 Comments focus on cervical stab; scap retraction PT-OP-R Modalities Start: 03/28/20 13:47 Freq: Status: Active Protocol: Document 04/11/20 13:42 AW (Rec: 04/11/20 13:53 AW [email or web address]) Hot Pack/Cold Pack Treatment Cold Pack Location R shoulder Patient Position Hooklying Treatment Duration (minutes) 10 Patient Tolerance Good Comments W/ shoulder cryocuff. PT-OP-T Assessment and Plan Start: 03/28/20 13:47 Freq: Status: Active Protocol: Document 07/25/20 15:58 AW (Rec: 07/25/20 16:13 AW [email or web address]) Physical Therapy Assessment Goals Four Impairment neck/shoulder pain impact daily activities Nursing Home Goal (LTG) Pt will score 20% or less on QuickDash to indicate improvement in performance of daily activities. LTG Duration 08/20/20 Three Impairment no HEP Short Term Goal (STG) Pt will be independent with HEP for support of therapy services provided in clinic. 05/09/20 MET STG Duration ACHIEVED Auxiliary Equipment Tender Goal (LTG) Pt will demonstrate independence with maintenance HEP 06/07/20: progressing in self performance at home w/ R shld AROM and initiated low resistance, education on performing CS ROM is not consistant at home. 07/25/20: GOAL PROGRESS Pt doing more at home, feeling more confident with HEP. LTG Duration 08/20/20 Two Impairment RUE strength Short Term Goal (STG) Pt will increase R shoulder strength to 4+/5 all planes 05/09/20 SLOW PROGRESS due to pain 06/07/20: progressing, pt able to rake and shovel stalls now with RUE <90 deg flexion STG Duration 05/09/2020 Auxiliary Equipment Tender Goal (LTG) Pt will be able to lift 5# in scaption plane with elbow extended in order to improve ability to care for her horses . 06/13/20 - Using LUE for AAROM R shoulder to pour feed over ledge 07/25/20- Pt able to lift 3# in scaption without increased pain LTG Duration 08/20/20 One Impairment cervical ROM Auxiliary Equipment Tender Goal (LTG) Pt will increase cervical rotation to 50 degrees or greater bilaterally without increase in pain to improve driving tolerance. 06/13/20 - PROGRESS 50 R with 5/10 pain 55 L with 3/10 pain (0/10 at rest) 07/25/20 No progress since last assessment. Lateral flexion remains limited. LTG Duration 08/20/20 Assessment Summary Assessment Reviewed HEP and assessed goals. Pt has progressed toward goals related to shoulder ROM and strength but has hit a plateau with cervical ROM. Pt is ready to discharge and understands she will need to get a new referral if she wishes to return to therapy. Physical Therapy Plan Frequency and Duration Frequency of Treatment 2x/Week Duration of Treatment 8 weeks Plan of Care Start Date 06/20/20 Plan of Care End Date 08/20/20 Therapeutic Interventions Therapeutic Interventions Home Exercise Program,Joint Mobilizations,Manual Therapy, Neuromuscular Re-education, Patient/Caregiver Education, Self-Care/Home Management,Soft Tissue Mobilization,Taping, Therapeutic Activities, Therapeutic Exercises Modalities Cold Pack/Ice Massage,Electric Stimulation,Hot Packs, Traction- Mechanical Other Therapeutic Interventions cryocuff Discharge Physical Therapy Discharge Reasons Plateau in Progress Discharge Comments Pt has progressed toward shoulder goals but has plateaued on cervical goals. She is pleased with her progress and feels ready for discharge.
== END 2020-07-26 08:43 | disposition home or self-care (01) ==
LOC: PHYS 15:15
PROVIDERS: Family Provider Internal Medicine; PCP Internal Medicine; Referring Provider Orthopaedic Surgery; Visit Provider Orthopaedic Surgery
DX: S46.211A Strain of muscle, fascia and tendon of other parts of biceps, right arm, initial encounter (principal); M12.811 Other specific arthropathies, not elsewhere classified, right shoulder; M50.30 Other cervical disc degeneration, unspecified cervical region; R29.3 Abnormal posture
CPT/HCPCS: 97010; 97110; 97140; 97161; 97530; 97535

== ENCOUNTER 2020-12-18 10:52 | Emergency (ER) | payer MEDICARE, OTHER, SELFPAY ==
[2020-12-18 11:05] VITALS: BP 178/70; PULSE 69; RESP 15; TEMP 37; O2SAT 99; BMI 30.9
--- NOTE | 2020-12-18 11:09 | DI.RAD.S_ITS ---
PROCEDURE: XR WRIST RT MIN 3V INDICATIONS: wrist pain and swelling TECHNIQUE: Four views of the wrist were acquired. COMPARISON: None. FINDINGS: Bones: No fractures or dislocations. No acute appearing fractures. There is an ossicle adjacent to the ulnar styloid tip suggesting remote displaced ulnar styloid fracture. There is widening of the scapholunate interval. Moderate to severe joint space loss at the triscaphe articulation with subcortical sclerosis present. Diffuse joint space loss at the MCP joints, particularly one through three. Moderate joint space loss at the radiocarpal articulation. No suspicious bony lesions. Soft tissues: No suspicious soft tissue calcifications. Soft tissue thickening in the dorsal lateral aspect of the scapholunate region and diffusely over the carpals. IMPRESSION: 1. No visible fractures. 2. Evidence of remote injury including scapholunate interval widening and nondisplaced displaced ulnar styloid fracture. 3. Polyarticular joint space loss suggesting arthritis. Consider inflammatory arthritis. Dictated by: Meghann Erickson M.D. on 12/18/2020 at 12:26 Approved by: Meghann Erickson M.D. on 12/18/2020 at 12:30
[2020-12-18] MEDS: IBUPROFEN 400 MG TABLET 600 MG PO (12:41)
[2020-12-18 12:57] VITALS: BP 144/67; PULSE 52; RESP 16; O2SAT 99
--- NOTE | 2020-12-18 13:17 | ED.UPPEXIN ---
HPI - Extremity Injury (Upper) <Agustina Walter PA-C - Last Filed: 12/18/20 13:24> General Chief Complaint: Extremity Injury, Upper Stated Complaint: RT wrist injury Time Seen by Provider: 12/18/20 12:04 Source: patient Mode of arrival: Ambulatory Limitations: no limitations History of Present Illness HPI narrative: [age] year old female with no reported past medical history presents to the ED with 3 days of right-sided wrist pain. 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 Patient reports that her right wrist has been swollen, painful, painful with movement. Patient denies numbness, tingling, weakness. Patient denies fever, chills. Patient denies head strike, loss of consciousness. Patient denies using blood thinners. Related Data Home Medications Medication Instructions Recorded Confirmed lisinopril PO 02/28/19 07/09/20 metoprolol succinate PO 02/28/19 07/09/20 Previous Rx's Medication Instructions Recorded chlorhexidine gluconate 0.12 % 15 ml BUCCAL BID #118 ml 02/28/19 mouthwash Allergies Allergy/AdvReac Type Severity Reaction Status Date / Time No Known Drug Allergies Allergy Verified 12/18/20 11:09 Review of Systems <Agustina Walter PA-C - Last Filed: 12/18/20 13:24> Constitutional Constitutional: Denies chills, Denies fatigue, Denies fever(s), Denies frequent falls, Denies lethargy and Denies weakness Eyes Eyes: Denies change in vision, Denies eye discharge, Denies irritation and Denies loss of vision ENT Ears, Nose, Mouth, and Throat: Denies change in voice, Denies dizziness, Denies neck pain, Denies sore throat and Denies throat swelling Cardiovascular Cardiovascular: Denies chest pain, Denies irregular heart rhythm, Denies lightheadedness, Denies palpitations, Denies dyspnea, Denies dyspnea on exertion and Denies orthopnea Respiratory Respiratory: Denies cough, Denies dyspnea, Denies dyspnea on exertion and Denies wheezing Gastrointestinal Gastrointestinal: Denies abdominal pain, Denies change in bowel habits, Denies diarrhea, Denies nausea and Denies vomiting Musculoskeletal Musculoskeletal: Denies neck pain and Denies numbness Comments: Right wrist pain, swelling Integumentary/Breasts Skin/Breast: Denies pruritus, Denies erythema, Denies rash and Denies wounds Neurologic Neurologic: Denies behavioral changes, Denies confusion, Denies dizziness, Denies frequent falls, Denies loss of vision, Denies numbness and Denies weakness Psychiatric Psychiatric: Denies anxiety, Denies behavioral changes, Denies confusion, Denies depression, Denies homicidal ideation and Denies suicidal ideation Endocrine Endocrine: Denies fatigue, Denies flushing and Denies palpitations Hematologic/Lymphatic Hematologic/Lymphatic: Denies easy bruising Allergic/Immunologic Allergic/Immunologic: Denies urticaria, Denies throat swelling and Denies wheezing Patient History <Agustina Walter PA-C - Last Filed: 12/18/20 13:24> Social History Smoking Status: Former smoker Smoking Status: Former smoker alcohol intake frequency: 0-2 drinks per day Substance Use Type: does not use Exam <Agustina Walter PA-C - Last Filed: 12/18/20 13:24> Initial Vital Signs Initial Vital Signs: Vital Signs Temperature 98.6 F 12/18/20 11:05 Pulse Rate 69 12/18/20 11:05 Respiratory Rate 15 12/18/20 11:05 Blood Pressure 178/70 H 12/18/20 11:05 Pulse Oximetry 99 12/18/20 11:05 Const General: cooperative HENMT Head: normocephalic and atraumatic Ears: external ears normal and TM's normal bilaterally Nose: external nose normal and No nasal discharge Face and sinus: sinuses nontender, face symmetric, no sinus tenderness and No dry mucous membranes Mouth: oral mucosae normal and moist mucous membranes Teeth and gingiva: dentition normal Throat: tonsils normal and uvula midline Eyes General: appearance normal, both eyes and all related structures Eyelids: eyelids normal Conjunctivae: conjunctivae normal Sclera: sclerae normal Pupils: PERRL EOM: EOM intact bilaterally Neck Neck: normal visual inspection, trachea midline, No lymphadenopathy, No midline deformity and No JVD Lymphatic: No lymphedema Chest Chest: normal inspection of the chest Resp Effort & Inspection: normal respiratory effort, able to speak in complete sentences, no respiratory distress and no use of accessory muscles Auscultation: clear to auscultation bilaterally, no rales, no rhonchi and no wheezes Cardio Rate: regular rate Rhythm: regular rhythm Heart Sounds: no click, no gallops, no murmurs and no rubs Pulses: normal peripheral pulses GI Inspection: non-distended Palpation: soft, no hepatosplenomegaly, No guarding, No pulsatile mass and No tender Auscultation: normal bowel sounds Back/Spine/Pelvis Back: No CVA tenderness Cervical Spine: cervical ROM normal and No pain with cervical ROM Thoracic/Lumbar Spine: thoracic and lumbar spine normal to inspection Skin General: no rashes or lesions noted, No jaundice and No petechiae Neuro General: patient alert, patient oriented x3, gait normal and no focal motor deficits Speech: speech normal Extrem General: full ROM, no clubbing, cyanosis or edema, no pedal edema and no calf tenderness Other: Swelling, tenderness to palpation noted on the lateral aspect of the right wrist. No bruising noted. Neurovascularly intact. No scaphoid tenderness. Psych Appearance: well kempt Mental Status: mental status grossly normal Attitude: cooperative Thought Content: normal and suicidality Judgment: judgment good <Pawan Rios DO - Last Filed: 12/18/20 14:18> Initial Vital Signs Initial Vital Signs: Vital Signs Temperature 98.6 F 12/18/20 11:05 Pulse Rate 69 12/18/20 11:05 Respiratory Rate 15 12/18/20 11:05 Blood Pressure 178/70 H 12/18/20 11:05 Pulse Oximetry 99 12/18/20 11:05 Course <Agustina Walter PA-C - Last Filed: 12/18/20 13:24> Course Course Narrative: X-ray negative for acute findings. Will discharge home with ED return precautions. Orders Ordered: ED Orders 12/18/20 11:09 XR wrist RT min 3V Stat Discontinued Medications Albuterol/Ipratropium (Albuterol/Ipratropium 3 Ml Ampul) 3 ml INH NOW ONE Stop: 12/18/20 12:42 Ibuprofen (Ibuprofen 400 Mg Tablet) 600 mg PO NOW ONE Stop: 12/18/20 12:29 Last Admin: 12/18/20 12:41 Dose: 600 mg Documented by: CHANTAL Vital Signs Vital signs: Vital Signs - 8 hr 12/18/20 11:05 12/18/20 12:57 Temperature 98.6 F Pulse Rate 69 52 L Respiratory Rate 15 16 Blood Pressure 178/70 H 144/67 H Pulse Oximetry 99 99 <Pawan Rios DO - Last Filed: 12/18/20 14:18> Orders Ordered: ED Orders 12/18/20 11:09 XR wrist RT min 3V Stat Discontinued Medications Albuterol/Ipratropium (Albuterol/Ipratropium 3 Ml Ampul) 3 ml INH NOW ONE Stop: 12/18/20 12:42 Ibuprofen (Ibuprofen 400 Mg Tablet) 600 mg PO NOW ONE Stop: 12/18/20 12:29 Last Admin: 12/18/20 12:41 Dose: 600 mg Documented by: CHANTAL Vital Signs Vital signs: Vital Signs - 8 hr 12/18/20 11:05 12/18/20 12:57 Temperature 98.6 F Pulse Rate 69 52 L Respiratory Rate 15 16 Blood Pressure 178/70 H 144/67 H Pulse Oximetry 99 99 MDM - Extremity Injury (Upper) <Agustina Walter PA-C - Last Filed: 12/18/20 13:24> Imaging Data Extremity x-ray #1: Radiologist's Impression: PROCEDURE:? XR WRIST RT MIN 3V ? INDICATIONS: wrist pain and swelling ? TECHNIQUE:? Four views of the wrist were acquired.? ? COMPARISON:? None. ? FINDINGS:? ? Bones:? No fractures or dislocations.? No acute appearing fractures.? There is an ossicle adjacent to the ulnar styloid tip suggesting remote displaced ulnar styloid fracture.? There is widening of the scapholunate interval.? Moderate to severe joint space loss at the triscaphe articulation with subcortical sclerosis present.? Diffuse joint space loss at the MCP joints, particularly one through three.? Moderate joint space loss at the radiocarpal articulation.? No suspicious bony lesions.? ? ? Soft tissues:? No suspicious soft tissue calcifications.? Soft tissue thickening in the dorsal lateral aspect of the scapholunate region and diffusely over the carpals. ? IMPRESSION:? 1. No visible fractures. 2. Evidence of remote injury including scapholunate interval widening and nondisplaced displaced ulnar styloid fracture. 3. Polyarticular joint space loss suggesting arthritis.? Consider inflammatory arthritis. ? ? ? Dictated by: Meghann Erickson M.D. on 12/18/2020 at 12:26 ? ? Approved by: Meghann Erickson M.D. on 12/18/2020 at 12:3 MDM Narrative Medical decision making narrative: [age] year old female with no reported past medical history presents to the ED with 3 days of right-sided wrist pain. Concern for fracture, dislocation versus sprain. Will give ibuprofen for pain. Will obtain a wrist x-ray. Will reassess. Discharge Plan Departure Patient Disposition: Home Clinical Impression: Acute wrist pain Qualifiers: Laterality: right Qualified Code(s): M25.531 - Pain in right wrist Instructions: DI for Wrist Sprain Activity Restrictions/Additional Instructions: You were evaluated in the ED today for wrist pain. Your x-ray did not show any evidence of fractures or dislocations. Your symptoms are likely due to a wrist sprain. You can continue to ice rest, use compression bandages. You may take ibuprofen or Tylenol for the pain. Please follow-up with your primary care doctor. Return to the ED if you experience any worsening of symptoms, numbness, tingling, weakness. Prescriptions: No Action lisinopril PO RF: 0 metoprolol succinate PO RF: 0 chlorhexidine gluconate 0.12 % mouthwash 15 ml BUCCAL BID Qty: 118 RF: 0 Referrals: Pascual Garcia MD [Primary Care Provider] - <Pawan Rios, - Last Filed: 12/18/20 14:18> Cosign ED Attending Cosignature Attestation: Dr Rios Co-Sign Statement: I was available for consultation during this patient's emergency department visit. This chart is signed by myself for administrative purposes only. I did not have direct contact with this patient during this visit. They were seen independently by the APC.
== END 2020-12-18 13:13 | disposition home or self-care (01) ==
PROVIDERS: Emergency Provider Student in an Organized Health Care Education/Training Program; Family Provider Internal Medicine; PCP Internal Medicine
DX: M25.531 Pain in right wrist (principal)
CPT/HCPCS: 73110; 99283

== ENCOUNTER → 2021-01-21 17:06 | Outpatient (CLI) | payer MEDICARE, OTHER, SELFPAY ==
--- NOTE | 2021-01-21 | DI.MG.S_ITS ---
BILATERAL DIGITAL SCREENING MAMMOGRAM 3D/2D WITH CAD: 01/21/2021 CLINICAL: Routine screening. Family history of breast cancer. Comparison is made to exams dated: 02/06/2020 mammogram - [facility], 01/16/2020 mammogram, 01/13/2019 mammogram, and 12/29/2017 mammogram - [facility]. There are scattered fibroglandular elements in both breasts. Current study was also evaluated with a Computer Aided Detection (CAD) system. No significant masses, calcifications, or other findings are seen in either breast. There has been no significant interval change. IMPRESSION: NEGATIVE There is no mammographic evidence of malignancy. A 1 year screening mammogram is recommended. This exam was interpreted at Station ID: [id number]. NOTE: For mammograms, a report in lay terms will be sent to the patient. Approximately 15% of breast malignancies will not be visualized mammographically. In the management of a palpable breast mass, a negative mammogram must not discourage biopsy of a clinically suspicious lesion. Electronically Signed By: Meghann hoffman/siddharth:01/22/2021 11:08:09 letter sent: Normal Exam ACR BI-RADS Category 1: Negative [id number]
== END ==
PROVIDERS: Family Provider Internal Medicine; PCP Internal Medicine; Referring Provider Internal Medicine; Visit Provider Internal Medicine
DX: Z12.31 Encounter for screening mammogram for malignant neoplasm of breast (principal); Z80.3 Family history of malignant neoplasm of breast
CPT/HCPCS: 77063; 77067

== ENCOUNTER → 2021-05-18 10:53 | Outpatient (CLI) | payer MEDICARE, OTHER, SELFPAY ==
--- NOTE | 2021-05-18 | DI.MRI.S_ITS ---
PROCEDURE: MR SHOULDER LT WO CON INDICATIONS: Rule out rotator cuff tear left shoulder TECHNIQUE: Noncontrast oblique coronal T2 fast spin echo with fat saturation, oblique sagittal T1 spin echo and T2 fast spin echo with fat saturation, axial T1 spin echo and T2 fast spin echo with fat saturation through the shoulder. COMPARISON: [facility], CR, XR SHOULDER 2+ VIEWS LEFT, 02/11/2021, 14:35. FINDINGS: Image quality: Excellent. Rotator cuff: There is full-thickness tear of the posterior fibers of the supraspinatustendon. There is partial thickness tear of the infraspinatus and subscapularis tendons. Sagittal images demonstrate moderate supraspinatus muscle atrophy. Bones and bursae: No bone marrow contusions or fractures. Moderate acromioclavicular and glenohumeral joint degeneration. The acromion demonstrates conventional anatomy, without an os acromiale. Moderate glenohumeral joint effusion. There is subcoracoid bursal fluid consistent with bursitis. Capsule and soft tissues: Degenerative labral fraying. The intra-articular portion of the long head of the biceps tendon is not well seen, suspicious for tear. There is peritendon fluid along the long head of the biceps tendon consistent with tenosynovitis. There is a 0.5 x 0.9 cm intra-articular body along the long head of the biceps tendon (series 8, image 12). The rotator interval appears normal, without fibrosis. The coracohumeral ligament is normal in thickness. IMPRESSION: 1. Full-thickness tear of the supraspinatus tendon. There is moderate supraspinatus muscle atrophy. 2. Partial-thickness tear of the infraspinatus and subscapularis tendons. 3. Subcoracoid bursitis. 4. Moderate acromioclavicular and glenohumeral joint degeneration. 5. Suspect tear of the long head of the biceps tendon. 6. Tenosynovitis of the long head of the biceps tendon. 7. A 0.5 x 0.9 cm intra-articular body along the long head of the biceps tendon. 8. Moderate glenohumeral joint effusion. 9. Degenerative labral fraying. Dictated by: Nan Kauffman M.D. on 05/20/2021 at 7:58 Approved by: Nan Kauffman M.D. on 05/20/2021 at 11:12
== END ==
PROVIDERS: Family Provider Internal Medicine; PCP Internal Medicine; Referring Provider Orthopaedic Surgery; Visit Provider Orthopaedic Surgery
DX: S46.012A Strain of muscle(s) and tendon(s) of the rotator cuff of left shoulder, initial encounter (principal); M19.012 Primary osteoarthritis, left shoulder; M75.22 Bicipital tendinitis, left shoulder; M25.412 Effusion, left shoulder; X58.XXXA Exposure to other specified factors, initial encounter
CPT/HCPCS: 73221

== ENCOUNTER → 2021-07-17 09:48 | Outpatient (CLI) | payer MEDICARE, OTHER, SELFPAY ==
[2021-07-17 12:26] LABS: COVID19 -Nasal RAPID Negative (Negative)
== END ==
PROVIDERS: Family Provider Internal Medicine; PCP Internal Medicine; Visit Provider Surgery
DX: Z20.822 Contact with and (suspected) exposure to COVID-19 (principal); Z01.812 Encounter for preprocedural laboratory examination
CPT/HCPCS: 87635; C9803

== ENCOUNTER 2021-07-18 07:46 | Day surgery (SDC) | payer MEDICARE, OTHER, SELFPAY ==
--- NOTE | 2021-07-18 | PATH_ITS ---
[facility] Accession Number: [id number] . 01 Material submitted: . cecum - CECAL POLYP . 01 Diagnosis: Cecum, Polyp, Biopsy: Tubular adenoma. MRV 07/23/2021 1448 Local . 01 Electronically signed: . Addis Dominguez MD, Pathologist NPI- [id number] . 01 Gross description: . CECAL POLYP: Received in formalin is 1 fragment(s) of olivas, soft tissue measuring 0.3 x 0.3 x 0.2 cm submitted entirely in 1 cassette(s) /CPE 07/19/2021 0534 Local . 01 Pathologist provided ICD-10: D12.0 . 01 CPT . 544267 Specimen Comment: A courtesy copy of this report has been sent to [phone] Performed at: 01 [facility] [address] [place] [address] [id number] MD Dheeraj Lynch MD Phone: [phone]
[2021-07-18 08:02] VITALS: BP 151/77; PULSE 61; RESP 16; TEMP 35.9; O2SAT 100; BMI 23.1
[2021-07-18] MEDS: LACTATED RINGERS 1,000 ML 42 ML IV (08:14)
--- NOTE | 2021-07-18 08:34 | PM.HP.1 ---
History of Present Illness History of Present Illness Date Patient Seen: 07/18/21 Time Patient Seen: 08:34 Chief complaint: SDC Narrative: 70-year-old woman who is 5 years out from a colonoscopy in which polyps were found. She was told to come back in 5 years. Patient History Medical History (Updated 07/18/21 @ 08:35 by Rajesh Fuentes MD) Hyperlipemia Hypertension Surgical History (Updated 07/18/21 @ 08:21 by Anisa Rueda RN) H/O total hip arthroplasty Family & Social History Social History: household members spouse Tobacco & Substance use: Smoking Status Former smoker alcohol intake current alcohol intake frequency 0-2 drinks per day Substance Use Type does not use Meds Home Medications and Allergies Home Medications Medication Instructions Recorded Confirmed Type lisinopril 20 mg PO DAILY 02/28/19 07/18/21 History metoprolol succinate 100 mg PO DAILY 02/28/19 07/18/21 History sodium sul 1.479 gram-potas ch See Rx Instructions PO PER PKG DIR 06/05/21 Rx 0.188 gram-magnes sul 0.225 gram #24 tab tablet (Sutab) atorvastatin 80 mg tablet 80 mg PO DAILY 07/18/21 07/18/21 History Allergies Allergy/AdvReac Type Severity Reaction Status Date / Time No Known Drug Allergies Allergy Verified 12/18/20 11:09 Exam Vital Signs (past 8 hours): - 07/18/21 08:02 Temperature 96.7 F L Pulse Rate 61 Respiratory Rate 16 Blood Pressure 151/77 H Pulse Oximetry 100 Oxygen Delivery Method Room Air Const General: healthy appearing Resp Effort & Inspection: normal respiratory effort GI Palpation: soft Assessment & Plan Assessment and plan (1) History of colon polyps: Status: Acute Plan We discussed colonoscopy for colon cancer screening. She would like to proceed COVID-19 COVID-19 status: Negative Result date/Date tested (Pos, Neg/Pending): 07/17/21 Time Spent With Patient Critical Care time: I spent a total of [] minutes of critical care time on this patient's care today; this time is exclusive of procedural time.
[2021-07-18] MEDS: fentaNYL 250 MCG/5 ML INJ 150 MCG IV (08:52)
[2021-07-18] MEDS: MIDAZOLAM 5 MG/5 ML VIAL 6 MG IV (08:52)
--- NOTE | 2021-07-18 09:11 | PM.OP.COLON ---
Operative Date/Time/Diagnoses Date of procedure: 07/18/21 Time of procedure: 09:11 Pre-op diagnosis: History of colon polyps Post-op diagnosis: same Procedure & Clinicians Study performed: Colonoscopy Same procedure as scheduled: Yes Procedure Notes Procedure in detail: Surgeon: Rajesh Fuentes MD Procedure: The patient was brought to the endoscopy suite, placed in left lateral decubitus position. The patient was connected to monitoring devices. A time-out was performed. Sedation was administered. Once the patient was adequately sedated, a digital rectal exam was performed and was normal. The scope was then inserted and advanced to the cecum where the appendiceal orifice was identified and photographed. The scope was then slowly withdrawn over greater than 6 minutes. Mucosa was thoroughly inspected. There was a small polyp in the cecum of roughly 3 mm removed with Jumbo forceps. No other polyps were seen throughout the colon. There was extensive pandiverticulosis most significantly in the sigmoid colon. The scope was retroflexed in the rectum. No abnormalities were noted other than mild internal hemorrhoids. The scope was straightened and removed. The patient was awakened and brought to recovery. Versed: 6 mg Fentanyl: 150 mcg EBL: 5 mL Findings: Small cecal polyp and pain diverticulosis Scope withdrawal time: 13 Sedation minutes: 28 Post-procedure Recommendations: Will call with biopsy results Follow up: weeks Disposition: PACU
[2021-07-18 09:12] VITALS: BP 116/56; PULSE 51; RESP 16; TEMP 36.5; O2SAT 95
[2021-07-18 09:17] VITALS: BP 117/58; PULSE 64; RESP 18; O2SAT 95
[2021-07-18 09:30] VITALS: BP 116/56; PULSE 61; RESP 16; O2SAT 98
[2021-07-18 09:32] VITALS: BP 122/77; PULSE 62; RESP 16; TEMP 36.8; O2SAT 97
== END 2021-07-18 09:46 | disposition home or self-care (01) ==
PROVIDERS: Family Provider Internal Medicine; PCP Internal Medicine; Referring Provider Surgery; Visit Provider Surgery
PROC: 0DJD8ZZ Inspection of Lower Intestinal Tract, Via Natural or Artificial Opening Endoscopic (ICD-10-PCS; CPT 45378; principal; 2021-07-18 08:45)
DX: Z12.11 Encounter for screening for malignant neoplasm of colon (principal); Z86.010 Personal history of colon polyps; E78.5 Hyperlipidemia, unspecified; I10 Essential (primary) hypertension; K57.30 Diverticulosis of large intestine without perforation or abscess without bleeding; D12.0 Benign neoplasm of cecum
CPT/HCPCS: 45380; 99152; 99153; J2250; J3010

== ENCOUNTER → 2021-08-18 15:44 | Outpatient (CLI) | payer MEDICARE, OTHER, SELFPAY | PROVIDERS: Family Provider Internal Medicine; PCP Internal Medicine; Visit Provider Nurse Practitioner Family | DX: R30.0 Dysuria (principal) | CPT/HCPCS: 87077; 87086; 87186 ==

== ENCOUNTER 2021-09-25 16:00 | Outpatient (RCR) | payer MEDICARE, OTHER, SELFPAY ==
--- NOTE | 2021-07-03 16:37 | PT.OIE ---
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, not specified as traumatic (07/03/21) Visit Care Team Role Provider Type Pascula Garcia MD Family Provider Physician Primary Care Provider Specialty: Internal Medicine Address: [address] [place] [address], [address] Email: [email or web address] Yg Kraft MD Attending Provider Physician Referring Provider Specialty: Orthopedics Orthopedic Surgery Address: [address] [place] [address], [address] Email: [email or web address] Physical Therapy Initial Evaluation PT-OP-A Visit Information Start: 07/02/21 17:07 Freq: Status: Active Protocol: Document 07/03/21 12:00 AW (Rec: 07/02/21 17:16 AW [id number]) Out-Patient Physical Therapy Visit Information Visit Information Visit Type Initial Evaluation Visit Start Time 11:15 Visit Stop Time 12:00 Total Visit Minutes 45 Visit Number 1 Number of SQL DEVELOPER DBA Visits 0 Evaluation Information Evaluation Date 07/03/21 PT-OP-B Current Condition Start: 07/02/21 17:07 Freq: Status: Active Protocol: Document 07/03/21 12:00 AW (Rec: 07/02/21 17:16 AW [id number]) Current Condition History of Current Condition Onset Date End of 2020 Current Complaints left shoulder pain and reduced ROM History of Current Condition Angelica previously had right shoulder pain with identified full thickness supraspinatus tear. She participated in PT and was satisfied with her function. Her left shoulder started hurting late last year . It hurt especially while sleeping. She was taking two extra strength Tylenol every day but was not getting relief . She went to ortho. X-ray was unremarkable. Steroid shot was helpful for ~6 weeks. She returned to ortho and MRI demontrated rotator cuff injury as below. Repeat injection on May 27 was effective and pt still has good pain relief. She has been doing gentle yoga for about a year. There is no weightbearing on hands in her class. She is able to tolerate cobra pose on forearms. She notices that external rotation of her shoulders in savasana is uncomfortable (more on the left). Prior Treatments and Tests MRI 05/18/21: 1. Full-thickness tear of the supraspinatus tendon. There is moderate supraspinatus muscle atrophy. 2. Partial-thickness tear of the infraspinatus and subscapularis tendons. 3. Subcoracoid bursitis. 4. Moderate acromioclavicular and glenohumeral joint degeneration. 5. Suspect tear of the long head of the biceps tendon. 6. Tenosynovitis of the long head of the biceps tendon. 7. A 0.5 x 0.9 cm intra- articular body along the long head of the biceps tendon. 8. Moderate glenohumeral joint effusion. 9. Degenerative labral fraying . Future Testing and Treatments Planned May consider further injections for pain mangement. Treatment Goals Patient/Caregiver Goals Pt wants to avoid surgery. Get stronger. Lift overhead. PT-OP-C Subjective Start: 07/02/21 17:07 Freq: Status: Active Protocol: Document 07/03/21 12:00 AW (Rec: 07/03/21 17:16 AW [id number]) OP-PT Subjective Patient Comments Patient Comments Here I am again. PT helped last time. Patient Questionnaires Quick Dash- Upper Extremity Quick Dash UE Score 39 Quick Dash UE Impairment 20 to 39% Impaired (Score 20- 39) OP-PT Pain Assessment Pain Assessment Grid Paper Pain Assessment Grid Completed Yes: Scanned to EMR PT-OP-J Posture/Palpation/Skin Start: 07/02/21 17:07 Freq: Status: Active Protocol: Document 07/03/21 12:00 AW (Rec: 07/03/21 17:16 AW [id number]) Posture Evaluation Comments Posture Comments Slight forward posture. Palpation Assessment Location neck, shoulders Palpation Details Moderately dense cervical peraspinals and periscapular musculature. Trigger point and spasm in rhomboids bilaterlly . Atrophy bilateral supraspinatus. Previous biceps tendon rupture with Ko deformity noted RUE. PT-OP-K Range of Motion Start: 07/02/21 17:07 Freq: Status: Active Protocol: Document 07/03/21 12:00 AW (Rec: 07/03/21 17:16 AW [id number]) Cervical Spine Range of Motion Cervical Spine Active Testing Position Sitting Flexion 50 Extension 50 Rotation Left 45 Rotation Right 40 Lateral Flexion Left 24 Lateral Flexion Right 23 ROM Limitations Soft Tissue Tightness,Pain Shoulder Goniometric Range of Motion Shoulder left Shoulder ROM WFL Yes Testing Position Sitting Flexion 150 Abduction 150 External Rotation at 0 degrees Abduction 60 Internal Rotation Behind Back (text) T12 right Shoulder ROM WFL Yes Testing Position Sitting Flexion 160 Abduction 155 External Rotation at 0 degrees Abduction 60 Internal Rotation Behind Back (text) T8 Shoulder ROM Limitations Shoulder ROM Limitations Muscle Weakness,Pain Elbow/Forearm Range of Motion Elbow/Forearm bilat Elbow/Forearm ROM WFL Yes PT-OP-M Strength Start: 07/02/21 17:07 Freq: Status: Active Protocol: Document 07/03/21 12:00 AW (Rec: 07/03/21 17:18 AW [id number]) Shoulder Strength Shoulder Manual Muscle Testing Left Flexion 4 Good Abduction (C5) 5 Normal External Rotation 4 Good Internal Rotation 4+ Good+ Right Flexion 4 Good Extension 5 Normal External Rotation 3+ Fair+ Internal Rotation 4+ Good+ PT-OP-Q Treatments Start: 07/02/21 17:07 Freq: Status: Active Protocol: Document 07/03/21 12:00 AW (Rec: 07/04/21 16:37 AW [id number]) Therapeutic Exercises Supine Exercises protraction Supine Exercise Name protraction, resisted Side bilateral Resistance 2#, 3# Equipment Used db Reps/Minutes 2x15 Comments cued slow controlled movement; HEP Sitting Exercises scapular retraction Sitting Exercise Name scapular retraction Side bilateral Resistance AROM Comments HEP Manual Therapy Treatment Soft Tissue Mobilization UT, cervical paraspinals Body Location UT, cervical paraspinals Mobilization Type Myofascial Release,Strumming, Sustained Pressure Intensity/Depth Moderate Body Position Hooklying Self-Care/Home Management Treatment Education Patient Education Home Exercise Program,Joint Protection Activities Self-Care/Home Management Activities Educated pt on evaluation findings, activity modification, and recommended plan of care to include ROM and general strengthening, substitution patterns as needed. Pt understood and agreed. PT-OP-T Assessment and Plan Start: 07/02/21 17:07 Freq: Status: Active Protocol: Document 07/03/21 12:00 AW (Rec: 07/04/21 16:37 AW [id number]) Physical Therapy Assessment Rehab Potential Rehabilitation Potential Good Evaluation Complexity Number of Personal Factors/Comorbidities 1-2 Number of Body Systems Impaired 1-2 Clinical Presentation at Evaluation Evolving Impairments Impairments Pain,Posture,ROM,Soft Tissue Mobility,Strength Goals Four Impairment neck/shoulder pain impact daily activities (QuickDASH 39 %) Oracle Database Architect Goal (LTG) Pt will score 20% or less on QuickDASH as a measure of improved performance in daily activities. LTG Duration 12 weeks - 09/25/21 Three Impairment cervical ROM Oracle Database Architect Goal (LTG) Pt will increase cervical lateral flexion to 35 degrees or greater for improved shoulder function. LTG Duration 12 weeks - 09/25/21 Two Impairment B shoulder weakness Short Term Goal (STG) Pt will increase bilateral external rotation strength to 4/5 or greater STG Duration 6 weeks - 08/14/21 Shelter Goal (LTG) Pt will lift 10 pounds overhead ten times without pain or fatigue to improve ability to lift a suitcase. LTG Duration 12 weeks - 09/25/21 One Impairment lacks HEP Short Term Goal (STG) Pt will be instructed in HEP for shoulder ROM, strength, and stability to support therapy services provided in clinic. STG Duration 6 weeks - 08/14/21 Oracle Database Architect Goal (LTG) Pt will be independent with HEP for shoulder ROM, strength , and stability to maintain therapy gains. LTG Duration 12 weeks - 09/25/21 Assessment Summary Assessment Angelica attends outpatient physical therapy with complaints of neck and left shoulder pain. She was previously treated for right shoulder pain and was satisfied with her rehab outcomes. She is currently relatively pain free due to steriod injection in late April. MRI indicates full thickness supraspinatus tear, partial thickness infraspinatus and subscapularis tears, and possible SLAP lesion. Pt presents with mild ROM deficits in the left shoulder compared with the right. Rotational and flexion strength are decreased bilaterally. Robert is expected to benefit from skilled physical therapy to address these deficits and improve her ability to participate in self -care and recreational activities. Physical Therapy Plan Frequency and Duration Frequency of Treatment 2x/Week Duration of Treatment 12 weeks Plan of Care Start Date 07/03/21 Plan of Care End Date 09/25/21 Therapeutic Interventions Therapeutic Interventions Aquatic Therapy,Home Exercise Program,Joint Mobilizations, Manual Therapy,Neuromuscular Re-education,Self-Care/Home Management,Soft Tissue Mobilization,Taping, Therapeutic Activities, Therapeutic Exercises Next Visit Focus/Plan Next Note Type Treatment Note Next Visit Plan Initiate gentle strengthening periscapular and RTC mm. STM UT and periscapular. Consider taping for support and pain managment.
--- NOTE | 2021-07-03 16:37 | PT.OPPOC ---
Physical, Occupational & Speech Therapy At [facility] 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, not specified as traumatic (07/03/21) Visit Care Team Role Provider Type Pascual Garcia MD Family Provider Physician Primary Care Provider Specialty: Internal Medicine Address: [address] [place] [address], [address] Email: [email or web address] Yg Kraft MD Attending Provider Physician Referring Provider Specialty: Orthopedics Orthopedic Surgery Address: [address] [place] [address], [address] Email: [email or web address] PT-OP-T Assessment and Plan Start: 07/02/21 17:07 Freq: Status: Active Protocol: Document 07/03/21 12:00 AW (Rec: 07/04/21 16:37 AW [id number]) Physical Therapy Assessment Rehab Potential Rehabilitation Potential Good Evaluation Complexity Number of Personal Factors/Comorbidities 1-2 Number of Body Systems Impaired 1-2 Clinical Presentation at Evaluation Evolving Impairments Impairments Pain,Posture,ROM,Soft Tissue Mobility,Strength Goals Four Impairment neck/shoulder pain impact daily activities (QuickDASH 39 %) Tabber Goal (LTG) Pt will score 20% or less on QuickDASH as a measure of improved performance in daily activities. LTG Duration 12 weeks - 09/25/21 Three Impairment cervical ROM Prison Goal (LTG) Pt will increase cervical lateral flexion to 35 degrees or greater for improved shoulder function. LTG Duration 12 weeks - 09/25/21 Two Impairment B shoulder weakness Short Term Goal (STG) Pt will increase bilateral external rotation strength to 4/5 or greater STG Duration 6 weeks - 08/14/21 Tabber Goal (LTG) Pt will lift 10 pounds overhead ten times without pain or fatigue to improve ability to lift a suitcase. LTG Duration 12 weeks - 09/25/21 One Impairment lacks HEP Short Term Goal (STG) Pt will be instructed in HEP for shoulder ROM, strength, and stability to support therapy services provided in clinic. STG Duration 6 weeks - 08/14/21 Prison Goal (LTG) Pt will be independent with HEP for shoulder ROM, strength , and stability to maintain therapy gains. LTG Duration 12 weeks - 09/25/21 Assessment Summary Assessment Angelica attends outpatient physical therapy with complaints of neck and left shoulder pain. She was previously treated for right shoulder pain and was satisfied with her rehab outcomes. She is currently relatively pain free due to steriod injection in late April. MRI indicates full thickness supraspinatus tear, partial thickness infraspinatus and subscapularis tears, and possible SLAP lesion. Pt presents with mild ROM deficits in the left shoulder compared with the right. Rotational and flexion strength are decreased bilaterally. Pt is expected to benefit from skilled physical therapy to address these deficits and improve her ability to participate in self -care and recreational activities. Physical Therapy Plan Frequency and Duration Frequency of Treatment 2x/Week Duration of Treatment 12 weeks Plan of Care Start Date 07/03/21 Plan of Care End Date 09/25/21 Therapeutic Interventions Therapeutic Interventions Aquatic Therapy,Home Exercise Program,Joint Mobilizations, Manual Therapy,Neuromuscular Re-education,Self-Care/Home Management,Soft Tissue Mobilization,Taping, Therapeutic Activities, Therapeutic Exercises Next Visit Focus/Plan Next Note Type Treatment Note Next Visit Plan Initiate gentle strengthening periscapular and RTC mm. STM UT and periscapular. Consider taping for support and pain managment. Plan of Care Dates Plan of Care Start Date 07/03/21 Plan of Care End Date 09/25/21 Electronically Signed by: Shama Bejarano PT 07/04/21 [id number] If you are in agreement with this Plan of Care, please return a signed and dated copy. I have reviewed this Plan of Care and certify that the skilled therapy services above are required to meet the patient?s needs. Physician Signature Date Printed Name and Credentials Clinical Instructor Signature Printed Name and Credentials
--- NOTE | 2021-07-09 17:05 | PT.OTN ---
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, not specified as traumatic (07/09/21) Physical Therapy Treatment Note PT-OP-A Visit Information Start: 07/02/21 17:07 Freq: Status: Active Protocol: Document 07/09/21 16:05 AW (Rec: 07/09/21 17:04 AW [id number]) Out-Patient Physical Therapy Visit Information Visit Information Visit Type Treatment Note Visit Start Time 16:05 Visit Stop Time 16:45 Total Visit Minutes 40 Visit Number 2 Number of SLEEVE IRONER Visits 0 Evaluation Information Evaluation Date 07/03/21 PT-OP-B Current Condition Start: 07/02/21 17:07 Freq: Status: Active Protocol: Document 07/03/21 12:00 AW (Rec: 07/02/21 17:16 AW [id number]) Current Condition History of Current Condition Onset Date End of 2020 Current Complaints left shoulder pain and reduced ROM History of Current Condition Angelica previously had right shoulder pain with identified full thickness supraspinatus tear. She participated in PT and was satisfied with her function. Her left shoulder started hurting late last year . It hurt especially while sleeping. She was taking two extra strength Tylenol every day but was not getting relief . She went to ortho. X-ray was unremarkable. Steroid shot was helpful for ~6 weeks. She returned to ortho and MRI demontrated rotator cuff injury as below. Repeat injection on May 27 was effective and pt still has good pain relief. She has been doing gentle yoga for about a year. There is no weightbearing on hands in her class. She is able to tolerate cobra pose on forearms. She notices that external rotation of her shoulders in savasana is uncomfortable (more on the left). Prior Treatments and Tests MRI 05/18/21: 1. Full-thickness tear of the supraspinatus tendon. There is moderate supraspinatus muscle atrophy. 2. Partial-thickness tear of the infraspinatus and subscapularis tendons. 3. Subcoracoid bursitis. 4. Moderate acromioclavicular and glenohumeral joint degeneration. 5. Suspect tear of the long head of the biceps tendon. 6. Tenosynovitis of the long head of the biceps tendon. 7. A 0.5 x 0.9 cm intra- articular body along the long head of the biceps tendon. 8. Moderate glenohumeral joint effusion. 9. Degenerative labral fraying . Future Testing and Treatments Planned May consider further injections for pain mangement. Treatment Goals Patient/Caregiver Goals Pt wants to avoid surgery. Get stronger. Lift overhead. PT-OP-C Subjective Start: 07/02/21 17:07 Freq: Status: Active Protocol: Document 07/09/21 16:05 AW (Rec: 07/09/21 17:04 AW [id number]) OP-PT Subjective Patient Comments Patient Comments I'm feeling pretty good. Just hoping to get stronger. PT-OP-J Posture/Palpation/Skin Start: 07/02/21 17:07 Freq: Status: Active Protocol: Document 07/03/21 12:00 AW (Rec: 07/03/21 17:16 AW [id number]) Posture Evaluation Comments Posture Comments Slight forward posture. Palpation Assessment Location neck, shoulders Palpation Details Moderately dense cervical peraspinals and periscapular musculature. Trigger point and spasm in rhomboids bilaterlly . Atrophy bilateral supraspinatus. Previous biceps tendon rupture with Ko deformity noted RUE. PT-OP-K Range of Motion Start: 07/02/21 17:07 Freq: Status: Active Protocol: Document 07/03/21 12:00 AW (Rec: 07/03/21 17:16 AW [id number]) Cervical Spine Range of Motion Cervical Spine Active Testing Position Sitting Flexion 50 Extension 50 Rotation Left 45 Rotation Right 40 Lateral Flexion Left 24 Lateral Flexion Right 23 ROM Limitations Soft Tissue Tightness,Pain Shoulder Goniometric Range of Motion Shoulder left Shoulder ROM WFL Yes Testing Position Sitting Flexion 150 Abduction 150 External Rotation at 0 degrees Abduction 60 Internal Rotation Behind Back (text) T12 right Shoulder ROM WFL Yes Testing Position Sitting Flexion 160 Abduction 155 External Rotation at 0 degrees Abduction 60 Internal Rotation Behind Back (text) T8 Shoulder ROM Limitations Shoulder ROM Limitations Muscle Weakness,Pain Elbow/Forearm Range of Motion Elbow/Forearm bilat Elbow/Forearm ROM WFL Yes PT-OP-M Strength Start: 07/02/21 17:07 Freq: Status: Active Protocol: Document 07/03/21 12:00 AW (Rec: 07/03/21 17:18 AW [id number]) Shoulder Strength Shoulder Manual Muscle Testing Left Flexion 4 Good Abduction (C5) 5 Normal External Rotation 4 Good Internal Rotation 4+ Good+ Right Flexion 4 Good Extension 5 Normal External Rotation 3+ Fair+ Internal Rotation 4+ Good+ PT-OP-Q Treatments Start: 07/02/21 17:07 Freq: Status: Active Protocol: Document 07/09/21 16:05 AW (Rec: 07/09/21 17:04 AW [id number]) Therapeutic Exercises Supine Exercises protraction Supine Exercise Name protraction, resisted Side bilateral Resistance 2# Equipment Used db Reps/Minutes 2x15 Comments cued slow controlled movement; HEP review Sidelying Exercises hAbd Sidelying Exercise Name hAbd Side bilateral Resistance AROM Reps/Minutes 2x12 Comments HEP abduction Sidelying Exercise Name GH abduction Side left Resistance AROM Reps/Minutes 2x15 Comments ~110 deg; HEP ER Sidelying Exercise Name GH ER Side left Resistance AROM Reps/Minutes 2x15 Comments HEP Sitting Exercises scapular retraction Sitting Exercise Name scapular retraction Side bilateral Resistance AROM Comments HEP Manual Therapy Treatment Soft Tissue Mobilization UT, cervical paraspinals Body Location UT, cervical paraspinals, pecs , rhomboids Mobilization Type Myofascial Release,Strumming, Sustained Pressure Intensity/Depth Moderate Comments hooklying and sidelying Joint Mobilizations scapulothoracic Joint scapulothoracic Direction inferior, rotation Grade II Body Position Sidelying Taping L RTC Body Location L RTC Treatment Focus support, postural cueing Type of Tape KT tape Skin Inspection intact Comments 2 I strips - 1 following supraspinatus, 1 from anterior to posterior just medial to A /C Self-Care/Home Management Treatment Education Patient Education Home Exercise Program,Joint Protection Activities Self-Care/Home Management Activities Educated pt to remove tape if any irritation noted. Added sidelying AROM to HEP. PT-OP-T Assessment and Plan Start: 07/02/21 17:07 Freq: Status: Active Protocol: Document 07/09/21 16:05 AW (Rec: 07/09/21 17:04 AW [id number]) Physical Therapy Assessment Goals Four Impairment neck/shoulder pain impact daily activities (QuickDASH 39 %) Prison Goal (LTG) Pt will score 20% or less on QuickDASH as a measure of improved performance in daily activities. LTG Duration 12 weeks - 09/25/21 Three Impairment cervical ROM Animal Handler Goal (LTG) Pt will increase cervical lateral flexion to 35 degrees or greater for improved shoulder function. LTG Duration 12 weeks - 09/25/21 Two Impairment B shoulder weakness Short Term Goal (STG) Pt will increase bilateral external rotation strength to 4/5 or greater STG Duration 6 weeks - 08/14/21 Animal Handler Goal (LTG) Pt will lift 10 pounds overhead ten times without pain or fatigue to improve ability to lift a suitcase. LTG Duration 12 weeks - 09/25/21 One Impairment lacks HEP Short Term Goal (STG) Pt will be instructed in HEP for shoulder ROM, strength, and stability to support therapy services provided in clinic. STG Duration 6 weeks - 08/14/21 Animal Handler Goal (LTG) Pt will be independent with HEP for shoulder ROM, strength , and stability to maintain therapy gains. LTG Duration 12 weeks - 09/25/21 Assessment Summary Assessment Angelica tolerated manual therapy and AROM left shoulder with no increase in baseline pain. Trialed KT tape for left shoulder support and for postural cueing. Physical Therapy Plan Frequency and Duration Frequency of Treatment 2x/Week Duration of Treatment 12 weeks Plan of Care Start Date 07/03/21 Plan of Care End Date 09/25/21 Therapeutic Interventions Therapeutic Interventions Aquatic Therapy,Home Exercise Program,Joint Mobilizations, Manual Therapy,Neuromuscular Re-education,Self-Care/Home Management,Soft Tissue Mobilization,Taping, Therapeutic Activities, Therapeutic Exercises Modalities Cold Pack/Ice Massage Next Visit Focus/Plan Next Note Type Treatment Note Next Visit Plan Assess response to AROM and tape last tx. Initiate gentle strengthening periscapular and RTC mm. Consider loading ER, abd, and hAbd. STM UT and periscapular.
--- NOTE | 2021-07-16 16:58 | PT.OTN ---
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, not specified as traumatic (07/16/21) Physical Therapy Treatment Note PT-OP-A Visit Information Start: 07/02/21 17:07 Freq: Status: Active Protocol: Document 07/16/21 16:04 AW (Rec: 07/16/21 16:58 AW [id number]) Out-Patient Physical Therapy Visit Information Visit Information Visit Type Treatment Note Visit Start Time 16:04 Visit Stop Time 16:45 Total Visit Minutes 41 Visit Number 3 Number of ROLLING DOWN MACHINE OPERATOR Visits 0 Evaluation Information Evaluation Date 07/03/21 PT-OP-B Current Condition Start: 07/02/21 17:07 Freq: Status: Active Protocol: Document 07/03/21 12:00 AW (Rec: 07/02/21 17:16 AW [id number]) Current Condition History of Current Condition Onset Date End of 2020 Current Complaints left shoulder pain and reduced ROM History of Current Condition Angelica previously had right shoulder pain with identified full thickness supraspinatus tear. She participated in PT and was satisfied with her function. Her left shoulder started hurting late last year . It hurt especially while sleeping. She was taking two extra strength Tylenol every day but was not getting relief . She went to ortho. X-ray was unremarkable. Steroid shot was helpful for ~6 weeks. She returned to ortho and MRI demontrated rotator cuff injury as below. Repeat injection on May 27 was effective and pt still has good pain relief. She has been doing gentle yoga for about a year. There is no weightbearing on hands in her class. She is able to tolerate cobra pose on forearms. She notices that external rotation of her shoulders in savasana is uncomfortable (more on the left). Prior Treatments and Tests MRI 05/18/21: 1. Full-thickness tear of the supraspinatus tendon. There is moderate supraspinatus muscle atrophy. 2. Partial-thickness tear of the infraspinatus and subscapularis tendons. 3. Subcoracoid bursitis. 4. Moderate acromioclavicular and glenohumeral joint degeneration. 5. Suspect tear of the long head of the biceps tendon. 6. Tenosynovitis of the long head of the biceps tendon. 7. A 0.5 x 0.9 cm intra- articular body along the long head of the biceps tendon. 8. Moderate glenohumeral joint effusion. 9. Degenerative labral fraying . Future Testing and Treatments Planned May consider further injections for pain mangement. Treatment Goals Patient/Caregiver Goals Pt wants to avoid surgery. Get stronger. Lift overhead. PT-OP-C Subjective Start: 07/02/21 17:07 Freq: Status: Active Protocol: Document 07/16/21 16:04 AW (Rec: 07/16/21 16:58 AW [id number]) OP-PT Subjective Patient Comments Patient Comments I'm pretty committed to doing my exercises. PT-OP-J Posture/Palpation/Skin Start: 07/02/21 17:07 Freq: Status: Active Protocol: Document 07/03/21 12:00 AW (Rec: 07/03/21 17:16 AW [id number]) Posture Evaluation Comments Posture Comments Slight forward posture. Palpation Assessment Location neck, shoulders Palpation Details Moderately dense cervical peraspinals and periscapular musculature. Trigger point and spasm in rhomboids bilaterlly . Atrophy bilateral supraspinatus. Previous biceps tendon rupture with Ko deformity noted RUE. PT-OP-K Range of Motion Start: 07/02/21 17:07 Freq: Status: Active Protocol: Document 07/03/21 12:00 AW (Rec: 07/03/21 17:16 AW [id number]) Cervical Spine Range of Motion Cervical Spine Active Testing Position Sitting Flexion 50 Extension 50 Rotation Left 45 Rotation Right 40 Lateral Flexion Left 24 Lateral Flexion Right 23 ROM Limitations Soft Tissue Tightness,Pain Shoulder Goniometric Range of Motion Shoulder left Shoulder ROM WFL Yes Testing Position Sitting Flexion 150 Abduction 150 External Rotation at 0 degrees Abduction 60 Internal Rotation Behind Back (text) T12 right Shoulder ROM WFL Yes Testing Position Sitting Flexion 160 Abduction 155 External Rotation at 0 degrees Abduction 60 Internal Rotation Behind Back (text) T8 Shoulder ROM Limitations Shoulder ROM Limitations Muscle Weakness,Pain Elbow/Forearm Range of Motion Elbow/Forearm bilat Elbow/Forearm ROM WFL Yes PT-OP-M Strength Start: 07/02/21 17:07 Freq: Status: Active Protocol: Document 07/03/21 12:00 AW (Rec: 07/03/21 17:18 AW [id number]) Shoulder Strength Shoulder Manual Muscle Testing Left Flexion 4 Good Abduction (C5) 5 Normal External Rotation 4 Good Internal Rotation 4+ Good+ Right Flexion 4 Good Extension 5 Normal External Rotation 3+ Fair+ Internal Rotation 4+ Good+ PT-OP-Q Treatments Start: 07/02/21 17:07 Freq: Status: Active Protocol: Document 07/16/21 16:04 AW (Rec: 07/16/21 16:58 AW [id number]) Cardio Equipment Upper Body Ergometer (UBE) Duration (Minutes) 5 RPM 60 Seat Position 8 Height 2.5 Therapeutic Exercises Supine Exercises protraction Supine Exercise Name protraction, resisted Side bilateral Resistance 2# Equipment Used db Reps/Minutes 2x15 Comments cued slow controlled movement; HEP review Prone Exercises scapular retraction Prone Exercise Name scapular retraction Side bilateral Equipment Used AROM Reps/Minutes x10 Sidelying Exercises hAbd Sidelying Exercise Name hAbd Side bilateral Resistance 1# db left, AROM right Reps/Minutes 2x10 Comments HEP abduction Sidelying Exercise Name GH abduction Side bilateral Resistance 1# db left, AROM right Reps/Minutes 2x15 Comments ~90 deg; HEP ER Sidelying Exercise Name GH ER Side bilateral Resistance 1# db left, AROM right Reps/Minutes 2x15 Comments HEP Manual Therapy Treatment Soft Tissue Mobilization UT, cervical paraspinals Body Location UT, cervical paraspinals,pecs, rhomboids Mobilization Type Myofascial Release,Strumming, Sustained Pressure Intensity/Depth Moderate Comments hooklying and sidelying Joint Mobilizations scapulothoracic Joint scapulothoracic Direction inferior, rotation Grade II Body Position Sidelying Comments bilateral Self-Care/Home Management Treatment Education Patient Education Home Exercise Program Activities Self-Care/Home Management Activities Added 1# db to sidelying left ER, abd, hAbd. Added AROM same movements R shoulder. PT-OP-T Assessment and Plan Start: 07/02/21 17:07 Freq: Status: Active Protocol: Document 07/16/21 16:04 AW (Rec: 07/16/21 16:58 AW [id number]) Physical Therapy Assessment Goals Four Impairment neck/shoulder pain impact daily activities (QuickDASH 39 %) Ticket Counter Goal (LTG) Pt will score 20% or less on QuickDASH as a measure of improved performance in daily activities. LTG Duration 12 weeks - 09/25/21 Three Impairment cervical ROM Ticket Counter Goal (LTG) Pt will increase cervical lateral flexion to 35 degrees or greater for improved shoulder function. LTG Duration 12 weeks - 09/25/21 Two Impairment B shoulder weakness Short Term Goal (STG) Pt will increase bilateral external rotation strength to 4/5 or greater STG Duration 6 weeks - 08/14/21 Ticket Counter Goal (LTG) Pt will lift 10 pounds overhead ten times without pain or fatigue to improve ability to lift a suitcase. LTG Duration 12 weeks - 09/25/21 One Impairment lacks HEP Short Term Goal (STG) Pt will be instructed in HEP for shoulder ROM, strength, and stability to support therapy services provided in clinic. STG Duration 6 weeks - 08/14/21 Mcfp Goal (LTG) Pt will be independent with HEP for shoulder ROM, strength , and stability to maintain therapy gains. LTG Duration 12 weeks - 09/25/21 Assessment Summary Assessment Angelica reports mildly increased left shoulder irritation as she thinks her last shot is beginning to wear off. She was able to add resistance to left shoulder movements in sidelying. Right side is weaker and tolerated only AROM. Physical Therapy Plan Frequency and Duration Frequency of Treatment 2x/Week Duration of Treatment 12 weeks Plan of Care Start Date 07/03/21 Plan of Care End Date 09/25/21 Therapeutic Interventions Therapeutic Interventions Aquatic Therapy,Home Exercise Program,Joint Mobilizations, Manual Therapy,Neuromuscular Re-education,Self-Care/Home Management,Soft Tissue Mobilization,Taping, Therapeutic Activities, Therapeutic Exercises Modalities Cold Pack/Ice Massage Next Visit Focus/Plan Next Note Type Treatment Note Next Visit Plan Assess response to AROM and tape last tx. Initiate gentle strengthening periscapular and RTC mm. Consider loading ER, abd, and hAbd. STM UT and periscapular.
--- NOTE | 2021-08-21 09:42 | PT.OTN ---
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, not specified as traumatic (08/21/21) Physical Therapy Treatment Note PT-OP-A Visit Information Start: 07/02/21 17:07 Freq: Status: Active Protocol: Document 08/21/21 08:52 AW (Rec: 08/21/21 09:42 AW [id number]) Out-Patient Physical Therapy Visit Information Visit Information Visit Type Treatment Note Visit Start Time 09:00 Visit Stop Time 09:45 Total Visit Minutes 45 Visit Number 4 Number of UX INTERACTION DESIGNER Visits 0 Evaluation Information Evaluation Date 07/03/21 PT-OP-B Current Condition Start: 07/02/21 17:07 Freq: Status: Active Protocol: Document 07/03/21 12:00 AW (Rec: 07/02/21 17:16 AW [id number]) Current Condition History of Current Condition Onset Date End of 2020 Current Complaints left shoulder pain and reduced ROM History of Current Condition Angelica previously had right shoulder pain with identified full thickness supraspinatus tear. She participated in PT and was satisfied with her function. Her left shoulder started hurting late last year . It hurt especially while sleeping. She was taking two extra strength Tylenol every day but was not getting relief . She went to ortho. X-ray was unremarkable. Steroid shot was helpful for ~6 weeks. She returned to ortho and MRI demontrated rotator cuff injury as below. Repeat injection on May 27 was effective and pt still has good pain relief. She has been doing gentle yoga for about a year. There is no weightbearing on hands in her class. She is able to tolerate cobra pose on forearms. She notices that external rotation of her shoulders in savasana is uncomfortable (more on the left). Prior Treatments and Tests MRI 05/18/21: 1. Full-thickness tear of the supraspinatus tendon. There is moderate supraspinatus muscle atrophy. 2. Partial-thickness tear of the infraspinatus and subscapularis tendons. 3. Subcoracoid bursitis. 4. Moderate acromioclavicular and glenohumeral joint degeneration. 5. Suspect tear of the long head of the biceps tendon. 6. Tenosynovitis of the long head of the biceps tendon. 7. A 0.5 x 0.9 cm intra- articular body along the long head of the biceps tendon. 8. Moderate glenohumeral joint effusion. 9. Degenerative labral fraying . Future Testing and Treatments Planned May consider further injections for pain mangement. Treatment Goals Patient/Caregiver Goals Pt wants to avoid surgery. Get stronger. Lift overhead. PT-OP-C Subjective Start: 07/02/21 17:07 Freq: Status: Active Protocol: Document 08/21/21 08:52 AW (Rec: 08/21/21 09:42 AW [id number]) OP-PT Subjective Patient Comments Patient Comments Things are going well. Shoulders are feeling good. I' m very encouraged. Left arm is doing better than the right, actually PT-OP-J Posture/Palpation/Skin Start: 07/02/21 17:07 Freq: Status: Active Protocol: Document 07/03/21 12:00 AW (Rec: 07/03/21 17:16 AW [id number]) Posture Evaluation Comments Posture Comments Slight forward posture. Palpation Assessment Location neck, shoulders Palpation Details Moderately dense cervical peraspinals and periscapular musculature. Trigger point and spasm in rhomboids bilaterlly . Atrophy bilateral supraspinatus. Previous biceps tendon rupture with Ko deformity noted RUE. PT-OP-K Range of Motion Start: 07/02/21 17:07 Freq: Status: Active Protocol: Document 07/03/21 12:00 AW (Rec: 07/03/21 17:16 AW [id number]) Cervical Spine Range of Motion Cervical Spine Active Testing Position Sitting Flexion 50 Extension 50 Rotation Left 45 Rotation Right 40 Lateral Flexion Left 24 Lateral Flexion Right 23 ROM Limitations Soft Tissue Tightness,Pain Shoulder Goniometric Range of Motion Shoulder left Shoulder ROM WFL Yes Testing Position Sitting Flexion 150 Abduction 150 External Rotation at 0 degrees Abduction 60 Internal Rotation Behind Back (text) T12 right Shoulder ROM WFL Yes Testing Position Sitting Flexion 160 Abduction 155 External Rotation at 0 degrees Abduction 60 Internal Rotation Behind Back (text) T8 Shoulder ROM Limitations Shoulder ROM Limitations Muscle Weakness,Pain Elbow/Forearm Range of Motion Elbow/Forearm bilat Elbow/Forearm ROM WFL Yes PT-OP-M Strength Start: 07/02/21 17:07 Freq: Status: Active Protocol: Document 07/03/21 12:00 AW (Rec: 07/03/21 17:18 AW [id number]) Shoulder Strength Shoulder Manual Muscle Testing Left Flexion 4 Good Abduction (C5) 5 Normal External Rotation 4 Good Internal Rotation 4+ Good+ Right Flexion 4 Good Extension 5 Normal External Rotation 3+ Fair+ Internal Rotation 4+ Good+ PT-OP-Q Treatments Start: 07/02/21 17:07 Freq: Status: Active Protocol: Document 08/21/21 08:52 AW (Rec: 08/21/21 09:42 AW [id number]) Cardio Equipment Upper Body Ergometer (UBE) Duration (Minutes) 5 RPM 60 Seat Position 8 Height 2.5 Other fwd/bwd Gym Equipment Therapeutic Ball [employer] Exercise Details [employer] Ball Size/Color red - 55cm Body Position Prone Reps/Duration AROM all Comments 3 SH in ext, T (palms down), Y (thumbs up) Therapeutic Exercises Sidelying Exercises open book Sidelying Exercise Name open book hAbd Sidelying Exercise Name hAbd Side bilateral Resistance 1# db left, AROM right Reps/Minutes 2x10 Comments HEP abduction Sidelying Exercise Name GH abduction Side bilateral Resistance 1# db left, AROM right Reps/Minutes 2x15 Comments ~120 deg; HEP ER Sidelying Exercise Name GH ER Side bilateral Resistance 2# db left, AROM right (trunk to neutral) Reps/Minutes 2x15 Comments HEP Standing Exercises reactive isometrics Standing Exercise Name reactive isometrics - IR only today Side bilateral Resistance TB1 Comments clinic only IR Standing Exercise Name IR Side bilateral Resistance TB2 Equipment Used neutral to trunk Comments clinic only Self-Care/Home Management Treatment Education Patient Education Home Exercise Program Activities Self-Care/Home Management Activities Added Heydis for home with pt's own ball. PT-OP-T Assessment and Plan Start: 07/02/21 17:07 Freq: Status: Active Protocol: Document 08/21/21 08:52 AW (Rec: 08/21/21 09:42 AW [id number]) Physical Therapy Assessment Goals Four Impairment neck/shoulder pain impact daily activities (QuickDASH 39 %) [facility] Goal (LTG) Pt will score 20% or less on QuickDASH as a measure of improved performance in daily activities. LTG Duration 12 weeks - 09/25/21 Three Impairment cervical ROM [employer] [facility] Goal (LTG) Pt will increase cervical lateral flexion to 35 degrees or greater for improved shoulder function. LTG Duration 12 weeks - 09/25/21 Two Impairment B shoulder weakness Short Term Goal (STG) Pt will increase bilateral external rotation strength to 4/5 or greater STG Duration 6 weeks - 08/14/21 [facility] Goal (LTG) Pt will lift 10 pounds overhead ten times without pain or fatigue to improve ability to lift a suitcase. LTG Duration 12 weeks - 09/25/21 One Impairment lacks HEP Short Term Goal (STG) Pt will be instructed in HEP for shoulder ROM, strength, and stability to support therapy services provided in clinic. STG Duration 6 weeks - 08/14/21 [facility] Goal (LTG) Pt will be independent with HEP for shoulder ROM, strength , and stability to maintain therapy gains. LTG Duration 12 weeks - 09/25/21 Assessment Summary Assessment Pt improving in both shoulders regarding pain but remains more irritable on right side. Focused on periscapular strength today and introduced standing RTC strength. Will revisit next session. Physical Therapy Plan Frequency and Duration Frequency of Treatment 2x/Week Duration of Treatment 12 weeks Plan of Care Start Date 07/03/21 Plan of Care End Date 09/25/21 Therapeutic Interventions Therapeutic Interventions Aquatic Therapy,Home Exercise Program,Joint Mobilizations, Manual Therapy,Neuromuscular Re-education,Self-Care/Home Management,Soft Tissue Mobilization,Taping, Therapeutic Activities, Therapeutic Exercises Modalities Cold Pack/Ice Massage Next Visit Focus/Plan Next Note Type Treatment Note Next Visit Plan Assess response to AROM and tape last tx. Initiate gentle strengthening periscapular and RTC mm. Consider loading ER, abd, and hAbd. STM UT and periscapular.
--- NOTE | 2021-08-28 15:15 | PT.OTN ---
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, not specified as traumatic (08/28/21) Physical Therapy Treatment Note PT-OP-A Visit Information Start: 07/02/21 17:07 Freq: Status: Active Protocol: Document 08/28/21 14:31 SP (Rec: 08/28/21 15:30 SP [id number]) Out-Patient Physical Therapy Visit Information Visit Information Visit Type Treatment Note Visit Start Time 14:31 Visit Stop Time 15:15 Total Visit Minutes 44 Visit Number 5 Number of HYDRAULIC BARKER OPERATOR Visits 1 Evaluation Information Evaluation Date 07/03/21 PT-OP-B Current Condition Start: 07/02/21 17:07 Freq: Status: Active Protocol: Document 07/03/21 12:00 AW (Rec: 07/02/21 17:16 AW [id number]) Current Condition History of Current Condition Onset Date End of 2020 Current Complaints left shoulder pain and reduced ROM History of Current Condition Angelica previously had right shoulder pain with identified full thickness supraspinatus tear. She participated in PT and was satisfied with her function. Her left shoulder started hurting late last year . It hurt especially while sleeping. She was taking two extra strength Tylenol every day but was not getting relief . She went to ortho. X-ray was unremarkable. Steroid shot was helpful for ~6 weeks. She returned to ortho and MRI demontrated rotator cuff injury as below. Repeat injection on May 27 was effective and pt still has good pain relief. She has been doing gentle yoga for about a year. There is no weightbearing on hands in her class. She is able to tolerate cobra pose on forearms. She notices that external rotation of her shoulders in savasana is uncomfortable (more on the left). Prior Treatments and Tests MRI 05/18/21: 1. Full-thickness tear of the supraspinatus tendon. There is moderate supraspinatus muscle atrophy. 2. Partial-thickness tear of the infraspinatus and subscapularis tendons. 3. Subcoracoid bursitis. 4. Moderate acromioclavicular and glenohumeral joint degeneration. 5. Suspect tear of the long head of the biceps tendon. 6. Tenosynovitis of the long head of the biceps tendon. 7. A 0.5 x 0.9 cm intra- articular body along the long head of the biceps tendon. 8. Moderate glenohumeral joint effusion. 9. Degenerative labral fraying . Future Testing and Treatments Planned May consider further injections for pain mangement. Treatment Goals Patient/Caregiver Goals Pt wants to avoid surgery. Get stronger. Lift overhead. PT-OP-C Subjective Start: 07/02/21 17:07 Freq: Status: Active Protocol: Document 08/28/21 14:31 SP (Rec: 08/28/21 15:30 SP [id number]) OP-PT Subjective Patient Comments Patient Comments Pt reported felt good after last tx, didnt' feel over worked. Pt states doing better now that previous horses are rehomed and not as much work as used to. She reports most challenging is reaching overhead to put suitcases up on self, needs to stand on chair to complete. PT-OP-J Posture/Palpation/Skin Start: 07/02/21 17:07 Freq: Status: Active Protocol: Document 07/03/21 12:00 AW (Rec: 07/03/21 17:16 AW [id number]) Posture Evaluation Comments Posture Comments Slight forward posture. Palpation Assessment Location neck, shoulders Palpation Details Moderately dense cervical peraspinals and periscapular musculature. Trigger point and spasm in rhomboids bilaterlly . Atrophy bilateral supraspinatus. Previous biceps tendon rupture with Ko deformity noted RUE. PT-OP-K Range of Motion Start: 07/02/21 17:07 Freq: Status: Active Protocol: Document 07/03/21 12:00 AW (Rec: 07/03/21 17:16 AW [id number]) Cervical Spine Range of Motion Cervical Spine Active Testing Position Sitting Flexion 50 Extension 50 Rotation Left 45 Rotation Right 40 Lateral Flexion Left 24 Lateral Flexion Right 23 ROM Limitations Soft Tissue Tightness,Pain Shoulder Goniometric Range of Motion Shoulder left Shoulder ROM WFL Yes Testing Position Sitting Flexion 150 Abduction 150 External Rotation at 0 degrees Abduction 60 Internal Rotation Behind Back (text) T12 right Shoulder ROM WFL Yes Testing Position Sitting Flexion 160 Abduction 155 External Rotation at 0 degrees Abduction 60 Internal Rotation Behind Back (text) T8 Shoulder ROM Limitations Shoulder ROM Limitations Muscle Weakness,Pain Elbow/Forearm Range of Motion Elbow/Forearm bilat Elbow/Forearm ROM WFL Yes PT-OP-M Strength Start: 07/02/21 17:07 Freq: Status: Active Protocol: Document 07/03/21 12:00 AW (Rec: 07/03/21 17:18 AW [id number]) Shoulder Strength Shoulder Manual Muscle Testing Left Flexion 4 Good Abduction (C5) 5 Normal External Rotation 4 Good Internal Rotation 4+ Good+ Right Flexion 4 Good Extension 5 Normal External Rotation 3+ Fair+ Internal Rotation 4+ Good+ PT-OP-Q Treatments Start: 07/02/21 17:07 Freq: Status: Active Protocol: Document 08/28/21 14:31 SP (Rec: 08/28/21 15:30 SP [id number]) Cardio Equipment Upper Body Ergometer (UBE) Duration (Minutes) 5 RPM 60 Seat Position 8 Height 2.5 Other fwd/bwd Gym Equipment Therapeutic Ball flaveit Exercise Details [employer] Ball Size/Color red - 55cm Body Position Prone Reps/Duration AROM all- x10 each Comments 3 SH in ext, T (palms down), Y (thumbs up) Therapeutic Exercises Sidelying Exercises hAbd Sidelying Exercise Name hAbd- HEP review Side bilateral Resistance 1#>#2 db left, AROM> #1 DB right Reps/Minutes 2x10 Comments Good muscle flickering effort- painfree abduction Sidelying Exercise Name GH abduction-HEP review Side bilateral Resistance 1#>#2 db left, AROM> #1 DB right Reps/Minutes 2x10 Comments ~128 deg, good muscle flickering effort ER Sidelying Exercise Name GH ER- HEP review Side bilateral Resistance 2# db left, AROM right (trunk to neutral) Reps/Minutes 2x15 Comments Good muscle flickering effort- painfree Sitting Exercises scapular retraction Sitting Exercise Name scapular retraction- HEP review Side bilateral Resistance TB #1 Reps/Minutes x10, 2s hold Comments good form Standing Exercises D2 flexion Standing Exercise Name added to HEP Side bilateral Resistance TB #1 Equipment Used anchored under opp foot LUE [place] , anchored L side hip RUE OH Reps/Minutes x10 Comments occasional cues no UT recruitment- painfree, just tiring Ys off wall Standing Exercise Name B AROM, single TB #1 Side bilateral Resistance AROM> #1 TB Reps/Minutes x10 each Comments good feedback response so progressed to reactive isometrics Standing Exercise Name reactive isometrics - IR only today Side bilateral Resistance TB1 Equipment Used side step out/back Reps/Minutes x10 Comments clinic only IR Standing Exercise Name IR Side bilateral Resistance TB2 Equipment Used neutral to trunk Comments clinic only PT-OP-T Assessment and Plan Start: 07/02/21 17:07 Freq: Status: Active Protocol: Document 08/28/21 14:31 SP (Rec: 08/28/21 15:30 SP [id number]) Physical Therapy Assessment Goals Four Impairment neck/shoulder pain impact daily activities (QuickDASH 39 %) [facility] Goal (LTG) Pt will score 20% or less on QuickDASH as a measure of improved performance in daily activities. LTG Duration 12 weeks - 09/25/21 Three Impairment cervical ROM [facility] Goal (LTG) Pt will increase cervical lateral flexion to 35 degrees or greater for improved shoulder function. LTG Duration 12 weeks - 09/25/21 Two Impairment B shoulder weakness Short Term Goal (STG) Pt will increase bilateral external rotation strength to 4/5 or greater STG Duration 6 weeks - 08/14/21 [facility] Goal (LTG) Pt will lift 10 pounds overhead ten times without pain or fatigue to improve ability to lift a suitcase. LTG Duration 12 weeks - 09/25/21 One Impairment lacks HEP Short Term Goal (STG) Pt will be instructed in HEP for shoulder ROM, strength, and stability to support therapy services provided in clinic. STG Duration 6 weeks - 08/14/21 [facility] Goal (LTG) Pt will be independent with HEP for shoulder ROM, strength , and stability to maintain therapy gains. LTG Duration 12 weeks - 09/25/21 Assessment Summary Assessment Pt good effort throughout ther ex with ability to increase RUE to 1#DB and LUE 2#DB. Good form prone Francisco Willard, doesn't still have one at home . Able to progress Ys off wall to D2 flexion no pain, cued use wall at side for target reach to over head diagonal. Physical Therapy Plan Frequency and Duration Frequency of Treatment 2x/Week Duration of Treatment 12 weeks Plan of Care Start Date 07/03/21 Plan of Care End Date 09/25/21 Therapeutic Interventions Therapeutic Interventions Aquatic Therapy,Home Exercise Program,Joint Mobilizations, Manual Therapy,Neuromuscular Re-education,Self-Care/Home Management,Soft Tissue Mobilization,Taping, Therapeutic Activities, Therapeutic Exercises Modalities Cold Pack/Ice Massage Next Visit Focus/Plan Next Note Type Treatment Note Next Visit Plan Assess reponse to increase resistance. Initiate gentle strengthening periscapular and RTC mm. Continue loading ER, abd, and hAbd if tolerated. STM UT and periscapular.
--- NOTE | 2021-09-04 16:54 | PT.OTN ---
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, not specified as traumatic (09/04/21) Physical Therapy Treatment Note PT-OP-A Visit Information Start: 07/02/21 17:07 Freq: Status: Active Protocol: Document 09/04/21 15:56 AW (Rec: 09/04/21 16:53 AW [id number]) Out-Patient Physical Therapy Visit Information Visit Information Visit Type Treatment Note Visit Start Time 16:00 Visit Stop Time 16:40 Total Visit Minutes 40 Visit Number 6 Number of AGRICULTURAL ENGINEER Visits 0 Evaluation Information Evaluation Date 07/03/21 PT-OP-B Current Condition Start: 07/02/21 17:07 Freq: Status: Active Protocol: Document 07/03/21 12:00 AW (Rec: 07/02/21 17:16 AW [id number]) Current Condition History of Current Condition Onset Date End of 2020 Current Complaints left shoulder pain and reduced ROM History of Current Condition Angelica previously had right shoulder pain with identified full thickness supraspinatus tear. She participated in PT and was satisfied with her function. Her left shoulder started hurting late last year . It hurt especially while sleeping. She was taking two extra strength Tylenol every day but was not getting relief . She went to ortho. X-ray was unremarkable. Steroid shot was helpful for ~6 weeks. She returned to ortho and MRI demontrated rotator cuff injury as below. Repeat injection on May 27 was effective and pt still has good pain relief. She has been doing gentle yoga for about a year. There is no weightbearing on hands in her class. She is able to tolerate cobra pose on forearms. She notices that external rotation of her shoulders in savasana is uncomfortable (more on the left). Prior Treatments and Tests MRI 05/18/21: 1. Full-thickness tear of the supraspinatus tendon. There is moderate supraspinatus muscle atrophy. 2. Partial-thickness tear of the infraspinatus and subscapularis tendons. 3. Subcoracoid bursitis. 4. Moderate acromioclavicular and glenohumeral joint degeneration. 5. Suspect tear of the long head of the biceps tendon. 6. Tenosynovitis of the long head of the biceps tendon. 7. A 0.5 x 0.9 cm intra- articular body along the long head of the biceps tendon. 8. Moderate glenohumeral joint effusion. 9. Degenerative labral fraying . Future Testing and Treatments Planned May consider further injections for pain mangement. Treatment Goals Patient/Caregiver Goals Pt wants to avoid surgery. Get stronger. Lift overhead. PT-OP-C Subjective Start: 07/02/21 17:07 Freq: Status: Active Protocol: Document 09/04/21 15:56 AW (Rec: 09/04/21 16:53 AW [id number]) OP-PT Subjective Patient Comments Patient Comments Planning to follow up with ortho in two weeks. Still feeling good after therapy. PT-OP-J Posture/Palpation/Skin Start: 07/02/21 17:07 Freq: Status: Active Protocol: Document 07/03/21 12:00 AW (Rec: 07/03/21 17:16 AW [id number]) Posture Evaluation Comments Posture Comments Slight forward posture. Palpation Assessment Location neck, shoulders Palpation Details Moderately dense cervical peraspinals and periscapular musculature. Trigger point and spasm in rhomboids bilaterlly . Atrophy bilateral supraspinatus. Previous biceps tendon rupture with Ko deformity noted RUE. PT-OP-K Range of Motion Start: 07/02/21 17:07 Freq: Status: Active Protocol: Document 07/03/21 12:00 AW (Rec: 07/03/21 17:16 AW [id number]) Cervical Spine Range of Motion Cervical Spine Active Testing Position Sitting Flexion 50 Extension 50 Rotation Left 45 Rotation Right 40 Lateral Flexion Left 24 Lateral Flexion Right 23 ROM Limitations Soft Tissue Tightness,Pain Shoulder Goniometric Range of Motion Shoulder left Shoulder ROM WFL Yes Testing Position Sitting Flexion 150 Abduction 150 External Rotation at 0 degrees Abduction 60 Internal Rotation Behind Back (text) T12 right Shoulder ROM WFL Yes Testing Position Sitting Flexion 160 Abduction 155 External Rotation at 0 degrees Abduction 60 Internal Rotation Behind Back (text) T8 Shoulder ROM Limitations Shoulder ROM Limitations Muscle Weakness,Pain Elbow/Forearm Range of Motion Elbow/Forearm bilat Elbow/Forearm ROM WFL Yes PT-OP-M Strength Start: 07/02/21 17:07 Freq: Status: Active Protocol: Document 07/03/21 12:00 AW (Rec: 07/03/21 17:18 AW [id number]) Shoulder Strength Shoulder Manual Muscle Testing Left Flexion 4 Good Abduction (C5) 5 Normal External Rotation 4 Good Internal Rotation 4+ Good+ Right Flexion 4 Good Extension 5 Normal External Rotation 3+ Fair+ Internal Rotation 4+ Good+ PT-OP-Q Treatments Start: 07/02/21 17:07 Freq: Status: Active Protocol: Document 09/04/21 15:56 AW (Rec: 09/04/21 16:53 AW [id number]) Cardio Equipment Upper Body Ergometer (UBE) Duration (Minutes) 5 RPM 90 Seat Position 9 Height 2.5 Other fwd/bwd Gym Equipment Therapeutic Ball shoulder walk out Exercise Details shoulder walk out Hughstons Exercise Details Hughstons Ball Size/Color red - 55cm Body Position Prone Reps/Duration AROM all- x10 each Comments 3 SH in ext, T (palms down), Y (thumbs up) Therapeutic Exercises Standing Exercises abduction Standing Exercise Name abduction Side bilateral Resistance 1# db Equipment Used started leaned toward working side Comments pt can initiate from leaned position flexion Standing Exercise Name flexion Side bilateral Resistance 1# db Reps/Minutes x15 reactive isometrics Standing Exercise Name reactive isometrics - IR and ER Side bilateral Resistance TB1 Equipment Used side step out/back Reps/Minutes x10 Comments clinic only IR Standing Exercise Name IR Side bilateral Resistance TB2 Equipment Used neutral to trunk Comments clinic only Manual Therapy Treatment Soft Tissue Mobilization UT Body Location UT, rhomboids Mobilization Type Rolling,Strumming Intensity/Depth Moderate Body Position Hooklying PT-OP-T Assessment and Plan Start: 07/02/21 17:07 Freq: Status: Active Protocol: Document 09/04/21 15:56 AW (Rec: 09/04/21 16:53 AW [id number]) Physical Therapy Assessment Goals Four Impairment neck/shoulder pain impact daily activities (QuickDASH 39 %) Rejector Goal (LTG) Pt will score 20% or less on QuickDASH as a measure of improved performance in daily activities. LTG Duration 12 weeks - 09/25/21 Three Impairment cervical ROM Rejector Goal (LTG) Pt will increase cervical lateral flexion to 35 degrees or greater for improved shoulder function. LTG Duration 12 weeks - 09/25/21 Two Impairment B shoulder weakness Short Term Goal (STG) Pt will increase bilateral external rotation strength to 4/5 or greater STG Duration 6 weeks - 08/14/21 Rejector Goal (LTG) Pt will lift 10 pounds overhead ten times without pain or fatigue to improve ability to lift a suitcase. LTG Duration 12 weeks - 09/25/21 One Impairment lacks HEP Short Term Goal (STG) Pt will be instructed in HEP for shoulder ROM, strength, and stability to support therapy services provided in clinic. STG Duration 6 weeks - 08/14/21 Jail Goal (LTG) Pt will be independent with HEP for shoulder ROM, strength , and stability to maintain therapy gains. LTG Duration 12 weeks - 09/25/21 Assessment Summary Assessment Initiated standing flexion and abduction. Abduction was modified with lean toward working side to ease initiation. Pt responded well and reported no increase in shoulder pain. Physical Therapy Plan Frequency and Duration Frequency of Treatment 2x/Week Duration of Treatment 12 weeks Plan of Care Start Date 07/03/21 Plan of Care End Date 09/25/21 Therapeutic Interventions Therapeutic Interventions Aquatic Therapy,Home Exercise Program,Joint Mobilizations, Manual Therapy,Neuromuscular Re-education,Self-Care/Home Management,Soft Tissue Mobilization,Taping, Therapeutic Activities, Therapeutic Exercises Modalities Cold Pack/Ice Massage Next Visit Focus/Plan Next Note Type Treatment Note Next Visit Plan Progress strengthening periscapular and RTC mm. Continue loading ER, abd, and hAbd if tolerated. STM UT and periscapular.
--- NOTE | 2021-09-11 16:50 | PT.OTN ---
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, not specified as traumatic (09/11/21) Physical Therapy Treatment Note PT-OP-A Visit Information Start: 07/02/21 17:07 Freq: Status: Active Protocol: Document 09/11/21 16:02 AW (Rec: 09/11/21 16:49 AW [id number]) Out-Patient Physical Therapy Visit Information Visit Information Visit Type Treatment Note Visit Start Time 16:02 Visit Stop Time 16:52 Total Visit Minutes 50 Visit Number 7 Number of DATA SOLUTIONS ARCHITECT Visits 0 Evaluation Information Evaluation Date 07/03/21 PT-OP-B Current Condition Start: 07/02/21 17:07 Freq: Status: Active Protocol: Document 07/03/21 12:00 AW (Rec: 07/02/21 17:16 AW [id number]) Current Condition History of Current Condition Onset Date End of 2020 Current Complaints left shoulder pain and reduced ROM History of Current Condition Angelica previously had right shoulder pain with identified full thickness supraspinatus tear. She participated in PT and was satisfied with her function. Her left shoulder started hurting late last year . It hurt especially while sleeping. She was taking two extra strength Tylenol every day but was not getting relief . She went to ortho. X-ray was unremarkable. Steroid shot was helpful for ~6 weeks. She returned to ortho and MRI demontrated rotator cuff injury as below. Repeat injection on May 27 was effective and pt still has good pain relief. She has been doing gentle yoga for about a year. There is no weightbearing on hands in her class. She is able to tolerate cobra pose on forearms. She notices that external rotation of her shoulders in savasana is uncomfortable (more on the left). Prior Treatments and Tests MRI 05/18/21: 1. Full-thickness tear of the supraspinatus tendon. There is moderate supraspinatus muscle atrophy. 2. Partial-thickness tear of the infraspinatus and subscapularis tendons. 3. Subcoracoid bursitis. 4. Moderate acromioclavicular and glenohumeral joint degeneration. 5. Suspect tear of the long head of the biceps tendon. 6. Tenosynovitis of the long head of the biceps tendon. 7. A 0.5 x 0.9 cm intra- articular body along the long head of the biceps tendon. 8. Moderate glenohumeral joint effusion. 9. Degenerative labral fraying . Future Testing and Treatments Planned May consider further injections for pain mangement. Treatment Goals Patient/Caregiver Goals Pt wants to avoid surgery. Get stronger. Lift overhead. PT-OP-C Subjective Start: 07/02/21 17:07 Freq: Status: Active Protocol: Document 09/11/21 16:02 AW (Rec: 09/11/21 16:49 AW [id number]) OP-PT Subjective Patient Comments Patient Comments I did a lot of weeding today and still feel good. Will see ortho on Thursday. PT-OP-J Posture/Palpation/Skin Start: 07/02/21 17:07 Freq: Status: Active Protocol: Document 07/03/21 12:00 AW (Rec: 07/03/21 17:16 AW [id number]) Posture Evaluation Comments Posture Comments Slight forward posture. Palpation Assessment Location neck, shoulders Palpation Details Moderately dense cervical peraspinals and periscapular musculature. Trigger point and spasm in rhomboids bilaterlly . Atrophy bilateral supraspinatus. Previous biceps tendon rupture with Ko deformity noted RUE. PT-OP-K Range of Motion Start: 07/02/21 17:07 Freq: Status: Active Protocol: Document 07/03/21 12:00 AW (Rec: 07/03/21 17:16 AW [id number]) Cervical Spine Range of Motion Cervical Spine Active Testing Position Sitting Flexion 50 Extension 50 Rotation Left 45 Rotation Right 40 Lateral Flexion Left 24 Lateral Flexion Right 23 ROM Limitations Soft Tissue Tightness,Pain Shoulder Goniometric Range of Motion Shoulder left Shoulder ROM WFL Yes Testing Position Sitting Flexion 150 Abduction 150 External Rotation at 0 degrees Abduction 60 Internal Rotation Behind Back (text) T12 right Shoulder ROM WFL Yes Testing Position Sitting Flexion 160 Abduction 155 External Rotation at 0 degrees Abduction 60 Internal Rotation Behind Back (text) T8 Shoulder ROM Limitations Shoulder ROM Limitations Muscle Weakness,Pain Elbow/Forearm Range of Motion Elbow/Forearm bilat Elbow/Forearm ROM WFL Yes PT-OP-M Strength Start: 07/02/21 17:07 Freq: Status: Active Protocol: Document 07/03/21 12:00 AW (Rec: 07/03/21 17:18 AW [id number]) Shoulder Strength Shoulder Manual Muscle Testing Left Flexion 4 Good Abduction (C5) 5 Normal External Rotation 4 Good Internal Rotation 4+ Good+ Right Flexion 4 Good Extension 5 Normal External Rotation 3+ Fair+ Internal Rotation 4+ Good+ PT-OP-Q Treatments Start: 07/02/21 17:07 Freq: Status: Active Protocol: Document 09/11/21 16:02 AW (Rec: 09/11/21 16:49 AW [id number]) Cardio Equipment Upper Body Ergometer (UBE) Duration (Minutes) 5 RPM 90 Seat Position 9 Height 2 Other fwd/bwd Gym Equipment Cable Column (Body Solid) scap depression Resistance 30 Reps/Time x15 Therapeutic Exercises Prone Exercises 1/2 foam roll Prone Exercise Name flexion, hAbd, protraction Side bilateral Equipment Used 1/2 foam roll Reps/Minutes AROM, 1# Comments last rep hAbd with weight irritated L shoulder Standing Exercises wall posture Standing Exercise Name wall posture Resistance roll up trunk to wall, cervical neutral, hAbd shoulders ball wall Standing Exercise Name ball wall Side bilateral Equipment Used orange playground ball abduction Standing Exercise Name abduction Side bilateral Resistance 1# db, 2#db Equipment Used started leaned toward working side Reps/Minutes x15 each weight (left; right w / 1# only) Comments pt can initiate from leaned position flexion Standing Exercise Name flexion Side bilateral Resistance 1# db L; 2#db R Reps/Minutes 2x15 Ys off wall Standing Exercise Name B AROM, single TB #1 Side bilateral Resistance AROM> #1 TB Reps/Minutes x10 each Comments good feedback response so progressed to PT-OP-R Modalities Start: 07/02/21 17:07 Freq: Status: Active Protocol: Document 09/11/21 16:02 AW (Rec: 09/11/21 16:50 AW [id number]) Hot Pack/Cold Pack Treatment Cold Pack Location L shoulder Patient Position Hooklying Treatment Duration (minutes) 10 Patient Tolerance Good PT-OP-T Assessment and Plan Start: 07/02/21 17:07 Freq: Status: Active Protocol: Document 09/11/21 16:02 AW (Rec: 09/11/21 16:49 AW [id number]) Physical Therapy Assessment Goals Four Impairment neck/shoulder pain impact daily activities (QuickDASH 39 %) Lobster Catcher Goal (LTG) Pt will score 20% or less on QuickDASH as a measure of improved performance in daily activities. LTG Duration 12 weeks - 09/25/21 Three Impairment cervical ROM Lobster Catcher Goal (LTG) Pt will increase cervical lateral flexion to 35 degrees or greater for improved shoulder function. LTG Duration 12 weeks - 09/25/21 Two Impairment B shoulder weakness Short Term Goal (STG) Pt will increase bilateral external rotation strength to 4/5 or greater STG Duration 6 weeks - 08/14/21 Lobster Catcher Goal (LTG) Pt will lift 10 pounds overhead ten times without pain or fatigue to improve ability to lift a suitcase. LTG Duration 12 weeks - 09/25/21 One Impairment lacks HEP Short Term Goal (STG) Pt will be instructed in HEP for shoulder ROM, strength, and stability to support therapy services provided in clinic. STG Duration 6 weeks - 08/14/21 Lobster Catcher Goal (LTG) Pt will be independent with HEP for shoulder ROM, strength , and stability to maintain therapy gains. LTG Duration 12 weeks - 09/25/21 Assessment Summary Assessment Pt tolerating increasing load in all resisted movements ( left more tolerant than right) . Today, she had some pain with resisted horizontal adduction when her left shoulder was in >90 degrees abduction. Treated with ice. Will follow up on ortho recommendations next visit. Physical Therapy Plan Frequency and Duration Frequency of Treatment 2x/Week Duration of Treatment 12 weeks Plan of Care Start Date 07/03/21 Plan of Care End Date 09/25/21 Therapeutic Interventions Therapeutic Interventions Aquatic Therapy,Home Exercise Program,Joint Mobilizations, Manual Therapy,Neuromuscular Re-education,Self-Care/Home Management,Soft Tissue Mobilization,Taping, Therapeutic Activities, Therapeutic Exercises Modalities Cold Pack/Ice Massage Next Visit Focus/Plan Next Note Type Treatment Note Next Visit Plan Follow up on ortho visit. Progress strengthening periscapular and RTC mm. Continue loading ER, abd, and hAbd if tolerated. STM UT and periscapular.
--- NOTE | 2021-09-25 17:05 | PT.OTN ---
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 She participated in PT and was satisfied with her function. Her left shoulder started hurting late last year . It hurt especially while sleeping. She was taking two extra strength Tylenol every day but was not getting relief . She went to ortho. X-ray was unremarkable. Steroid shot was helpful for ~6 weeks. She returned to ortho and MRI demontrated rotator cuff injury as below. Repeat injection on May 27 was effective and pt still has good pain relief. She has been doing gentle yoga for about a year. There is no weightbearing on hands in her class. She is able to tolerate cobra pose on forearms. She notices that external rotation of her shoulders in savasana is uncomfortable (more on the left). Prior Treatments and Tests MRI 05/18/21: 1. Full-thickness tear of the supraspinatus tendon. There is moderate supraspinatus muscle atrophy. 2. Partial-thickness tear of the infraspinatus and subscapularis tendons. 3. Subcoracoid bursitis. 4. Moderate acromioclavicular and glenohumeral joint degeneration. 5. Suspect tear of the long head of the biceps tendon. 6. Tenosynovitis of the long head of the biceps tendon. 7. A 0.5 x 0.9 cm intra- articular body along the long head of the biceps tendon. 8. Moderate glenohumeral joint effusion. 9. Degenerative labral fraying . Future Testing and Treatments Planned May consider further injections for pain mangement. Treatment Goals Patient/Caregiver Goals Pt wants to avoid surgery. Get stronger. Lift overhead. PT-OP-C Subjective Start: 07/02/21 17:07 Freq: Status: Active Protocol: Document 09/25/21 15:06 AW (Rec: 09/25/21 17:05 AW [id number]) OP-PT Subjective Patient Comments Patient Comments I think I've gotten about as far as I'm going to get with this shoulder. PT-OP-J Posture/Palpation/Skin Start: 07/02/21 17:07 Freq: Status: Active Protocol: Document 07/03/21 12:00 AW (Rec: 07/03/21 17:16 AW [id number]) Posture Evaluation Comments Posture Comments Slight forward posture. Palpation Assessment Location neck, shoulders Palpation Details Moderately dense cervical peraspinals and periscapular musculature. Trigger point and spasm in rhomboids bilaterlly . Atrophy bilateral supraspinatus. Previous biceps tendon rupture with Ko deformity noted RUE. PT-OP-K Range of Motion Start: 07/02/21 17:07 Freq: Status: Active Protocol: Document 07/03/21 12:00 AW (Rec: 07/03/21 17:16 AW [id number]) Cervical Spine Range of Motion Cervical Spine Active Testing Position Sitting Flexion 50 Extension 50 Rotation Left 45 Rotation Right 40 Lateral Flexion Left 24 Lateral Flexion Right 23 ROM Limitations Soft Tissue Tightness,Pain Shoulder Goniometric Range of Motion Shoulder left Shoulder ROM WFL Yes Testing Position Sitting Flexion 150 Abduction 150 External Rotation at 0 degrees Abduction 60 Internal Rotation Behind Back (text) T12 right Shoulder ROM WFL Yes Testing Position Sitting Flexion 160 Abduction 155 External Rotation at 0 degrees Abduction 60 Internal Rotation Behind Back (text) T8 Shoulder ROM Limitations Shoulder ROM Limitations Muscle Weakness,Pain Elbow/Forearm Range of Motion Elbow/Forearm bilat Elbow/Forearm ROM WFL Yes PT-OP-M Strength Start: 07/02/21 17:07 Freq: Status: Active Protocol: Document 07/03/21 12:00 AW (Rec: 07/03/21 17:18 AW [id number]) Shoulder Strength Shoulder Manual Muscle Testing Left Flexion 4 Good Abduction (C5) 5 Normal External Rotation 4 Good Internal Rotation 4+ Good+ Right Flexion 4 Good Extension 5 Normal External Rotation 3+ Fair+ Internal Rotation 4+ Good+ PT-OP-Q Treatments Start: 07/02/21 17:07 Freq: Status: Active Protocol: Document 09/25/21 15:06 AW (Rec: 09/25/21 17:05 AW [id number]) Gym Equipment Cable Column (Body Solid) scap depression Resistance 30 Reps/Time 15 x 2 Therapeutic Exercises Prone Exercises 1/2 foam roll Prone Exercise Name flexion > protraction Side bilateral Equipment Used 1/2 foam roll Reps/Minutes 1# Standing Exercises OH press Standing Exercise Name OH press Side bilateral Resistance 1#, 2# Comments trialed 3# but pt too weak on RUE abduction Standing Exercise Name abduction Side bilateral Resistance 1# db, 2#db Equipment Used started leaned toward working side Reps/Minutes x15 each weight (left; right w / 1# only) Comments pt can initiate from leaned position flexion Standing Exercise Name flexion Side bilateral Resistance 1# db L; 2#db R Reps/Minutes 2x15 reactive isometrics Standing Exercise Name reactive isometrics - IR and ER Side bilateral Resistance TB1 Equipment Used side step out/back Reps/Minutes x10 IR Standing Exercise Name IR Side bilateral Resistance TB2 Equipment Used neutral to trunk Comments clinic only Manual Therapy Treatment Soft Tissue Mobilization UT Body Location UT, rhomboids, pecs Mobilization Type Rolling,Strumming Intensity/Depth Moderate Body Position Hooklying PT-OP-R Modalities Start: 07/02/21 17:07 Freq: Status: Active Protocol: Document 09/11/21 16:02 AW (Rec: 09/11/21 16:50 AW [id number]) Hot Pack/Cold Pack Treatment Cold Pack Location L shoulder Patient Position Hooklying Treatment Duration (minutes) 10 Patient Tolerance Good PT-OP-T Assessment and Plan Start: 07/02/21 17:07 Freq: Status: Active Protocol: Document 09/25/21 15:06 AW (Rec: 09/25/21 17:05 AW [id number]) Physical Therapy Assessment Goals Four Impairment neck/shoulder pain impact daily activities (QuickDASH 39 %) Feeder/Folder Goal (LTG) Pt will score 20% or less on QuickDASH as a measure of improved performance in daily activities. LTG Duration 12 weeks - 09/25/21 Three Impairment cervical ROM Feeder/Folder Goal (LTG) Pt will increase cervical lateral flexion to 35 degrees or greater for improved shoulder function. * Improved from 25 to 30 bilaterally LTG Duration 12 weeks - 09/25/21 Two Impairment B shoulder weakness Short Term Goal (STG) Pt will increase bilateral external rotation strength to 4/5 or greater * L 4+/5, R 4/5 STG Duration 6 weeks - 08/14/21 Care Home Goal (LTG) Pt will lift 10 pounds overhead ten times without pain or fatigue to improve ability to lift a suitcase. * PROGRESSING - Pt able to lift 4# overhead which is an improvement. LTG Duration 12 weeks - 09/25/21 One Impairment lacks HEP Short Term Goal (STG) Pt will be instructed in HEP for shoulder ROM, strength, and stability to support therapy services provided in clinic. STG Duration 6 weeks - 08/14/21 Feeder/Folder Goal (LTG) Pt will be independent with HEP for shoulder ROM, strength , and stability to maintain therapy gains. * GOAL MET LTG Duration 12 weeks - 09/25/21 Assessment Summary Assessment Angelica has improved her cervical ROM and bilateral shoulder strength - including overhead. She still has bilateral shoulder pain but has improved awareness of scapular stabilization which does improve her shoulder ROM. Physical Therapy Plan Frequency and Duration Frequency of Treatment 2x/Week Duration of Treatment 12 weeks Plan of Care Start Date 07/03/21 Plan of Care End Date 09/25/21 Therapeutic Interventions Therapeutic Interventions Aquatic Therapy,Home Exercise Program,Joint Mobilizations, Manual Therapy,Neuromuscular Re-education,Self-Care/Home Management,Soft Tissue Mobilization,Taping, Therapeutic Activities, Therapeutic Exercises Modalities Cold Pack/Ice Massage Discharge Physical Therapy Discharge Reasons Plateau in Progress Discharge Comments Pt has met most goals and is pleased with her progress. She is able to manage her symptoms and is confident with HEP, appropriate for discharge at this time.
== END 2021-09-27 09:22 | disposition home or self-care (01) ==
LOC: PHYS 16:00
PROVIDERS: Family Provider Internal Medicine; PCP Internal Medicine; Referring Provider Orthopaedic Surgery; Visit Provider Orthopaedic Surgery
DX: M75.122 Complete rotator cuff tear or rupture of left shoulder, not specified as traumatic (principal)
CPT/HCPCS: 97110; 97140; 97161

== ENCOUNTER → 2021-11-05 13:06 | Outpatient (CLI) | payer MEDICARE, OTHER, SELFPAY ==
--- NOTE | 2021-11-05 13:08 | DI.MRI.S_ITS ---
PROCEDURE: MR CERVICAL SPINE WO CON INDICATIONS: neck pain TECHNIQUE: Noncontrast sagittal T1 spin echo and T2 fast spin echo, sagittal STIR, foraminal oblique sagittal T2 fast spin echo, and axial gradient echo or T2 fast spin echo through the cervical spine. COMPARISON: None. FINDINGS: Image quality: Excellent. Alignment and Curvature: Mild degenerative anterior listhesis present at C3-4, C4-5. There is straightening of the normal cervical lordosis present. Bone Marrow: Marrow demonstrates normal overall signal. Spinal Cord: Visualized spinal cord has normal size and signal. No cerebellar tonsillar herniation. Paraspinous Soft Tissues: No paravertebral masses. Prevertebral soft tissues are normal in thickness. C2-C3: Normal appearance. C3-C4: Disc space narrowing with hypertrophic uncovertebral joints present. Mild left and no right foraminal stenosis. No central stenosis. C4-C5: Disc space narrowing with hypertrophic uncovertebral joints results in moderate right and no left foraminal stenosis. Mild central stenosis C5-C6: Disc space narrowing with hypertrophic uncovertebral joints and posterior disc osteophyte complex results in moderate central stenosis with flattening the ventral surface of the cord. Moderate right and mild left foraminal stenosis. C6-C7: Disc space narrowing with hypertrophic uncovertebral joints and small posterior disc osteophyte complex results in mild central stenosis. Moderate bilateral foraminal stenosis. C7-T1: Disc space narrowing without central or foraminal stenosis IMPRESSION: Multilevel degenerative disc disease and arthropathy results in varying degrees of central and foraminal stenosis including moderate central and foraminal stenosis at C5-6 Approved by: Gibson Barbosa M.D. on 11/05/2021 at 16:43
== END ==
PROVIDERS: Family Provider Internal Medicine; PCP Internal Medicine; Referring Provider Physical Medicine & Rehabilitation Pain Medicine; Visit Provider Physical Medicine & Rehabilitation Pain Medicine
DX: M50.30 Other cervical disc degeneration, unspecified cervical region (principal); M50.322 Other cervical disc degeneration at C5-C6 level
CPT/HCPCS: 72141

== ENCOUNTER → 2021-11-08 15:55 | Outpatient (CLI) | payer MEDICARE, OTHER, SELFPAY ==
--- NOTE | 2021-11-08 15:56 | DI.RAD.S_ITS ---
PROCEDURE: XR HIP W PEL IF DONE LT 2V INDICATIONS: left hip pain TECHNIQUE: AP pelvis and lateral view of the left hip acquired. COMPARISON: [facility] [place], [place], XR PELVIS W LATERAL HIP LT, 05/31/2015, 14:13. FINDINGS: Bones: Patient is status post left hip arthroplasty, with hardware components in expected positions. The hip joint appears congruent. The visualized bony structures appear intact. Mild right hip axial joint space narrowing with mild periarticular osteophyte formation. Degenerative disc and facet disease involves the inferior lumbar spine. Soft tissues: Overlying postoperative changes are noted. No suspicious soft tissue densities. IMPRESSION: 1. Stable appearance and alignment of left hip arthroplasty. 2. Mild right hip joint degeneration. Dictated by: Parveen Puga [facility] Interpreted: Earnest Malhotra MD on 11/08/2021 at 16:34 Transcribed by: MICHELE on 11/08/2021 at 16:35 Approved by: Earnest Malhotra M.D. on 11/08/2021 at 18:43
== END ==
PROVIDERS: Family Provider Internal Medicine; PCP Internal Medicine; Referring Provider Internal Medicine; Visit Provider Internal Medicine
DX: M25.552 Pain in left hip (principal); Z96.642 Presence of left artificial hip joint
CPT/HCPCS: 73502

== ENCOUNTER → 2021-11-26 14:57 | Outpatient (CLI) | payer MEDICARE, OTHER, SELFPAY ==
[2021-11-26 15:58] LABS: Hematocrit 34.5 % (36-46); Hemoglobin 11.7 g/dL (12.0-16.0); Mean Corpuscular Hemoglobin 33.2 PG (26-34); Mean Corpuscular Volume 97.6 fL (80-100); Platelet Count 220 X10^3/uL (150-400); Red Blood Cell Count 3.53 X10^6/uL (4.0-5.2); Red Cell Distribution Width 13.2 % (11.6-14.8); White Blood Cell Count 9.4 X10^3/uL (4.5-11.0)
[2021-11-26 16:45] LABS: Alanine Aminotransferase 25 IU/L (<35); Albumin 4.3 g/dL (3.5-5.0); Albumin Globulin Ratio 1.4 (1.0-2.8); Alkaline Phosphatase 98 U/L (38-126); Aspartate Aminotransferase 33 IU/L (14-36); Bilirubin Total 0.9 mg/dL (0.2-1.3); Blood Urea Nitrogen 22 mg/dL (7-17); Calcium 9.1 mg/dL (8.4-10.2); Carbon Dioxide 28 mmol/L (22-32); Chloride 98 mmol/L (98-107); Cholesterol 211 mg/dL (140-199); Estimated Glomerular Filt Rate 59 mL/min (>60); Glucose 77 mg/dL (80-110); HDL Cholesterol 85 mg/dL (40-60); HEMOLYSIS < 15 (0-50); LDL Cholesterol Calculated 107 mg/dL (<100); Potassium 4.3 mmol/L (3.4-5.1); Sodium 134 mmol/L (137-145); Total Protein 7.3 g/dL (6.3-8.2); Triglycerides 94 mg/dL (35-150)
== END ==
PROVIDERS: Family Provider Internal Medicine; PCP Internal Medicine; Referring Provider Internal Medicine; Visit Provider Internal Medicine
DX: E78.2 Mixed hyperlipidemia (principal); F41.1 Generalized anxiety disorder; I10 Essential (primary) hypertension
CPT/HCPCS: 36415; 80053; 80061; 84443; 85027

== ENCOUNTER → 2022-01-08 13:41 | Outpatient (CLI) | payer MEDICARE, OTHER, SELFPAY | PROVIDERS: Family Provider Internal Medicine; PCP Internal Medicine; Visit Provider Family Medicine | DX: N39.0 Urinary tract infection, site not specified (principal) | CPT/HCPCS: 87077; 87086; 87186 ==

== ENCOUNTER 2022-01-21 08:15 | Outpatient (RCR) | payer MEDICARE, OTHER, SELFPAY ==
--- NOTE | 2021-12-17 15:13 | PT.OIE ---
Current Diagnoses Mixed incontinence (12/17/21) Past Medical History (Last Reviewed 11/27/21 @ 11:35 by Pascual Garcia MD) DJD (degenerative joint disease), cervical DM type 2 with diabetic dyslipidemia Essential hypertension Generalized anxiety disorder IT band syndrome Mixed hyperlipidemia Urinary incontinence Past Surgical History (Last Reviewed 11/27/21 @ 11:35 by Pascual Garcia MD) H/O total hip arthroplasty Visit Care Team Role Provider Type Pascual Garcia MD Family Provider Physician Primary Care Provider Specialty: Internal Medicine Address: [address] [place] [address], [id number] Email: [email or web address] Pawan Rodriguez MD Attending Provider Non-Staff Referring Provider Specialty: Urogynecology Address: [facility], [address] [place] [address], [id number] Email: Physical Therapy Initial Evaluation PT-OP-A Visit Information Start: 12/16/21 15:57 Freq: Status: Active Protocol: Document 12/17/21 08:16 AMB (Rec: 12/17/21 08:57 AMB [id number]) Out-Patient Physical Therapy Visit Information Visit Information Visit Type Initial Evaluation Visit Start Time 08:15 Visit Stop Time 09:00 Total Visit Minutes 45 Visit Number 1 PT-OP-B Current Condition Start: 12/16/21 15:57 Freq: Status: Active Protocol: Document 12/17/21 08:16 AMB (Rec: 12/17/21 08:57 AMB [id number]) Current Condition History of Current Condition Onset Date years Current Complaints Mixed urinary incontinence History of Current Condition Years of stress incontinence and urgency. Nocturia 1-2x/ night. 2-3hrs between voids. 32oz of water in a day. 2 pregnancies 1 . May have had forceps with first delivery. 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 Lifting granddaughter 18 months leaks. Cough, sneeze, hard laugh all increase leaks. Urgency ( triggers: water, getting out of the car to get into the house). Prior Functional Status Baseline Function- ADL's Independent Baseline Function- Mobility Independent Personal Factors Other Personal Factors That May Effect Hx L BENJAMIN, , HTN Therapy/Recovery PT-OP-C Subjective Start: 12/16/21 15:57 Freq: Status: Active Protocol: Document 12/17/21 08:15 AMB (Rec: 12/17/21 12:58 AMB [id number]) Patient Questionnaires Pelvic Pain and Urgency/Frequency Patient Symptom Scale Pelvic Pain Score 4 PT-OP-I Pelvic Floor Start: 12/16/21 15:57 Freq: Status: Active Protocol: Document 12/17/21 08:15 AMB (Rec: 12/17/21 12:59 AMB [id number]) Pelvic Floor Assessment Urine Urinary Symptoms Urge Sensation Leakage Size Small Leakage Cause Cough,Exercise,Lifting,Sneeze, Urge Leaks Per Day 3 Voiding Frequency 2-3 hours Nocturia 1-2 PT-OP-T Assessment and Plan Start: 12/16/21 15:57 Freq: Status: Active Protocol: Document 12/17/21 08:15 AMB (Rec: 12/18/21 15:13 AMB [id number]) Physical Therapy Assessment Rehab Potential Rehabilitation Potential Good Evaluation Complexity Number of Personal Factors/Comorbidities 1-2 Number of Body Systems Impaired 1-2 Clinical Presentation at Evaluation Stable Impairments Impairments Functional Activities,Strength Goals Two Impairment Stress incontinence Short Term Goal (STG) Angelica will perform a pelvic floor contraction for 10 seconds in standing to show improved strength. STG Duration 5 weeks Mcfp Goal (LTG) Angelica will lift her 18month old grandchild from the floor to waist height without leaking. LTG Duration 10 weeks One Impairment Urgency Short Term Goal (STG) Angelica will wash her hands without feeling urgency. STG Duration 5 weeks Head Librarian Goal (LTG) Angelica will calmly walk to the bathroom after coming home from the store without rushing or leaking. LTG Duration 10 weeks Assessment Summary Assessment Angelica presents with mixed urinary incontinence. Does not report chip frequency, but should increase clear fluid intake. Does have triggers with water running and coming into the home. Stress incontinence in the form of leaking with cough, sneeze, lifting grandaughter. Instructed in urge reduction techniques and will review as necessary and then progress pelvic floor strengthening for stress incontinence symptoms. Physical Therapy Plan Frequency and Duration Frequency of Treatment 1x/Week Duration of treatment (weeks) 10 Plan of Care Start Date 12/17/21 Plan of Care End Date 02/25/22 Therapeutic Interventions Therapeutic Interventions Home Exercise Program,Manual Therapy,Neuromuscular Re- education,Self-Care/Home Management,Therapeutic Activities,Therapeutic Exercises Modalities Biofeedback,Cold Pack/Ice Massage,Electric Stimulation Next Visit Focus/Plan Next Note Type Treatment Note Next Visit Plan Review urgency reduction, progress pelvic floor strengthening
--- NOTE | 2021-12-17 15:13 | PT.OIE ---
Current Diagnoses Mixed incontinence (12/17/21) Past Medical History (Last Reviewed 11/27/21 @ 11:35 by Pascual Garcia MD) DJD (degenerative joint disease), cervical DM type 2 with diabetic dyslipidemia Essential hypertension Generalized anxiety disorder IT band syndrome Mixed hyperlipidemia Urinary incontinence Past Surgical History (Last Reviewed 11/27/21 @ 11:35 by Pascual Garcia MD) H/O total hip arthroplasty Visit Care Team Role Provider Type Pascual Garcia MD Family Provider Physician Primary Care Provider Specialty: Internal Medicine Address: [address] [place] [address], [phone] Email: [email or web address] Pawan Rodriguez MD Attending Provider Non-Staff Referring Provider Specialty: Urogynecology Address: [facility], [address] [place] [address], [id number] Email: Physical Therapy Initial Evaluation PT-OP-A Visit Information Start: 12/16/21 15:57 Freq: Status: Active Protocol: Document 12/17/21 08:16 AMB (Rec: 12/17/21 08:57 AMB [id number]) Out-Patient Physical Therapy Visit Information Visit Information Visit Type Initial Evaluation Visit Start Time 08:15 Visit Stop Time 09:00 Total Visit Minutes 45 Visit Number 1 PT-OP-B Current Condition Start: 12/16/21 15:57 Freq: Status: Active Protocol: Document 12/17/21 08:16 AMB (Rec: 12/17/21 08:57 AMB [id number]) Current Condition History of Current Condition Onset Date years Current Complaints Mixed urinary incontinence History of Current Condition Years of stress incontinence and urgency. Nocturia 1-2x/ night. 2-3hrs between voids. 32oz of water in a day. 2 pregnancies 1 . May have had forceps with first delivery. 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 Lifting granddaughter 18 months leaks. Cough, sneeze, hard laugh all increase leaks. Urgency ( triggers: water, getting out of the car to get into the house). Prior Functional Status Baseline Function- ADL's Independent Baseline Function- Mobility Independent Personal Factors Other Personal Factors That May Effect Hx L BENJAMIN, , HTN Therapy/Recovery PT-OP-C Subjective Start: 12/16/21 15:57 Freq: Status: Active Protocol: Document 12/17/21 08:15 AMB (Rec: 12/17/21 12:58 AMB [id number]) Patient Questionnaires Pelvic Pain and Urgency/Frequency Patient Symptom Scale Pelvic Pain Score 4 PT-OP-I Pelvic Floor Start: 12/16/21 15:57 Freq: Status: Active Protocol: Document 12/17/21 08:15 AMB (Rec: 12/17/21 12:59 AMB [id number]) Pelvic Floor Assessment Urine Urinary Symptoms Urge Sensation Leakage Size Small Leakage Cause Cough,Exercise,Lifting,Sneeze, Urge Leaks Per Day 3 Voiding Frequency 2-3 hours Nocturia 1-2 PT-OP-T Assessment and Plan Start: 12/16/21 15:57 Freq: Status: Active Protocol: Document 12/17/21 08:15 AMB (Rec: 12/18/21 15:13 AMB [id number]) Physical Therapy Assessment Rehab Potential Rehabilitation Potential Good Evaluation Complexity Number of Personal Factors/Comorbidities 1-2 Number of Body Systems Impaired 1-2 Clinical Presentation at Evaluation Stable Impairments Impairments Functional Activities,Strength Goals Two Impairment Stress incontinence Short Term Goal (STG) Angelica will perform a pelvic floor contraction for 10 seconds in standing to show improved strength. STG Duration 5 weeks Fci Goal (LTG) Angelica will lift her 18month old grandchild from the floor to waist height without leaking. LTG Duration 10 weeks One Impairment Urgency Short Term Goal (STG) Angelica will wash her hands without feeling urgency. STG Duration 5 weeks Mail Messenger Goal (LTG) Angelica will calmly walk to the bathroom after coming home from the store without rushing or leaking. LTG Duration 10 weeks Assessment Summary Assessment Angelica presents with mixed urinary incontinence. Does not report chip frequency, but should increase clear fluid intake. Does have triggers with water running and coming into the home. Stress incontinence in the form of leaking with cough, sneeze, lifting grandaughter. Instructed in urge reduction techniques and will review as necessary and then progress pelvic floor strengthening for stress incontinence symptoms. Physical Therapy Plan Frequency and Duration Frequency of Treatment 1x/Week Duration of treatment (weeks) 10 Plan of Care Start Date 12/17/21 Plan of Care End Date 02/25/22 Therapeutic Interventions Therapeutic Interventions Home Exercise Program,Manual Therapy,Neuromuscular Re- education,Self-Care/Home Management,Therapeutic Activities,Therapeutic Exercises Modalities Biofeedback,Cold Pack/Ice Massage,Electric Stimulation Next Visit Focus/Plan Next Note Type Treatment Note Next Visit Plan Review urgency reduction, progress pelvic floor strengthening
--- NOTE | 2021-12-17 15:14 | PT.OPPOC ---
Physical, Occupational & Speech Therapy At [facility] Current Diagnoses Mixed incontinence (12/17/21) Visit Care Team Role Provider Type Pascual Garcia MD Family Provider Physician Primary Care Provider Specialty: Internal Medicine Address: [address] [place] [address], [phone] Email: [email or web address] Pawan Rodriguez MD Attending Provider Non-Staff Referring Provider Specialty: Urogynecology Address: [facility], [address] [place] [address], [id number] Email: Plan Of Care PT-OP-T Assessment and Plan Start: 12/16/21 15:57 Freq: Status: Active Protocol: Document 12/17/21 08:15 AMB (Rec: 12/18/21 15:13 AMB [id number]) Physical Therapy Assessment Rehab Potential Rehabilitation Potential Good Evaluation Complexity Number of Personal Factors/Comorbidities 1-2 Number of Body Systems Impaired 1-2 Clinical Presentation at Evaluation Stable Impairments Impairments Functional Activities,Strength Goals Two Impairment Stress incontinence Short Term Goal (STG) Angelica will perform a pelvic floor contraction for 10 seconds in standing to show improved strength. STG Duration 5 weeks [facility]ci Goal (LTG) Angelica will lift her 18month old grandchild from the floor to waist height without leaking. LTG Duration 10 weeks One Impairment Urgency Short Term Goal (STG) Angelica will wash her hands without feeling urgency. STG Duration 5 weeks Wage Adjuster Goal (LTG) Angelica will calmly walk to the bathroom after coming home from the store without rushing or leaking. LTG Duration 10 weeks Assessment Summary Assessment Angelica presents with mixed urinary incontinence. Does not report chip frequency, but should increase clear fluid intake. Does have triggers with water running and coming into the home. Stress incontinence in the form of leaking with cough, sneeze, lifting grandaughter. Instructed in urge reduction techniques and will review as necessary and then progress pelvic floor strengthening for stress incontinence symptoms. Physical Therapy Plan Frequency and Duration Frequency of Treatment 1x/Week Duration of treatment (weeks) 10 Plan of Care Start Date 12/17/21 Plan of Care End Date 02/25/22 Therapeutic Interventions Therapeutic Interventions Home Exercise Program,Manual Therapy,Neuromuscular Re- education,Self-Care/Home Management,Therapeutic Activities,Therapeutic Exercises Modalities Biofeedback,Cold Pack/Ice Massage,Electric Stimulation Next Visit Focus/Plan Next Note Type Treatment Note Next Visit Plan Review urgency reduction, progress pelvic floor strengthening Plan of Care Dates Plan of Care Start Date 12/17/21 Plan of Care End Date 02/25/22 Electronically Signed by: Paola Guerra, PT 12/18/21 [id number] If you are in agreement with this Plan of Care, please return a signed and dated copy. I have reviewed this Plan of Care and certify that the skilled therapy services above are required to meet the patient?s needs. Physician Signature Date Printed Name and Credentials Clinical Instructor Signature Printed Name and Credentials
--- NOTE | 2022-01-07 07:30 | PT.OTN ---
Current Diagnoses Mixed incontinence (01/07/22) Physical Therapy Treatment Note PT-OP-A Visit Information Start: 12/16/21 15:57 Freq: Status: Active Protocol: Document 01/07/22 09:02 AMB (Rec: 01/07/22 09:44 AMB [id number]) Out-Patient Physical Therapy Visit Information Visit Information Visit Type Treatment Note Visit Start Time 09:00 Visit Stop Time 09:45 Total Visit Minutes 45 Visit Number 2 PT-OP-B Current Condition Start: 12/16/21 15:57 Freq: Status: Active Protocol: Document 12/17/21 08:16 AMB (Rec: 12/17/21 08:57 AMB [id number]) Current Condition History of Current Condition Onset Date years Current Complaints Mixed urinary incontinence History of Current Condition Years of stress incontinence and urgency. Nocturia 1-2x/ night. 2-3hrs between voids. 32oz of water in a day. 2 pregnancies 1 . May have had forceps with first delivery. 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 Lifting granddaughter 18 months leaks. Cough, sneeze, hard laugh all increase leaks. Urgency ( triggers: water, getting out of the car to get into the house). Prior Functional Status Baseline Function- ADL's Independent Baseline Function- Mobility Independent Personal Factors Other Personal Factors That May Effect Hx L BENJAMIN, , HTN Therapy/Recovery PT-OP-C Subjective Start: 12/16/21 15:57 Freq: Status: Active Protocol: Document 01/07/22 09:02 AMB (Rec: 01/07/22 09:44 AMB [id number]) OP-PT Subjective Patient Comments Patient Comments Woke up to a spasming pelvic floor every 20 seconds today, wondering if she has a UTI. PT-OP-I Pelvic Floor Start: 12/16/21 15:57 Freq: Status: Active Protocol: Document 12/17/21 08:15 AMB (Rec: 12/17/21 12:59 AMB [id number]) Pelvic Floor Assessment Urine Urinary Symptoms Urge Sensation Leakage Size Small Leakage Cause Cough,Exercise,Lifting,Sneeze, Urge Leaks Per Day 3 Voiding Frequency 2-3 hours Nocturia 1-2 PT-OP-Q Treatments Start: 12/16/21 15:57 Freq: Status: Active Protocol: Document 01/07/22 09:00 AMB (Rec: 01/08/22 07:27 AMB [id number]) Therapeutic Exercises Sitting Exercises sit to stand Comments wiht pf hold, challenging roll in roll out Equipment Used #3 t band Reps/Minutes 2x10 Comments 5 hold, cued gentle pelvic floor relaxation PT-OP-T Assessment and Plan Start: 12/16/21 15:57 Freq: Status: Active Protocol: Document 01/07/22 09:02 AMB (Rec: 01/07/22 09:44 AMB [id number]) Physical Therapy Assessment Goals Two Impairment Stress incontinence Short Term Goal (STG) Angelica will perform a pelvic floor contraction for 10 seconds in standing to show improved strength. STG Duration 5 weeks Intermediate Goal (LTG) Angelica will lift her 18month old grandchild from the floor to waist height without leaking. LTG Duration 10 weeks One Impairment Urgency Short Term Goal (STG) Angelica will wash her hands without feeling urgency. STG Duration 5 weeks Key Account Manager Goal (LTG) Angelica will calmly walk to the bathroom after coming home from the store without rushing or leaking. LTG Duration 10 weeks Assessment Summary Assessment Angelica did well with progressing exercises, did not try biofeedback today as she is concerned she might be getting a UTI, no burning with urination, but describes some sensation of discomfort. Encouraged to continue to work on urge reduction and start progressing strengthening for leaking wiht lifting. Physical Therapy Plan Frequency and Duration Frequency of Treatment 1x/Week Duration of treatment (weeks) 10 Plan of Care Start Date 12/17/21 Plan of Care End Date 02/25/22 Therapeutic Interventions Therapeutic Interventions Home Exercise Program,Manual Therapy,Neuromuscular Re- education,Self-Care/Home Management,Therapeutic Activities,Therapeutic Exercises Modalities Biofeedback,Cold Pack/Ice Massage,Electric Stimulation Next Visit Focus/Plan Next Note Type Treatment Note Next Visit Plan Review urgency reduction, progress pelvic floor strengthening, consider biofeedback
--- NOTE | 2022-01-14 09:50 | PT.OTN ---
Current Diagnoses Mixed incontinence (01/14/22) Physical Therapy Treatment Note PT-OP-A Visit Information Start: 12/16/21 15:57 Freq: Status: Active Protocol: Document 01/14/22 09:03 AMB (Rec: 01/14/22 09:41 AMB [id number]) Out-Patient Physical Therapy Visit Information Visit Information Visit Type Treatment Note Visit Start Time 09:00 Visit Stop Time 09:45 Total Visit Minutes 45 Visit Number 3 PT-OP-B Current Condition Start: 12/16/21 15:57 Freq: Status: Active Protocol: Document 12/17/21 08:16 AMB (Rec: 12/17/21 08:57 AMB [id number]) Current Condition History of Current Condition Onset Date years Current Complaints Mixed urinary incontinence History of Current Condition Years of stress incontinence and urgency. Nocturia 1-2x/ night. 2-3hrs between voids. 32oz of water in a day. 2 pregnancies 1 . May have had forceps with first delivery. 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 Lifting granddaughter 18 months leaks. Cough, sneeze, hard laugh all increase leaks. Urgency ( triggers: water, getting out of the car to get into the house). Prior Functional Status Baseline Function- ADL's Independent Baseline Function- Mobility Independent Personal Factors Other Personal Factors That May Effect Hx L BENJAMIN, , HTN Therapy/Recovery PT-OP-C Subjective Start: 12/16/21 15:57 Freq: Status: Active Protocol: Document 01/14/22 09:03 AMB (Rec: 01/14/22 09:41 AMB [id number]) OP-PT Subjective Patient Comments Patient Comments On antibiotics for the UTI. Feeling better now. PT-OP-I Pelvic Floor Start: 12/16/21 15:57 Freq: Status: Active Protocol: Document 12/17/21 08:15 AMB (Rec: 12/17/21 12:59 AMB [id number]) Pelvic Floor Assessment Urine Urinary Symptoms Urge Sensation Leakage Size Small Leakage Cause Cough,Exercise,Lifting,Sneeze, Urge Leaks Per Day 3 Voiding Frequency 2-3 hours Nocturia 1-2 PT-OP-Q Treatments Start: 12/16/21 15:57 Freq: Status: Active Protocol: Document 01/14/22 09:03 AMB (Rec: 01/14/22 09:41 AMB [id number]) Therapeutic Exercises Sitting Exercises sit to stand Comments with pf hold, challenging roll in roll out Equipment Used #3 t band Reps/Minutes 2x10 Comments 5 hold, cued gentle pelvic floor relaxation Standing Exercises WBOS Standing Exercise Name long holds vs quick flicks Reps/Minutes 10 mini lunge Standing Exercise Name pf hold Reps/Minutes 10 mini squat Reps/Minutes 10 PT-OP-T Assessment and Plan Start: 12/16/21 15:57 Freq: Status: Active Protocol: Document 01/14/22 09:03 [facility] (Rec: 01/14/22 09:41 [facility] [id number]) Physical Therapy Assessment Goals Two Impairment Stress incontinence Short Term Goal (STG) Angelica will perform a pelvic floor contraction for 10 seconds in standing to show improved strength. STG Duration 5 weeks Retirement Goal (LTG) Angelica will lift her 18month old grandchild from the floor to waist height without leaking. LTG Duration 10 weeks One Impairment Urgency Short Term Goal (STG) Angelica will wash her hands without feeling urgency. STG Duration 5 weeks Drying And Winding Supervisor Goal (LTG) Angelica will calmly walk to the bathroom after coming home from the store without rushing or leaking. LTG Duration 10 weeks Assessment Summary Assessment Angelica feels pretty confident in her pelvic floor contractions and so isn't especially interested in the biofeedback at this point. Encouraged in continued strengthening in standing. Physical Therapy Plan Frequency and Duration Frequency of Treatment 1x/Week Duration of treatment (weeks) 10 Plan of Care Start Date 12/17/21 Plan of Care End Date 02/25/22 Therapeutic Interventions Therapeutic Interventions Home Exercise Program,Manual Therapy,Neuromuscular Re- education,Self-Care/Home Management,Therapeutic Activities,Therapeutic Exercises Modalities Biofeedback,Cold Pack/Ice Massage,Electric Stimulation Next Visit Focus/Plan Next Note Type Treatment Note Next Visit Plan Review urgency reduction, progress pelvic floor strengthening,
--- NOTE | 2022-01-21 13:00 | PT.OTN ---
Current Diagnoses Mixed incontinence (01/21/22) Physical Therapy Treatment Note PT-OP-A Visit Information Start: 12/16/21 15:57 Freq: Status: Active Protocol: Document 01/21/22 08:15 AMB (Rec: 01/28/22 12:56 AMB [id number]) Out-Patient Physical Therapy Visit Information Visit Information Visit Type Treatment Note Visit Start Time 08:15 Visit Stop Time 09:00 Total Visit Minutes 45 Visit Number 4 PT-OP-B Current Condition Start: 12/16/21 15:57 Freq: Status: Active Protocol: Document 12/17/21 08:16 AMB (Rec: 12/17/21 08:57 AMB [id number]) Current Condition History of Current Condition Onset Date years Current Complaints Mixed urinary incontinence History of Current Condition Years of stress incontinence and urgency. Nocturia 1-2x/ night. 2-3hrs between voids. 32oz of water in a day. 2 pregnancies 1 . May have had forceps with first delivery. 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 Lifting granddaughter 18 months leaks. Cough, sneeze, hard laugh all increase leaks. Urgency ( triggers: water, getting out of the car to get into the house). Prior Functional Status Baseline Function- ADL's Independent Baseline Function- Mobility Independent Personal Factors Other Personal Factors That May Effect Hx L BENJAMIN, , HTN Therapy/Recovery PT-OP-C Subjective Start: 12/16/21 15:57 Freq: Status: Active Protocol: Document 01/21/22 08:15 AMB (Rec: 01/28/22 12:56 AMB [id number]) OP-PT Subjective Patient Comments Patient Comments Feels ready for discharge PT-OP-I Pelvic Floor Start: 12/16/21 15:57 Freq: Status: Active Protocol: Document 12/17/21 08:15 AMB (Rec: 12/17/21 12:59 AMB [id number]) Pelvic Floor Assessment Urine Urinary Symptoms Urge Sensation Leakage Size Small Leakage Cause Cough,Exercise,Lifting,Sneeze, Urge Leaks Per Day 3 Voiding Frequency 2-3 hours Nocturia 1-2 PT-OP-Q Treatments Start: 12/16/21 15:57 Freq: Status: Active Protocol: Document 01/21/22 08:15 AMB (Rec: 01/28/22 12:56 AMB [id number]) Therapeutic Exercises Sitting Exercises sit to stand Comments with pf hold, challenging roll in roll out Equipment Used #3 t band Reps/Minutes 2x10 Comments 5 hold, cued gentle pelvic floor relaxation Standing Exercises mini lunge Standing Exercise Name pf hold Reps/Minutes 10 mini squat Reps/Minutes 10 PT-OP-T Assessment and Plan Start: 12/16/21 15:57 Freq: Status: Active Protocol: Document 01/21/22 08:21 AMB (Rec: 01/21/22 09:02 [facility] [id number]) Physical Therapy Assessment Goals Two Impairment Stress incontinence Short Term Goal (STG) Angelica will perform a pelvic floor contraction for 10 seconds in standing to show improved strength. STG Duration MET Systems Engineering Manager Goal (LTG) Angelica will lift her 18month old grandchild from the floor to waist height without leaking. LTG Duration MET One Impairment Urgency Short Term Goal (STG) Angelica will wash her hands without feeling urgency. STG Duration MET Half-Way Goal (LTG) Angelica will calmly walk to the bathroom after coming home from the store without rushing or leaking. LTG Duration PARTIALLY MET Assessment Summary Assessment Angelica attends physical therapy feeling like her urgency is significantly improved. She is still noticing stress incontinence sx, but can lift her grandchild at times without leaking. 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 Physical Therapy Plan Discharge Physical Therapy Discharge Reasons Goals Met
== END 2022-01-29 11:39 | disposition home or self-care (01) ==
LOC: PHYS 08:15
PROVIDERS: Family Provider Internal Medicine; PCP Internal Medicine; Referring Provider Obstetrics & Gynecology; Visit Provider Obstetrics & Gynecology
DX: N39.46 Mixed incontinence (principal)
CPT/HCPCS: 97110; 97161

== ENCOUNTER → 2022-02-04 12:54 | Outpatient (CLI) | payer MEDICARE, OTHER, SELFPAY ==
--- NOTE | 2022-02-04 12:55 | DI.MG.S_ITS ---
BILATERAL DIGITAL SCREENING MAMMOGRAM 3D/2D WITH CAD: 02/04/2022 CLINICAL: Routine screening. Family history of breast cancer. Comparison is made to exams dated: 01/21/2021 mammogram, 01/16/2020 mammogram, 01/13/2019 mammogram, and 12/29/2017 mammogram - [facility]. There are scattered areas of fibroglandular density in both breasts (category b / 25%-50% glandular tissue). Current study was also evaluated with a Computer Aided Detection (CAD) system. There are benign post operative findings in the right breast. No significant masses, calcifications, or other findings are seen in either breast. There has been no significant interval change. IMPRESSION: BENIGN There is no mammographic evidence of malignancy. A 1 year screening mammogram is recommended. Based on the Tyrer Cuzick model (a risk assessment model) the patient's lifetime risk is 10.5% and her 10 year risk is 8.7%. According to the ACR, ACS, and NCCN guidelines, an annual breast MRI exam along with mammogram is recommended if the patient's lifetime risk is 20% or greater. This exam was interpreted at Station ID: [id number]. NOTE: For mammograms, a report in lay terms will be sent to the patient. Approximately 15% of breast malignancies will not be visualized mammographically. In the management of a palpable breast mass, a negative mammogram must not discourage biopsy of a clinically suspicious lesion. Electronically Signed By: Giovanni grullon/siddharth:02/04/2022 14:24:55 letter sent: Normal Exam ACR BI-RADS Category 2: Benign Finding(s) [id number]
== END ==
PROVIDERS: Family Provider Internal Medicine; PCP Internal Medicine; Referring Provider Internal Medicine; Visit Provider Internal Medicine
DX: Z12.31 Encounter for screening mammogram for malignant neoplasm of breast (principal); Z80.3 Family history of malignant neoplasm of breast
CPT/HCPCS: 77063; 77067

== ENCOUNTER → 2022-02-11 10:48 | Outpatient (CLI) | payer MEDICARE, OTHER, SELFPAY | PROVIDERS: Family Provider Internal Medicine; PCP Internal Medicine; Referring Provider Internal Medicine; Visit Provider Internal Medicine | DX: Z78.0 Asymptomatic menopausal state (principal); Z13.820 Encounter for screening for osteoporosis; Z92.23 Personal history of estrogen therapy | CPT/HCPCS: 77080; 77081 ==

== ENCOUNTER → 2023-02-04 11:02 | Outpatient (CLI) | payer MEDICARE, OTHER, SELFPAY ==
[2023-02-04 12:43] LABS: Aspartate Aminotransferase 41 IU/L (14-36); BUN Creatinine Ratio 22.6 (6-22); Blood Urea Nitrogen 19 mg/dL (7-17); Calcium 9.9 mg/dL (8.4-10.2); Carbon Dioxide 23 mmol/L (22-32); Chloride 99 mmol/L (98-107); Cholesterol 233 mg/dL (140-199); Estimated Glomerular Filt Rate > 60 mL/min (>60); Glucose 104 mg/dL (80-110); HDL Cholesterol 97 mg/dL (40-60); HEMOLYSIS < 15 (0-50); LDL Cholesterol Calculated 120 mg/dL (<100); Potassium 5.2 mmol/L (3.4-5.1); Sodium 133 mmol/L (137-145); Triglycerides 82 mg/dL (35-150)
== END ==
PROVIDERS: Family Provider Internal Medicine; PCP Internal Medicine; Referring Provider Internal Medicine; Visit Provider Internal Medicine
DX: E78.2 Mixed hyperlipidemia (principal); I10 Essential (primary) hypertension
CPT/HCPCS: 36415; 80048; 80061; 84450

== ENCOUNTER → 2023-02-12 09:20 | Outpatient (CLI) | payer MEDICARE, OTHER, SELFPAY ==
--- NOTE | 2023-02-12 | DI.MG.S_ITS ---
BILATERAL DIGITAL SCREENING MAMMOGRAM 3D/2D WITH CAD: 02/12/2023 CLINICAL: Routine screening. Family history of breast cancer. Comparison is made to exams dated: 02/04/2022 mammogram, 01/21/2021 mammogram - [facility], 02/06/2020 mammogram - [facility], and 01/16/2020 mammogram - [facility]. There are scattered areas of fibroglandular density in both breasts (category b / 25%-50% glandular tissue). Current study was also evaluated with a Computer Aided Detection (CAD) system. There are benign post operative findings in the right breast. No significant masses, calcifications, or other findings are seen in either breast. There has been no significant interval change. IMPRESSION: BENIGN There is no mammographic evidence of malignancy. A 1 year screening mammogram is recommended. Based on the Tyrer Cuzick model (a risk assessment model) the patient's lifetime risk is 9.8% and her 10 year risk is 8.9%. According to the ACR, ACS, and NCCN guidelines, an annual breast MRI exam along with mammogram is recommended if the patient's lifetime risk is 20% or greater. This exam was interpreted at Station ID: [id number]. NOTE: For mammograms, a report in lay terms will be sent to the patient. Approximately 15% of breast malignancies will not be visualized mammographically. In the management of a palpable breast mass, a negative mammogram must not discourage biopsy of a clinically suspicious lesion. Electronically Signed By: Earnest jarquin/siddharth:02/12/2023 10:12:10 letter sent: Normal Exam ACR BI-RADS Category 2: Benign Finding(s) [id number]
== END ==
PROVIDERS: Family Provider Internal Medicine; PCP Internal Medicine; Referring Provider Internal Medicine; Visit Provider Internal Medicine
DX: Z12.31 Encounter for screening mammogram for malignant neoplasm of breast (principal); Z80.3 Family history of malignant neoplasm of breast
CPT/HCPCS: 77063; 77067

== ENCOUNTER → 2023-02-17 08:49 | Outpatient (CLI) | payer MEDICARE, OTHER, SELFPAY | PROVIDERS: Family Provider Internal Medicine; PCP Internal Medicine; Visit Provider Obstetrics & Gynecology | DX: R39.15 Urgency of urination (principal) | CPT/HCPCS: 87086 ==

== ENCOUNTER → 2024-04-22 13:41 | Outpatient (CLI) | payer MEDICARE, OTHER, SELFPAY ==
[2024-04-22 14:31] LABS: Aspartate Aminotransferase 40 IU/L (14-36); Blood Urea Nitrogen 23 mg/dL (7-17); Carbon Dioxide 26 mmol/L (22-32); Chloride 95 mmol/L (98-107); Cholesterol 220 mg/dL (140-199); Estimated Glomerular Filt Rate > 60 mL/min (>60); Glucose 105 mg/dL (80-110); HEMOLYSIS < 15 (0-50); Potassium 4.6 mmol/L (3.4-5.1); Sodium 131 mmol/L (137-145); Triglycerides 83 mg/dL (35-150)
[2024-04-22 14:41] LABS: HDL Cholesterol 112 mg/dL (40-60); LDL Cholesterol Calculated 91 mg/dL (<100)
== END ==
LOC: LAB 13:42
PROVIDERS: Family Provider Internal Medicine; PCP Internal Medicine; Referring Provider Internal Medicine; Visit Provider Internal Medicine
DX: E78.2 Mixed hyperlipidemia (principal); I10 Essential (primary) hypertension
CPT/HCPCS: 36415; 80048; 80061; 84450

== ENCOUNTER → 2024-05-03 10:14 | Outpatient (CLI) | payer MEDICARE, OTHER, SELFPAY ==
--- NOTE | 2024-05-03 10:16 | DI.MG.S_ITS ---
MM screening mammo BI: 05/03/2024. BI-RADS: 1 CLINICAL: 73-year old female for bilateral screening mammogram. Tyrer-Cuzick lifetime risk of 3.7%. No personal or first-degree family history of breast cancer. PRIOR EXAMS 02/12/2023, 02/04/2022, 01/21/2021, 02/06/2020, 01/16/2020. MAMMOGRAPHY TECHNIQUE: 2D and 3D (tomosynthesis) digital mammographic views obtained, with additional images as needed for full coverage. Current study was also evaluated with a Computer Aided Detection (CAD) system. DENSITY C. The breasts are heterogeneously dense, which may obscure small masses. MAMMOGRAPHY FINDINGS Bilateral: No suspicious mass, asymmetry, microcalcification, or other abnormality seen. IMPRESSION: * No evidence of malignancy. RECOMMENDATIONS Bilateral * Annual screening mammography. OVERALL ASSESSMENT CATEGORY BI-RADS-1: Negative. The [employer] recommends annual screening mammography beginning at age 40 for women with average risk of breast cancer. ELECTRONICALLY SIGNED: Earnest Malhotra M.D. on 05/03/2024 at 12:16:23 PM Interpreting Station ID: [id number]
== END ==
PROVIDERS: Family Provider Internal Medicine; PCP Internal Medicine; Referring Provider Internal Medicine; Visit Provider Internal Medicine
DX: Z12.31 Encounter for screening mammogram for malignant neoplasm of breast (principal); R92.333 Mammographic heterogeneous density, bilateral breasts
CPT/HCPCS: 77063; 77067